=== PATIENT | female | born 1940 | race Caucasian/White ===

== ENCOUNTER 2023-09-19 23:50 | Inpatient (IN) | payer OTHER, SELFPAY ==
[2023-09-19 21:10] VITALS: BP 152/69
[2023-09-19 21:20] VITALS: BP 152/69
--- NOTE | 2023-09-19 21:22 | ED.GENMED ---
History of Present Illness
General
Chief Complaint: Breathing Problem
Source: patient
Exam Limitations: none
Time Seen by Provider: 09/19/23 21:17
Nursing documentation reviewed up to this point in time: agreed with
History of Present Illness
History of Present Illness:
Patient is a 83-year-old female with past medical history of CVA heart failure with preserved EF insulin pen diabetes type 2 CAD, with LAD stents x 3 September/2009 and angioplasty of mid LAD stent in 05/04/2010 brought by EMS from [facility].
Nurse tells me patient was originally sent for possible UTI however patient is very tachypneic and I was called to the room upon patient's arrival. Patient does complain of shortness of breath. She is tachypneic labored breathing use of accessory
muscles. She when asked tells me this is been for the past couple days
Past History
Past History
ED Past Medical History: Arrthythmia (atrial fibrillation), CAD, CHF, CVA (2015 left MCA), GERD, HTN, Hypercholesterolemia, NIDDM, Hypothyroidism, Psychiatric (major depression), Other (Peripheral vascular disease, carotid stenosis, osteoarthritis,
degenerative disc disease, renal failure, MRSA, vertigo) and Other (Chronic low back pain, obesity, osteoporosis, presumed Parkinson's disease)
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
Social History
Tobacco: Non-smoker
Alcohol: None
Drug: None
Personal: Single
Living: long-term (in [place] since August 2018.)
Employment: Retired
Family History
Family History: Other (Reviewed and Noncontributory)
Review of Systems
Review of Systems
Allergies reviewed?: Yes
All Other Systems: ROS reviewed and negative except as documented in HPI and ROS
Constitutional: Reports no symptoms; Denies fever, fatigue or chills
Respiratory: Reports trouble breathing
Cardiac: Reports no symptoms; Denies chest pain or palpitations
ABD/GI: Reports no symptoms
: Reports no symptoms
Skin: Reports no symptoms
Neurological: Reports no symptoms
Psychiatric: Reports no symptoms
Phy Exam
General Physical Exam
General Presentation: no apparent distress
General age: appears stated age
General Skin: warm and dry
General Habitus: normal
General Mental: alert
General Hydration: appears well hydrated
Cardiovascular Exam
Cardiovascular Exam: regular rate/rhythm, no murmur and normal peripheral pulses
Pulmonary Exam
Pulmonary Exam: other (Increased respiratory rate decreased breath sounds throughout)
Neurological Exam
Neurological Exam: alert and oriented x3
Musculoskeletal Exam
Musculoskeletal Exam: full ROM
Skin Exam
Skin Exam: normal color and warm/dry
Psychiatric Exam
Psychiatric Exam: normal mood/affect
Scores
Heart Failure Risk
Heart Failure Risk Score: Not Applicable
Course
Orders/Labs/Results
Orders:
Orders
09/19/23 21:17
ECG [Electrocardiogram (*1)] Urgent
Reason for Study: Shortness of Breath
EKG- Treatment ONCE
09/19/23 21:22
Albuterol Sulfate [Ventolin Nebules] 7.5 mg INH R NOW STA
Portable Chest Xray [CR Chest Portable - 1 View] Urgent
Comment:
Reason For Exam: sob
Reason Study Needs to be Portable: Unable to Transport
09/19/23 21:23
IV Insert/Care/Rem.- Treatment PRN
09/19/23 21:24
Cardiac Monitoring- Treatment ONCE
09/19/23 21:42
Complete Blood Count/With Diff Urgent
Comprehensive Metabolic Panel Urgent
NT-proBNP Urgent
Troponin I Urgent
09/19/23 21:45
Furosemide [Lasix] 40 mg IV NOW STA
09/19/23 22:01
Bipap [RESP] Urgent
Patient to use own unit?: No
Inspiratory Pressure (cm H2O): 12
Expiratory Pressure (cm H2O): 5
Abnormal Lab Results
09/19/23
21:42
WBC 12.2 H 10^3/uL
(4.8-10.8)
RBC 2.96 L 10^6/uL
(4.20-5.40)
Hgb 9.9 L g/dL
(12.0-16.0)
Hct 28.3 L %
(37.0-47.0)
MCH 33.4 H pg
(27.0-31.0)
Abs Immat Gran (auto) 0.1 H 10^3/uL
(0-0.05)
Absolute Neuts (auto) 8.6 H 10^3/uL
(1.4-6.5)
Absolute Monos (auto) 0.8 H 10^3/uL
(0.1-0.6)
Lymphocytes % 19.3 L %
(20.5-51.1)
Chloride 108 H mmol/L
(98-107)
BUN 46 H mg/dl
(7-17)
Creatinine 2.6 H mg/dL
(0.6-1.0)
Glucose 166 H mg/dl
(70-99)
Troponin I 0.216 H* ng/ml
Total Protein 5.9 L g/dl
(6.3-8.2)
Albumin 2.5 L g/dl
(3.5-5.0)
09/19/23 21:42
09/19/23 21:42
Vital Signs
Initial and Last Documented VS:
Initial Vital Signs
BP
152/69
09/19/23 21:10
Last Documented Vital Signs
Temp Pulse Resp BP Pulse Ox
98.2 F 87 24 152/70 99
09/19/23 21:20 09/19/23 22:04 09/19/23 21:30 09/19/23 22:04 09/19/23 21:31
Cell Repairer consulted with Physician
Cell Repairer consulted with physician?: Yes
Name of Physician Consulted: Sagar
MDM/Problems Addressed
Differential Diagnosis Includes:
Not limited to respiratory distress congestive heart failure unstable angina
MDM/Problems Addressed:
As documented patient has a history of CHF CAD with stents CVA on Plavix Lasix presents to the ER for shortness of breath from [facility]. Patient presents short of breath tachypneic here in the ER. Patient has obvious conversational
dyspnea however reports she has been short breath off over the past several days. Stat portable chest x-ray shows bilateral pleural effusions new from January 2023.
Patient does have history of CHF.d/c wit ED attending. IV lasix given. pt was initially given a neb on arrival without relief.
Pt placed on BIPAP and doing better. No chest pain however trop elevated at 0.216. BNP elevated at 25,000 patient has elevated renal function of 46 and 2.6 has chronic kidney disease stage IV) In addition to lasix nitro past ordered
Chronic conditions affecting care:
CHF CAD with stents Parkinson's chronic kidney stage IV
*EKG
Interpreted by ED Provider?: Yes
Heart Rate: 79
Rate: normal
Rhythm: sinus
Ischemia: no ischemia
*Critical Care Note
Total Time (30-74mins, 75-104mins- exclusive of procedures): Not Applicable
ED Attending Note
-
Portions of this chart may have been created with voice recognition software.� Occasional wrong word or��sound alike� substitutions may have occurred due to the inherent limitations of voice recognition software.
Discharge Plan
Departure
Prescriptions:
No Action
ipratropium-albuterol 3 ML solution for nebulization
3 ml inhalation R Q6HPRN PRN (Reason: cough,congestion)
polyethylene glycol 3350 17 GRAMS powder in packet
17 grams PO MOWEFR@09
oxybutynin chloride 10 MG tablet extended release 24hr
10 mg PO HS
aspirin 81 MG tablet,delayed release (DR/EC)
81 mg PO DAILY
magnesium hydroxide 30 ML suspension
30 ml PO [id number] PRN (Reason: if no bm x9 shifts)
bisacodyl [OneLAX Bisacodyl] 10 MG suppository
10 mg HI DAILYPRN PRN (Reason: if no bm aftr mom)
pantoprazole 40 MG tablet,delayed release (DR/EC)
40 mg PO DAILY
Enema 135 ML enema
118 ml HI DAILYPRN PRN (Reason: if no bm aftr dulcolax)
cholecalciferol (vitamin D3) 1,000 UNITS tablet
1,000 units PO DAILY
insulin glargine [Basaglar KwikPen U-100 Insulin] 100 UNIT/ML insulin pen
28 unit SQ DAILY
insulin glargine [Basaglar KwikPen U-100 Insulin] 100 UNIT/ML insulin pen
25 unit SQ HS
ammonium lactate 1 APPLIC lotion
1 applic TP [id number] PRN (Reason: dry skin on legs)
metoprolol succinate 25 MG tablet extended release 24 hr
25 mg PO DAILY
insulin aspart U-100 [Novolog FlexPen U-100 Insulin] 300 UNITS/3 ML insulin pen
12 units SC MEALS
Patient Comments:
plus sliding [id number], 201-250=4u, 251-300=6u, 301-350=8u, 351-400=10u
duloxetine 30 MG capsule,delayed release(DR/EC)
30 mg PO HS
melatonin 5 MG tablet
5 mg PO HS
albuterol sulfate 1 PUFF HFA aerosol inhaler
1 puff inhalation R Q6HPRN PRN (Reason: sob)
hydralazine 25 MG tablet
25 mg PO Q8 0RF
meclizine 25 MG tablet
25 mg PO Q8HPRN PRN (Reason: vertigo) 0RF
furosemide 20 MG tablet
20 mg PO DAILY 0RF
clopidogrel [Plavix] 75 mg Tablet
75 mg PO DAILY
famotidine [Pepcid] 20 mg Tablet
20 mg PO DAILY
benzonatate 100 mg Capsule
100 mg PO Q8HPRN PRN (Reason: COUGH)
hydrocortisone [Preparation H Hydrocortisone] 1 % Cream
1 applic TOPICAL Q6HPRN PRN (Reason: HEMORRHIODS)
carbidopa-levodopa 10-100 mg Tablet
1 tab PO BID@17,21
carbidopa-levodopa 10-100 mg Tablet
2 tab PO DAILY@0900
Refresh Digital 0.5-1-0.5 % Drops
1 drp BOTH EYES QID
atorvastatin 40 MG tablet
40 mg PO HS
acetaminophen 325 mg Tablet
650 mg PO Q6HPRN PRN (Reason: mild pain, T>100)
magnesium hydroxide [Milk of Magnesia] 400 mg/5 mL Suspension
30 ml PO DAILYPRN PRN (Reason: no BM x3 days)
losartan 100 mg Tablet
100 mg PO DAILY
Referrals:
Shay Sorensen MD [Family Provider] -
Interventions
Interventions:
*Risk Screen - Suicide Last Done: 09/19/23 21:20
*General Assessment Last Done: 09/19/23 21:31
*Neglect/Abuse Screening Last Done: 09/19/23 21:31
ED- Fall Risk Assessment Last Done: 09/19/23 21:31
*ED COVID-19 Vaccine History Last Done: 09/19/23 21:31
ED- Cardiac Assessment Last Done: 09/19/23 21:31
ED- Pulmonary Assessment Last Done: 09/19/23 21:31
Discharge Date and Time
Print Language: CAPE VERDEAN
[2023-09-19 21:27] VITALS: BMI 32.3
[2023-09-19] MEDS: VENTOLIN NEBULES 7.5 MG INH (21:27)
[2023-09-19 21:49] LABS: % Basophils 0.8 % (0-2); % Eosinophils 2.3 % (0-6); % Immature Granulocytes 0.5 % (0-0.5); % Lymphocytes 19.3 % (20.5-51.1); % Monocytes 6.6 % (1.7-9.3); % Neutrophils 70.5 % (42.2-75.2); Absolute Basophils 0.1 10^3/uL (0-0.2); Absolute Eosinophils 0.3 10^3/uL (0-0.7); Absolute Immature Granulocytes 0.1 10^3/uL (0-0.05); Absolute Lymphocytes 2.3 10^3/uL (1.2-3.4); Absolute Monocytes 0.8 10^3/uL (0.1-0.6); Absolute Neutrophils 8.6 10^3/uL (1.4-6.5); Hematocrit 28.3 % (37.0-47.0); Hemoglobin 9.9 g/dL (12.0-16.0); Mean Corpuscular Hgb 33.4 pg (27.0-31.0); Mean Corpuscular Volume 95.6 fL (81.0-99.0); Mean Platelet Volume 9.8 fL (7.4-10.4); Nucleated Red Blood Cells % 0 %; Platelet Count 308 10^3/uL (130-400); Red Blood Cell Count 2.96 10^6/uL (4.20-5.40); Red Cell Dist. Width 13.5 % (11.5-14.5); White Blood Cell Count 12.2 10^3/uL (4.8-10.8)
[2023-09-19 22:00] VITALS: BP 152/70
[2023-09-19 22:02] LABS: ALT (SGPT) < 10 U/L (0-35); AST (SGOT) 23 U/L (14-36); Albumin 2.5 g/dl (3.5-5.0); Alkaline Phosphatase 113 U/L (38-126); Blood Urea Nitrogen 46 mg/dl (7-17); Calcium 8.9 mg/dl (8.4-10.2); Carbon Dioxide 23 mmol/L (22-30); Chloride 108 mmol/L (98-107); Estimated Creatinine Clearance 17 ml/min; Glucose 166 mg/dl (70-99); Potassium 4.1 mmol/L (3.5-5.1); Sodium 139 mmol/L (135-145); Total Bilirubin 0.6 mg/dl (0.2-1.3); Total Protein 5.9 g/dl (6.3-8.2); eGFR 17.65
[2023-09-19] MEDS: LASIX 40 MG IV (22:04)
[2023-09-19 22:20] VITALS: PULSE 2
[2023-09-19 22:20] LABS: NT-proBNP 25400 pg/ml; Troponin I 0.216 ng/ml
[2023-09-19 22:48] VITALS: BP 152/59
[2023-09-19] MEDS: NITRO-BID 1 INCH TOPICAL (22:48)
[2023-09-19 23:00] VITALS: BP 139/75
--- NOTE | 2023-09-19 23:55 | HPS.HSE ---
Family Physician
-
Family Physician: Shay Sorensen
Chief Complaint
-
SOB
History of Present Illness
Patient is an 83y F with PMH significant for ASCVD, CHF and R hemiparesis s/p prior CVA who presents to ED complaining of SOB. History obtained from patient and family at the bedside. Daughter saw patient on Tuesday and she appeared well at that
time. Earlier today son visited and thought she appeared ill / SOB. This afternoon patient was noted to have increased dyspnea / respiratory distress and was sent to the ED from [place] for further evaluation.
Patient was in significant distress on arrival with SpO2 = 87% on supplemental oxygen. She was started on BiPAP here in the ED and states that she feels marginally better since that time.
Patient notes that she developed gradually worsening SOB over this past weekend - though much worse today.
No significant chest pain, cough, fevers / chills, etc.
Patient recently completed a 5 day course of Augmentin for UTI and states that she gets frequent UTIs with dysuria, frequency, etc. No other recent med changes, etc.
She is non-ambulatory at baseline with R hemiparesis due to prior CVA.
Medical History
Past Medical History
Past Medical History: Reports Other
Additional Past Medical History:
ASCVD (CAD, CVA, Carotid Stenosis, PAD)
Right Hemiparesis s/p CVA
Chronic HFpEF
Hypertension
DM-II
CKD IV
Parkinson's Disease
GERD / Bolanos's Esophagus
Anxiety / Depression
Past Surgical History: Reports Other
Additional Past Surgical History:
PTCA with Multiple Stents
Balloon angioplasty to LAD
Carotid stent
Appendectomy
Hysterectomy
Ovarian cyst
Tonsillectomy
Cataract surgery
ORIF R ankle
Social History
Tobacco: Non-smoker
Alcohol: None
Drug: None
Living: Correction
Family History
Family History: Not pertinent
Allergies / Home Medications
Allergies reflects when Allergies were last updated in [facility].
Home Medications with original date entered in [facility]
Allergy/Medication List:
Allergies
Allergy/AdvReac Type Severity Reaction Status Date / Time
amlodipine Allergy Unknown Verified 09/19/23 21:26
cefuroxime sodium Allergy upset Verified 09/19/23 21:26
[From Zinacef] stomach
enalapril Allergy cough Verified 09/19/23 21:26
erythromycin base Allergy low blood Verified 09/19/23 21:26
pressure,
flushing
Iodinated Contrast Media Allergy IV DYE Verified 09/19/23 21:26
[Iodinated Contrast Media -
Oral and]
levofloxacin [From Levaquin] Allergy upset Verified 09/19/23 21:26
stomach
metformin Allergy Unknown Verified 09/19/23 21:26
prednisone Allergy Hives Verified 09/19/23 21:26
shellfish derived Allergy LOBSTER-HIV Verified 09/19/23 21:26
ES
Sulfa (Sulfonamide Allergy Unknown Verified 09/19/23 21:26
Antibiotics)
Home Medications
aspirin 81 mg tablet,delayed release 81 mg PO DAILY Blood clot prevention/tx 02/26/19
bisacodyl 10 mg rectal suppository (OneLAX Bisacodyl) 10 mg [place] DAILYPRN PRN if no bm aftr mom 02/26/19
cholecalciferol (vitamin D3) 25 mcg (1,000 unit) tablet 1,000 units PO DAILY Supplement 02/26/19
insulin glargine 100 unit/mL (3 mL) subcutaneous pen (Basaglar KwikPen U-100 Insulin) 25 unit SQ HS Diabetes 02/26/19
insulin glargine 100 unit/mL (3 mL) subcutaneous pen (Basaglar KwikPen U-100 Insulin) 28 unit SQ DAILY Diabetes 02/26/19
ipratropium 0.5 mg-albuterol 3 mg (2.5 mg base)/3 mL nebulization soln 3 ml inhalation R Q6HPRN PRN cough,congestion 02/26/19
oxybutynin chloride 10 mg tablet,extended release 24 hr 10 mg PO HS Urinary issue 02/26/19
pantoprazole 40 mg tablet,delayed release 40 mg PO DAILY Gastrointestinal issue 02/26/19
polyethylene glycol 3350 17 gram oral powder packet 17 grams PO MOWEFR@ Constipation 02/26/19
albuterol sulfate 90 mcg/actuation aerosol inhaler 1 puff inhalation R Q6HPRN PRN sob 09/21/21
ammonium lactate 12 % lotion 1 applic TP [id number] PRN dry skin on legs 09/21/21
duloxetine 30 mg capsule,delayed release 30 mg PO HS Mental Health/Anxiety 09/21/21
insulin aspart U-100 100 unit/mL (3 mL) subcutaneous pen (Novolog FlexPen U-100 Insulin aspart) 12 units SC MEALS Diabetes 09/21/21
melatonin 5 mg tablet 5 mg PO HS Sleep 09/21/21
metoprolol succinate 25 mg tablet,extended release 24 hr 25 mg PO DAILY Heart disease/condition 09/21/21
hydralazine 25 mg tablet 25 mg PO Q8 09/25/21
meclizine 25 mg tablet 25 mg PO Q8HPRN PRN vertigo 09/25/21
acetaminophen 325 mg tablet 650 mg PO Q6HPRN PRN mild pain, T>100 01/18/23
atorvastatin 40 mg tablet 40 mg PO HS High Cholesterol 01/18/23
benzonatate 100 mg capsule 100 mg PO Q8HPRN PRN COUGH 01/18/23
carbidopa 10 mg-levodopa 100 mg tablet 1 tab PO BID@0900,1700 Neurological Condition 01/18/23
carbidopa 10 mg-levodopa 100 mg tablet 2 tab PO HS Neurological Condition 01/18/23
oupxtyrbrliummwhffrilt-qeucqrfb-dojrxrmv 80 0.5 %-1 %-0.5 % eye drops (Refresh Digital) 1 drp BOTH EYES QID Eye Condition 01/18/23
clopidogrel 75 mg tablet (Plavix) 75 mg PO DAILY Blood Clot Prevention/Tx 01/18/23
hydrocortisone 1 % topical cream (Preparation H Hydrocortisone) 1 applic topical Q6HPRN PRN HEMORRHIODS 01/18/23
losartan 100 mg tablet 100 mg PO DAILY Blood Pressure 01/18/23
magnesium hydroxide 400 mg/5 mL oral suspension (Milk of Magnesia) 30 ml PO DAILYPRN PRN no BM x3 days 01/18/23
amlodipine 2.5 mg tablet 2.5 mg PO DAILY 09/19/23
amoxicillin 500 mg-potassium clavulanate 125 mg tablet (Augmentin) 1 tab PO Q12H 09/19/23
docusate sodium 100 mg capsule 100 mg PO HS 09/19/23
furosemide 20 mg tablet 40 mg PO DAILY 09/19/23
Review of Systems
-
History Source: Patient
A 12 point ROS was completed and negative except as noted: Yes
Constitutional: Reports Fatigue; Denies Fever or Chills
EENT: Denies Sore Throat
Respiratory: Reports Trouble Breathing; Denies Cough or Hemoptysis
Cardiac: Denies Chest Pain, Diaphoresis, Palpitations or Syncope
Abdomen/GI: Denies Abdominal Pain, Nausea, Vomiting or Diarrhea
: Reports Dysuria, Frequency and Incontinence; Denies Flank Pain
Musculoskeletal: Reports Edema
Neurological: Reports Weakness and Numbness; Denies Dizzy or Headache
Psych: Reports Anxiety; Denies Depression
Physical Exam
Vital Signs
Vital Signs
Temp Pulse Resp BP Pulse Ox
98.2 F 82 18 139/75 99
09/19/23 21:20 09/19/23 23:00 09/19/23 23:00 09/19/23 23:00 09/19/23 23:00
Physical Exam
General: Other (Ill-appearing 83y F in moderate respiratory distress despite BiPAP.)
HEENT: Other (BiPAP in place. Pos HJR.)
Respiratory: Other (Bibasilar rales, diminished breath sounds at bases with dullness to percussion about 1/3 up.)
Cardiac: S1/S2 and Irregular Rhythm; No Murmur
GI: Soft, Non Tender, Non Distended and Normal Bowel Sounds
Musculoskeletal: No Clubbing, No Cyanosis and Other (2+ pitting edema in dependent distribution (R hand / buttocks / etc).)
Neuro: AO x 3 and Other (R hemiparesis / bilateral LE weakness - chronic and unchanged from baseline. No new focal deficits.)
Laboratory Results
-
09/19/23 21:42
09/19/23 21:42
Laboratory Results
Total Bilirubin 0.6 mg/dl (0.2-1.3) 09/19/23 21:42
AST 23 U/L (14-36) 09/19/23 21:42
ALT < 10 U/L (0-35) 09/19/23 21:42
Alkaline Phosphatase 113 U/L (38-126) 09/19/23 21:42
Troponin I 0.216 ng/ml H* 09/19/23 21:42
Impression/Plan
-
A/P: Patient is an 83y F with PMH significant for ASCVD, CHF, HTN and DM-II who presents to ED complaining of SOB.
Acute on Chronic HFpEF
Acute Hypoxemic Respiratory Failure secondary to the above
Bilateral Pleural Effusions secondary to the above
- Admit to ICU for further evaluation and treatment.
- Patient continues to appear to be uncomfortable - despite improvement in oxygenation on BiPAP.
- Adjust PAP settings as able for comfort / adequate oxygenation.
- Additional dose of Lasix now - will require higher dosing given renal impairment.
- IV Lasix BID and follow I/Os, daily weights, etc.
- Update Echo (last in 01/2023 with LVEF = 57%).
- BNP today is markedly elevated compared to prior values.
- Cardiology evaluation for additional recommendations.
- Care Navigator evaluation.
- Follow for clinical improvement.
- Consider IR / thoracentesis in the AM if dyspnea persists despite diuresis.
ASCVD
Abnormal Troponin
- Initial troponin is 0.216 - significantly higher than prior values.
- Etiology of this increase is unclear at present, i.e. ischemic v non-ischemic.
- No current chest pain, but significant dyspnea / active CHF.
- EKG with bifascicular block, PACs and PVCs but no evident acute ischemia.
- Known history of multiple prior coronary stents / CAD.
- Will begin IV heparin for now and follow serial troponin to peak.
- Continue DAPT, beta-augusto, statin, etc.
- Cardiology evaluation as noted above.
Benign Hypertension
- BP not markedly elevated on initial presentation.
- Will hold many BP meds for now and monitor for changes with attempts at diuresis.
- Resume meds as needed for adequate BP control
JONATAN on CKD IV
- SCr - 2.6 compared to prior baseline around 1.6 (though that does not seem c/w diagnosis of CKD IV).
- Follow for changes with diuresis.
DM-II
- Stable. Continue basal : bolus insulin regimen.
- Follow glucose and cover with SSI as needed.
- Update A1C.
Right Hemiparesis as Late Effect of CVA
- Non-ambulatory at baseline.
- RUE significant edema noted today - suspect this is due to CHF / patient positioning, but will check US to rue out DVT.
- Can be done in the AM as already on therapeutic heparin gtt.
- PT / OT evals once clinically improved.
Parkinson's
- Stable. Continue current dosing of Sinemet without interruption / changes.
Anemia of Chronic Disease
- Stable. Hgb is at / near known baseline.
- Follow for changes with diuresis.
OAB / Frequent UTIs
- Observe off of any abx therapy for now.
- Completed recent course of Augmentin on 09/14.
DVT Prophylaxis: On IV Heparin
Code Status: DNR
[2023-09-20] VITALS (29 sets, daily range): BP systolic 66–169; BP diastolic 41–80; PULSE 2–77; BMI 32.3; BMI 31.7
[2023-09-20] MEDS: LASIX 40 MG IV ×2 (00:22→17:39)
[2023-09-20] MEDS: HEPARIN 4000 UNITS IV (00:30)
[2023-09-20 00:47] LABS: APTT 31.5 Sec (23.4-35.0)
[2023-09-20] MEDS: HEPARIN 25000 UNITS/250 ML IV (01:05)
[2023-09-20 01:30] LABS: Hematocrit 25.5 % (37.0-47.0); Hemoglobin 8.9 g/dL (12.0-16.0); Mean Corp Hgb Conc. 34.9 g/dL (33.0-37.0); Mean Corpuscular Volume 94.4 fL (81.0-99.0); Mean Platelet Volume 9.8 fL (7.4-10.4); Platelet Count 278 10^3/uL (130-400); Red Cell Dist. Width 13.5 % (11.5-14.5); White Blood Cell Count 13.1 10^3/uL (4.8-10.8)
--- NOTE | 2023-09-20 02:00 | PTCARENOTE ---
rec`d pt from ED at 0200. AAOx3, pt on BIPAP. SR on monitor. hr in 70s. +edema +2, bilateral lower +3 edema. crackles noted. purwick in place. lower leg bilateral pink open skin., blister like. left AC 20 running with heparin gtt. call raya in reach
[2023-09-20 02:12] LABS: Troponin I 0.204 ng/ml
[2023-09-20 02:42] LABS: LDH 213 U/L (120-246); Total Protein 5.9 g/dl (6.3-8.2)
[2023-09-20] MEDS: BENADRYL 12.5 MG IV (04:41)
[2023-09-20 04:45] LABS: TSH Reflex To Free T4 3.83 uIU/ml (0.47-4.68)
[2023-09-20] MEDS: CYMBALTA DELAYED RELEASE 30 MG PO ×2 (05:13→21:15)
[2023-09-20] MEDS: SINEMET 10-100 1 TABLET PO ×2 (05:22→17:39)
[2023-09-20] MEDS: SINEMET 10-100 PO (05:24)
[2023-09-20 06:23] LABS: Blood Urea Nitrogen 39 mg/dl (7-17); Calcium 7.3 mg/dl (8.4-10.2); Carbon Dioxide 18 mmol/L (22-30); Chloride 118 mmol/L (98-107); Estimated Creatinine Clearance 19 ml/min; Glucose 81 mg/dl (70-99); Magnesium 1.6 mg/dl (1.6-2.3); Potassium 3.4 mmol/L (3.5-5.1); Sodium 142 mmol/L (135-145); eGFR 20.45
--- NOTE | 2023-09-20 08:00 | PTCARENOTE ---
Received pt @ change of shift. Assessment as charted- see flow sheet. SpO2 97% on BiPAP 12/5, 3L. Auscultated diminished breath sounds throughout and crackles @ b/l base L>R. #22 L hand PIV w heparin gtt infusing, titrated per orders- see flow
sheet. Pt. instructed on how to report care concerns and call raya placed w in reach. Hourly round maintained.
[2023-09-20 08:07] LABS: APTT 83.2 Sec (23.4-35.0)
[2023-09-20 08:21] LABS: Troponin I 0.255 ng/ml
--- NOTE | 2023-09-20 08:50 | W.PN.HOSP.TC ---
Today's Communication/Plan
-
diuresis
replace K and Mag
Heparin
ECHO
Thoracentesis
Await Procal and speech eval
Assessment / Plan
Assessment / Plan
83 y/o female with shortness of breath
SOB
On BIPAP
CVS: S1-S2 normal
Chest: decreased at bases
Abdomen: Soft, NT / Bowel sounds present
Extremities: No edema
# Acute on chronic heart failure [place] [address]
Acute hypoxic respiratory failure secondary to above
Bilateral pleural effusions
On BiPAP continue Lasix IV
Check echo
Cardiology evaluation
Thoracentesis by [facility]
# Coronary artery disease with H/O coronary stents
Elevated troponin
EKG bifascicular block PACs and PVCs
IV heparin for now and follow serial troponin to peak.
Continue DAPT, beta-augusto, statin
# Leukocytosis-repeat urinalysis
Check procalcitonin
Unclear whether this is CHF or pneumonia given elevated white count
Speech evaluation to rule out aspiration pneumonia Parkinson disease
# Hypokalemia- Replace
# Hypertension-on metoprolol 25 mg, losartan 100 mg daily, Amlodipine 2.5 mg as outpatient along with hydralazine 20 mg every 8 hours
continue beta-blockers alone now
# Hyperlipidemia-statin
# Acute kidney injury on CKD stage IV
Baseline creatinine 1.6 ,hold losartan
# Diabetes
Patient was on Lantus insulin 28 units in the morning and 20 units at night along with NovoLog 12 before meals as outpatient
Patient got Lantus insulin 25 units at nighttime. Continue sliding scale coverage as she is n.p.o.
# History of CVA with right hemiparesis
Nonambulatory at baseline
# Frequent UTIs recently completed a course of Augmentin on 09/15/2023
# Parkinson disease-continue Sinemet
# Anemia of chronic disease
# Chronic vertigo on meclizine as needed,
# Depression-on duloxetine
# GERD-PPI
# DVT prophylaxis-IV heparin
# DNR
Discussed with son at bedside
Discussed with pulmonary critical care
time spent over 55 min
Anticipated Discharge: > 48 hours
Subjective/Interval History
-
Date of Service: September 20, 2023
Objective Data
-
Labs:
Laboratory Results
09/19/23 09/20/23 09/20/23
21:42 00:28 01:25
WBC 12.2 H 13.1 H
Hgb 9.9 L 8.9 L
Hct 28.3 L 25.5 L
Plt Count 308 278
PT
INR
APTT 31.5
Sodium 139
Potassium 4.1
Chloride 108 H
Carbon Dioxide 23
BUN 46 H
Creatinine 2.6 H
Glucose 166 H
Calcium 8.9
Total Bilirubin 0.6
AST 23
ALT < 10
Alkaline Phosphatase 113
09/20/23 09/20/23
05:07 07:40
WBC
Hgb
Hct
Plt Count
PT 15.0 H
INR 1.20
APTT 83.2 H
Sodium 142
Potassium 3.4 L
Chloride 118 H
Carbon Dioxide 18 L
BUN 39 H
Creatinine 2.3 H
Glucose 81
Calcium 7.3 L D
Total Bilirubin
AST
ALT
Alkaline Phosphatase
Vital Signs:
Vital Signs
Temp Pulse Resp BP Pulse Ox
98.2 F 86 19 151/63 93
09/19/23 21:20 09/20/23 05:45 09/20/23 05:45 09/20/23 04:00 09/20/23 05:45
I&O
09/19/23 09/20/23 09/21/23
06:59 06:59 06:59
Intake Total 40 / 40
Output Total 200 / 200
Balance -160 / -160
[2023-09-20] MEDS: NOVOLOG FLEXPEN-MODERATE RESISTANCE SC ×3 (08:55→17:07)
[2023-09-20] MEDS: ASPIR LOW (ENTERIC COATED) 81 MG PO (08:57)
[2023-09-20] MEDS: LASIX 60 MG PO (08:57)
[2023-09-20] MEDS: PLAVIX 75 MG PO (08:57)
[2023-09-20] MEDS: COZAAR 50 MG PO (08:58)
[2023-09-20] MEDS: TOPROL XL 25 MG PO (08:58)
--- NOTE | 2023-09-20 10:25 | CARDSERVLU ---
Echocardiogram with Lumason completed after protocol screening completed. Allergies verified.
Patent IV site: __L AC___
IV site flushed with 0.9% NaCl pre and post administration.
Diluted bolus method utilized to enhance visualization of ventricular heller.
Total volume given: _2.5___ mL
Patient tolerated all procedures well without complications.
--- NOTE | 2023-09-20 10:29 | CON.INTV ---
Documented by User: Joellen Anguiano MD, Resident 09/20/23 11:09
Consultation
Consultation Request
Date/Time Consultation Requested: 09/20/2023 00:18
Date/Time Consultation Performed: 09/20/2023 08:00
Medical History
-
Chief Complaint: Shortness of breath
History of Present Illness:
Patient is a 89-year-old female with past medical history significant for ASCVD, CHF with preserved ejection fraction, right hemiparesis status post prior CVA 2021 who presented to ED from the group home complaining of shortness of breath at
rest and exertion, and respiratory distress. Presentation to the ED patient was afebrile, normotensive and in significant distress with SpO2 87% on supplemental oxygen. She was started on BiPAP in the ED with improvement in oxygenation.
Evaluation with chest x-ray in ED showed moderate pleural effusion. Troponin elevated at 0.216 which EKG negative for acute ischemia. We are asked to follow from a critical care standpoint in the setting of hypoxemic respiratory failure.
Past Medical History
Past Medical History: Other (CAD, CVA, carotid stenosis, PAD, right hemiparesis status post CVA, chronic HFpEF, hypertension, DM 2, CKD stage IV, Parkinson's disease, GERD, Bolanos's esophagus, anxiety, depression)
Past Surgical History: Other (PTCA with multiple stents, balloon angioplasty to LAD, carotid stent, appendectomy, hysterectomy, ovarian cyst, tonsillectomy, cataract surgery,)
Social History
Tobacco: Non-smoker
Alcohol: None
Drug: None
Personal: Single
Living: Retirement
Employment: Retired
Family History
Family History: Reviewed & Not Pertinent
Allergies / Home Medications
Allergies
Allergy/AdvReac Type Severity Reaction Status Date / Time
amlodipine Allergy Unknown Verified 09/19/23 21:26
cefuroxime sodium Allergy upset Verified 09/19/23 21:26
[From Zinacef] stomach
enalapril Allergy cough Verified 09/19/23 21:26
erythromycin base Allergy low blood Verified 09/19/23 21:26
pressure,
flushing
Iodinated Contrast Media Allergy IV DYE Verified 09/19/23 21:26
[Iodinated Contrast Media -
Oral and]
levofloxacin [From Levaquin] Allergy upset Verified 09/19/23 21:26
stomach
metformin Allergy Unknown Verified 09/19/23 21:26
prednisone Allergy Hives Verified 09/19/23 21:26
shellfish derived Allergy LOBSTER-HIV Verified 09/19/23 21:26
ES
Sulfa (Sulfonamide Allergy Unknown Verified 09/19/23 21:26
Antibiotics)
Home Medications
�Medication �Instructions �Recorded �Confirmed �Last Taken �Type
aspirin 81 mg tablet,delayed 81 mg PO DAILY Blood clot 02/26/19 09/19/23 04/19/19 09:00 History
release prevention/tx
bisacodyl 10 mg rectal suppository 10 mg CA DAILYPRN PRN if no bm 02/26/19 09/19/23 Unknown History
(OneLAX Bisacodyl) aftr mom
cholecalciferol (vitamin D3) 25 1,000 units PO DAILY Supplement 02/26/19 09/19/23 04/18/19 09:00 History
mcg (1,000 unit) tablet
insulin glargine 100 unit/mL (3 25 unit SQ HS Diabetes 02/26/19 09/19/23 04/19/19 06:00 History
mL) subcutaneous pen (Basaglar
KwikPen U-100 Insulin)
insulin glargine 100 unit/mL (3 28 unit SQ DAILY Diabetes 02/26/19 09/19/23 04/18/19 21:00 History
mL) subcutaneous pen (Basaglar
KwikPen U-100 Insulin)
ipratropium 0.5 mg-albuterol 3 mg 3 ml inhalation R Q6HPRN PRN 02/26/19 09/19/23 02/26/19 09:22 History
(2.5 mg base)/3 mL nebulization cough,congestion
soln
oxybutynin chloride 10 mg 10 mg PO HS Urinary issue 02/26/19 09/19/23 04/18/19 17:00 History
tablet,extended release 24 hr
pantoprazole 40 mg tablet,delayed 40 mg PO DAILY Gastrointestinal 02/26/19 09/19/23 04/19/19 06:00 History
release issue
polyethylene glycol 3350 17 gram 17 grams PO MOWEFR@09 Constipation 02/26/19 09/19/23 04/18/19 09:00 History
oral powder packet
albuterol sulfate 90 mcg/actuation 1 puff inhalation R Q6HPRN PRN sob 09/21/21 09/19/23 Unknown History
aerosol inhaler
ammonium lactate 12 % lotion 1 applic TP [id number] PRN dry skin 09/21/21 09/19/23 Unknown History
on legs
duloxetine 30 mg capsule,delayed 30 mg PO HS Mental Health/Anxiety 09/21/21 09/19/23 Unknown History
release
insulin aspart U-100 100 unit/mL 12 units SC MEALS Diabetes 09/21/21 09/19/23 Unknown History
(3 mL) subcutaneous pen (Novolog
FlexPen U-100 Insulin aspart)
melatonin 5 mg tablet 5 mg PO HS Sleep 09/21/21 09/19/23 Unknown History
metoprolol succinate 25 mg 25 mg PO DAILY Heart 09/21/21 09/19/23 Unknown History
tablet,extended release 24 hr disease/condition
hydralazine 25 mg tablet 25 mg PO Q8 09/25/21 09/19/23 Unknown Rx
meclizine 25 mg tablet 25 mg PO Q8HPRN PRN vertigo 09/25/21 09/19/23 Unknown Rx
acetaminophen 325 mg tablet 650 mg PO Q6HPRN PRN mild pain, 01/18/23 09/19/23 Unknown History
T>100
atorvastatin 40 mg tablet 40 mg PO HS High Cholesterol 01/18/23 09/19/23 Unknown History
benzonatate 100 mg capsule 100 mg PO Q8HPRN PRN COUGH 01/18/23 09/19/23 Unknown History
carbidopa 10 mg-levodopa 100 mg 1 tab PO BID@0900,1700 01/18/23 09/19/23 Unknown History
tablet Neurological Condition
carbidopa 10 mg-levodopa 100 mg 2 tab PO HS Neurological Condition 01/18/23 09/19/23 Unknown History
tablet
zvjkhverdezybqhgxmzcrq-szbwrlzu-sdfsnqgd 1 drp BOTH EYES QID Eye Condition 01/18/23 09/19/23 Unknown History
80 0.5 %-1 %-0.5 % eye drops
(Refresh Digital)
clopidogrel 75 mg tablet (Plavix) 75 mg PO DAILY Blood Clot 01/18/23 09/19/23 Unknown History
Prevention/Tx
hydrocortisone 1 % topical cream 1 applic topical Q6HPRN PRN 01/18/23 09/19/23 Unknown History
(Preparation H Hydrocortisone) HEMORRHIODS
losartan 100 mg tablet 100 mg PO DAILY Blood Pressure 01/18/23 09/19/23 Unknown History
magnesium hydroxide 400 mg/5 mL 30 ml PO DAILYPRN PRN no BM x3 days 01/18/23 09/19/23 Unknown History
oral suspension (Milk of Magnesia)
amlodipine 2.5 mg tablet 2.5 mg PO DAILY Blood Pressure 09/19/23 09/19/23 Unknown History
amoxicillin 500 mg-potassium 1 tab PO Q12H Infection 09/19/23 09/19/23 Unknown History
clavulanate 125 mg tablet
(Augmentin)
docusate sodium 100 mg capsule 100 mg PO HS Constipation 09/19/23 09/19/23 Unknown History
furosemide 20 mg tablet 40 mg PO DAILY Fluid 09/19/23 09/19/23 Unknown History
Retention/Swelling
Review of Systems
-
All other systems: Negative unless noted (Except as documented)
Vitals / Labs / Diagnostic Testing
Vital Signs
Temp Pulse Resp BP Pulse Ox
97.6 F 85 19 169/76 93
09/20/23 08:00 09/20/23 08:58 09/20/23 05:45 09/20/23 08:58 09/20/23 05:45
Lab Data
09/20/23 01:25
09/20/23 05:07
Laboratory Results
09/20/23 09/20/23
00:28 07:40
PT 15.0 H
INR 1.20
APTT 31.5 83.2 H
Diagnostic Testing:
Physical Exam
-
HEENT: Other (Normocephalic, BiPAP in place)
Cardiovascular: S1/S2 and Irregular Rhythm
Respiratory: Other (Bibasilar rales, diminished breath sounds at bases, no wheezes, no rhonchi)
GI: Soft, Non Distended, Non Tender and Normal Bowel Sounds
Neurology: Awake, Alert and Oriented
Skin: Warm
General: Other (Patient is in moderate respiratory distress despite BiPAP)
Assessment
-
83-year-old female with PMH significant for ASCVD, CHF, hypertension, DM 2, HFpEF complaining of shortness of breath and respiratory distress
Assessment
Acute hypoxemic respiratory failure secondary to acute on chronic HFpEF
Bilateral pleural effusions on X-ray
Abnormal troponin
JONATAN on CKD stage IV
Anemia of chronic disease
Hypokalemia
Hypomagnesemia
Conditions present prior to admission
CAD
Right hemiparesis status post prior CVA
Carotid stenosis
PAD
Benign hypertension
Diabetes mellitus 2
Parkinson's disease
Anxiety
Depression
Plan
Patient initiated on BiPAP in the ED with improvement in oxygenation
Continue BiPAP qhs 10p-6a, and PRN during the day
BNP markedly elevated at 25,400
Last echo 01/2023 with LVEF 57%
IV Lasix initiated
Follow I/O's, daily weights
Cardiology on board
Troponin elevated at 0.255 with no episode of current chest pain
Repeat troponin
Initial EKG with no evidence of acute ischemia, repeat EKG
IR/thoracocentesis with fluid analysis
Creatinine 2.5 compared to baseline of 1.6
Monitor BMP, creatinine
Replete Mg, monitor K+ repeat both labs at noon
Hold losartan until creatinine improves
Resume amlodipine for blood pressure control
Patient with prior CVA on dual antiplatelet therapy, continue meds
Continue statin
DVT ppx IV heparin
GI ppx pantoprazole p.o.
DNR

Documented by User: Tip Zepeda MD 09/20/23 11:53
Consultation
Consultation Request
Reason for Consultation: critical care
Medical History
-
History of Present Illness:
History obtained from son at bedside, some history from patient and reviewed ER records, hospital records. Patient is a 83-year-old female with past medical history significant for ASCVD, CHF with preserved ejection fraction, right hemiparesis
status post prior CVA 2021 who presented to ED from the group home complaining of shortness of breath at rest and exertion, and respiratory distress. Presentation to the ED patient was afebrile, normotensive and in significant distress with
SpO2 87% on supplemental oxygen. She was started on BiPAP in the ED with improvement in oxygenation. Evaluation with chest x-ray in ED showed moderate pleural effusion. Troponin elevated at 0.216 which EKG negative for acute ischemia. We are
asked to follow from a critical care standpoint in the setting of hypoxemic respiratory failure.
Review of Systems
-
History Source: Family
Physical Exam
-
General: Other (mild distress with movement likely comfort related)
Assessment
-
83-year-old female with PMH significant for ASCVD, CHF, hypertension, DM 2, HFpEF complaining of shortness of breath and respiratory distress
Assessment
Acute hypoxemic respiratory failure secondary to acute on chronic HFpEF
Bilateral pleural effusions on X-ray
Abnormal troponin
JONTAAN on CKD stage IV
Anemia of chronic disease
Hypokalemia
Hypomagnesemia
Conditions present prior to admission
CAD
Right hemiparesis status post prior CVA
Carotid stenosis
PAD
Benign hypertension
Diabetes mellitus 2
Parkinson's disease
Anxiety
Depression
DNR
Plan
Patient initiated on BiPAP in the ED with improvement in oxygenation
Continue BiPAP qhs 10p-6a, and PRN during the day
BNP markedly elevated at 25,400
Last echo 01/2023 with LVEF 57%
IV Lasix initiated
Follow I/O's, daily weights
Cardiology on board
Troponin elevated at 0.255 with no episode of current chest pain
pt on ASA
Repeat troponin
Initial EKG with no evidence of acute ischemia, repeat EKG
Prolonged QT noted. Will follow. Repeat EKG in a.m.
Chest x-ray with bilateral pleural effusions, left greater than right. Likely secondary to heart failure
Given respiratory distress, requirement for BiPAP, will consider both diagnostic and therapeutic left thoracentesis
No indication for antibiotics at this time. Will follow clinically
IR/thoracocentesis with fluid analysis, and cultures. Reviewed with interventional radiology low suspicion for infection
Other etiologies to consider with acute hypoxia include thromboembolic disease. This is less likely with an abnormal chest x-ray
Creatinine 2.5 compared to baseline of 1.6
Creatinine decreased to 2.3 despite negative fluid status. This potentially argues for heart failure
Monitor BMP, creatinine
Replete Mg, monitor K+ repeat both labs at noon
Hold losartan until creatinine improves
Resume amlodipine for blood pressure control
allergy noted, unknown. Reviewed with pharmacy. Will clarify
Reason for acute on chronic renal insufficiency likely related to poor forward flow in the setting of heart failure. However will check renal ultrasound to rule out obstructive uropathy
No other nephrotoxic agents noted preadmission
Patient with prior CVA on dual antiplatelet therapy, continue meds
Baseline neurological exam noted, right-sided weakness
Continue statin
DVT ppx IV heparin
GI ppx pantoprazole p.o.
DNR
Reviewed the above with critical care nursing, respiratory care, pharmacy, case management
TCCT 35 min

Above reviewed. Patient seen and examined independently by myself. History obtained from the son at the bedside and some history from the patient.
Patient presents from group home with progressive shortness of breath and hypoxia. Chest x-ray suggested bilateral pleural effusions, blood work suggestive of heart failure. There is no evidence of hemodynamic compromise. Patient started on
BiPAP, admitted to ICU for further management
Social history, family history, medications, allergies, review of systems as above
Of note son states patient is on oxygen therapy intermittently. She also was on CPAP therapy in the past before being at the group home for years ago, stopped for unclear reasons
Physical exam remarkable for decreased breath sounds bilaterally and mild use of accessory muscles.
Data significant for elevated proBNP, mildly elevated troponin, abnormal EKG with prolonged QT, renal insufficiency, chest x-ray with bilateral effusions.
A/P
Moving forward, we will continue to treat for presumptive heart failure. Cardiology has been consulted. Patient remains on heparin therapy for coronary syndrome. Trend troponins
May require echocardiogram
Continue with IV heparin therapy, also on aspirin Plavix
Daily EKG to follow QT interval
Other etiologies to consider include aspiration pneumonia, thromboembolic disease. Low suspicion for either of these at this time but we will follow clinically
Patient is high risk for thromboembolic disease as a complication therefore will empirically place on hold pharmacological and mechanical DVT prophylaxis
Follow electrolytes, repeat potassium at 2 PM, replete magnesium
Will check renal ultrasound to rule out obstructive uropathy
Reviewed with critical care nursing, respiratory care, pharmacy, case management
Will follow-up
TCCT 35 min
--- NOTE | 2023-09-20 10:32 | CM ---
CM folioing re: discharge planning.
Discussed in rounds, reviewed pt's chart, met with pt. Pt's son Dave at bedside.
Pt is an 82 year old female, admitted with primary dx of Acute on Chronic HFpEF. Acute Hypoxemic Respiratory Failure
Pt is a custodial care resident at [facility], requires 2 people to assist, bed bound. CM spoke to [facility] liaison and she confirmed that pt is on Medicaid bed hold and pt will be accepted back when medically stable.
D/C plan: return back to [facility] for a middle or intermediate school principal care.
CM will follow with discharge plan updates as hospitalization progresses
--- NOTE | 2023-09-20 10:56 | CON.CAR ---
Addendum entered and electronically signed by Jaxon Vaughan MD 09/20/23 14:31:
I saw and examined the patient.
The DIESEL ENGINE PIPE FITTER or PA's note was reviewed and I agree with the note.
Comment: General: Well developed, well nourished in NAD.
Neck: Supple, no JVD, HJR, carotids +2 B/L, no bruits bilaterally.
Heart: Non displaced PMI, RRR, no murmurs, No S3, S4, no rubs.
Lungs: Scattered rhonchi
Extremities: No clubbing, cyanosis or edema bilaterally.
Neuro: Grossly nonfocal, awake, alert and oriented x3.
Erin has a history of bilateral strokes on Plavix, left carotid artery stent, CAD with PCI, chronic diastolic CHF, COPD, diabetes, sleep apnea. She is wheelchair-bound and a resident which per half-way. She presented with concerns of UTI
but was noted to be short of breath. She has not short breath recently. Her son claims a resident had and she was upset. She is admitted now with CHF. She originally is on BiPAP which has been weaned down.
Will continue treatment IV Lasix. Will check echocardiogram. Troponin is elevated and may rule in for an SC. Treat conservatively given comorbid illnesses. Might need thoracentesis. Discussed with son at bedside.
Original Note:
Consultation
Consultation Request
Date/Time Consultation Performed: 09/20/23
Requesting Provider: Dr. Benson
Performing Provider: Diya Shah PA-C for Dr. Vaughan
Reason for Consultation: CHF
Medical History
-
Chief Complaint: SOB
History of Present Illness:
Patient is an 83-year-old female resident of [facility] with past medical history of bilateral strokes on Plavix, transition to Brilinta, then back to Plavix again, history of left carotid artery stent, CAD with LAD PCI and angioplasty, chronic
HFpEF, COPD, diabetes, PJ and who is wheelchair-bound. She presented to [facility] due to concerns for UTI however was then noted to be tachypneic. Reported worsening shortness of breath over the weekend, which more acutely worsened
yesterday. On arrival to the ER was noted to be hypoxic and required BiPAP. She has now been transitioned to supplemental oxygen. proBNP was the highest it has ever been at 24,000. CXR with mod B/L pleural effusions. Cardiology consulted for
evaluation. She is unsure what dose of lasix she was receiving at half-way.
PMH:
Chronic HFpEF
CKD
Chronic bifascicular block
History of B/L CVAs on DAPT, most recent 11/2022 at [facility], transitioned back from brilinta to plavix
Residual R hemiparesis
HTN and labile HTN
History of left CVA from symptomatic left carotid stenosis in 05/2014
s/p Left internal carotid PTCA and stenting 08/27/2014
history of linq without ANY noted afib
CAD
s/p overlapping 3 mm, 3.25 mm and 2.25 mm Cypher ZIA to LAD (3) 09/2009
s/p angioplasty alone of mid LAD stents 04/23/10
COPD
DM 2
Dyslipidemia
Obesity
Parkinson's disease
PJ
Nephrotic range proteinuria
History of UTIs
Wheelchair bound
Past Medical History
Past Medical History: Other (in HPI)
Social History
Tobacco: Non-Smoker
Alcohol: None
Living: [facility]
Employment: Retired
Allergies / Home Medications
Allergy/AdvReac Type Severity Reaction Status Date / Time
amlodipine Allergy Unknown Verified 09/19/23 21:26
cefuroxime sodium Allergy upset Verified 09/19/23 21:26
[From Zinacef] stomach
enalapril Allergy cough Verified 09/19/23 21:26
erythromycin base Allergy low blood Verified 09/19/23 21:26
pressure,
flushing
Iodinated Contrast Media Allergy IV DYE Verified 09/19/23 21:26
[Iodinated Contrast Media -
Oral and]
levofloxacin [From Levaquin] Allergy upset Verified 09/19/23 21:26
stomach
metformin Allergy Unknown Verified 09/19/23 21:26
prednisone Allergy Hives Verified 09/19/23 21:26
shellfish derived Allergy LOBSTER-HIV Verified 09/19/23 21:26
ES
Sulfa (Sulfonamide Allergy Unknown Verified 09/19/23 21:26
Antibiotics)
�Medication �Instructions �Recorded �Confirmed �Type
aspirin 81 mg tablet,delayed 81 mg PO DAILY Blood clot 02/26/19 09/19/23 History
release prevention/tx
bisacodyl 10 mg rectal suppository 10 mg MO DAILYPRN PRN if no bm 02/26/19 09/19/23 History
(OneLAX Bisacodyl) aftr mom
cholecalciferol (vitamin D3) 25 1,000 units PO DAILY Supplement 02/26/19 09/19/23 History
mcg (1,000 unit) tablet
insulin glargine 100 unit/mL (3 25 unit SQ HS Diabetes 02/26/19 09/19/23 History
mL) subcutaneous pen (Basaglar
KwikPen U-100 Insulin)
insulin glargine 100 unit/mL (3 28 unit SQ DAILY Diabetes 02/26/19 09/19/23 History
mL) subcutaneous pen (Basaglar
KwikPen U-100 Insulin)
ipratropium 0.5 mg-albuterol 3 mg 3 ml inhalation R Q6HPRN PRN 02/26/19 09/19/23 History
(2.5 mg base)/3 mL nebulization cough,congestion
soln
oxybutynin chloride 10 mg 10 mg PO HS Urinary issue 02/26/19 09/19/23 History
tablet,extended release 24 hr
pantoprazole 40 mg tablet,delayed 40 mg PO DAILY Gastrointestinal 02/26/19 09/19/23 History
release issue
polyethylene glycol 3350 17 gram 17 grams PO MOWEFR@ Constipation 02/26/19 09/19/23 History
oral powder packet
albuterol sulfate 90 mcg/actuation 1 puff inhalation R Q6HPRN PRN sob 09/21/21 09/19/23 History
aerosol inhaler
ammonium lactate 12 % lotion 1 applic TP [id number] PRN dry skin 09/21/21 09/19/23 History
on legs
duloxetine 30 mg capsule,delayed 30 mg PO HS Mental Health/Anxiety 09/21/21 09/19/23 History
release
insulin aspart U-100 100 unit/mL 12 units SC MEALS Diabetes 09/21/21 09/19/23 History
(3 mL) subcutaneous pen (Novolog
FlexPen U-100 Insulin aspart)
melatonin 5 mg tablet 5 mg PO HS Sleep 09/21/21 09/19/23 History
metoprolol succinate 25 mg 25 mg PO DAILY Heart 09/21/21 09/19/23 History
tablet,extended release 24 hr disease/condition
hydralazine 25 mg tablet 25 mg PO Q8 09/25/21 09/19/23 Rx
meclizine 25 mg tablet 25 mg PO Q8HPRN PRN vertigo 09/25/21 09/19/23 Rx
acetaminophen 325 mg tablet 650 mg PO Q6HPRN PRN mild pain, 01/18/23 09/19/23 History
T>100
atorvastatin 40 mg tablet 40 mg PO HS High Cholesterol 01/18/23 09/19/23 History
benzonatate 100 mg capsule 100 mg PO Q8HPRN PRN COUGH 01/18/23 09/19/23 History
carbidopa 10 mg-levodopa 100 mg 1 tab PO BID@0900,1700 01/18/23 09/19/23 History
tablet Neurological Condition
carbidopa 10 mg-levodopa 100 mg 2 tab PO HS Neurological Condition 01/18/23 09/19/23 History
tablet
xbzfravzxjeneaptcjbclo-mzrurnmr-zoehhjgi 1 drp BOTH EYES QID Eye Condition 01/18/23 09/19/23 History
80 0.5 %-1 %-0.5 % eye drops
(Refresh Digital)
clopidogrel 75 mg tablet (Plavix) 75 mg PO DAILY Blood Clot 01/18/23 09/19/23 History
Prevention/Tx
hydrocortisone 1 % topical cream 1 applic topical Q6HPRN PRN 01/18/23 09/19/23 History
(Preparation H Hydrocortisone) HEMORRHIODS
losartan 100 mg tablet 100 mg PO DAILY Blood Pressure 01/18/23 09/19/23 History
magnesium hydroxide 400 mg/5 mL 30 ml PO DAILYPRN PRN no BM x3 days 01/18/23 09/19/23 History
oral suspension (Milk of Magnesia)
amlodipine 2.5 mg tablet 2.5 mg PO DAILY Blood Pressure 09/19/23 09/19/23 History
amoxicillin 500 mg-potassium 1 tab PO Q12H Infection 09/19/23 09/19/23 History
clavulanate 125 mg tablet
(Augmentin)
docusate sodium 100 mg capsule 100 mg PO HS Constipation 09/19/23 09/19/23 History
furosemide 20 mg tablet 40 mg PO DAILY Fluid 09/19/23 09/19/23 History
Retention/Swelling
Review of Systems
-
History Source: Patient
Physical Exam
Vital Signs
Temp Pulse Resp BP Pulse Ox
97.6 F 85 19 169/76 93
09/20/23 08:00 09/20/23 08:58 09/20/23 05:45 09/20/23 08:58 09/20/23 05:45
Lab Results
09/20/23 01:25
09/20/23 05:07
Troponin I 0.255 ng/ml H* 09/20/23 07:40
Yze-E-Lossfmwiwai Pept 92962 pg/ml 09/19/23 21:42
Physical Exam
General: No Apparent Distress and Other (on supp O2)
HEENT: Normocephalic, Anicteric and Moist Mucous Membranes
Respiratory: Non Labored Respirations and Other (decreased BS B/L bases)
Cardiac: S1/S2 and Regular Rhythm
GI: Soft, Non Tender, Non Distended and Normal Bowel Sounds
Musculoskeletal: No Clubbing, No Cyanosis and Edema (1+ of B/L LE)
Skin: Warm and Dry
Neuro: Awake, Alert and Oriented (to self, place. )
Impression / Plan
-
Primary Cotton Tier: Dr. Lee
Assessment:
Acute hypoxemic respiratory failure, initially requiring bipap
Acute on chronic HFpEF
B/L pleural effusions
Elevated troponin, suspected nonischemic myocardial injury
JONATAN on CKD
Chronic bifascicular block
History of B/L CVAs on DAPT, most recent 11/2022 at [facility], transitioned back from brilinta to plavix
Residual R hemiparesis
HTN and labile HTN
History of left CVA from symptomatic left carotid stenosis in 05/2014
s/p Left internal carotid PTCA and stenting 08/27/2014
history of linq without ANY noted afib
CAD
s/p overlapping 3 mm, 3.25 mm and 2.25 mm Cypher ZIA to LAD (3) 09/2009
s/p angioplasty alone of mid LAD stents 04/23/10
COPD
DM 2
Dyslipidemia
Obesity
Parkinson's disease
PJ
Nephrotic range proteinuria
History of UTIs
Wheelchair bound
Chronic anemia
Hypokalemia
Leukocytosis
DNR CODE STATUS
ECHO 01/18/23: EF 57%, apex hypokinetic, mild MR, no significant change compared to prior
Plan:
-Patient presented with concerns from [place] for possible UTI however then noted to be in respiratory distress and required bipap. now on supp O2
-proBNP 24333 and CXR with evidence of CHF with B/L mod pleural effusions
-continue IV lasix diuresis, placed on 40mg IV BID. Cr improving from admission, 2.3 on 09/19 (baseline ~1.6)
-Replete K/mag
-consider for thoracentesis
-awaiting echo results from 09/20/23. last from 01/2023 with results as above
-on asa, plavix for history of CVAs, PCI, and carotid stent. also currently on IV heparin
-trend trops to peak, relatively flat in 0.2 range
-EKG SR with PACs/PVCs, bifascicular block
-not ideal candidate for cath with CKD. would attempt to manage medically if possible
-continue toprol, norvasc, statin
-not candidate for SGLT2 inhibitor due to frequent UTIs
Data Reviewed
-
EKG: Tracing Personally Visualized and interpreted
Radiology: Report Reviewed by me
Medical Tests (Nuc Med, Echo etc): Report Reviewed by me
Labs: Labs Reviewed by me
Old Records: Reviewed
--- NOTE | 2023-09-20 12:00 | PTCARENOTE ---
Pt. transitioned from BiPAP to 3LNC by RT, SpO2 95%. Tolerating transition to NC. No s/s of resp distress.
--- NOTE | 2023-09-20 12:11 | PTOTSP ---
ST Dysphagia Evaluation
Moderate oral dysphagia. Known esophageal impairments; GERD dx and so's esophagus
Pt received asleep awoke to verbal stim. Slow to arouse but able to maintain alertness during eval. HOB raised uprigh for PO trials of puree and thin liquids. Demo adequate oral access/containment, prolonged bolus manipulation and oral hold prior to
swallow trigger for both solids/liquids. Swallow appears prompt once triggered. No change in vocal quality. No overt s/sx of aspiration observed
Recommend
1. Puree / Thin liquids - baseline diet @ SNF
2. Aspiration and EVA/reflux precautions with feeding assist as needed
3. Small bites, small/single sips and slow rate
3. Crush meds into apple sauce
4. AQUATICS COORDINATOR follow up 1-2x
[2023-09-20] MEDS: MAGNESIUM SULFATE 100 IV (12:28)
[2023-09-20] MEDS: KCL 160 MEQ IV (12:28)
[2023-09-20] MEDS: NORVASC 2.5 MG PO (12:55)
[2023-09-20] MEDS: PROTONIX 40 MG PO (12:55)
[2023-09-20] MEDS: MAGNESIUM OXIDE 500 MG PO (12:55)
[2023-09-20] MEDS: REFRESH EYE DROPS (PF) 1 DROPS BOTH EYES ×3 (12:56→21:17)
[2023-09-20 12:58] LABS: Procalcitonin 0.08 ng/ml (0.0-0.25)
[2023-09-20 13:01] LABS: Glucose - Point of Care 54 mg/dl (70-99)
[2023-09-20] MEDS: DEXTROSE 50% SYRINGE 12.5 GRAMS IV (13:09)
[2023-09-20 13:16] LABS: Glucose - Point of Care 62 mg/dl (70-99)
[2023-09-20 13:34] LABS: Glucose - Point of Care 145 mg/dl (70-99)
--- NOTE | 2023-09-20 14:00 | PTCARENOTE ---
Pt.'s blood sugar 54 @ 1250. Admin 4 oz juice. 15 min s/p juice, blood sugar 62. Admin D50% syringe-see MAR. Blood sugar 15 min s/p D50% 145. Drowsy, but otherwise asymptomatic. Blood sugar checks maintained q2h x2.
[2023-09-20 15:14] LABS: Body Fluid Mononuclear 90.6 %; Body Fluid Polymorphonuclear 9.4 %; Body Fluid WBC 645 /CUMM
[2023-09-20 15:17] LABS: Body Fluid Second Tech CF
[2023-09-20 15:31] LABS: Body Fluid LDH < 90 U/L; Body Fluid Protein < 2.0 g/dl
[2023-09-20 16:04] LABS: Troponin I 0.216 ng/ml
[2023-09-20 17:16] LABS: Glucose - Point of Care 88 mg/dl (70-99)
[2023-09-20 17:48] LABS: APTT 47.8 Sec (23.4-35.0)
--- NOTE | 2023-09-20 18:26 | PTCARENOTE ---
Heparin gtt 1H prior to IR @ 1230. Pt. transported via bed w this RN and transport personnel to IR @ 1330. Transported back to unit with this RN and IR RN via bed s/p L thora @ approx 1545. L back band aid c/d/i. VSS s/p procedure. Heparin gtt
back on to previous rate per Dr. Zepeda- see flow sheet. PTT drawn and sent to lab s/p 1H heparin infusion restarted and gtt titrated per protocol. Pt.'s and daughter updated on plan of care. Pt. assisted x 1 OOB to chair, stand/pivot, for
dinner. Tolerating chair and meal. Remains OOB to chair, daughter remains @ bedside w call raya in reach.
--- NOTE | 2023-09-20 20:00 | PTCARENOTE ---
Received patient AAOx3, following commands, denying pain. Right sided weakness. Normal sinus, 60s. BP stable, 140s-150s/60s-70s. Weak pedal pulses bilaterally, palpable radial pulses bilaterally. +2 edema on RUE, +1 edema on bilateral lower
extremities. On 3 liters nasal cannula, saturating 95%. Lung sounds diminished throughout. Abdomen soft, round, obese, nontender. Positive bowel sounds. No BM yet this shift. Purewick in place collecting yellow urine. Skin on lower extremities red
and scaly/flaky. Left hand #22 WNL, heparin gtt infusing. Left forearm #22 patent, WNL. Call raya within reach. Mouth care done and repositioned.
[2023-09-20] MEDS: DITROPAN 5 MG PO (21:01)
[2023-09-20] MEDS: SINEMET 10-100 2 TABLET PO (21:14)
[2023-09-20] MEDS: LIPITOR 40 MG PO (21:16)
[2023-09-20] MEDS: MELATONIN 5 MG PO (21:16)
[2023-09-20] MEDS: COLACE 100 MG PO (21:16)
[2023-09-20] MEDS: LANTUS 0.25 UNITS SC (21:17)
[2023-09-20 21:18] LABS: Glucose - Point of Care 172 mg/dl (70-99)
[2023-09-21] VITALS (16 sets, daily range): BP systolic 104–147; BP diastolic 51–93; PULSE 45–67; O2SAT 97; BMI 31.1
[2023-09-21 00:54] LABS: Glucose - Point of Care 143 mg/dl (70-99)
[2023-09-21 01:20] LABS: APTT 172.1 Sec (23.4-35.0)
--- NOTE | 2023-09-21 01:25 | PTCARENOTE ---
Patient assessment unchanged from previous. On bipap, 04/19, 3 liters. PTT sent, holding heparin for one hour per order. Call raya within reach.
[2023-09-21] MEDS: BENADRYL 12.5 MG IV (02:37)
[2023-09-21 03:09] LABS: Hemoglobin 8.9 g/dL (12.0-16.0); Mean Corpuscular Hgb 33.2 pg (27.0-31.0); Mean Corpuscular Volume 100.7 fL (81.0-99.0); Mean Platelet Volume 9.9 fL (7.4-10.4); Platelet Count 265 10^3/uL (130-400); Red Blood Cell Count 2.68 10^6/uL (4.20-5.40); Red Cell Dist. Width 13.7 % (11.5-14.5); White Blood Cell Count 12.9 10^3/uL (4.8-10.8)
[2023-09-21 03:32] LABS: Blood Urea Nitrogen 46 mg/dl (7-17); Calcium 8.6 mg/dl (8.4-10.2); Carbon Dioxide 27 mmol/L (22-30); Chloride 109 mmol/L (98-107); Estimated Creatinine Clearance 16 ml/min; Glucose 112 mg/dl (70-99); Sodium 140 mmol/L (135-145); eGFR 16.87
[2023-09-21] MEDS: HEPARIN 25000 UNITS/250 ML IV (03:54)
--- NOTE | 2023-09-21 03:59 | PTCARENOTE ---
Addendum entered by Alana Nguyen RN 09/21/23 04:00:
Heparin restarted and decreased by 200 units as per order, next PTT 0830.
Original Note:
Patient complaining of itching around bipap mask, benadryl given, did not help. RT took off bipap. CHG bath done, sheets changed, purewick changed. Labs sent. Call raya within reach, patient able to make needs known.
--- NOTE | 2023-09-21 07:55 | PTCARENOTE ---
Received pt sleeping in bed, awoke easily, AOx3, slightly forgetful, unsure of day of the week. Pleasant and cooperative, c/o itching on face and groin, no rash noted on face, under ab fold skin w Aashish CARRERA ordered at this time. VSS. 3L NC w/
diminished LS. Full assessment as documented.
[2023-09-21] MEDS: NOVOLOG FLEXPEN-MODERATE RESISTANCE SC ×2 (08:02→12:29)
[2023-09-21] MEDS: REFRESH EYE DROPS (PF) 1 DROPS BOTH EYES ×3 (08:04→21:53)
[2023-09-21] MEDS: MAGNESIUM OXIDE 500 MG PO (08:04)
[2023-09-21] MEDS: PLAVIX 75 MG PO (08:04)
[2023-09-21] MEDS: PROTONIX 40 MG PO (08:04)
[2023-09-21] MEDS: VITAMIN D3 (cholecalciferol) 25 MCG PO (08:05)
[2023-09-21] MEDS: NORVASC 2.5 MG PO (08:05)
[2023-09-21] MEDS: DITROPAN 5 MG PO ×2 (08:05→21:51)
[2023-09-21] MEDS: TOPROL XL 25 MG PO (08:06)
[2023-09-21] MEDS: ASPIR LOW (ENTERIC COATED) 81 MG PO (08:06)
[2023-09-21 08:12] LABS: Glucose - Point of Care 80 mg/dl (70-99)
[2023-09-21] MEDS: SINEMET 10-100 1 TABLET PO (08:18)
[2023-09-21] MEDS: MIRALAX 17 GRAMS PO (08:18)
[2023-09-21] MEDS: LASIX IV (10:13)
--- NOTE | 2023-09-21 10:13 | W.CON.NEPH ---
Consultation
-
Date/Time Consultation Requested: 09/21/23 0930
Date/Time Consultation Performed: 09/21/23 1030
Requesting Provider: Pablo Mandujano
Performing Provider: Brionna Del Valle
Reason for Consultation: JONATAN with CKD
Medical History
-
Chief Complaint: SOB
History of Present Illness:
Patient is an 83y F with PMH significant for ASCVD, CHFpEF on lasix, CKD, HTN on multiple meds Amlodipine, hydralazine, BB, IDDM, Parkinson on sinemet and R hemiparesis s/p prior CVA who lives at [facility] presents to ED on 09/18 complaining of SOB.
Reportedly on the day of admit pt was found sob by son and she progressively worsened with resp distress and was sent to the ED from [facility] for further evaluation. She was started on BiPAP here in the ED, she found to have CHF flare and started with IV
diuresis with improvement of wt and off BiPAP. Her baseline cr was 1.6-2 with CKD 4 from diabetic nephropathy was followed by Dr Sepulveda at [facility], overdue appointment. On Admit was 2.6 better 2.3 yesterday but up again at 2.7 on IV lasix hence
nephrology consulted. Renal US showed no hydro. 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 No significant chest pain, fevers / chills, has dry cough. SOB improved since admit but not baseline.No n/v. improving dysuria.
She is non-ambulatory at baseline with R hemiparesis due to prior CVA.
Past Medical History
ASCVD (CAD, CVA, Carotid Stenosis, PAD)
Chronic HFpEF
Hypertension-labile
DM-II
CKD IV
Parkinson's Disease
GERD / Bolanos's Esophagus
Anxiety / Depression
Chronic bifascicular block
History of B/L CVAs on DAPT-Residual R hemiparesis
s/p Left internal carotid PTCA and stenting 08/27/2014
CAD LAD stent
Dyslipidemia
Obesity
PJ
Nephrotic range proteinuria
History of UTIs
Wheelchair bound
Past Surgical History: Other (PTCA with Multiple Stents Balloon angioplasty to LAD Carotid stent Appendectomy Hysterectomy Ovarian cyst Tonsillectomy Cataract surgery ORIF R ankle)
Social History
worked in [email or web address]
Tobacco: Non-Smoker
Alcohol: None
Drug: None
Living: Long Term
Family History
no CKD
Family History: Not Pertinent
Allergies / Home Medications
Allergy/AdvReac Type Severity Reaction Status Date / Time
cefuroxime sodium Allergy upset Verified 09/19/23 21:26
[From Zinacef] stomach
enalapril Allergy cough Verified 09/19/23 21:26
erythromycin base Allergy low blood Verified 09/19/23 21:26
pressure,
flushing
Iodinated Contrast Media Allergy IV DYE Verified 09/19/23 21:26
[Iodinated Contrast Media -
Oral and]
levofloxacin [From Levaquin] Allergy upset Verified 09/19/23 21:26
stomach
metformin Allergy Unknown Verified 09/19/23 21:26
prednisone Allergy Hives Verified 09/19/23 21:26
shellfish derived Allergy LOBSTER-HIV Verified 09/19/23 21:26
ES
Sulfa (Sulfonamide Allergy Unknown Verified 09/19/23 21:26
Antibiotics)
�Medication �Instructions �Recorded �Confirmed �Type
aspirin 81 mg tablet,delayed 81 mg PO DAILY Blood clot 02/26/19 09/19/23 History
release prevention/tx
bisacodyl 10 mg rectal suppository 10 mg MI DAILYPRN PRN if no bm 02/26/19 09/19/23 History
(OneLAX Bisacodyl) aftr mom
cholecalciferol (vitamin D3) 25 1,000 units PO DAILY Supplement 02/26/19 09/19/23 History
mcg (1,000 unit) tablet
insulin glargine 100 unit/mL (3 25 unit SQ HS Diabetes 02/26/19 09/19/23 History
mL) subcutaneous pen (Basaglar
KwikPen U-100 Insulin)
insulin glargine 100 unit/mL (3 28 unit SQ DAILY Diabetes 02/26/19 09/19/23 History
mL) subcutaneous pen (Basaglar
KwikPen U-100 Insulin)
ipratropium 0.5 mg-albuterol 3 mg 3 ml inhalation R Q6HPRN PRN 02/26/19 09/19/23 History
(2.5 mg base)/3 mL nebulization cough,congestion
soln
oxybutynin chloride 10 mg 10 mg PO HS Urinary issue 02/26/19 09/19/23 History
tablet,extended release 24 hr
pantoprazole 40 mg tablet,delayed 40 mg PO DAILY Gastrointestinal 02/26/19 09/19/23 History
release issue
polyethylene glycol 3350 17 gram 17 grams PO MOWEFR@09 Constipation 02/26/19 09/19/23 History
oral powder packet
albuterol sulfate 90 mcg/actuation 1 puff inhalation R Q6HPRN PRN sob 09/21/21 09/19/23 History
aerosol inhaler
ammonium lactate 12 % lotion 1 applic TP [id number] PRN dry skin 09/21/21 09/19/23 History
on legs
duloxetine 30 mg capsule,delayed 30 mg PO HS Mental Health/Anxiety 09/21/21 09/19/23 History
release
insulin aspart U-100 100 unit/mL 12 units SC MEALS Diabetes 09/21/21 09/19/23 History
(3 mL) subcutaneous pen (Novolog
FlexPen U-100 Insulin aspart)
melatonin 5 mg tablet 5 mg PO HS Sleep 09/21/21 09/19/23 History
metoprolol succinate 25 mg 25 mg PO DAILY Heart 09/21/21 09/19/23 History
tablet,extended release 24 hr disease/condition
hydralazine 25 mg tablet 25 mg PO Q8 09/25/21 09/19/23 Rx
meclizine 25 mg tablet 25 mg PO Q8HPRN PRN vertigo 09/25/21 09/19/23 Rx
acetaminophen 325 mg tablet 650 mg PO Q6HPRN PRN mild pain, 01/18/23 09/19/23 History
T>100
atorvastatin 40 mg tablet 40 mg PO HS High Cholesterol 01/18/23 09/19/23 History
benzonatate 100 mg capsule 100 mg PO Q8HPRN PRN COUGH 01/18/23 09/19/23 History
carbidopa 10 mg-levodopa 100 mg 1 tab PO BID@0900,1700 01/18/23 09/19/23 History
tablet Neurological Condition
carbidopa 10 mg-levodopa 100 mg 2 tab PO HS Neurological Condition 01/18/23 09/19/23 History
tablet
uclkmnappahnjdwddyzrbw-vrwibmfc-uwmcdmot 1 drp BOTH EYES QID Eye Condition 01/18/23 09/19/23 History
80 0.5 %-1 %-0.5 % eye drops
(Refresh Digital)
clopidogrel 75 mg tablet (Plavix) 75 mg PO DAILY Blood Clot 01/18/23 09/19/23 History
Prevention/Tx
hydrocortisone 1 % topical cream 1 applic topical Q6HPRN PRN 01/18/23 09/19/23 History
(Preparation H Hydrocortisone) HEMORRHIODS
losartan 100 mg tablet 100 mg PO DAILY Blood Pressure 01/18/23 09/19/23 History
magnesium hydroxide 400 mg/5 mL 30 ml PO DAILYPRN PRN no BM x3 days 01/18/23 09/19/23 History
oral suspension (Milk of Magnesia)
amlodipine 2.5 mg tablet 2.5 mg PO DAILY Blood Pressure 09/19/23 09/19/23 History
amoxicillin 500 mg-potassium 1 tab PO Q12H Infection 09/19/23 09/19/23 History
clavulanate 125 mg tablet
(Augmentin)
docusate sodium 100 mg capsule 100 mg PO HS Constipation 09/19/23 09/19/23 History
furosemide 20 mg tablet 40 mg PO DAILY Fluid 09/19/23 09/19/23 History
Retention/Swelling
Review of Systems
-
all complete 12 point ROS have been inquired and found negative other than stated in HPI
Physical Exam
Vital Signs
Vital Signs
Temp Pulse Resp BP Pulse Ox
97.5 F 62 21 111/93 3
09/21/23 07:23 09/21/23 08:06 09/21/23 06:00 09/21/23 08:06 09/21/23 09:25
Lab Results
WBC 12.9 10^3/uL (4.8-10.8) H 09/21/23 03:02
RBC 2.68 10^6/uL (4.20-5.40) L 09/21/23 03:02
Hgb 8.9 g/dL (12.0-16.0) L 09/21/23 03:02
Hct 27.0 % (37.0-47.0) L 09/21/23 03:02
Plt Count 265 10^3/uL (130-400) 09/21/23 03:02
Sodium 140 mmol/L (135-145) 09/21/23 03:02
Potassium 4.0 mmol/L (3.5-5.1) 09/21/23 03:02
Chloride 109 mmol/L (98-107) H 09/21/23 03:02
Carbon Dioxide 27 mmol/L (22-30) 09/21/23 03:02
BUN 46 mg/dl (7-17) H 09/21/23 03:02
Creatinine 2.7 mg/dL (0.6-1.0) H 09/21/23 03:02
eGFR 16.87 09/21/23 03:02
Glucose 112 mg/dl (70-99) H 09/21/23 03:02
Calcium 8.6 mg/dl (8.4-10.2) 09/21/23 03:02
Gzz-N-Yfyriotkemz Pept 59224 pg/ml 09/19/23 21:42
Albumin 2.5 g/dl (3.5-5.0) L 09/19/23 21:42
echo:
CONCLUSIONS
Left ventricle is mildly dilated.
Mild concentric left ventricular hypertrophy.
Mildly reduced left ventricular systolic function.
Left ventricular ejection fraction is 48% by Dela Cruz's method of discs.
Global hypokinesis.
Moderately dilated left atrium.
Moderate mitral regurgitation.
Mild tricuspid regurgitation.
Trivial pericardial effusion.
Left pleural effusion present.
The IVC is of normal size and demonstrates normal respiratory variation.
Compared to prior study from 2022 EF% is now diminished and mitral
regurgitation is now moderate
CXR: 09/18
IMPRESSION:
Moderate bilateral pleural effusions, which appear new from examination of January 17, 2023.
09/19:
IMPRESSION:
Status post left thoracentesis. No evidence for pneumothorax.
renal US:
IMPRESSION: There is probably a small amount of mobile debris within the bladder lumen. No evidence for bladder mass. Post void bladder residual could not be assessed, as patient is unable to spontaneously void.
No focal abnormality of either kidney, with moderately limited visualization of the left kidney.
Physical Exam
General: Awake, Alert, Oriented, AOx3, No Distress and Nontoxic
HEENT: EOMI and Anicteric
Respiratory: Crackels (bilat )
Cardiac: S1/S2 and Regular Rate/Rhythm
Abdomen: Soft, Nontender and Nondistended
Musculoskeletal: No Cyanosis and No Edema (trace)
Skin: No Rash and Other (chr venous stasis changes in LEs)
Neuro: Other (non ambulatory, able to move all extremities supine, speech clear)
Psych: Mood/afflect pleasant, Insight/judgement good and Appropriate
Data Reviewed
-
Radiology: Image Personally Visualized and interpreted and Report Reviewed by me
Labs: Labs Reviewed by me, Discussed with Nurse and Discussed with Patient
Assessment/Plan
-
IMP:
JONATAN with CKD 4-cr 1.6-2 Dr Sepulveda at [facility]
Acute on chronic heart failure with preserved ejection fraction
Acute hypoxic respiratory failure secondary to above
Bilateral pleural effusions s/p left thoracentesis of 1lit on 09/19
Coronary artery disease with H/O coronary stents
Elevated troponin
Leukocytosis
Hypokalemia
Hypertension
Hyperlipidemia
Diabetes
History of CVA with right hemiparesis
Nonambulatory at baseline
Frequent UTIs recently completed a course of Augmentin on 09/15/2023
Parkinson disease
Anemia of chronic disease
Chronic vertigo
Depression
GERD
Hypoalbuminemia
Plan:
A/w SOB found CHF flare on BIPAP
JONATAN-suspect cardiorenal, no hydro on renal US
cr no sig change since admit, cr on 09/19 seem not accurate
follow bladder scan, check UA and U lytes, U PCR with h/o proteinuria from DM
wt is improving with diuresis and on NC now-baseline
s/p thoracentesis of 1lit on left side on 09/19
would cont lasix still, crackles on exam
BP labile, back on home meds, holding ARB
echo noted mildly reduced EF 48%
anemia-check fe panel
avoid nephrotoxins
FR 48 ounces/day
we reviewed briefly about dialysis risk, she will think about it-would not refuse HD if needed
d/w nursing
--- NOTE | 2023-09-21 10:34 | W.PN.HOSP.TC ---
Today's Communication/Plan
-
Diuresis
Rpt CXR in am
Hold Norvasc, hydralazine and losartan
Nephrology evaluation
Transfer to tele
Assessment / Plan
Assessment / Plan
83 y/o female with shortness of breath
SOB
On BIPAP
CVS: S1-S2 normal
Chest: Decreased at bases
Abdomen: Soft, NT / Bowel sounds present
Extremities: No edema
# Acute on chronic heart failure [place] [address]
Acute hypoxic respiratory failure secondary to above
Bilateral pleural effusions
On BiPAP continue Lasix IV
Check echo
Cardiology evaluation
Thoracentesis by [facility]
# Coronary artery disease with H/O coronary stents
Elevated troponin nonischemic myocardial injury
EKG bifascicular block PACs and PVCs
Continue DAPT, beta-augusto, statin
Echo 09/20/2023-LV dilated. Mild concentric LVH. Mildly reduced LV systolic function. Ejection fraction 48%. Global hypokinesis moderately dilated LA. Moderate MR. Mild TR. Compared to 2022 EF decreased
# Leukocytosis-repeat urinalysis
Procalcitonin 0.08
Speech eval no aspiration
Fluid transudate.
# Left thoracentesis with 1050 ml straw-colored pleural fluid. Transudate
# Hypokalemia- Replaced
# Hypertension-on metoprolol 25 mg, losartan 100 mg daily, Amlodipine 2.5 mg as outpatient along with hydralazine 20 mg every 8 hours
continue metoprolol XL 25 mg daily. Hold Norvasc 2.5 mg daily. Hold losartan and hydralazine
# Acute kidney injury on CKD stage IV
Baseline creatinine 1.6 ,hold losartan
Renal evaluation
Avoid Hypotension.
# Diabetes-hemoglobin A1c 6.0
Patient was on Lantus insulin 28 units in the morning and 20 units at night along with NovoLog 12 before meals as outpatient
Patient got Lantus insulin 20 units at nighttime. Continue sliding scale coverage .

# Hyperlipidemia-statin
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
# Frequent UTIs recently completed a course of Augmentin on 09/15/2023
# Parkinson disease-continue Sinemet
# Anemia of chronic disease
# Chronic vertigo on meclizine as needed
# Depression-on duloxetine
# GERD-PPI
# History of sleep apnea used to use BiPAP in the past but not anymore.
# DVT prophylaxis-SC heparin
# DNR
Discussed with nursing
Transfer out of ICU
timr 53 min
Anticipated Discharge: 24 - 48 hours
Subjective/Interval History
-
Date of Service: September 21, 2023
Objective Data
-
Labs:
Laboratory Results
09/21/23 09/21/23 09/21/23
00:40 03:02 08:28
WBC 12.9 H
Hgb 8.9 L
Hct 27.0 L
Plt Count 265
APTT 172.1 H* 99.0 H
Sodium 140
Potassium 4.0
Chloride 109 H
Carbon Dioxide 27
BUN 46 H
Creatinine 2.7 H
Glucose 112 H
Calcium 8.6
Vital Signs:
Vital Signs
Temp Pulse Resp BP Pulse Ox
97.5 F 62 21 111/93 3
09/21/23 07:23 09/21/23 08:06 09/21/23 06:00 09/21/23 08:06 09/21/23 09:25
I&O
09/20/23 09/21/23 09/22/23
06:59 06:59 06:59
Intake Total 40 / 50 474 / 484 510 / 510
Output Total 200 / 200 850 / 850
Balance -160 / -150 -376 / -366 510 / 510
--- NOTE | 2023-09-21 11:15 | W.PN.INTV ---
Documented by User: Joellen Anguiano MD, Resident 09/21/23 11:42
Today's Communication / Plan
Recommendations
Continue IV Lasix.
Repeat chest x-ray
Heparin subQ for DVT prophylaxis
Assessment
-
83-year-old female with PMH significant for ASCVD, CHF, hypertension, DM 2, HFpEF complaining of shortness of breath and respiratory distress
Assessment
Acute hypoxemic respiratory failure secondary to acute on chronic HFpEF
Bilateral pleural effusions on X-ray
Abnormal troponin
JONATAN on CKD stage IV
Anemia of chronic disease
Hypokalemia
Hypomagnesemia
Conditions present prior to admission
CAD
Right hemiparesis status post prior CVA
Carotid stenosis
PAD
Benign hypertension
Diabetes mellitus 2
Parkinson's disease
Anxiety
Depression
DNR
Plan
Status post thoracocentesis of 1 L of pleural fluid on left side 09/19 with analysis of pleural fluid transudative
Repeat chest x-ray post left thoracocentesis with no evidence for pneumothorax and a small right sided pleural effusion
BNP markedly elevated at 25,400 on admission, IV Lasix initiated on admission
With crackles on exam and creatinine of 2.7 today, after discussion with nephrology, plan is to continue IV Lasix
New echo 09/20/2023 with reduced LVEF 40%, and a new moderate mitral regurgitation
Weight improving with diuresis, fluid restrict 48 ounces per day
Repeat troponin 0.216, With no episode of current chest pain suggestive of nonischemic myocardial injury
Repeat EKG, normal sinus rhythm with QTc 510, with no evidence of acute ischemia
Patient on aspirin and Plavix for history of CVA
Creatinine 2.7 today compared to baseline of 1.6.
Discussed with nephrology, cr 2.3 of yesterday may not be accurate
Reason for acute on chronic renal insufficiency likely related to poor forward flow in the setting of heart failure.
Renal ultrasound with no evidence of bladder mass and no focal abnormalities of either kidney
Plan is to continue IV Lasix
Monitor BMP, creatinine
Avoid nephrotoxins
Hold losartan until creatinine improves
Patient with prior CVA on dual antiplatelet therapy, continue meds
Baseline neurological exam noted, right-sided weakness
Continue statin
DVT ppx subQ heparin
GI ppx pantoprazole p.o.
DNR
Subjective Dataa
Subjective Data
Date of Service:
Overnight events patient complaining of itching around BiPAP mask nurse reports Benadryl did not help. Respiratory therapist took off BiPAP
Chief Complaint: [employer] Follow Up
Objective Data
Data Reviewed
Vital Signs / I&O / Oxygen:
Vital Signs
Temp Pulse Resp BP Pulse Ox
97.4 F 62 21 111/93 3
09/21/23 11:09 09/21/23 08:06 09/21/23 06:00 09/21/23 08:06 09/21/23 09:25
Intake and Output
09/20/23 09/21/23 09/22/23
06:59 06:59 06:59
Intake Total 40 / 50 474 / 484 510 / 510
Output Total 200 / 200 850 / 850
Balance -160 / -150 -376 / -366 510 / 510
SaO2 3
Nasal Cannula flow liters per 94
minute
Physical Exam
General: Other (Patient awake, in no apparent distress)
HEENT: Normocephalic and Anicteric
Cardiovascular: S1-S2 and Regular Rhythm
Respiratory: Crackles (Decreased breath sound bilaterally, mild crackles present,)
GI: Soft, Non Distended and Non Tender
Neurology: Awake, Alert and Oriented (Oriented to time, place and person)
Labs/Micro/Reports
Lab Data
09/21/23 03:02
09/21/23 03:02
Laboratory Results
09/20/23 09/21/23 09/21/23
17:27 00:40 08:28
APTT 47.8 H 172.1 H* 99.0 H
Microbiology
09/20/23 14:52 Pleural Fluid Body Fluid Culture - Preliminary
No Growth After 18-24 Hours
09/20/23 14:52 Pleural Fluid Gram Stain - Preliminary
09/20/23 04:25 Nose MRSA Screen - Final
No Methicillin Resistant Staphylococcus aureus isolated.

Documented by User: Tip Zepeda MD 09/21/23 12:40
Assessment
-
83-year-old female with PMH significant for ASCVD, CHF, hypertension, DM 2, HFpEF complaining of shortness of breath and respiratory distress
Assessment
Acute hypoxemic respiratory failure secondary to acute on chronic HFpEF
Bilateral pleural effusions on X-ray
s/p left thora 09/19, transudate
Abnormal troponin
JONATAN on CKD stage IV
Anemia of chronic disease
Hypokalemia
Hypomagnesemia
Conditions present prior to admission
CAD
Right hemiparesis status post prior CVA
Carotid stenosis
PAD
Benign hypertension
Diabetes mellitus 2
Parkinson's disease
Anxiety
Depression
DNR
Plan
Status post thoracocentesis of 1 L of pleural fluid on left side 09/19 with analysis of pleural fluid transudative
Repeat chest x-ray post left thoracocentesis with no evidence for pneumothorax and a small right sided pleural effusion
BNP markedly elevated at 25,400 on admission, IV Lasix initiated on admission
With crackles on exam and creatinine of 2.7 today, after discussion with nephrology, plan is to continue IV Lasix
New echo 09/20/2023 with reduced LVEF 40%, and a new moderate mitral regurgitation
Weight improving with diuresis, fluid restrict 48 ounces per day
Repeat troponin 0.216, With no episode of current chest pain suggestive of nonischemic myocardial injury
Repeat EKG, normal sinus rhythm with QTc 510, with no evidence of acute ischemia
Patient on aspirin and Plavix for history of CVA
Creatinine 2.7 today compared to baseline of 1.6.
Discussed with nephrology, cr 2.3 of yesterday may not be accurate
Reason for acute on chronic renal insufficiency likely related to poor forward flow in the setting of heart failure.
Renal ultrasound with no evidence of bladder mass and no focal abnormalities of either kidney
Plan is to continue IV Lasix
Monitor BMP, creatinine
Avoid nephrotoxins
Hold losartan until creatinine improves
Patient with prior CVA on dual antiplatelet therapy, continue meds
Baseline neurological exam noted, right-sided weakness
Continue statin
DVT ppx subQ heparin
GI ppx pantoprazole p.o.
DNR

Above was reviewed patient examined independently by myself. Agree with above plan,
Patient appears to be comfortable from respiratory standpoint, down to 3 L which is her baseline at home
She is status post left thoracentesis, consistent with transudate
Rising creatinine noted
Renal ultrasound negative for obstructive uropathy
Physical exam consistent with decreased breath sounds at base, mild crackles at base. There is no rash
Data reviewed.
Pleural fluid consistent with transudate. Echocardiogram with EF 40%, moderate MR which is new
A/P
Moving forward, we will continue with plan as above
Reviewed with nephrology. Lasix will continue, will follow creatinine
With regards to left pleural effusion, likely secondary to heart failure.
For now can continue to follow conservatively with an intermittent chest x-ray or as clinically indicated
Per discussion with son, patient was on BiPAP in the past, but has not been on NIV
Since being in [facility], she has not been using her CPAP/BiPAP.
May be worth revisiting this given her heart failure issues.
For now we will continue her BiPAP during her hospital stay
Consider case management continuing BiPAP at the [facility] if able
Case management was consulted in this regard
Continue DVT prophylaxis, GI prophylaxis
Patient is DNR
Patient transferred out of ICU. We will sign off. Please call with questions
Objective Data
Physical Exam
Skin: Rash (n)
[2023-09-21] MEDS: DESENEX/MITRAZOL/ZEASORB 1 APPLIC TOPICAL ×2 (11:28→21:51)
[2023-09-21] MEDS: LASIX 40 MG IV ×2 (11:28→17:26)
[2023-09-21 11:35] LABS: Iron 59 ug/dl (37-170)
--- NOTE | 2023-09-21 11:36 | W.PN.CARDCBS ---
Today's Communication / Plan
-
Oxygenation much improved
Has improved on BiPAP to 3 L
Lasix held due to creatinine of 2.7
Heparin has been discontinued
Conservative treatment for elevated troponin
Okay to go to telemetry
Impression / Plan
-
Primary [employer] Consultant: Dr. Lee
Assessment:
Acute hypoxemic respiratory failure, initially requiring bipap
Acute on chronic HFpEF
B/L pleural effusions, status post left thoracentesis with 1050 mL removed on 09/20/2023
Elevated troponin, suspected nonischemic myocardial injury, peak troponin 0.26
JONATAN on CKD
Chronic bifascicular block
History of B/L CVAs on DAPT, most recent 11/2022 at [facility], transitioned back from brilinta to plavix
Residual R hemiparesis
HTN and labile HTN
History of left CVA from symptomatic left carotid stenosis in 05/2014
s/p Left internal carotid PTCA and stenting 08/27/2014
history of linq without ANY noted afib
CAD
s/p overlapping 3 mm, 3.25 mm and 2.25 mm Cypher ZIA to LAD (3) 09/2009
s/p angioplasty alone of mid LAD stents 04/23/10
COPD
DM 2
Dyslipidemia
Obesity
Parkinson's disease
PJ
Nephrotic range proteinuria
History of UTIs
Wheelchair bound
Chronic anemia
Hypokalemia
Leukocytosis
DNR CODE STATUS
ECHO 01/18/23: EF 57%, apex hypokinetic, mild MR, no significant change compared to prior
Echocardiogram 09/20/2023: Ejection fraction 48%, mildly dilated left ventricle, moderate MR, mild TR, left pleural effusion seen
Plan:
She has had significant improvement
Was initially on BiPAP and currently is on 3 L
Lasix held because of creatinine of 2.7
on asa, plavix for history of CVAs, PCI, and carotid stent.
Heparin has been discontinued
continue toprol, norvasc, statin
not candidate for SGLT2 inhibitor due to frequent UTIs
Okay to telemetry
Discussed with nursing
Progress Note - [employer] Consultant
Subjective
Date of Service: September 21, 2023
No complaints.
Objective
Labs:
09/21/23 03:02
09/21/23 03:02
Labs
Hgb 8.9 g/dL (12.0-16.0) L 09/21/23 03:02
Hct 27.0 % (37.0-47.0) L 09/21/23 03:02
Plt Count 265 10^3/uL (130-400) 09/21/23 03:02
PT 15.0 Sec (11.4-14.6) H 09/20/23 07:40
INR 1.20 09/20/23 07:40
APTT 99.0 Sec (23.4-35.0) H 09/21/23 08:28
Sodium 140 mmol/L (135-145) 09/21/23 03:02
Potassium 4.0 mmol/L (3.5-5.1) 09/21/23 03:02
BUN 46 mg/dl (7-17) H 09/21/23 03:02
Creatinine 2.7 mg/dL (0.6-1.0) H 09/21/23 03:02
Glucose 112 mg/dl (70-99) H 09/21/23 03:02
Troponins
09/19/23 09/20/23 09/20/23
21:42 01:25 07:40
Troponin I 0.216 H* 0.204 H* 0.255 H*
09/20/23
15:31
Troponin I 0.216 H*
Vital Signs and I&O:
Vital Signs
Temp Pulse Resp BP Pulse Ox
97.4 F 60 24 104/65 97
09/21/23 11:09 09/21/23 11:28 09/21/23 11:10 09/21/23 11:28 09/21/23 11:24
Vital Signs
Temp Pulse Resp BP Pulse Ox
97.4 F 60 24 104/65 97
09/21/23 11:09 09/21/23 11:28 09/21/23 11:10 09/21/23 11:28 09/21/23 11:24
Intake & Output
09/19/23 09/20/23 09/21/23 09/22/23
06:59 06:59 06:59 06:59
Intake Total 40 / 50 474 / 484 510 / 510
Output Total 200 / 200 850 / 850 400 / 400
Balance -160 / -150 -376 / -366 110 / 110
Physical Exam
Physical Exam
General: Well developed, well nourished in NAD.
Neck: Supple, no JVD, HJR, carotids +2 B/L, no bruits bilaterally.
Heart: Non displaced PMI, RRR, no murmurs, No S3, S4, no rubs.
Lungs: scattered rhonchi
Extremities: No clubbing, cyanosis or edema bilaterally.
Neuro: Grossly nonfocal, awake, alert and oriented x3.
--- NOTE | 2023-09-21 11:43 | PTCARENOTE ---
Dr Anna in to assess pt. Labs reviewed. Ok to give 40mg IV Lasix. Given at this time. Bladder scanned for 428ml, attempted to void, unsuccessful, straight cathed for 400ml now, samples sent as ordered.
[2023-09-21 11:44] LABS: Percent Saturation 31 % (20-50); Total Iron Binding Capacity 190 ug/dl (265-497)
[2023-09-21 12:07] LABS: Urine Sodium 97 mmol/L (30-90)
[2023-09-21 12:32] LABS: Glucose - Point of Care 125 mg/dl (70-99)
--- NOTE | 2023-09-21 12:37 | CM ---
CM folioing re: discharge planning.
Discussed in rounds, reviewed pt's chart, met with pt. Pt's son Dave at bedside. per Rounds meeting, pt is on 3L NC of O2that is at baseline, continue supportive care.
Pt is a residential care resident at [facility], requires 2 people to assist, bed bound. CM spoke to [facility] liaison and she confirmed that pt is on Medicaid bed hold and pt will be accepted back when medically stable.
[facility] nursing report: [phone]
Discharge instructions fax: [phone]
D/C plan: return back to [facility] for a residential care.
CM will follow with discharge plan updates as hospitalization progresses
[2023-09-21 12:58] LABS: Protein/creatinine Ratio 23.7; Urine Protein 1037 mg/dl
--- NOTE | 2023-09-21 17:00 | PTCARENOTE ---
Patient noted drowsy and having trouble staying awake. vs stable. no s/s of distress noted. Denies pain.Md made aware. ABG ordered.
[2023-09-21 17:02] LABS: Glucose - Point of Care 165 mg/dl (70-99)
[2023-09-21 17:53] LABS: B.E. 1.1 mmol/L; HCO3 27.1 mmol/L (21-28); O2 Saturation % 99.7 % (94-98); PCO2 49 mmHg (32-35); PO2 107 mmHg (83-108); pH 7.35 (7.35-7.45)
[2023-09-21] MEDS: NOVOLOG FLEXPEN-MODERATE RESISTANCE 1 UNITS SC (17:56)
[2023-09-21] MEDS: SINEMET 10-100 PO (17:57)
[2023-09-21] MEDS: REFRESH EYE DROPS (PF) BOTH EYES (18:30)
[2023-09-21 21:06] LABS: Glucose - Point of Care 218 mg/dl (70-99)
[2023-09-21 21:36] LABS: Urine Albumin 3+ (Neg - Trace); Urine Bilirubin Negative (Negative); Urine Character Very Cloudy (Clear); Urine Color Yellow; Urine Glucose Negative (Negative); Urine Ketone Negative (Negative); Urine Leukocyte Negative (Negative); Urine Nitrite Positive (Negative); Urine Occult Blood Negative (Negative); Urine Specific Gravity 1.015 (<1.030); Urine Urobilinogen Negative (Neg - 1+)
[2023-09-21 21:46] LABS: Urine Squamous Cell 0-2 /LPF (Few); Urine Triple Phosphate Crystal Present
[2023-09-21 21:47] LABS: Urine Bacteria Many (Negative); Urine Red Blood Cell None Seen /HPF (0-2)
[2023-09-21] MEDS: CYMBALTA DELAYED RELEASE 30 MG PO (21:51)
[2023-09-21] MEDS: MELATONIN 5 MG PO (21:51)
[2023-09-21] MEDS: LANTUS 0.200000000000000011 UNITS SC (21:52)
[2023-09-21] MEDS: HEPARIN 5000 UNITS SC (21:52)
[2023-09-21] MEDS: COLACE 100 MG PO (21:52)
[2023-09-21] MEDS: SINEMET 10-100 2 TABLET PO (21:53)
[2023-09-21] MEDS: LIPITOR 40 MG PO (21:53)
[2023-09-22] VITALS (9 sets, daily range): BP systolic 132–171; BP diastolic 52–60; PULSE 2–76; BMI 31.0
[2023-09-22 07:15] LABS: Blood Urea Nitrogen 50 mg/dl (7-17); Calcium 8.8 mg/dl (8.4-10.2); Carbon Dioxide 28 mmol/L (22-30); Chloride 110 mmol/L (98-107); Estimated Creatinine Clearance 15 ml/min; Glucose 126 mg/dl (70-99); Potassium 4.4 mmol/L (3.5-5.1); Sodium 142 mmol/L (135-145); eGFR 15.48
[2023-09-22 08:04] LABS: Glucose - Point of Care 105 mg/dl (70-99)
[2023-09-22] MEDS: NOVOLOG FLEXPEN-MODERATE RESISTANCE SC ×2 (08:10→12:46)
[2023-09-22] MEDS: VITAMIN D3 (cholecalciferol) 25 MCG PO (09:36)
[2023-09-22] MEDS: PLAVIX 75 MG PO (09:36)
[2023-09-22] MEDS: REFRESH EYE DROPS (PF) 1 DROPS BOTH EYES ×3 (09:36→21:39)
[2023-09-22] MEDS: TOPROL XL 25 MG PO (09:36)
[2023-09-22] MEDS: ASPIR LOW (ENTERIC COATED) 81 MG PO (09:37)
[2023-09-22] MEDS: LASIX 40 MG IV (09:37)
[2023-09-22] MEDS: PROTONIX 40 MG PO (09:37)
[2023-09-22] MEDS: DESENEX/MITRAZOL/ZEASORB 1 APPLIC TOPICAL ×2 (09:37→20:49)
[2023-09-22] MEDS: DITROPAN 5 MG PO ×2 (09:37→20:38)
[2023-09-22] MEDS: MAGNESIUM OXIDE 500 MG PO (09:37)
[2023-09-22] MEDS: HEPARIN 5000 UNITS SC ×2 (09:37→20:38)
[2023-09-22] MEDS: SINEMET 10-100 1 TABLET PO ×2 (09:38→16:30)
--- NOTE | 2023-09-22 10:06 | W.PN.HOSP.TC ---
Today's Communication/Plan
-
diuresis
CXR in am
IS
Encourage OOB
If develops productive sputum may need AB
Hold off now
Assessment / Plan
Assessment / Plan
83 y/o female with shortness of breath
USS kidney-There is probably a small amount of mobile debris within the bladder lumen. No evidence for bladder mass. Post void bladder residual could not be assessed, as patient is unable to spontaneously void.No focal abnormality of either kidney,
with moderately limited visualization of the left kidney.
CVS: S1-S2 normal
Chest: Decreased at bases
Abdomen: Soft, NT / Bowel sounds present
Extremities: No edema
# Acute on chronic heart failure [place] [id number]
Acute hypoxic respiratory failure secondary to above
Bilateral pleural effusions left more than right
On BiPAP continue Lasix IV
Left thoracentesis by IRAD
# Patient was slightly drowsy yesterday by the time I saw her around 6:30 PM after the ABG she was awake and started eating dinner. Looks awake and alert this morning
# Coronary artery disease with H/O coronary stents
Elevated troponin nonischemic myocardial injury
EKG bifascicular block PACs and PVCs
Continue DAPT, beta-augusto, statin
Echo 09/20/2023-LV dilated. Mild concentric LVH. Mildly reduced LV systolic function. Ejection fraction 48%. Global hypokinesis moderately dilated LA. Moderate MR. Mild TR. Compared to 2022 EF decreased
# Leukocytosis
repeat urinalysis neg
Procalcitonin 0.08
Speech eval no aspiration
Fluid transudate.
# Left thoracentesis with 1050 ml straw-colored pleural fluid. Transudate
# Hypokalemia- Replaced
# Hypertension-on metoprolol 25 mg, losartan 100 mg daily, Amlodipine 2.5 mg as outpatient along with hydralazine 20 mg every 8 hours as OP
continue metoprolol XL 25 mg daily. Restart Norvasc 2.5 mg daily and hydralazine. Hold losartan
# Acute kidney injury on CKD stage IV
Ultrasound without any obstruction
Albuminuria noted
Baseline creatinine 1.6 ,hold losartan
Patient was on amoxicillin prior to admission will also check urine eosinophils
Renal evaluation appreciated
Avoid Hypotension.
# Diabetes-hemoglobin A1c 6.0
Patient was on Lantus insulin 28 units in the morning and 20 units at night along with NovoLog 12 before meals as outpatient prior to admission
Patient got Lantus insulin 20 units at nighttime. Continue that for now . continue sliding scale coverage .

# Hyperlipidemia-statin
# History of CVA with right hemiparesis-left carotid artery stent-Nonambulatory at [id number]
# Frequent UTIs recently completed a course of Augmentin on 09/15/2023
# Parkinson disease-continue Sinemet
# Anemia of chronic disease
# Chronic vertigo on meclizine as needed
# Depression-on duloxetine
# GERD-PPI
# History of sleep apnea used to use BiPAP in the past but not anymore. Continue that
# DVT prophylaxis-SC heparin
# DNR
Discussed with nursing
Spoke to son and updated the plan of care
Time 51 minutes
Anticipated Discharge: > 48 hours
Subjective/Interval History
-
Date of Service: September 22, 2023
Objective Data
-
Labs:
Laboratory Results
09/22/23
06:00
Sodium 142
Potassium 4.4
Chloride 110 H
Carbon Dioxide 28
BUN 50 H
Creatinine 2.9 H
Glucose 126 H
Calcium 8.8
Vital Signs:
Vital Signs
Temp Pulse Resp BP Pulse Ox
98.7 F 64 20 171/60 98
09/22/23 03:29 09/22/23 07:40 09/22/23 07:40 09/22/23 09:37 09/22/23 07:40
I&O
09/21/23 09/22/23 09/23/23
06:59 06:59 06:59
Intake Total 474 / 484 870 / 870
Output Total 850 / 850 750 / 750
Balance -376 / -366 120 / 120
--- NOTE | 2023-09-22 10:17 | W.PN.CARDCBS ---
Addendum entered and electronically signed by Julian Lee MD 09/22/23 15:11:
Attending addendum: I re-reviewed echocardiogram BOTH with Drs. Duenas and Phong who are in agreement that EF is low normal 45-50% maybe 45% is best estimate.
Addendum entered and electronically signed by Julian Lee MD 09/22/23 13:23:
Attending addendum: Patient seen and examined. PA note reviewed and findings independently confirmed by me. I have known Ms. Ambrocio for many years. She remains dyspneic to conversation today. Creatinine remains quite elevated. I looked back to
old records and her Cr. increased to 3/1 mg/dl in the past with probable nephrotic range proteinuria.
GEN: AAO x 3. Dyspneic with conversation
HEENT: NC/AT, sclera are anicteric
NECK: JVP difficult to assess
LUNGS: No wheezing but also not moving much air. No crackles noted anteriorly. I did not sit forward to listen posteriorly
CV: Regular rate and rhythm. Normal S1/S2. No S3, No S4. Murmur: None
ABD : Soft, NT, ND, No HSM. Bowel sounds are present.
EXT: No CCE
NEURO: Right hemiparesis with expressive aphasia
-09/20/2023: Echo: LV: Mildly dilated with mildly reduced systolic function and estimated ejection fraction of 48%. Stage II diastolic dysfunction. RV: Normal, LA: Moderately dilated, RA: Normal, MV: Moderate MR, AV: Sclerotic. No AI. TV: Mild
TR with estimated PAP 37 mmHg (visually worse)
RECOMMENDATIONS:
-Difficult situation. I reviewed echo and LVEF is down compared to prior results. Visually I'd estimate EF 30-35%. Troponin elevated. Given multiple comorbid conditions, conservative therapy is likely most appropriate. Coronary angiography in
this situation would almost certainly result in worsened renal function
-In the past she has had near nephrotic range proteinuria likely on the basis of long-standing poorly controlled DM.
-Continue aspirin and clopidogrel
-NO IVY/ARB given renal insufficiency. May consider pushing hydralazine to 50mg qid / isosorbide dinitrate 20-30mg tid. Will add nitrate
-Will follow
Original Note:
Today's Communication / Plan
-
continue IV diuresis per nephro
follow Cr, uptrending
wean supp O2 as able
BP control - hydralazine added back 09/21
med mgmt of nonischemic myocardial injury
Impression / Plan
-
Primary Escrow Assistant: Dr. Lee
Assessment:
Acute hypoxemic respiratory failure, initially requiring bipap
Acute on chronic HFpEF
B/L pleural effusions, status post left thoracentesis with 1050 mL removed on 09/20/2023
Elevated troponin, suspected nonischemic myocardial injury, peak troponin 0.26
JONATAN on CKD
Chronic bifascicular block
History of B/L CVAs on DAPT, most recent 11/2022 at [facility], transitioned back from brilinta to plavix
Residual R hemiparesis
HTN and labile HTN
History of left CVA from symptomatic left carotid stenosis in 05/2014
s/p Left internal carotid PTCA and stenting 08/27/2014
history of linq without ANY noted afib
CAD
s/p overlapping 3 mm, 3.25 mm and 2.25 mm Cypher ZIA to LAD (3) 09/2009
s/p angioplasty alone of mid LAD stents 04/23/10
COPD
DM 2
Dyslipidemia
Obesity
Parkinson's disease
PJ
Nephrotic range proteinuria
History of UTIs
Wheelchair bound
Chronic anemia
Hypokalemia
Leukocytosis
DNR CODE STATUS
ECHO 01/18/23: EF 57%, apex hypokinetic, mild MR, no significant change compared to prior
Echocardiogram 09/20/2023: Ejection fraction 48% by Hwang's, mildly dilated left ventricle, moderate MR, mild TR, left pleural effusion seen
Plan:
-Patient presented with concerns from [place] for possible UTI however then noted to be in respiratory distress and required bipap.
-used BIPAP overnight however on 3L NC. continue to wean as able
-continue IV diuresis per nephrology. weight trending down if accurate. Cr up slightly to 2.9 on 09/21 (baseline previously felt to be 1.6)
-s/p L thora for 1050 cc 09/19
-echo with EF 48% by hwang's. will review with MD today
-trops flat in 0.2 range. not ideal candidate for cath with CKD. would attempt to manage medically if possible
-EKG SR with PACs/PVCs, bifascicular block
-on asa, plavix for history of CVAs, PCI, and carotid stent.
-continue toprol, norvasc, statin. OP losartan on hold given JONATAN.
-BP trends appear labile. OP hydralazine to resume today
-not candidate for SGLT2 inhibitor due to frequent UTIs
-CHF education
Progress Note - Escrow Assistant
Subjective
Date of Service: September 22, 2023
reports improvement in breathing and LE edema from admission
Objective
Labs:
09/21/23 03:02
09/22/23 06:00
Labs
Hgb 8.9 g/dL (12.0-16.0) L 09/21/23 03:02
Hct 27.0 % (37.0-47.0) L 09/21/23 03:02
Plt Count 265 10^3/uL (130-400) 09/21/23 03:02
PT 15.0 Sec (11.4-14.6) H 09/20/23 07:40
INR 1.20 09/20/23 07:40
APTT 99.0 Sec (23.4-35.0) H 09/21/23 08:28
Sodium 142 mmol/L (135-145) 09/22/23 06:00
Potassium 4.4 mmol/L (3.5-5.1) 09/22/23 06:00
BUN 50 mg/dl (7-17) H 09/22/23 06:00
Creatinine 2.9 mg/dL (0.6-1.0) H 09/22/23 06:00
Glucose 126 mg/dl (70-99) H 09/22/23 06:00
Troponins
09/19/23 09/20/23 09/20/23
21:42 01:25 07:40
Troponin I 0.216 H* 0.204 H* 0.255 H*
09/20/23
15:31
Troponin I 0.216 H*
Vital Signs and I&O:
Vital Signs
Temp Pulse Resp BP Pulse Ox
98.7 F 64 20 171/60 98
09/22/23 03:29 09/22/23 07:40 09/22/23 07:40 09/22/23 09:37 09/22/23 07:40
Vital Signs
Temp Pulse Resp BP Pulse Ox
98.7 F 64 20 171/60 98
09/22/23 03:29 09/22/23 07:40 09/22/23 07:40 09/22/23 09:37 09/22/23 07:40
Intake & Output
09/20/23 09/21/23 09/22/23 09/23/23
07:59 07:59 07:59 07:59
Intake Total 50 / 60 474 / 484 860 / 860
Output Total 200 / 200 850 / 850 750 / 750
Balance -150 / -140 -376 / -366 110 / 110
Physical Exam
Physical Exam
GEN: No distress, awake, alert, oriented x3. on BIPAP
HEENT: supple, anicteric, mmm, eomi
LUNGS: Few crackles B/L bases, no wheezes
CV: Reg, S1/S2, 1/6 murmur
ABD: soft, BS+
EXT: No cyanosis, clubbing. 1+edema of B/L LE
NEURO: Gross non-focal
SKIN: Warm, pink, dry. No rash
[2023-09-22 12:04] LABS: Body Fluid for Eosinophils No Eosinophils seen
[2023-09-22] MEDS: REFRESH EYE DROPS (PF) BOTH EYES (12:46)
[2023-09-22] MEDS: NORVASC 2.5 MG PO (12:48)
--- NOTE | 2023-09-22 14:10 | CM ---
Patient seen at bedside. Patient LTC at [facility], per physician patient not anticipated to return to SNF prior to weekend. CM will continue to follow for discharge planning needs.
Plan; return to SNF; [facility]
--- NOTE | 2023-09-22 15:32 | W.PN.NEPH.PH ---
Today's Communication / Plan
-
serologies, paraprotein w/u
hold lasix
Assessment/Plan
-
IMP:
JONATAN with CKD 4-cr 1.6-2 Dr Sepulveda at [facility]
Acute on chronic heart failure with preserved ejection fraction
Acute hypoxic respiratory failure secondary to above
Bilateral pleural effusions s/p left thoracentesis of 1lit on 09/19
Coronary artery disease with H/O coronary stents
Elevated troponin
Leukocytosis
Hypokalemia
Hypertension
Hyperlipidemia
Diabetes
History of CVA with right hemiparesis
Nonambulatory at baseline
Frequent UTIs recently completed a course of Augmentin on 09/15/2023
Parkinson disease
Anemia of chronic disease
Chronic vertigo
Depression
GERD
Hypoalbuminemia
Plan:
A/w SOB found CHF flare on BIPAP
JONATAN-suspect cardiorenal, no hydro on renal US
cr slightly up today hold lasix , UOP not measured
UA bland but UPCR of 23gm/gm of cr, check serologies and paraprotein w/u
suspect underlying advanced diabetic nephropathy
follow bladder scan
wt is improving with diuresis and on NC now-baseline
nephrotic range proteinuria likely contributing to some of vol overload as well, alb 2.5
s/p thoracentesis of 1lit on left side on 09/19, repeat CXR In am
BP labile, back on home meds, holding ARB
echo noted mildly reduced EF 45%
anemia-stable hb, adequate fe stores
avoid nephrotoxins
FR 48 ounces/day
on 09/20 we reviewed briefly about dialysis risk, she will think about it-would not refuse HD if needed , no need currently
d/w primary
-
-
Date of Service: September 22, 2023
CC / HPI / ROS
-
Chief Complaint:
JONATAN with CKD
History of Present Illness:
cr up at 2.9, wt is decreasing
k normal. BP labile
UOP not recorded
Review of Systems:
no cp or sob at rest
no fever or cough
feels tired
sitting in chair during visit
Labs
-
Labs:
WBC 12.9 10^3/uL (4.8-10.8) H 09/21/23 03:02
RBC 2.68 10^6/uL (4.20-5.40) L 09/21/23 03:02
Hgb 8.9 g/dL (12.0-16.0) L 09/21/23 03:02
Hct 27.0 % (37.0-47.0) L 09/21/23 03:02
Plt Count 265 10^3/uL (130-400) 09/21/23 03:02
Sodium 142 mmol/L (135-145) 09/22/23 06:00
Potassium 4.4 mmol/L (3.5-5.1) 09/22/23 06:00
Chloride 110 mmol/L (98-107) H 09/22/23 06:00
Carbon Dioxide 28 mmol/L (22-30) 09/22/23 06:00
BUN 50 mg/dl (7-17) H 09/22/23 06:00
Creatinine 2.9 mg/dL (0.6-1.0) H 09/22/23 06:00
eGFR 15.48 09/22/23 06:00
Glucose 126 mg/dl (70-99) H 09/22/23 06:00
Calcium 8.8 mg/dl (8.4-10.2) 09/22/23 06:00
Yoi-P-Hulupklkupd Pept 55865 pg/ml 09/19/23 21:42
Albumin 2.5 g/dl (3.5-5.0) L 09/19/23 21:42
Physical Exam
-
Vital Signs:
Vital Signs
Temp Pulse Resp BP Pulse Ox
97.5 F 62 16 142/56 96
09/22/23 11:07 09/22/23 11:07 09/22/23 11:07 09/22/23 12:48 09/22/23 12:06
Cardiovascular:: Regular rate and rhythm
Respiratory:: Bilateral: CTA
Lung Excursion:: Normal
Abdomen:: Nontender and Soft
Extremity Edema:: None: Bilateral: (trace)
Rutledge Catheter: No
[2023-09-22 16:29] LABS: Glucose - Point of Care 232 mg/dl (70-99)
[2023-09-22] MEDS: ISORDIL 20 MG PO ×2 (16:30→21:40)
[2023-09-22] MEDS: APRESOLINE 25 MG PO (16:30)
[2023-09-22] MEDS: NOVOLOG FLEXPEN-MODERATE RESISTANCE 3 UNITS SC (16:31)
[2023-09-22] MEDS: ROCEPHIN 1000 MG IV (18:19)
[2023-09-22] MEDS: STERILE WATER FOR INJECTION 10 ML IV (18:19)
[2023-09-22] MEDS: ARISTOCORT/TRIAMCINOLONE 0.1% CREAM 1 APPLIC TOPICAL (20:51)
[2023-09-22 21:30] LABS: Glucose - Point of Care 169 mg/dl (70-99)
[2023-09-22] MEDS: SINEMET 10-100 2 TABLET PO (21:40)
[2023-09-22] MEDS: CYMBALTA DELAYED RELEASE 30 MG PO (21:40)
[2023-09-22] MEDS: LANTUS 0.200000000000000011 UNITS SC (21:40)
[2023-09-22] MEDS: LIPITOR 40 MG PO (21:40)
[2023-09-22] MEDS: MELATONIN 5 MG PO (21:40)
[2023-09-22] MEDS: COLACE 100 MG PO (21:40)
[2023-09-23] VITALS (7 sets, daily range): BP systolic 116–142; BP diastolic 46–92; PULSE 2–86; BMI 31.0
[2023-09-23] MEDS: APRESOLINE 25 MG PO ×4 (00:02→23:01)
[2023-09-23 05:37] LABS: Hematocrit 23.4 % (37.0-47.0); Hemoglobin 7.7 g/dL (12.0-16.0); Mean Corp Hgb Conc. 32.9 g/dL (33.0-37.0); Mean Corpuscular Volume 100.4 fL (81.0-99.0); Mean Platelet Volume 10.3 fL (7.4-10.4); Platelet Count 260 10^3/uL (130-400); Red Blood Cell Count 2.33 10^6/uL (4.20-5.40); Red Cell Dist. Width 13.4 % (11.5-14.5); White Blood Cell Count 8.7 10^3/uL (4.8-10.8)
[2023-09-23 05:54] LABS: Blood Urea Nitrogen 53 mg/dl (7-17); Calcium 8.7 mg/dl (8.4-10.2); Carbon Dioxide 27 mmol/L (22-30); Chloride 109 mmol/L (98-107); Estimated Creatinine Clearance 16 ml/min; Glucose 112 mg/dl (70-99); Potassium 4.5 mmol/L (3.5-5.1); Sodium 137 mmol/L (135-145); eGFR 16.87
[2023-09-23 07:46] LABS: Glucose - Point of Care 86 mg/dl (70-99)
[2023-09-23] MEDS: NOVOLOG FLEXPEN-MODERATE RESISTANCE SC ×3 (09:02→17:33)
[2023-09-23] MEDS: ASPIR LOW (ENTERIC COATED) 81 MG PO (09:04)
[2023-09-23] MEDS: REFRESH EYE DROPS (PF) 1 DROPS BOTH EYES ×4 (09:04→21:55)
[2023-09-23] MEDS: MAGNESIUM OXIDE 500 MG PO (09:04)
[2023-09-23] MEDS: TOPROL XL 25 MG PO (09:05)
[2023-09-23] MEDS: VITAMIN D3 (cholecalciferol) 25 MCG PO (09:06)
[2023-09-23] MEDS: DITROPAN 5 MG PO ×2 (09:06→19:42)
[2023-09-23] MEDS: ISORDIL 20 MG PO ×3 (09:06→21:20)
[2023-09-23] MEDS: NORVASC 2.5 MG PO (09:06)
[2023-09-23] MEDS: HEPARIN 5000 UNITS SC ×2 (09:07→19:43)
[2023-09-23] MEDS: PLAVIX 75 MG PO (09:07)
[2023-09-23] MEDS: ARISTOCORT/TRIAMCINOLONE 0.1% CREAM 1 APPLIC TOPICAL ×2 (09:08→19:42)
[2023-09-23] MEDS: DESENEX/MITRAZOL/ZEASORB 1 APPLIC TOPICAL ×2 (09:08→19:42)
[2023-09-23] MEDS: PROTONIX 40 MG PO (09:09)
[2023-09-23 10:33] LABS: Hematocrit 24.6 % (37.0-47.0); Hemoglobin 8.1 g/dL (12.0-16.0)
--- NOTE | 2023-09-23 10:36 | W.PN.CARDCBS ---
Addendum entered and electronically signed by Diya Shah PA-C 09/23/23 11:33:
correction to below: lasix has been placed on hold by nephrology. will follow. if remains with dyspnea, would consider alternative etiologies
Addendum entered and electronically signed by Julian Lee MD 09/23/23 11:30:
Attending addendum: slow improvement clinically although remains dyspneic to conversation.
RECOMMENDATIONS:
-Weights are slowly improving
-Cr. remains elevated but stable over the past few days
-H/H fell this am. Repeated
-Check stools for blood
-Continue PPI
-Echo reviewed with Drs. Duenas and Phong : Both agree EF is 45-50%. Both of these assessments go more with Hwang's assessment
-Conservative management of CADz is likely most appropriate given renal insufficiency
-Patient did have near nephrotic range proteinuria several years ago.
Original Note:
Today's Communication / Plan
-
repeat H&H. heme test. remains on DAPT
continue IV diuresis. follow Cr
continue med mgmt of elevated troponin/CHF/CM EF 45-50%. no CP
Impression / Plan
-
Primary Cabin Equipment Supervisor: Dr. Lee
Assessment:
Acute hypoxemic respiratory failure, initially requiring bipap
Acute on chronic HFpEF
B/L pleural effusions, status post left thoracentesis with 1050 mL removed on 09/20/2023
Elevated troponin, suspected nonischemic myocardial injury, peak troponin 0.26
JONATAN on CKD
Chronic bifascicular block
History of B/L CVAs on DAPT, most recent 11/2022 at [facility], transitioned back from brilinta to plavix
Residual R hemiparesis
HTN and labile HTN
History of left CVA from symptomatic left carotid stenosis in 05/2014
s/p Left internal carotid PTCA and stenting 08/27/2014
history of linq without ANY noted afib
CAD
s/p overlapping 3 mm, 3.25 mm and 2.25 mm Cypher ZIA to LAD (3) 09/2009
s/p angioplasty alone of mid LAD stents 04/23/10
COPD
DM 2
Dyslipidemia
Obesity
Parkinson's disease
PJ
Nephrotic range proteinuria
History of UTIs
Wheelchair bound
Chronic anemia
Hypokalemia
Leukocytosis
DNR CODE STATUS
ECHO 01/18/23: EF 57%, apex hypokinetic, mild MR, no significant change compared to prior
Echocardiogram 09/20/2023: Ejection fraction 48% by Hwang's, mildly dilated left ventricle, moderate MR, mild TR, left pleural effusion seen
Plan:
-Patient presented with concerns from [place] for possible UTI however then noted to be in respiratory distress and required bipap.
-weaning down supp O2 as able, now on 2L NC. states she was not on supp O2 at [place] although does use CPAP at night
-continue IV diuresis per nephrology. weight trending down if accurate. Cr 2.7 on 09/22 (relatively stable this admission, baseline previously felt to be 1.6)
-s/p L thora for 1050 cc 09/19
-echo with EF 48% by hwang's, felt to be visually in 45-50% range
-trops flat in 0.2 range. not ideal candidate for cath with CKD. would attempt to manage medically. no CP
-remains in SR/SB with PACs/PVCs upon review of tele
-on asa, plavix for history of CVAs, PCI, and carotid stent. hgb down to 7.7 today. will repeat H&H. heme test stools.
-continue toprol, norvasc, hydralazine, statin. low dose isordil added this admit. OP losartan stopped, not current herrera/arb/arni/aldactone candidate given JONATAN on CKD. BP trends appear improved overnight
-not candidate for SGLT2 inhibitor due to frequent UTIs and current renal insufficiency
-CHF education
Progress Note - Cabin Equipment Supervisor
Subjective
Date of Service: September 23, 2023
Reports improvement in lower extremity edema and breathing from admission. No chest pain.
Objective
Labs:
09/23/23 04:40
Labs
Hgb 7.7 g/dL (12.0-16.0) L 09/23/23 04:40
Hct 23.4 % (37.0-47.0) L 09/23/23 04:40
Plt Count 260 10^3/uL (130-400) 09/23/23 04:40
PT 15.0 Sec (11.4-14.6) H 09/20/23 07:40
INR 1.20 09/20/23 07:40
APTT 99.0 Sec (23.4-35.0) H 09/21/23 08:28
Sodium 137 mmol/L (135-145) 09/23/23 04:40
Potassium 4.5 mmol/L (3.5-5.1) 09/23/23 04:40
BUN 53 mg/dl (7-17) H 09/23/23 04:40
Creatinine 2.7 mg/dL (0.6-1.0) H 09/23/23 04:40
Glucose 112 mg/dl (70-99) H 09/23/23 04:40
Troponins
09/20/23
15:31
Troponin I 0.216 H*
Vital Signs and I&O:
Vital Signs
Temp Pulse Resp BP Pulse Ox
97.4 F 58 18 135/92 98
09/23/23 03:28 09/23/23 09:06 09/23/23 07:30 09/23/23 09:06 09/23/23 07:30
Vital Signs
Temp Pulse Resp BP Pulse Ox
97.4 F 58 18 135/92 98
09/23/23 03:28 09/23/23 09:06 09/23/23 07:30 09/23/23 09:06 09/23/23 07:30
Intake & Output
09/21/23 09/22/23 09/23/23 09/24/23
07:59 07:59 07:59 07:59
Intake Total 474 / 484 860 / 860 660 / 660
Output Total 850 / 850 750 / 750
Balance -376 / -366 110 / 110 660 / 660
Physical Exam
Physical Exam
GEN: No distress, awake, alert, oriented x3. on supp O2. obese
HEENT: supple, anicteric, mmm, eomi
LUNGS: few crackles at bases, no wheezes
CV: Reg, S1/S2, 1/6 murmur
ABD: soft, BS+, NT/ND
EXT: No cyanosis, clubbing. 1+ edema of B/L LE
NEURO: Gross non-focal
SKIN: Warm, pink, dry. No rash
--- NOTE | 2023-09-23 11:05 | W.PN.NEPH.PH ---
Today's Communication / Plan
-
Holding Lasix
Follow BMP
Assessment/Plan
-
IMP:
JONATAN with CKD 4-cr 1.6-2 Dr Sepulveda at [facility]
Acute on chronic heart failure with preserved ejection fraction
Acute hypoxic respiratory failure secondary to above
Bilateral pleural effusions s/p left thoracentesis of 1lit on 09/19
Coronary artery disease with H/O coronary stents
Elevated troponin
Leukocytosis
Hypokalemia
Hypertension
Hyperlipidemia
Diabetes
History of CVA with right hemiparesis
Nonambulatory at baseline
Frequent UTIs recently completed a course of Augmentin on 09/15/2023
Parkinson disease
Anemia of chronic disease
Chronic vertigo
Depression
GERD
Hypoalbuminemia
Plan:
A/w SOB found CHF flare on BIPAP
Creatinine down to 2.7, weights unchanged
Urine output not recorded
JONATAN-suspect cardiorenal, no hydro on renal US
UA bland but UPCR of 23gm/gm of cr, check serologies and paraprotein w/u
suspect underlying advanced diabetic nephropathy
follow bladder scan protocol
nephrotic range proteinuria likely contributing to some of vol overload as well, alb 2.5
s/p thoracentesis of 1lit on left side on 09/19, repeat CXR In am
BP labile, back on home meds, holding ARB
echo noted mildly reduced EF 45%
anemia-stable hb, adequate fe stores
avoid nephrotoxins
FR 48 ounces/day
on 09/20 we reviewed briefly about dialysis risk, she will think about it-would not refuse HD if needed , no need currently
d/w primary
-
-
Date of Service: September 23, 2023
CC / HPI / ROS
-
Chief Complaint:
JONATAN with CKD
History of Present Illness:
cr up at 2.7 wt is decreasing
k normal. BP labile
UOP not recorded
Review of Systems:
no cp or sob at rest
no fever or cough
feels tired
sitting in chair during visit
Labs
-
Labs:
WBC 8.7 10^3/uL (4.8-10.8) 09/23/23 04:40
RBC 2.33 10^6/uL (4.20-5.40) L 09/23/23 04:40
Hgb 8.1 g/dL (12.0-16.0) L 09/23/23 10:22
Hct 24.6 % (37.0-47.0) L 09/23/23 10:22
Plt Count 260 10^3/uL (130-400) 09/23/23 04:40
Sodium 137 mmol/L (135-145) 09/23/23 04:40
Potassium 4.5 mmol/L (3.5-5.1) 09/23/23 04:40
Chloride 109 mmol/L (98-107) H 09/23/23 04:40
Carbon Dioxide 27 mmol/L (22-30) 09/23/23 04:40
BUN 53 mg/dl (7-17) H 09/23/23 04:40
Creatinine 2.7 mg/dL (0.6-1.0) H 09/23/23 04:40
eGFR 16.87 09/23/23 04:40
Glucose 112 mg/dl (70-99) H 09/23/23 04:40
Calcium 8.7 mg/dl (8.4-10.2) 09/23/23 04:40
Gua-V-Xorttwtiwde Pept 00819 pg/ml 09/19/23 21:42
Albumin 2.5 g/dl (3.5-5.0) L 09/19/23 21:42
Physical Exam
-
Vital Signs:
Vital Signs
Temp Pulse Resp BP Pulse Ox
97.4 F 58 18 135/92 98
09/23/23 03:28 09/23/23 09:06 09/23/23 07:30 09/23/23 09:06 09/23/23 07:30
Cardiovascular:: Regular rate and rhythm
Respiratory:: Bilateral: Coarse
Lung Excursion:: Normal
Abdomen:: Nontender and Soft
Bowel Sounds:: Normal
Extremity Edema:: +1: Bilateral:
Rutledge Catheter: No
--- NOTE | 2023-09-23 11:25 | W.PN.HOSP.TC ---
Today's Communication/Plan
-
Encourage IS
bear hugger
OOB
Aspiration precautions
Rocephin
Defer Lasix to renal
CXR in am
Assessment / Plan
Assessment / Plan
83 y/o female with shortness of breath
USS kidney-There is probably a small amount of mobile debris within the bladder lumen. No evidence for bladder mass. Post void bladder residual could not be assessed, as patient is unable to spontaneously void.No focal abnormality of either kidney,
with moderately limited visualization of the left kidney.
CVS: S1-S2 normal
Chest: Decreased at bases
Abdomen: Soft, NT / Bowel sounds present
Extremities: No edema
# Acute on chronic heart failure with [place] [id number]
Acute hypoxic respiratory failure secondary to above
Bilateral pleural effusions left more than right
On BiPAP at night continue Lasix per Nephrology
S/P Left thoracentesis by IRAD
# Hypothermia-Penny hugger. TSH normal.
# Suspect aspiration pneumonitis with elevated white count placed the patient on ceftriaxone. White count has normalized.
Speech evaluation ordered. Patient refused to get video swallow test or get on thickened liquids.
# Coronary artery disease with H/O coronary stents
Elevated troponin nonischemic myocardial injury
EKG bifascicular block PACs and PVCs
Continue DAPT, beta-augusto, statin
Echo 09/20/2023-LV dilated. Mild concentric LVH. Mildly reduced LV systolic function. Ejection fraction 48%. Global hypokinesis moderately dilated LA. Moderate MR. Mild TR. Compared to 2022 EF decreased
# Left thoracentesis with 1050 ml straw-colored pleural fluid. Transudate
# Hypokalemia- Replaced
# Hypertension-on metoprolol 25 mg, losartan 100 mg daily, Amlodipine 2.5 mg as outpatient along with hydralazine 20 mg every 8 hours as OP
continue metoprolol XL 25 mg daily. Restarted Norvasc 2.5 mg daily and hydralazine. Hold losartan
# Acute kidney injury on CKD stage IV
Ultrasound without any obstruction
Albuminuria noted
Baseline creatinine 1.6 ,hold losartan
Renal evaluation appreciated
Renal serologies ordered-pending
# Diabetes-hemoglobin A1c 6.0
Patient was on Lantus insulin 28 units in the morning and 20 units at night along with NovoLog 12 before meals as outpatient prior to admission
Lantus insulin 18 units at nighttime. Continue that for now . continue sliding scale coverage .

# Hyperlipidemia-statin
# History of CVA with right hemiparesis-left carotid artery stent-Nonambulatory at [id number]
# Frequent UTIs recently completed a course of Augmentin on 09/15/2023
# Parkinson disease-continue Sinemet
# Anemia of chronic disease
# Chronic vertigo on meclizine as needed
# Depression-on duloxetine
# GERD-PPI
# History of sleep apnea used to use BiPAP in the past but not anymore. Continue that at night here.
# DVT prophylaxis-SC heparin
# DNR
Discussed with nursing
D/W Renal
Spoke to son and updated the plan of care
Anticipated Discharge: 24 - 48 hours
Subjective/Interval History
-
Date of Service: September 23, 2023
Objective Data
-
Labs:
Laboratory Results
09/23/23 09/23/23
04:40 10:22
WBC 8.7
Hgb 7.7 L 8.1 L
Hct 23.4 L 24.6 L
Plt Count 260
Sodium 137
Potassium 4.5
Chloride 109 H
Carbon Dioxide 27
BUN 53 H
Creatinine 2.7 H
Glucose 112 H
Calcium 8.7
Vital Signs:
Vital Signs
Temp Pulse Resp BP Pulse Ox
97.4 F 58 18 135/92 98
09/23/23 03:28 09/23/23 09:06 09/23/23 07:30 09/23/23 09:06 09/23/23 07:30
I&O
09/22/23 09/23/23 09/24/23
06:59 06:59 06:59
Intake Total 870 / 870 660 / 660
Output Total 750 / 750
Balance 120 / 120 660 / 660
[2023-09-23] MEDS: SINEMET 10-100 1 TABLET PO ×2 (11:40→16:57)
[2023-09-23] MEDS: MIRALAX 17 GRAMS PO (11:40)
[2023-09-23 12:52] LABS: Glucose - Point of Care 102 mg/dl (70-99)
--- NOTE | 2023-09-23 13:47 | CM ---
Reviewed the chart notes. Patient is a alf resident of [facility]. CM continues to be available to patient/family and is monitoring medical plan for needs at discharge.
Plan: Discharge back to [facility] when medically stable.
Call report to: [phone]
Fax report to: [phone]
--- NOTE | 2023-09-23 16:36 | PTCARENOTE ---
Md made aware this AM that patient rectal temp was 94.6 F. patient placed on bear hugger with goal temp of 98.6 pt reached goal temp this afternoon and bear hugger was turned off by this nurse. pt is a diabetic and has not needed any insulin with
meals per parameter this afternoon.
[2023-09-23] MEDS: STERILE WATER FOR INJECTION 10 ML IV (17:00)
[2023-09-23] MEDS: ROCEPHIN 1000 MG IV (17:00)
[2023-09-23 17:33] LABS: Glucose - Point of Care 142 mg/dl (70-99)
[2023-09-23] MEDS: SINEMET 10-100 2 TABLET PO (21:20)
[2023-09-23] MEDS: CYMBALTA DELAYED RELEASE 30 MG PO (21:20)
[2023-09-23] MEDS: MELATONIN 5 MG PO (21:20)
[2023-09-23] MEDS: COLACE 100 MG PO (21:20)
[2023-09-23] MEDS: LIPITOR 40 MG PO (21:21)
[2023-09-23 21:48] LABS: Glucose - Point of Care 202 mg/dl (70-99)
[2023-09-23] MEDS: LANTUS 0.179999999999999993 UNITS SC (21:55)
[2023-09-24 03:49] VITALS: PULSE 2
[2023-09-24 05:14] VITALS: BMI 30.9
[2023-09-24 07:25] VITALS: BP 130/66
[2023-09-24 08:06] LABS: Glucose - Point of Care 123 mg/dl (70-99)
[2023-09-24] MEDS: NOVOLOG FLEXPEN-MODERATE RESISTANCE SC (08:07)
[2023-09-24 08:56] LABS: Blood Urea Nitrogen 55 mg/dl (7-17); Calcium 8.7 mg/dl (8.4-10.2); Carbon Dioxide 27 mmol/L (22-30); Chloride 109 mmol/L (98-107); Estimated Creatinine Clearance 15 ml/min; Glucose 126 mg/dl (70-99); Potassium 4.9 mmol/L (3.5-5.1); Sodium 139 mmol/L (135-145); eGFR 16.15
[2023-09-24] MEDS: NORVASC 2.5 MG PO (09:18)
[2023-09-24] MEDS: VITAMIN D3 (cholecalciferol) 25 MCG PO (09:18)
[2023-09-24] MEDS: MAGNESIUM OXIDE 500 MG PO (09:18)
[2023-09-24] MEDS: ISORDIL 20 MG PO ×3 (09:18→21:00)
[2023-09-24] MEDS: PLAVIX 75 MG PO (09:18)
[2023-09-24] MEDS: DITROPAN 5 MG PO ×2 (09:18→20:52)
[2023-09-24] MEDS: ASPIR LOW (ENTERIC COATED) 81 MG PO (09:18)
[2023-09-24] MEDS: PROTONIX 40 MG PO (09:18)
[2023-09-24] MEDS: SINEMET 10-100 1 TABLET PO ×2 (09:18→17:09)
[2023-09-24] MEDS: TOPROL XL 25 MG PO (09:19)
[2023-09-24] MEDS: APRESOLINE 25 MG PO ×3 (09:19→23:08)
[2023-09-24] MEDS: NOVOLOG FLEXPEN 3 UNITS SC ×3 (09:20→17:09)
[2023-09-24] MEDS: REFRESH EYE DROPS (PF) 1 DROPS BOTH EYES ×4 (09:21→21:01)
[2023-09-24] MEDS: ARISTOCORT/TRIAMCINOLONE 0.1% CREAM 1 APPLIC TOPICAL ×2 (09:21→20:52)
[2023-09-24] MEDS: DESENEX/MITRAZOL/ZEASORB 1 APPLIC TOPICAL ×2 (09:27→20:52)
[2023-09-24] MEDS: HEPARIN 5000 UNITS SC ×2 (09:28→20:52)
--- NOTE | 2023-09-24 10:11 | W.PN.NEPH.PH ---
Today's Communication / Plan
-
Observe off Lasix
Assessment/Plan
-
IMP:
JONATAN with CKD 4-cr 1.6-2 Dr Sepulveda at [facility]
Acute on chronic heart failure with preserved ejection fraction
Acute hypoxic respiratory failure secondary to above
Bilateral pleural effusions s/p left thoracentesis of 1lit on 09/19
Coronary artery disease with H/O coronary stents
Elevated troponin
Leukocytosis
Hypokalemia
Hypertension
Hyperlipidemia
Diabetes
History of CVA with right hemiparesis
Nonambulatory at baseline
Frequent UTIs recently completed a course of Augmentin on 09/15/2023
Parkinson disease
Anemia of chronic disease
Chronic vertigo
Depression
GERD
Hypoalbuminemia
Plan:
A/w SOB found CHF flare on BIPAP
Creatinine up to 2.8, weights unchanged
Urine output not recorded
JONATAN-suspect cardiorenal, no hydro on renal US
UA bland but UPCR of 23gm/gm of cr, check serologies and paraprotein w/u
suspect underlying advanced diabetic nephropathy
follow bladder scan protocol
nephrotic range proteinuria likely contributing to some of vol overload as well, alb 2.5
s/p thoracentesis of 1lit on left side on 09/19, repeat CXR In am
BP labile, back on home meds, holding ARB
echo noted mildly reduced EF 45%
anemia-stable hb, adequate fe stores
avoid nephrotoxins
FR 48 ounces/day
on 09/20 we reviewed briefly about dialysis risk, she will think about it-would not refuse HD if needed , no need currently
Will likely be adding back Lasix within next 24 to 48 hours
She will likely be discharged soon with close follow-up with her patching machine operator at [facility]
-
-
Date of Service: September 24, 2023
CC / HPI / ROS
-
Chief Complaint:
JONATAN with CKD
History of Present Illness:
cr up at 2.8
k normal
Hemodynamically stable
UOP not recorded
Review of Systems:
no cp or sob at rest remains on oxygen
no fever or cough
feels tired
Weight is unchanged
sitting in chair during visit
Labs
-
Labs:
WBC 8.7 10^3/uL (4.8-10.8) 09/23/23 04:40
RBC 2.33 10^6/uL (4.20-5.40) L 09/23/23 04:40
Hgb 8.1 g/dL (12.0-16.0) L 09/23/23 10:22
Hct 24.6 % (37.0-47.0) L 09/23/23 10:22
Plt Count 260 10^3/uL (130-400) 09/23/23 04:40
Sodium 139 mmol/L (135-145) 09/24/23 05:38
Potassium 4.9 mmol/L (3.5-5.1) 09/24/23 05:38
Chloride 109 mmol/L (98-107) H 09/24/23 05:38
Carbon Dioxide 27 mmol/L (22-30) 09/24/23 05:38
BUN 55 mg/dl (7-17) H 09/24/23 05:38
Creatinine 2.8 mg/dL (0.6-1.0) H 09/24/23 05:38
eGFR 16.15 09/24/23 05:38
Glucose 126 mg/dl (70-99) H 09/24/23 05:38
Calcium 8.7 mg/dl (8.4-10.2) 09/24/23 05:38
Tdn-J-Yeonutrqyqt Pept 10450 pg/ml 09/19/23 21:42
Albumin 2.5 g/dl (3.5-5.0) L 09/19/23 21:42
Physical Exam
-
Vital Signs:
Vital Signs
Temp Pulse Resp BP Pulse Ox
97.4 F 82 18 130/66 98
09/24/23 07:25 09/24/23 07:25 09/24/23 07:25 09/24/23 09:19 09/24/23 07:25
Cardiovascular:: Regular rate and rhythm
Respiratory:: Bilateral: Coarse
Lung Excursion:: Normal
Abdomen:: Nontender and Soft
Bowel Sounds:: Normal
Extremity Edema:: None: Bilateral:
Rutledge Catheter: No
[2023-09-24 12:19] LABS: Glucose - Point of Care 171 mg/dl (70-99)
[2023-09-24] MEDS: NOVOLOG FLEXPEN-MODERATE RESISTANCE 1 UNITS SC ×2 (12:32→17:10)
--- NOTE | 2023-09-24 13:06 | W.PN.CARDCBS ---
Today's Communication / Plan
-
Monitoring off diuretics per nephrology
Please place patient on telemetry
Strict intake/output, daily weights
Need to consider alternative etiologies for shortness of breath and dyspnea
Impression / Plan
-
Primary Office Professional: Dr. Lee
Assessment:
Acute hypoxemic respiratory failure, initially requiring bipap
Acute on chronic HFpEF
B/L pleural effusions, status post left thoracentesis with 1050 mL removed on 09/20/2023
Elevated troponin, suspected nonischemic myocardial injury, peak troponin 0.26
JONATAN on CKD
Chronic bifascicular block
History of B/L CVAs on DAPT, most recent 11/2022 at [facility], transitioned back from brilinta to plavix
Residual R hemiparesis
HTN and labile HTN
History of left CVA from symptomatic left carotid stenosis in 05/2014
s/p Left internal carotid PTCA and stenting 08/27/2014
history of linq without ANY noted afib
CAD
s/p overlapping 3 mm, 3.25 mm and 2.25 mm Cypher ZIA to LAD (3) 09/2009
s/p angioplasty alone of mid LAD stents 04/23/10
COPD
DM 2
Dyslipidemia
Obesity
Parkinson's disease
PJ
Nephrotic range proteinuria
History of UTIs
Wheelchair bound
Chronic anemia
Hypokalemia
Leukocytosis
DNR CODE STATUS
ECHO 01/18/23: EF 57%, apex hypokinetic, mild MR, no significant change compared to prior
Echocardiogram 09/20/2023: Ejection fraction 48% by Hwang's, mildly dilated left ventricle, moderate MR, mild TR, left pleural effusion seen
Plan:
-Patient presented with concerns from [place] for possible UTI however then noted to be in respiratory distress and required bipap.
-weaning down supp O2 as able, now on 2L NC. states she was not on supp O2 at [facility] although does use CPAP at night
-continue IV diuresis per nephrology. weight trending down if accurate. Cr 2.7 on 09/22, 2.8 on 09/23 (relatively stable this admission, baseline previously felt to be 1.6)
- Fluid positive by I/Os over last 72h
-s/p L thora for 1050 cc 09/19
-echo with EF 48% by hwang's, felt to be visually in 45-50% range
-trops flat in 0.2 range. not ideal candidate for cath with CKD. would attempt to manage medically. no CP
-remains in SR/SB with PACs/PVCs upon review of tele
-on asa, plavix for history of CVAs, PCI, and carotid stent. hgb down to 7.7 today, repeat 8.1, stable
-continue toprol, norvasc, hydralazine, statin. low dose isordil added this admit. OP losartan stopped, not current herrera/arb/arni/aldactone candidate given JONATAN on CKD. BP trends appear improved overnight
-not candidate for SGLT2 inhibitor due to frequent UTIs and current renal insufficiency
-CHF education
Progress Note - Office Professional
Subjective
Date of Service: September 24, 2023
Patient seen and examined. No acute events overnight. Patient resting complaint care. Notes mild dyspnea on NC. Patient denies chest pain, lightheadedness, dizziness, or weakness.
Objective
Labs:
09/23/23 10:22
09/24/23 05:38
Labs
Hgb 8.1 g/dL (12.0-16.0) L 09/23/23 10:22
Hct 24.6 % (37.0-47.0) L 09/23/23 10:22
Plt Count 260 10^3/uL (130-400) 09/23/23 04:40
PT 15.0 Sec (11.4-14.6) H 09/20/23 07:40
INR 1.20 09/20/23 07:40
APTT 99.0 Sec (23.4-35.0) H 09/21/23 08:28
Sodium 139 mmol/L (135-145) 09/24/23 05:38
Potassium 4.9 mmol/L (3.5-5.1) 09/24/23 05:38
BUN 55 mg/dl (7-17) H 09/24/23 05:38
Creatinine 2.8 mg/dL (0.6-1.0) H 09/24/23 05:38
Glucose 126 mg/dl (70-99) H 09/24/23 05:38
Vital Signs and I&O:
Vital Signs
Temp Pulse Resp BP Pulse Ox
97.4 F 82 18 130/66 94
09/24/23 07:25 09/24/23 07:25 09/24/23 07:25 09/24/23 09:19 09/24/23 11:03
Vital Signs
Temp Pulse Resp BP Pulse Ox
97.4 F 82 18 130/66 94
09/24/23 07:25 09/24/23 07:25 09/24/23 07:25 09/24/23 09:19 09/24/23 11:03
Intake & Output
09/22/23 09/23/23 09/24/23 09/25/23
06:59 06:59 06:59 06:59
Intake Total 870 / 870 660 / 660 960 / 960
Output Total 750 / 750
Balance 120 / 120 660 / 660 960 / 960
Physical Exam
Physical Exam
GEN: No distress, awake, alert, oriented x3. on supp O2. obese
HEENT: supple, anicteric, mmm, eomi
LUNGS: few crackles at bases, no wheezes
CV: Reg, S1/S2, 1/6 murmur
ABD: soft, BS+, NT/ND
EXT: No cyanosis, clubbing. 1+ edema of B/L LE
NEURO: Gross non-focal
SKIN: Warm, pink, dry. No rash
--- NOTE | 2023-09-24 13:53 | W.PN.HOSP.TC ---
Today's Communication/Plan
-
Watch creat
Serologies pending
Ceftriaxone,.
Assessment / Plan
Assessment / Plan
83 y/o female with shortness of breath
USS kidney-There is probably a small amount of mobile debris within the bladder lumen. No evidence for bladder mass. Post void bladder residual could not be assessed, as patient is unable to spontaneously void.No focal abnormality of either kidney,
with moderately limited visualization of the left kidney.
CVS: S1-S2 normal
Chest: Decreased at bases
Abdomen: Soft, NT / Bowel sounds present
Extremities: No edema
Ears- No redness, cerumen
# Acute on chronic heart failure [place] [id number]
Acute hypoxic respiratory failure secondary to above
Bilateral pleural effusions left more than right
On BiPAP at night continue Lasix per Nephrology
S/P Left thoracentesis by IRAD
Also getting serologies
Possible aspiration pneumonitis- On AB
#'Clogged Ears'-No acute changes on exam
Debrox drops
# Hypothermia-Penny hugger. TSH normal.
# Suspect aspiration pneumonitis with elevated white count placed the patient on ceftriaxone. White count has normalized.
Speech evaluation ordered. Patient refused to get video swallow test or get on thickened liquids.
# Coronary artery disease with H/O coronary stents
Elevated troponin nonischemic myocardial injury
EKG bifascicular block PACs and PVCs
Continue DAPT, beta-augusto, statin
Echo 09/20/2023-LV dilated. Mild concentric LVH. Mildly reduced LV systolic function. Ejection fraction 48%. Global hypokinesis moderately dilated LA. Moderate MR. Mild TR. Compared to 2022 EF decreased
# Left thoracentesis with 1050 ml straw-colored pleural fluid. Transudate
# Hypokalemia- Replaced
# Hypertension-on metoprolol 25 mg, losartan 100 mg daily, Amlodipine 2.5 mg as outpatient along with hydralazine 20 mg every 8 hours as OP
continue metoprolol XL 25 mg daily. Restarted Norvasc 2.5 mg daily and hydralazine. Hold losartan
# Acute kidney injury on CKD stage IV
Ultrasound without any obstruction
Albuminuria noted
Baseline creatinine 1.6 ,hold losartan
Renal evaluation appreciated
Renal serologies ordered-pending
# Diabetes-hemoglobin A1c 6.0
Patient was on Lantus insulin 28 units in the morning and 20 units at night along with NovoLog 12 before meals as outpatient prior to admission
Lantus insulin 18 units at nighttime. Continue that for now . continue sliding scale coverage .

# Hyperlipidemia-statin
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
# Frequent UTIs recently completed a course of Augmentin on 09/15/2023
# Parkinson disease-continue Sinemet
# Anemia of chronic disease
# Chronic vertigo on meclizine as needed
# Depression-on duloxetine
# GERD-PPI
# History of sleep apnea used to use BiPAP in the past but not anymore. Continue that at night here.
# DVT prophylaxis-SC heparin
# DNR
Discussed with nursing
D/W Renal
09/23/23-Spoke to son and updated the plan of care
Anticipated Discharge: > 48 hours
Subjective/Interval History
-
Date of Service: September 24, 2023
Objective Data
-
Labs:
Laboratory Results
09/24/23
05:38
Sodium 139
Potassium 4.9
Chloride 109 H
Carbon Dioxide 27
BUN 55 H
Creatinine 2.8 H
Glucose 126 H
Calcium 8.7
Vital Signs:
Vital Signs
Temp Pulse Resp BP Pulse Ox
97.4 F 82 18 130/66 94
09/24/23 07:25 09/24/23 07:25 09/24/23 07:25 09/24/23 09:19 09/24/23 11:03
I&O
09/23/23 09/24/23 09/25/23
06:59 06:59 06:59
Intake Total 660 / 660 960 / 960
Balance 660 / 660 960 / 960
[2023-09-24 15:35] VITALS: BP 141/75
[2023-09-24 16:53] LABS: Glucose - Point of Care 161 mg/dl (70-99)
[2023-09-24] MEDS: ROCEPHIN 1000 MG IV (17:10)
[2023-09-24] MEDS: STERILE WATER FOR INJECTION 10 ML IV (17:10)
--- NOTE | 2023-09-24 17:29 | PTCARENOTE ---
made aware this AM of patients ear clogging. drops ordered to start in AM. pt has not had a BM during this admission. stool softeners given at HS and miralax scheduled. Verbal order for dulcolax suppository this evening. pt inc of urine at times
but has been using the commode for this nurse
[2023-09-24] MEDS: DULCOLAX 10 MG RECTAL (18:12)
[2023-09-24 19:26] VITALS: BP 136/64
[2023-09-24] MEDS: SINEMET 10-100 2 TABLET PO (20:59)
[2023-09-24] MEDS: CYMBALTA DELAYED RELEASE 30 MG PO (21:00)
[2023-09-24] MEDS: COLACE 100 MG PO (21:01)
[2023-09-24] MEDS: LIPITOR 40 MG PO (21:01)
[2023-09-24] MEDS: MELATONIN 5 MG PO (21:01)
[2023-09-24 21:08] LABS: ANA, IgG Reflex to HEp-2 None Detected (None Detected)
[2023-09-24 22:11] LABS: Glucose - Point of Care 134 mg/dl (70-99)
[2023-09-24] MEDS: LANTUS 0.179999999999999993 UNITS SC (22:18)
[2023-09-24 22:20] VITALS: PULSE 2; PULSE 82
[2023-09-24 23:17] VITALS: BP 139/87
[2023-09-25] VITALS (7 sets, daily range): BP systolic 132–156; BP diastolic 53–67; PULSE 2–84; BMI 30.8
[2023-09-25 03:33] LABS: Glucose - Point of Care 80 mg/dl (70-99)
[2023-09-25 07:45] LABS: Glucose - Point of Care 59 mg/dl (70-99)
[2023-09-25] MEDS: NOVOLOG FLEXPEN SC ×2 (08:58→12:07)
[2023-09-25] MEDS: NOVOLOG FLEXPEN-MODERATE RESISTANCE SC ×2 (08:58→11:34)
[2023-09-25] MEDS: VITAMIN D3 (cholecalciferol) 25 MCG PO (08:59)
[2023-09-25] MEDS: TOPROL XL 25 MG PO (08:59)
[2023-09-25] MEDS: MAGNESIUM OXIDE 500 MG PO (08:59)
[2023-09-25] MEDS: ASPIR LOW (ENTERIC COATED) 81 MG PO (08:59)
[2023-09-25] MEDS: PROTONIX 40 MG PO (08:59)
[2023-09-25] MEDS: REFRESH EYE DROPS (PF) 1 DROPS BOTH EYES ×3 (09:00→21:13)
[2023-09-25] MEDS: NORVASC 2.5 MG PO (09:00)
[2023-09-25] MEDS: ISORDIL 20 MG PO ×3 (09:00→21:13)
[2023-09-25] MEDS: PLAVIX 75 MG PO (09:00)
[2023-09-25] MEDS: DITROPAN 5 MG PO ×2 (09:00→20:10)
[2023-09-25] MEDS: HEPARIN 5000 UNITS SC ×2 (09:01→20:11)
[2023-09-25] MEDS: APRESOLINE 25 MG PO ×3 (09:01→23:09)
[2023-09-25] MEDS: DESENEX/MITRAZOL/ZEASORB 1 APPLIC TOPICAL ×2 (09:02→20:10)
[2023-09-25] MEDS: DEBROX EAR DROPS 1 DROP OTIC (09:02)
[2023-09-25] MEDS: ARISTOCORT/TRIAMCINOLONE 0.1% CREAM 1 APPLIC TOPICAL ×2 (09:03→20:10)
[2023-09-25] MEDS: SINEMET 10-100 1 TABLET PO ×2 (09:04→17:09)
[2023-09-25 09:17] LABS: Hemoglobin 8.7 g/dL (12.0-16.0); Mean Corp Hgb Conc. 32.2 g/dL (33.0-37.0); Mean Corpuscular Hgb 32.8 pg (27.0-31.0); Mean Corpuscular Volume 101.9 fL (81.0-99.0); Mean Platelet Volume 10.4 fL (7.4-10.4); Platelet Count 277 10^3/uL (130-400); Red Blood Cell Count 2.65 10^6/uL (4.20-5.40); Red Cell Dist. Width 13.7 % (11.5-14.5); White Blood Cell Count 8.5 10^3/uL (4.8-10.8)
[2023-09-25 10:02] LABS: Blood Urea Nitrogen 54 mg/dl (7-17); Carbon Dioxide 29 mmol/L (22-30); Chloride 109 mmol/L (98-107); Estimated Creatinine Clearance 16 ml/min; Glucose 43 mg/dl (70-99); Potassium 4.7 mmol/L (3.5-5.1); Sodium 144 mmol/L (135-145); eGFR 16.87
--- NOTE | 2023-09-25 10:06 | PTCARENOTE ---
critical lab glucose [address] Mike notified [phone]. Placed in chart.
[2023-09-25 10:14] LABS: Glucose - Point of Care 131 mg/dl (70-99)
--- NOTE | 2023-09-25 10:57 | W.PN.HOSP.TC ---
Today's Communication/Plan
-
stop BIPAP HS as she refuses
Follow renal function
Decrease Lantus
Continue AB for 7 days
CXR in am
Assessment / Plan
Assessment / Plan
83 y/o female with shortness of breath
USS kidney-There is probably a small amount of mobile debris within the bladder lumen. No evidence for bladder mass. Post void bladder residual could not be assessed, as patient is unable to spontaneously void.No focal abnormality of either kidney,
with moderately limited visualization of the left kidney.
CVS: S1-S2 normal
Chest: Decreased at bases
Abdomen: Soft, NT / Bowel sounds present
Extremities: No edema
# Acute on chronic heart failure [place] [address]
Acute hypoxic respiratory failure secondary to above
Bilateral pleural effusions left more than right
She refuses BIPAP HS- So Discontinue
S/P Left thoracentesis by IRAD
Also getting serologies
Possible aspiration pneumonitis- On AB
#'Clogged Ears'-No acute changes on exam
Debrox drops
# Hypothermia-Penny hugger. TSH normal.
# Suspect aspiration pneumonitis with elevated white count placed the patient on ceftriaxone. White count has normalized.
Speech evaluation ordered. Patient refused to get video swallow test or get on thickened liquids.
AB 3/7 days today
# Coronary artery disease with H/O coronary stents
Elevated troponin nonischemic myocardial injury
EKG bifascicular block PACs and PVCs
Continue DAPT, beta-augusto, statin
Echo 09/20/2023-LV dilated. Mild concentric LVH. Mildly reduced LV systolic function. Ejection fraction 48%. Global hypokinesis moderately dilated LA. Moderate MR. Mild TR. Compared to 2022 EF decreased
# Left thoracentesis with 1050 ml straw-colored pleural fluid. Transudate
# Hypokalemia- Replaced
# Hypertension-on metoprolol 25 mg, losartan 100 mg daily, Amlodipine 2.5 mg as outpatient along with hydralazine 20 mg every 8 hours as OP
continue metoprolol XL 25 mg daily, Norvasc 2.5 mg daily and hydralazine. Hold losartan
# Acute kidney injury on CKD stage IV
Ultrasound without any obstruction
Albuminuria noted
Baseline creatinine 1.6 ,hold losartan
Renal evaluation appreciated
Renal serologies ordered-pending
# Diabetes-hemoglobin A1c 6.0
Patient was on Lantus insulin 28 units in the morning and 20 units at night along with NovoLog 12 before meals as outpatient prior to admission
Lantus insulin 15 units at nighttime. continue sliding scale coverage .

# Hyperlipidemia-statin
# History of CVA with right hemiparesis-left carotid artery stent-[facility]ambulatory [id number]
# Frequent UTIs recently completed a course of Augmentin on 09/15/2023
# Parkinson disease-continue Sinemet
# Anemia of chronic disease
# Chronic vertigo on meclizine as needed
# Depression-on duloxetine
# GERD-PPI
# History of sleep apnea used to use BiPAP in the past but not anymore. Continue that at night here.
# DVT prophylaxis-SC heparin
# DNR
Discussed with nursing
D/W Renal
Anticipated Discharge: > 48 hours
Subjective/Interval History
-
Date of Service: September 25, 2023
Objective Data
-
Labs:
Laboratory Results
09/25/23
07:58
WBC 8.5
Hgb 8.7 L
Hct 27.0 L
Plt Count 277
Sodium 144
Potassium 4.7
Chloride 109 H
Carbon Dioxide 29
BUN 54 H
Creatinine 2.7 H
Glucose 43 L*
Calcium 9.0
Vital Signs:
Vital Signs
Temp Pulse Resp BP Pulse Ox
97.8 F 69 18 132/52 96
09/25/23 08:00 09/25/23 09:01 09/25/23 08:00 09/25/23 09:01 09/25/23 08:00
I&O
09/24/23 09/25/23 09/26/23
06:59 06:59 06:59
Intake Total 960 / 960 1320 / 1320
Balance 960 / 960 1320 / 1320
[2023-09-25 11:32] LABS: Glucose - Point of Care 130 mg/dl (70-99)
[2023-09-25] MEDS: REFRESH EYE DROPS (PF) BOTH EYES (12:11)
--- NOTE | 2023-09-25 12:14 | W.PN.NEPH.PH ---
Today's Communication / Plan
-
Decrease fluid restrict
Add back Lasix 40 mg
Follow-up BMP
Suggest right heart cath to help ascertain volume status
Assessment/Plan
-
IMP:
JONATAN with CKD 4-cr 1.6-2 Dr eSpulveda at [facility]
Acute on chronic heart failure with preserved ejection fraction
Acute hypoxic respiratory failure secondary to above
Bilateral pleural effusions s/p left thoracentesis of 1lit on 09/19
Coronary artery disease with H/O coronary stents
Elevated troponin
Leukocytosis
Hypokalemia
Hypertension
Hyperlipidemia
Diabetes
History of CVA with right hemiparesis
Nonambulatory at baseline
Frequent UTIs recently completed a course of Augmentin on 09/15/2023
Parkinson disease
Anemia of chronic disease
Chronic vertigo
Depression
GERD
Hypoalbuminemia
Plan:
A/w SOB found CHF flare on BIPAP
Creatinine up to 2.7, weights unchanged
Will restart 40 mg p.o. Lasix
Need bedside weights
I believe right heart catheterization could be very helpful in guiding diuresis as patient's body habitus makes volume status difficult to ascertain
JONATAN-suspect cardiorenal, no hydro on renal US
UPCR of 23gm/gm of cr, check serologies and paraprotein w/u
suspect underlying advanced diabetic nephropathy
follow bladder scan protocol
nephrotic range proteinuria likely contributing to some of vol overload as well, alb 2.5
s/p thoracentesis of 1lit on left side on 09/19, repeat CXR In am
Hemodynamically stable but holding ARB
echo noted mildly reduced EF 45%
anemia-stable hgb, adequate fe stores hemoglobin at 8 point
avoid nephrotoxins
Will decrease fluid restriction giving rising hypernatremia
on 09/20 we reviewed briefly about dialysis risk, she will think about it-would not refuse HD if needed , no need currently
She will likely be discharged soon with close follow-up with her fiberglass roller at [facility]
-
-
Date of Service: September 25, 2023
CC / HPI / ROS
-
Chief Complaint:
JONATAN with CKD
History of Present Illness:
cr up at 2.7
k normal
Hemodynamically stable
UOP not recorded
Review of Systems:
no cp or sob at rest remains on oxygen
no fever or cough
feels tired
Weight is unchanged on bed scale
sitting in chair during visit
Labs
-
Labs:
WBC 8.5 10^3/uL (4.8-10.8) 09/25/23 07:58
RBC 2.65 10^6/uL (4.20-5.40) L 09/25/23 07:58
Hgb 8.7 g/dL (12.0-16.0) L 09/25/23 07:58
Hct 27.0 % (37.0-47.0) L 09/25/23 07:58
Plt Count 277 10^3/uL (130-400) 09/25/23 07:58
Sodium 144 mmol/L (135-145) 09/25/23 07:58
Potassium 4.7 mmol/L (3.5-5.1) 09/25/23 07:58
Chloride 109 mmol/L (98-107) H 09/25/23 07:58
Carbon Dioxide 29 mmol/L (22-30) 09/25/23 07:58
BUN 54 mg/dl (7-17) H 09/25/23 07:58
Creatinine 2.7 mg/dL (0.6-1.0) H 09/25/23 07:58
eGFR 16.87 09/25/23 07:58
Glucose 43 mg/dl (70-99) L* 09/25/23 07:58
Calcium 9.0 mg/dl (8.4-10.2) 09/25/23 07:58
Igw-T-Ajyyctsnnsv Pept 96980 pg/ml 09/19/23 21:42
Albumin 2.5 g/dl (3.5-5.0) L 09/19/23 21:42
Physical Exam
-
Vital Signs:
Vital Signs
Temp Pulse Resp BP Pulse Ox
97.8 F 69 18 132/52 96
09/25/23 08:00 09/25/23 09:01 09/25/23 08:00 09/25/23 09:01 09/25/23 08:00
Cardiovascular:: Regular rate and rhythm
Respiratory:: Bilateral: Coarse
Lung Excursion:: Normal
Abdomen:: Nontender and Soft
Bowel Sounds:: Normal
Extremity Edema:: +1: Bilateral:
Rutledge Catheter: No
[2023-09-25] MEDS: LASIX 40 MG PO (12:38)
[2023-09-25 16:24] LABS: Glucose - Point of Care 174 mg/dl (70-99)
[2023-09-25] MEDS: ROCEPHIN 1000 MG IV (17:08)
[2023-09-25] MEDS: STERILE WATER FOR INJECTION 10 ML IV (17:09)
[2023-09-25] MEDS: NOVOLOG FLEXPEN 3 UNITS SC (17:12)
[2023-09-25] MEDS: NOVOLOG FLEXPEN-MODERATE RESISTANCE 1 UNITS SC (17:12)
[2023-09-25] MEDS: LIPITOR 40 MG PO (21:12)
[2023-09-25] MEDS: SINEMET 10-100 2 TABLET PO (21:12)
[2023-09-25] MEDS: COLACE 100 MG PO (21:12)
[2023-09-25] MEDS: CYMBALTA DELAYED RELEASE 30 MG PO (21:13)
[2023-09-25] MEDS: MELATONIN 5 MG PO (21:14)
[2023-09-25 21:23] LABS: Glucose - Point of Care 160 mg/dl (70-99)
[2023-09-25] MEDS: LANTUS 0.149999999999999994 UNITS SC (21:23)
[2023-09-25 23:28] LABS: Complement C3 122 mg/dl (88-165)
[2023-09-26] VITALS (7 sets, daily range): BP systolic 125–169; BP diastolic 48–72; PULSE 76; O2SAT 94; BMI 30.9
[2023-09-26 05:01] LABS: Glucose - Point of Care 121 mg/dl (70-99)
--- NOTE | 2023-09-26 05:06 | PTCARENOTE ---
Patient refused to stand up for daily weight at this time.
[2023-09-26 07:31] LABS: Glucose - Point of Care 129 mg/dl (70-99)
[2023-09-26] MEDS: NOVOLOG FLEXPEN-MODERATE RESISTANCE SC ×2 (07:47→17:13)
[2023-09-26 08:15] LABS: NT-proBNP 16700 pg/ml
[2023-09-26 08:42] LABS: Blood Urea Nitrogen 56 mg/dl (7-17); Calcium 9.3 mg/dl (8.4-10.2); Carbon Dioxide 30 mmol/L (22-30); Chloride 109 mmol/L (98-107); Estimated Creatinine Clearance 17 ml/min; Glucose 109 mg/dl (70-99); Potassium 5.3 mmol/L (3.5-5.1); Sodium 144 mmol/L (135-145); eGFR 17.65
[2023-09-26] MEDS: NOVOLOG FLEXPEN 3 UNITS SC (08:58)
[2023-09-26] MEDS: ASPIR LOW (ENTERIC COATED) 81 MG PO (08:59)
[2023-09-26] MEDS: NORVASC 2.5 MG PO (09:00)
[2023-09-26] MEDS: VITAMIN D3 (cholecalciferol) 25 MCG PO (09:00)
[2023-09-26] MEDS: PROTONIX 40 MG PO (09:00)
--- NOTE | 2023-09-26 09:00 | W.PN.CARDCBS ---
Today's Communication / Plan
-
-Will consider right heat catheterization. Suspect she will still be volume overloaded.
Impression / Plan
-
Primary Tail End Rider: Dr. Lee
Assessment:
Acute hypoxemic respiratory failure, initially requiring bipap
Acute on chronic HFpEF
B/L pleural effusions, status post left thoracentesis with 1050 mL removed on 09/20/2023
Elevated troponin, suspected nonischemic myocardial injury, peak troponin 0.26
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
Chronic bifascicular block
History of B/L CVAs on DAPT, most recent 11/2022 at [facility], transitioned back from brilinta to plavix
Residual R hemiparesis
HTN and labile HTN
History of left CVA from symptomatic left carotid stenosis in 05/2014
s/p Left internal carotid PTCA and stenting 08/27/2014
history of linq without ANY noted afib
CAD
s/p overlapping 3 mm, 3.25 mm and 2.25 mm Cypher ZIA to LAD (3) 09/2009
s/p angioplasty alone of mid LAD stents 04/23/10
COPD
DM 2
Dyslipidemia
Obesity
Parkinson's disease
PJ
Nephrotic range proteinuria
History of UTIs
Wheelchair bound
Chronic anemia
Hypokalemia
Leukocytosis
DNR CODE STATUS
ECHO 01/18/23: EF 57%, apex hypokinetic, mild MR, no significant change compared to prior
Echocardiogram 09/20/2023: Ejection fraction 48% by Hwang's, mildly dilated left ventricle, moderate MR, mild TR, left pleural effusion seen
-09/26/2023: Chest x-ray: Limited study with increased interstitial opacities. Small to moderate bilateral effusions left greater than right suggestive of possible pulmonary edema
Plan:
-Patient presented with concerns from OR for possible UTI however then noted to be in respiratory distress and required bipap.
-weaning down supp O2 as able, now on 2L NC. states she was not on supp O2 at [facility] although does use CPAP at night
-continue IV diuresis per nephrology. weight trending down if accurate. Cr 2.7 on 09/22, 2.8 on 09/23 (relatively stable this admission, baseline previously felt to be 1.6)
- Fluid positive by I/Os over last 72h
-s/p L thora for 1050 cc 09/19
-echo with EF 48% by hwang's, felt to be visually in 45-50% range
-trops flat in 0.2 range: Not candidate for cath with CKD. would attempt to manage medically. no CP
-Remains short of breath with minimal activity.
-Nephrology asking us to consider right heart catheterization. Will plan on later today to tomorrow. I suspect still volume overloaded
-on asa, plavix for history of CVAs, PCI, and carotid stent. hgb down to 7.7 today, repeat 8.1, stable
-continue Toprol, Norvasc, hydralazine, statin. low dose isordil added this admit. OP losartan stopped, not current herrera/arb/arni/aldactone candidate given JONATAN on CKD. BP trends appear improved overnight
-not candidate for SGLT2 inhibitor due to frequent UTIs and current renal insufficiency
-CHF education
Progress Note - Tail End Rider
Subjective
Date of Service: September 26, 2023
Objective
Labs:
09/25/23 07:58
09/26/23 07:59
Labs
Hgb 8.7 g/dL (12.0-16.0) L 09/25/23 07:58
Hct 27.0 % (37.0-47.0) L 09/25/23 07:58
Plt Count 277 10^3/uL (130-400) 09/25/23 07:58
PT 15.0 Sec (11.4-14.6) H 09/20/23 07:40
INR 1.20 09/20/23 07:40
APTT 99.0 Sec (23.4-35.0) H 09/21/23 08:28
Sodium 144 mmol/L (135-145) 09/26/23 07:59
Potassium 5.3 mmol/L (3.5-5.1) H 09/26/23 07:59
BUN 56 mg/dl (7-17) H 09/26/23 07:59
Creatinine 2.6 mg/dL (0.6-1.0) H 09/26/23 07:59
Glucose 109 mg/dl (70-99) H 09/26/23 07:59
Vital Signs and I&O:
Vital Signs
Temp Pulse Resp BP Pulse Ox
98.3 F 76 16 169/68 96
09/26/23 08:00 09/26/23 08:00 09/26/23 08:00 09/26/23 08:00 09/26/23 08:00
Vital Signs
Temp Pulse Resp BP Pulse Ox
98.3 F 76 16 169/68 96
09/26/23 08:00 09/26/23 08:00 09/26/23 08:00 09/26/23 08:00 09/26/23 08:00
Intake & Output
09/23/23 09/24/23 09/25/23 09/26/23
23:59 23:59 23:59 23:59
Intake Total 840 / 840 1080 / 1080 480 / 480 460 / 460
Balance 840 / 840 1080 / 1080 480 / 480 460 / 460
Physical Exam
Physical Exam
Gen: Dyspnea with minimal exertion
Lungs: Decreased breath sounds from base to lower 2/3 of lung field on the left and base to mid lung field on the right
CV: RRR
Ext: No edema
[2023-09-26] MEDS: SINEMET 10-100 1 TABLET PO (09:01)
[2023-09-26] MEDS: LASIX 40 MG PO (09:01)
[2023-09-26] MEDS: MAGNESIUM OXIDE 500 MG PO (09:01)
[2023-09-26] MEDS: HEPARIN 5000 UNITS SC ×2 (09:02→21:06)
[2023-09-26] MEDS: ISORDIL 20 MG PO (09:02)
[2023-09-26] MEDS: APRESOLINE 25 MG PO (09:02)
[2023-09-26] MEDS: PLAVIX 75 MG PO (09:02)
[2023-09-26] MEDS: REFRESH EYE DROPS (PF) 1 DROPS BOTH EYES (09:02)
[2023-09-26] MEDS: DITROPAN 5 MG PO (09:02)
[2023-09-26] MEDS: ARISTOCORT/TRIAMCINOLONE 0.1% CREAM 1 APPLIC TOPICAL ×2 (09:03→21:06)
[2023-09-26] MEDS: DEBROX EAR DROPS 1 DROP OTIC (09:04)
[2023-09-26] MEDS: DESENEX/MITRAZOL/ZEASORB 1 APPLIC TOPICAL ×2 (09:06→21:06)
[2023-09-26] MEDS: MIRALAX PO (09:06)
[2023-09-26] MEDS: TOPROL XL 25 MG PO (09:14)
[2023-09-26 11:37] LABS: Glucose - Point of Care 185 mg/dl (70-99)
[2023-09-26] MEDS: NOVOLOG FLEXPEN SC ×2 (12:57→17:12)
[2023-09-26] MEDS: NOVOLOG FLEXPEN-MODERATE RESISTANCE 1 UNITS SC (12:58)
[2023-09-26] MEDS: REFRESH EYE DROPS (PF) BOTH EYES ×3 (13:12→20:29)
--- NOTE | 2023-09-26 13:13 | PTCARENOTE ---
Speech recommending NPO. Spoke with Dr. Rowe and he is in agreement for now. Patient's standing 3 units of insulin not given. Sliding scale 1 unit given per Doctor Jae. Patient expresses being very upset about NPO. Is still refusing swallowing
test.
--- NOTE | 2023-09-26 14:39 | CM ---
Reviewed the chart notes. CM continues to be available to patient/family and is monitoring medical plan for needs at discharge.
Plan: Discharge back to [facility] when medically stable.
Call report to: [phone]
Fax report to: [phone]
--- NOTE | 2023-09-26 14:56 | W.PN.NEPH.PH ---
Today's Communication / Plan
-
- continue home lasix
- consider RHC
Assessment/Plan
-
IMP:
JONATAN with CKD 4-cr 1.6-2 Dr Sepulveda at [facility]
Acute on chronic heart failure with preserved ejection fraction
Acute hypoxic respiratory failure secondary to above
Bilateral pleural effusions s/p left thoracentesis of 1lit on 09/19
Coronary artery disease with H/O coronary stents
Elevated troponin
Leukocytosis
Hypokalemia
Hypertension
Hyperlipidemia
Diabetes
History of CVA with right hemiparesis
Nonambulatory at baseline
Frequent UTIs recently completed a course of Augmentin on 09/15/2023
Parkinson disease
Anemia of chronic disease
Chronic vertigo
Depression
GERD
Hypoalbuminemia
Plan:
A/w SOB found CHF flare on BIPAP
Creatinine up to 2.6, weights unchanged
Will restart 40 mg p.o. Lasix
Need bedside weights
I believe right heart catheterization could be very helpful in guiding diuresis as patient's body habitus makes volume status difficult to ascertain
JONATAN-suspect cardiorenal, no hydro on renal US
UPCR of 23gm/gm of cr, check serologies and paraprotein w/u
suspect underlying advanced diabetic nephropathy
follow bladder scan protocol
nephrotic range proteinuria likely contributing to some of vol overload as well, alb 2.5
s/p thoracentesis of 1lit on left side on 09/19, repeat CXR In am
Hemodynamically stable but holding ARB
echo noted mildly reduced EF 45%
anemia-stable hgb, adequate fe stores hemoglobin at 8 point
avoid nephrotoxins
Will decrease fluid restriction giving rising hypernatremia
on 09/20 we reviewed briefly about dialysis risk, she will think about it-would not refuse HD if needed , no need currently
She will likely be discharged soon with close follow-up with her brim plater at [facility]
-
-
Date of Service: September 26, 2023
CC / HPI / ROS
-
Chief Complaint:
JONATAN with CKD
History of Present Illness:
cr up at 2.6
k normal
Hemodynamically stable
UOP not recorded
Review of Systems:
no cp or sob at rest remains on oxygen
no fever or cough
feels tired
Weight is unchanged on bed scale
sitting in chair during visit
Labs
-
Labs:
WBC 8.5 10^3/uL (4.8-10.8) 09/25/23 07:58
RBC 2.65 10^6/uL (4.20-5.40) L 09/25/23 07:58
Hgb 8.7 g/dL (12.0-16.0) L 09/25/23 07:58
Hct 27.0 % (37.0-47.0) L 09/25/23 07:58
Plt Count 277 10^3/uL (130-400) 09/25/23 07:58
Sodium 144 mmol/L (135-145) 09/26/23 07:59
Potassium 5.3 mmol/L (3.5-5.1) H 09/26/23 07:59
Chloride 109 mmol/L (98-107) H 09/26/23 07:59
Carbon Dioxide 30 mmol/L (22-30) 09/26/23 07:59
BUN 56 mg/dl (7-17) H 09/26/23 07:59
Creatinine 2.6 mg/dL (0.6-1.0) H 09/26/23 07:59
eGFR 17.65 09/26/23 07:59
Glucose 109 mg/dl (70-99) H 09/26/23 07:59
Calcium 9.3 mg/dl (8.4-10.2) 09/26/23 07:59
Xzs-H-Jhwhoipnumy Pept 28701 pg/ml 09/26/23 06:03
Albumin 2.5 g/dl (3.5-5.0) L 09/19/23 21:42
Physical Exam
-
Vital Signs:
Vital Signs
Temp Pulse Resp BP Pulse Ox
97.4 F 63 18 138/61 97
09/26/23 12:50 09/26/23 12:50 09/26/23 12:50 09/26/23 12:50 09/26/23 12:50
Cardiovascular:: Regular rate and rhythm
Respiratory:: Bilateral: Coarse
Lung Excursion:: Normal
Abdomen:: Nontender and Soft
Bowel Sounds:: Normal
Extremity Edema:: None: Bilateral:
Rutledge Catheter: No
--- NOTE | 2023-09-26 15:56 | W.PN.HOSP.TC ---
Today's Communication/Plan
-
NPO except meds
VSE
CW Diuresis
Assessment / Plan
Assessment / Plan
83 y/o female with shortness of breath
USS kidney-There is probably a small amount of mobile debris within the bladder lumen. No evidence for bladder mass. Post void bladder residual could not be assessed, as patient is unable to spontaneously void.No focal abnormality of either kidney,
with moderately limited visualization of the left kidney.
# Acute on chronic heart failure [place] [address]
Acute hypoxic respiratory failure secondary to above
Bilateral pleural effusions left more than right
She refuses BIPAP HS- So Discontinued
S/P Left thoracentesis by IRAD
Also getting serologies
Possible aspiration pneumonitis- On AB
Weight remains high despite diuretics. Repeat chest x-ray shows pulmonary edema. Cardiology contemplating on RHC
# Suspect aspiration pneumonitis with elevated white count placed the patient on ceftriaxone. White count has normalized.
Speech evaluation noted. Patient refused to get video swallow test or get on thickened liquids -now agreeable.
AB 4/ days
# Coronary artery disease with H/O coronary stents
Elevated troponin nonischemic myocardial injury
EKG bifascicular block PACs and PVCs
Continue DAPT, beta-augusto, statin
Echo 09/20/2023-LV dilated. Mild concentric LVH. Mildly reduced LV systolic function. Ejection fraction 48%. Global hypokinesis moderately dilated LA. Moderate MR. Mild TR. Compared to 2022 EF decreased
# Left thoracentesis with 1050 ml straw-colored pleural fluid. Transudate
# Hypokalemia- Replaced
# Hypertension-on metoprolol 25 mg, losartan 100 mg daily, Amlodipine 2.5 mg as outpatient along with hydralazine 20 mg every 8 hours as OP
continue metoprolol XL 25 mg daily, Norvasc 2.5 mg daily and hydralazine. Hold losartan
# Acute kidney injury on CKD stage IV
Ultrasound without any obstruction
Albuminuria noted
Baseline creatinine 1.6 ,hold losartan
Renal evaluation appreciated
Renal serologies ordered-pending
# Diabetes-hemoglobin A1c 6.0
Patient was on Lantus insulin 28 units in the morning and 20 units at night along with NovoLog 12 before meals as outpatient prior to admission
Lantus insulin 15 units at nighttime. continue sliding scale coverage .

# Hyperlipidemia-statin
# History of CVA with right hemiparesis-left carotid artery stent-Nonambulatory at [id number]
# Frequent UTIs recently completed a course of Augmentin on 09/15/2023
# Parkinson disease-continue Sinemet
# Anemia of chronic disease
# Chronic vertigo on meclizine as needed
# Depression-on duloxetine
# GERD-PPI
# History of sleep apnea used to use BiPAP in the past but not anymore. Continue that at night here.
# DVT prophylaxis-SC heparin
# DNR
Anticipated Discharge: > 48 hours
Subjective/Interval History
-
Date of Service: September 26, 2023
She feels short of breath this morning. She feels okay now. No chest pain or palpitation.
She was having trouble with swallowing as noted by RN and had a speech eval who are recommending VSE.
She states after the stroke 2 years ago she had trouble with swallowing and needed 2 VSE in the past.
Objective Data
-
Labs:
Laboratory Results
09/26/23 09/26/23
06:03 07:59
Sodium Cancelled 144
Potassium Cancelled 5.3 H
Chloride Cancelled 109 H
Carbon Dioxide Cancelled 30
BUN Cancelled 56 H
Creatinine Cancelled 2.6 H
Glucose Cancelled 109 H
Calcium Cancelled 9.3
Vital Signs:
Vital Signs
Temp Pulse Resp BP Pulse Ox
97.4 F 63 18 138/61 97
09/26/23 12:50 09/26/23 12:50 09/26/23 12:50 09/26/23 12:50 09/26/23 12:50
I&O
09/25/23 09/26/23 09/27/23
06:59 06:59 06:59
Intake Total 1320 / 1320 460 / 460
Balance 1320 / 1320 460 / 460
Review of Systems
-
Constitutional: Denies Fever
EENT: Denies Sore Throat
Respiratory: Reports Cough and Trouble Breathing
Cardiac: Denies Chest Pain
Abdomen/GI: Denies Abdominal Pain, Nausea or Vomiting
Neuro: Denies Dizzy
Physical Exam
-
General: No Apparent Distress
HEENT: Moist Mucous Membranes
Respiratory: Crackles (few bibasal) and Non Labored Respirations; Negative Wheezes or Accessory Resp Muscle Use
Cardiac: Regular Rhythm and S1/S2
GI: Soft
Neuro: AO x 3
Data Reviewed
-
Labs: Labs Reviewed by me
[2023-09-26 16:39] LABS: Glucose - Point of Care 127 mg/dl (70-99)
[2023-09-26] MEDS: NSS 1000 IV (17:06)
[2023-09-26] MEDS: APRESOLINE PO (17:06)
[2023-09-26] MEDS: ISORDIL PO ×2 (17:06→20:28)
[2023-09-26] MEDS: ROCEPHIN 1000 MG IV (17:13)
[2023-09-26] MEDS: SINEMET 10-100 PO ×2 (17:13→20:28)
[2023-09-26] MEDS: STERILE WATER FOR INJECTION 10 ML IV (17:13)
--- NOTE | 2023-09-26 20:25 | PTCARENOTE ---
Pt received in bed,appearing SOB and using accessory muscles for breathing. O2 @ 3L- Pox 94-96%. Pt NPO r/t aspiration risk, video swallow in AM. IVF's infusing at 40cc/hr.
[2023-09-26] MEDS: DITROPAN PO (20:27)
[2023-09-26] MEDS: MELATONIN PO (20:28)
[2023-09-26] MEDS: CYMBALTA DELAYED RELEASE PO (20:28)
[2023-09-26] MEDS: COLACE PO (20:28)
[2023-09-26] MEDS: LIPITOR PO (20:28)
[2023-09-26 20:52] LABS: Albumin 1.87 g/dL (3.75-5.01); Alpha 2 Globulin 0.76 g/dL (0.48-1.05); SPEP IFE Reflex Not Done; Total Protein-Electrophoresis 4.9 g/dL (6.3-8.2)
[2023-09-26 21:57] LABS: Glucose - Point of Care 121 mg/dl (70-99)
[2023-09-27] MEDS: LANTUS 0.0700000000000000067 UNITS SC (00:06)
[2023-09-27] MEDS: APRESOLINE PO ×2 (00:07→09:04)
[2023-09-27 03:56] VITALS: BP 139/61
[2023-09-27] MEDS: MORPHINE SULFATE 1 MG IV (04:33)
[2023-09-27] MEDS: DUONEB 3 ML INH (04:34)
[2023-09-27 04:41] LABS: Glucose - Point of Care 131 mg/dl (70-99)
--- NOTE | 2023-09-27 05:05 | PTCARENOTE ---
Addendum entered by Mercedes Reyes RN 09/27/23 05:47:
IVF's on hold. IV lasix was ordered, however per PROJECT ASSOCIATE will wait until morning lab results are back before administering dose.
Original Note:
Pt very restless, SOB more than her 'baseline' and unable to form full sentences, increase use of accessory muscles. Noted with decrease urine output, bladder scan for 355. BP 139/61, 89, RR 40, T-98.1, pox 92% @ 3L. SALES PROMOTION COORDINATOR made aware, TT respiratory
for PRN duoneb tx. New order for x1 1mg dose of morphine given with some relief. 14 Fr Rutledge inserted and tolerated well, 400 cc instant cloudy urine output.
--- NOTE | 2023-09-27 05:47 | W.PN.UPDATE ---
Update Note
Progress Note Update
RN notified WAREHOUSE MANAGER, Patient noted to have increase work for breathing using accessory muscles. Patient seen and evaluated, Patient is restless and refusing everything, BS 350 with no urge to void, 139/61, 9, 92% 3L, Patient was refusing treatment at
first. Address the importance of treatment at present to help breath better. Patient agreed, did order IV morphine 1mg IV, Neb treatment, Rutledge catheter in place as patient refusing straight cath. Patient states she is feeling much better at
present, near baseline. will hold off on to the Lasix till AM labs results comes in.
[2023-09-27 06:00] VITALS: BMI 30.2
[2023-09-27 06:36] LABS: Hematocrit 31.1 % (37.0-47.0); Hemoglobin 10.1 g/dL (12.0-16.0); Mean Corp Hgb Conc. 32.5 g/dL (33.0-37.0); Mean Corpuscular Hgb 32.8 pg (27.0-31.0); Mean Platelet Volume 10.3 fL (7.4-10.4); Platelet Count 309 10^3/uL (130-400); Red Blood Cell Count 3.08 10^6/uL (4.20-5.40); Red Cell Dist. Width 14.2 % (11.5-14.5); White Blood Cell Count 10.1 10^3/uL (4.8-10.8)
[2023-09-27 07:01] LABS: Blood Urea Nitrogen 56 mg/dl (7-17); Glucose 133 mg/dl (70-99)
[2023-09-27 07:02] LABS: Calcium 9.4 mg/dl (8.4-10.2); Carbon Dioxide 27 mmol/L (22-30); Chloride 110 mmol/L (98-107); Estimated Creatinine Clearance 16 ml/min; Potassium 5.4 mmol/L (3.5-5.1); Sodium 144 mmol/L (135-145); eGFR 17.65
[2023-09-27 07:18] LABS: Myeloperoxidase Antibody 0 AU/mL (0-19); Serine Protease-3, IgG 0 AU/mL (0-19)
[2023-09-27 07:40] VITALS: BP 105/66
[2023-09-27] MEDS: NOVOLOG FLEXPEN SC (09:03)
[2023-09-27] MEDS: NOVOLOG FLEXPEN-MODERATE RESISTANCE SC (09:04)
[2023-09-27] MEDS: MAGNESIUM OXIDE PO (09:05)
[2023-09-27] MEDS: NORVASC PO (09:05)
[2023-09-27] MEDS: DITROPAN PO (09:05)
[2023-09-27] MEDS: ASPIR LOW (ENTERIC COATED) PO (09:05)
[2023-09-27] MEDS: LASIX PO (09:05)
[2023-09-27] MEDS: ISORDIL PO (09:05)
[2023-09-27] MEDS: PLAVIX PO (09:06)
[2023-09-27] MEDS: VITAMIN D3 (cholecalciferol) PO (09:06)
[2023-09-27] MEDS: TOPROL XL PO (09:06)
[2023-09-27] MEDS: PROTONIX PO (09:06)
[2023-09-27] MEDS: SINEMET 10-100 PO (09:06)
--- NOTE | 2023-09-27 09:30 | PTCARENOTE ---
Patient seen by nephro dr. Thibodeaux at bedside. Md made aware of am labs. Verbal order for Lasix 20mg IV once. Order in place.plan of care ongoing.
[2023-09-27] MEDS: ARISTOCORT/TRIAMCINOLONE 0.1% CREAM 1 APPLIC TOPICAL ×2 (09:45→20:00)
[2023-09-27] MEDS: DEBROX EAR DROPS 1 DROP OTIC (09:46)
[2023-09-27] MEDS: HEPARIN 5000 UNITS SC ×2 (09:49→19:58)
[2023-09-27] MEDS: REFRESH EYE DROPS (PF) 1 DROPS BOTH EYES ×4 (09:49→21:28)
[2023-09-27] MEDS: DESENEX/MITRAZOL/ZEASORB 1 APPLIC TOPICAL ×2 (09:50→20:00)
[2023-09-27] MEDS: LASIX 20 MG IV (10:02)
--- NOTE | 2023-09-27 10:47 | W.PN.HOSP.TC ---
Today's Communication/Plan
-
CW IV lasix
Follow VSE
Assessment / Plan
Assessment / Plan
83 y/o female with shortness of breath
USS kidney-There is probably a small amount of mobile debris within the bladder lumen. No evidence for bladder mass. Post void bladder residual could not be assessed, as patient is unable to spontaneously void.No focal abnormality of either kidney,
with moderately limited visualization of the left kidney.
# Acute on chronic heart failure with [place] [address]
Acute hypoxic respiratory failure secondary to above
Bilateral pleural effusions left more than right
She refuses BIPAP HS- So Discontinued
S/P Left thoracentesis by IRAD
Also getting serologies
Possible aspiration pneumonitis- On AB
Repeat chest x-ray shows pulmonary edema. Cardiology contemplating on RHC
Improved weight now compared to yesterday. Continue with IV Lasix twice daily.
# Suspect aspiration pneumonitis with elevated white count placed the patient on ceftriaxone. White count has normalized.
Speech evaluation noted. Patient refused to get video swallow test or get on thickened liquids -now agreeable.
AB 5 days
# Coronary artery disease with H/O coronary stents
Elevated troponin nonischemic myocardial injury
EKG bifascicular block PACs and PVCs
Continue DAPT, beta-augusto, statin
Echo 09/20/2023-LV dilated. Mild concentric LVH. Mildly reduced LV systolic function. Ejection fraction 48%. Global hypokinesis moderately dilated LA. Moderate MR. Mild TR. Compared to 2022 EF decreased
# Left thoracentesis with 1050 ml straw-colored pleural fluid. Transudate
# Hypertension-on metoprolol 25 mg, losartan 100 mg daily, Amlodipine 2.5 mg as outpatient along with hydralazine 20 mg every 8 hours as OP
continue metoprolol XL 25 mg daily, Norvasc 2.5 mg daily and hydralazine. Hold losartan
BP under goal
# Acute kidney injury on CKD stage IV
Ultrasound without any obstruction
Albuminuria noted
Baseline creatinine 1.6 ,hold losartan
Renal evaluation appreciated
Renal serologies ordered-pending
# Diabetes-hemoglobin A1c 6.0
Patient was on Lantus insulin 28 units in the morning and 20 units at night along with NovoLog 12 before meals as outpatient prior to admission
Lantus insulin 15 units at nighttime. continue sliding scale coverage .
Dysphagia - VSE pending

# Hyperlipidemia-statin
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
# Frequent UTIs recently completed a course of Augmentin on 09/15/2023
# Parkinson disease-continue Sinemet
# Anemia of chronic disease
# Chronic vertigo on meclizine as needed
# Depression-on duloxetine
# GERD-PPI
# History of sleep apnea used to use BiPAP in the past but not anymore. Continue that at night here.
# DVT prophylaxis-SC heparin
# DNR
Anticipated Discharge: > 48 hours
Subjective/Interval History
-
Date of Service: September 27, 2023
She is breathing is settled down now compared to early hours of morning.
No chest pain.
No nausea vomiting.
Objective Data
-
Labs:
Laboratory Results
09/27/23
05:52
WBC 10.1
Hgb 10.1 L
Hct 31.1 L
Plt Count 309
Sodium 144
Potassium 5.4 H
Chloride 110 H
Carbon Dioxide 27
BUN 56 H
Creatinine 2.6 H
Glucose 133 H
Calcium 9.4
Vital Signs:
Vital Signs
Temp Pulse Resp BP Pulse Ox
97.6 F 91 24 105/66 94
09/27/23 07:40 09/27/23 07:40 09/27/23 07:40 09/27/23 07:40 09/27/23 07:40
I&O
09/26/23 09/27/23 09/28/23
06:59 06:59 06:59
Intake Total 460 / 460 440 / 440
Output Total 400 / 400
Balance 460 / 460 40 / 40
Review of Systems
-
Constitutional: Denies Fever
EENT: Denies Sore Throat
Respiratory: Reports Trouble Breathing (improved)
Abdomen/GI: Denies Abdominal Pain, Nausea or Vomiting
Neuro: Denies Dizzy
Physical Exam
-
General: No Apparent Distress
HEENT: Moist Mucous Membranes
Respiratory: Crackles (BL basilar area) and Non Labored Respirations; Negative Wheezes or Accessory Resp Muscle Use
Cardiac: Regular Rhythm and S1/S2
GI: Soft
Neuro: AO x 3
Data Reviewed
-
Labs: Labs Reviewed by me
[2023-09-27 11:51] VITALS: BP 147/65
--- NOTE | 2023-09-27 12:03 | W.PN.CARDCBS ---
Addendum entered and electronically signed by Julian Lee MD 09/27/23 15:23:
Attending addendum: Patient was seen and examined. PA note reviewed and findings confirmed by me. I met with Mrs. Ambrocio on several occasions today to discuss proceeding with right heart catheterization... She refuses. Video swallowing suggest
aspiration but will need to review speech therapy recommendations. Continue with diuresis. We would be happy to proceed with right heart catheterization at any time.
Original Note:
Today's Communication / Plan
-
remains dyspneic. for RHC if patient agreeable
Impression / Plan
-
Primary Reading Specialist: Dr. Lee
Assessment:
Acute hypoxemic respiratory failure, initially requiring bipap
Acute on chronic HFpEF
B/L pleural effusions, status post left thoracentesis with 1050 mL removed on 09/20/2023
Elevated troponin, suspected nonischemic myocardial injury, peak troponin 0.26
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
Chronic bifascicular block
History of B/L CVAs on DAPT, most recent 11/2022 at [facility], transitioned back from brilinta to plavix
Residual R hemiparesis
HTN and labile HTN
History of left CVA from symptomatic left carotid stenosis in 05/2014
s/p Left internal carotid PTCA and stenting 08/27/2014
history of linq without ANY noted afibCAD
s/p overlapping 3 mm, 3.25 mm and 2.25 mm Cypher ZIA to LAD (3) 09/2009
s/p angioplasty alone of mid LAD stents 04/23/10COPD
DM 2
Dyslipidemia
Obesity
Parkinson's disease
PJ
Nephrotic range proteinuria
History of UTIs
Wheelchair bound
Chronic anemia
Hypokalemia
Leukocytosis
DNR CODE STATUS
ECHO 01/18/23: EF 57%, apex hypokinetic, mild MR, no significant change compared to prior
Echocardiogram 09/20/2023: Ejection fraction 48% by [facility], mildly dilated left ventricle, moderate MR, mild TR, left pleural effusion seen
-09/26/2023: Chest x-ray: Limited study with increased interstitial opacities. Small to moderate bilateral effusions left greater than right suggestive of possible pulmonary edema
Plan:
-Patient presented with concerns from [place] for possible UTI however then noted to be in respiratory distress and required bipap.
-s/p L thora for 1050 cc 09/19
-remains on supp O2 and appears dyspneic
-she went for VSE today, awaiting results. remains NPO
-with SOB upon return from radiology. ordered IV lasix x1 today per nephrology. Cr 2.6 (baseline previously felt to be 1.6, relatively stable since admit)
-discussed RHC with patient to help determine volume status. she would like to speak with primary bridge crew member about it first
-trops flat in 0.2 range: Not candidate for cath with CKD. would attempt to manage medically. no CP. echo with EF 48% by hwang's, felt to be visually in 45-50% range
-on asa, plavix for history of CVAs, PCI, and carotid stent. hgb up to 10.1 on 09/26
-continue Toprol, Norvasc, hydralazine, statin. low dose isordil added this admit. OP losartan stopped, not current herrera/arb/arni/aldactone candidate given JONATAN on CKD.
-not candidate for SGLT2 inhibitor due to frequent UTIs and current renal insufficiency
-CHF education
-d/w nursing
Progress Note - Reading Specialist
Subjective
Date of Service: September 27, 2023
remains with SOB
Objective
Labs:
09/27/23 05:52
09/27/23 05:52
Labs
Hgb 10.1 g/dL (12.0-16.0) L 09/27/23 05:52
Hct 31.1 % (37.0-47.0) L 09/27/23 05:52
Plt Count 309 10^3/uL (130-400) 09/27/23 05:52
PT 15.0 Sec (11.4-14.6) H 09/20/23 07:40
INR 1.20 09/20/23 07:40
APTT 99.0 Sec (23.4-35.0) H 09/21/23 08:28
Sodium 144 mmol/L (135-145) 09/27/23 05:52
Potassium 5.4 mmol/L (3.5-5.1) H 09/27/23 05:52
BUN 56 mg/dl (7-17) H 09/27/23 05:52
Creatinine 2.6 mg/dL (0.6-1.0) H 09/27/23 05:52
Glucose 133 mg/dl (70-99) H 09/27/23 05:52
Vital Signs and I&O:
Vital Signs
Temp Pulse Resp BP Pulse Ox
97.3 F 91 28 147/65 97
09/27/23 11:51 09/27/23 11:51 09/27/23 11:51 09/27/23 11:51 09/27/23 11:51
Vital Signs
Temp Pulse Resp BP Pulse Ox
97.3 F 91 28 147/65 97
09/27/23 11:51 09/27/23 11:51 09/27/23 11:51 09/27/23 11:51 09/27/23 11:51
Intake & Output
09/25/23 09/26/23 09/27/23 09/28/23
07:59 07:59 07:59 07:59
Intake Total 1320 / 1320 460 / 460 440 / 440
Output Total 400 / 400
Balance 1320 / 1320 460 / 460 40 / 40
Physical Exam
Physical Exam
GEN: Appears dyspneic, awake, alert, oriented x3. on supp O2. obese
HEENT: supple, anicteric, mmm, eomi
LUNGS: few crackles at bases, no wheezes
CV: Reg, S1/S2, 1/6 murmur
ABD: soft, BS+, NT/ND
EXT: No cyanosis, clubbing. 1+ edema of B/L LE
SKIN: Warm, pink, dry. No rash
: barone
[2023-09-27 12:09] LABS: Glucose - Point of Care 167 mg/dl (70-99)
[2023-09-27] MEDS: NOVOLOG FLEXPEN 3 UNITS SC ×2 (12:47→16:51)
[2023-09-27] MEDS: NOVOLOG FLEXPEN-MODERATE RESISTANCE 1 UNITS SC ×2 (12:48→16:52)
--- NOTE | 2023-09-27 13:45 | W.PN.NEPH.PH ---
Today's Communication / Plan
-
- IV lasix
- Rutledge in
Assessment/Plan
-
IMP:
JONATAN with CKD 4-cr 1.6-2 Dr Sepulveda at [facility]
Acute on chronic heart failure with preserved ejection fraction
Acute hypoxic respiratory failure secondary to above
Bilateral pleural effusions s/p left thoracentesis of 1lit on 09/19
Coronary artery disease with H/O coronary stents
Elevated troponin
Leukocytosis
Hypokalemia
Hypertension
Hyperlipidemia
Diabetes
History of CVA with right hemiparesis
Nonambulatory at baseline
Frequent UTIs recently completed a course of Augmentin on 09/15/2023
Parkinson disease
Anemia of chronic disease
Chronic vertigo
Depression
GERD
Hypoalbuminemia
Plan:
A/w SOB found CHF flare on BIPAP
Creatinine up to 2.6, weights unchanged
Recieved 20IV lasix
Rutledge placed on 09/26
Need bedside weights
I believe right heart catheterization could be very helpful in guiding diuresis as patient's body habitus makes volume status difficult to ascertain
JONATAN-suspect cardiorenal, no hydro on renal US
UPCR of 23gm/gm of cr, check serologies and paraprotein w/u
suspect underlying advanced diabetic nephropathy
nephrotic range proteinuria likely contributing to some of vol overload as well, alb 2.5
s/p thoracentesis of 1lit on left side on 09/19
Hemodynamically stable but holding ARB
echo noted mildly reduced EF 45%
anemia-stable hgb, adequate fe stores hemoglobin at 8 point
avoid nephrotoxins
Will decrease fluid restriction giving rising hypernatremia
on 09/20 we reviewed briefly about dialysis risk, she will think about it-would not refuse HD if needed , no need currently
She will likely be discharged soon with close follow-up with her dealer accounts investigator at [facility]
-
-
Date of Service: September 27, 2023
CC / HPI / ROS
-
Chief Complaint:
JONATAN with CKD
History of Present Illness:
cr up at 2.6
k normal
Hemodynamically stable
UOP not recorded
Review of Systems:
no cp or sob at rest remains on oxygen
no fever or cough
feels tired
Weight is unchanged on bed scale
sitting in chair during visit
Labs
-
Labs:
WBC 10.1 10^3/uL (4.8-10.8) 09/27/23 05:52
RBC 3.08 10^6/uL (4.20-5.40) L 09/27/23 05:52
Hgb 10.1 g/dL (12.0-16.0) L 09/27/23 05:52
Hct 31.1 % (37.0-47.0) L 09/27/23 05:52
Plt Count 309 10^3/uL (130-400) 09/27/23 05:52
Sodium 144 mmol/L (135-145) 09/27/23 05:52
Potassium 5.4 mmol/L (3.5-5.1) H 09/27/23 05:52
Chloride 110 mmol/L (98-107) H 09/27/23 05:52
Carbon Dioxide 27 mmol/L (22-30) 09/27/23 05:52
BUN 56 mg/dl (7-17) H 09/27/23 05:52
Creatinine 2.6 mg/dL (0.6-1.0) H 09/27/23 05:52
eGFR 17.65 09/27/23 05:52
Glucose 133 mg/dl (70-99) H 09/27/23 05:52
Calcium 9.4 mg/dl (8.4-10.2) 09/27/23 05:52
Riz-U-Jdlyercbfub Pept 80807 pg/ml 09/26/23 06:03
Albumin 2.5 g/dl (3.5-5.0) L 09/19/23 21:42
Physical Exam
-
Vital Signs:
Vital Signs
Temp Pulse Resp BP Pulse Ox
97.3 F 91 28 147/65 97
09/27/23 11:51 09/27/23 11:51 09/27/23 11:51 09/27/23 11:51 09/27/23 11:51
Cardiovascular:: Regular rate and rhythm
Respiratory:: Bilateral: Coarse
Lung Excursion:: Normal
Abdomen:: Nontender and Soft
Bowel Sounds:: Normal
Extremity Edema:: +1: Bilateral:
Rutledge Catheter: Yes
--- NOTE | 2023-09-27 13:49 | PTOTSP ---
Addendum entered and electronically signed by Sayra Blankenship MS, ST, CCC, COVER STRIPPER 09/27/23 14:15:
7. Meds crushed in applesauce.
Original Note:
Video Swallow Examination
Perseverative and disorganized oral processing, reduced laryngeal vestibular closure, reduced tongue base retraction and a diminished pharyngeal stripping wave. Collectively this resulted in inconsistent trace but at times deep laryngeal penetration
with thin liquids with one instance of aspiration (with and without chin tuck). Also noted to have trace buildup of contrast within laryngeal vestibule that likely arose from pharyngeal stasis that occurred with all consistencies. Observed
aspiration to just beneath vocal cords during swallow with 1/2 trials of pudding and with solid. Inefficient chewing. Overall, the patient is at risk for chronic trace aspiration despite any diet modifications but more so with thin liquids. Lateral
sweep of esophagus revealed retained contrast.
Recommend
1. IDDSI Level 4/Mildly Thick Liquids
2. Dry swallows
3. Intermittent throat clear/dry swallow
4. Intersperse sip of liquid in between every 2-3 bites of solid to assist with esophageal clearance.
5. Aspiration and Reflux precautions.
6. Supervision to assist with use of strategies.
--- NOTE | 2023-09-27 13:50 | W.PN.NEPH.PH ---
Today's Communication / Plan
-
- restart lasix if RHC is not done. if RHC is done, will titrate treatment based on that
Assessment/Plan
-
IMP:
JONATAN with CKD 4-cr 1.6-2 Dr Sepulveda at [facility]
Acute on chronic heart failure with preserved ejection fraction
Acute hypoxic respiratory failure secondary to above
Bilateral pleural effusions s/p left thoracentesis of 1lit on 09/19
Coronary artery disease with H/O coronary stents
Elevated troponin
Leukocytosis
Hypokalemia
Hypertension
Hyperlipidemia
Diabetes
History of CVA with right hemiparesis
Nonambulatory at baseline
Frequent UTIs recently completed a course of Augmentin on 09/15/2023
Parkinson disease
Anemia of chronic disease
Chronic vertigo
Depression
GERD
Hypoalbuminemia
Plan:
A/w SOB found CHF flare on BIPAP
Creatinine up to 2.9, weights unchanged
hoping for RHC today. I think she likely needs to have lasix restarted but will await further studies and input from cardiology
Rutledge placed on 09/26
Need bedside weights
JONATAN-suspect cardiorenal, no hydro on renal US
UPCR of 23gm/gm of cr, check serologies and paraprotein w/u
suspect underlying advanced diabetic nephropathy
nephrotic range proteinuria likely contributing to some of vol overload as well, alb 2.5
s/p thoracentesis of 1lit on left side on 09/19
Hemodynamically stable but holding ARB
echo noted mildly reduced EF 45%
anemia-stable hgb, adequate fe stores hemoglobin at 8 point
avoid nephrotoxins
Will decrease fluid restriction giving rising hypernatremia on 09/27
on 09/20 we reviewed briefly about dialysis risk, she will think about it-would not refuse HD if needed, no need currently
-
-
Date of Service: September 27, 2023
CC / HPI / ROS
-
Chief Complaint:
JONATAN with CKD
History of Present Illness:
cr up at 2.9
k normal
Hemodynamically stable
UOP not recorded
Review of Systems:
no cp or sob at rest remains on oxygen
no fever or cough
feels tired
Weight is unchanged on bed scale
laying in bed and sleeping
Labs
-
Labs:
WBC 10.1 10^3/uL (4.8-10.8) 09/27/23 05:52
RBC 3.08 10^6/uL (4.20-5.40) L 09/27/23 05:52
Hgb 10.1 g/dL (12.0-16.0) L 09/27/23 05:52
Hct 31.1 % (37.0-47.0) L 09/27/23 05:52
Plt Count 309 10^3/uL (130-400) 09/27/23 05:52
Sodium 144 mmol/L (135-145) 09/27/23 05:52
Potassium 5.4 mmol/L (3.5-5.1) H 09/27/23 05:52
Chloride 110 mmol/L (98-107) H 09/27/23 05:52
Carbon Dioxide 27 mmol/L (22-30) 09/27/23 05:52
BUN 56 mg/dl (7-17) H 09/27/23 05:52
Creatinine 2.6 mg/dL (0.6-1.0) H 09/27/23 05:52
eGFR 17.65 09/27/23 05:52
Glucose 133 mg/dl (70-99) H 09/27/23 05:52
Calcium 9.4 mg/dl (8.4-10.2) 09/27/23 05:52
Puf-T-Owbusixxfve Pept 65033 pg/ml 09/26/23 06:03
Albumin 2.5 g/dl (3.5-5.0) L 09/19/23 21:42
Physical Exam
-
Vital Signs:
Vital Signs
Temp Pulse Resp BP Pulse Ox
97.3 F 91 28 147/65 97
09/27/23 11:51 09/27/23 11:51 09/27/23 11:51 09/27/23 11:51 09/27/23 11:51
Cardiovascular:: Regular rate and rhythm
Respiratory:: Bilateral: Coarse
Lung Excursion:: Normal
Abdomen:: Nontender and Soft
Bowel Sounds:: Normal
Extremity Edema:: +2: Bilateral:
Rutledge Catheter: No
[2023-09-27 15:02] VITALS: BP 121/68
[2023-09-27 16:44] LABS: Glucose - Point of Care 170 mg/dl (70-99)
[2023-09-27] MEDS: SINEMET 10-100 1 TABLET PO (16:50)
[2023-09-27] MEDS: APRESOLINE 25 MG PO ×2 (16:51→23:12)
[2023-09-27] MEDS: ISORDIL 20 MG PO ×2 (16:51→21:27)
[2023-09-27] MEDS: STERILE WATER FOR INJECTION 10 ML IV (17:16)
[2023-09-27] MEDS: ROCEPHIN 1000 MG IV (17:16)
[2023-09-27] MEDS: NSS IV (18:09)
[2023-09-27 19:36] VITALS: BP 151/68
[2023-09-27] MEDS: DITROPAN 5 MG PO (19:59)
[2023-09-27] MEDS: SINEMET 10-100 2 TABLET PO (21:27)
[2023-09-27] MEDS: CYMBALTA DELAYED RELEASE 30 MG PO (21:27)
[2023-09-27] MEDS: MELATONIN 5 MG PO (21:27)
[2023-09-27] MEDS: LIPITOR 40 MG PO (21:27)
[2023-09-27] MEDS: COLACE PO (21:27)
[2023-09-27 21:28] LABS: Glucose - Point of Care 149 mg/dl (70-99)
[2023-09-27] MEDS: LANTUS 0.149999999999999994 UNITS SC (22:04)
[2023-09-27 23:11] VITALS: BP 146/69
[2023-09-28] VITALS (7 sets, daily range): BP systolic 113–150; BP diastolic 47–70; PULSE 72; O2SAT 95; BMI 29.9
--- NOTE | 2023-09-28 05:08 | PTCARENOTE ---
Patient monitor and storage bin tender dc'd 09/22; This RN reviewed pt's reports and on 09/23, Medical Records Auditor reported 'Please place patient on telemetry.' Telemetry order was not reentered but patient has been on monitor. This RN will report to oncoming shift.
[2023-09-28 06:47] LABS: Blood Urea Nitrogen 64 mg/dl (7-17); Calcium 9.2 mg/dl (8.4-10.2); Carbon Dioxide 31 mmol/L (22-30); Chloride 111 mmol/L (98-107); Estimated Creatinine Clearance 15 ml/min; Glucose 133 mg/dl (70-99); Potassium 6.3 mmol/L (3.5-5.1); Sodium 146 mmol/L (135-145); eGFR 15.48
[2023-09-28 07:52] LABS: Glucose - Point of Care 127 mg/dl (70-99)
[2023-09-28] MEDS: NOVOLOG FLEXPEN-MODERATE RESISTANCE SC (07:56)
[2023-09-28] MEDS: PLAVIX 75 MG PO (08:59)
[2023-09-28] MEDS: LOKELMA 10 GRAM PO ×3 (08:59→17:24)
[2023-09-28] MEDS: DITROPAN 5 MG PO ×2 (09:00→20:17)
[2023-09-28] MEDS: MAGNESIUM OXIDE 500 MG PO (09:00)
[2023-09-28] MEDS: TOPROL XL 25 MG PO (09:00)
[2023-09-28] MEDS: NORVASC 2.5 MG PO (09:00)
[2023-09-28] MEDS: PROTONIX 40 MG PO (09:00)
[2023-09-28] MEDS: SINEMET 10-100 1 TABLET PO ×2 (09:00→17:20)
[2023-09-28] MEDS: VITAMIN D3 (cholecalciferol) 25 MCG PO (09:00)
[2023-09-28] MEDS: ASPIR LOW (ENTERIC COATED) 81 MG PO (09:00)
[2023-09-28] MEDS: ISORDIL 20 MG PO ×3 (09:00→21:57)
[2023-09-28] MEDS: REFRESH EYE DROPS (PF) 1 DROPS BOTH EYES ×4 (09:01→21:58)
[2023-09-28] MEDS: MIRALAX 17 GRAMS PO (09:01)
[2023-09-28] MEDS: HEPARIN 5000 UNITS SC ×2 (09:01→20:18)
[2023-09-28] MEDS: APRESOLINE 25 MG PO ×3 (09:01→23:57)
[2023-09-28] MEDS: LASIX 40 MG PO (09:01)
[2023-09-28] MEDS: HYDROCORTISONE 1% CREAM 1 APPLIC TOPICAL (09:02)
[2023-09-28] MEDS: DEBROX EAR DROPS 5 DROP OTIC (09:02)
[2023-09-28] MEDS: NOVOLOG FLEXPEN 3 UNITS SC ×3 (09:03→17:24)
[2023-09-28] MEDS: ARISTOCORT/TRIAMCINOLONE 0.1% CREAM 1 APPLIC TOPICAL ×2 (09:03→20:16)
[2023-09-28] MEDS: DESENEX/MITRAZOL/ZEASORB 1 APPLIC TOPICAL ×2 (09:08→20:17)
--- NOTE | 2023-09-28 09:50 | W.PN.NEPH.PH ---
Today's Communication / Plan
-
Hold further Lasix
Follow BMP
Maintain Rutledge catheter
1/4NS times one liter
Assessment/Plan
-
IMP:
JONATAN with CKD 4-cr 1.6-2 Dr Sepulveda at [facility]
Acute on chronic heart failure with preserved ejection fraction
Acute hypoxic respiratory failure secondary to above
Bilateral pleural effusions s/p left thoracentesis of 1lit on 09/19
Coronary artery disease with H/O coronary stents
Elevated troponin
Leukocytosis
Hypokalemia
Hypertension
Hyperlipidemia
Diabetes
History of CVA with right hemiparesis
Nonambulatory at baseline
Frequent UTIs recently completed a course of Augmentin on 09/15/2023
Parkinson disease
Anemia of chronic disease
Chronic vertigo
Depression
GERD
Hypoalbuminemia
Plan:
A/w SOB found CHF flare on BIPAP
Creatinine up to 2.9, weights unchanged
Received 20mgIV lasix yesterday but now more hypernatremic and acute kidney injury worsening
1 L of nohemi normal to be provided in setting of worsening
Rutledge placed on 09/26
Need bedside weights
I believe right heart catheterization could be very helpful in guiding diuresis as patient's body habitus makes volume status difficult to ascertain
Unfortunately the patient continues to refuse right heart cath. I am not sure how to proceed forth without this information
JONATAN-suspect cardiorenal, no hydro on renal US
UPCR of 23gm/gm of cr, check serologies and paraprotein w/u
suspect underlying advanced diabetic nephropathy
nephrotic range proteinuria likely contributing to some of vol overload as well, alb 2.5
s/p thoracentesis of 1lit on left side on 09/19
Hemodynamically stable but holding ARB
echo noted mildly reduced EF 45%
anemia-stable hgb, adequate fe stores hemoglobin at 8 point
avoid nephrotoxins
on 09/20 we reviewed briefly about dialysis risk, she will think about it-would not refuse HD if needed , no need currently
she will need close follow-up with her maintenance craftsman at [facility]
Patient acute kidney injury and hyponatremia worsening, will withhold further diuretics and provide hypotonic IV fluid qualifies as clinically high risk
Discussion with cardiology in regards to need for right heart cath which patient continues to refuse
-
-
Date of Service: September 28, 2023
CC / HPI / ROS
-
Chief Complaint:
JONATAN with CKD
History of Present Illness:
cr up at 2.6
k normal
Hemodynamically stable
UOP not recorded
Review of Systems:
no cp or sob at rest remains on oxygen
no fever or cough
feels tired
Weight is unchanged on bed scale
sitting in chair during visit
Labs
-
Labs:
WBC 10.1 10^3/uL (4.8-10.8) 09/27/23 05:52
RBC 3.08 10^6/uL (4.20-5.40) L 09/27/23 05:52
Hgb 10.1 g/dL (12.0-16.0) L 09/27/23 05:52
Hct 31.1 % (37.0-47.0) L 09/27/23 05:52
Plt Count 309 10^3/uL (130-400) 09/27/23 05:52
Sodium 146 mmol/L (135-145) H 09/28/23 04:52
Potassium 6.3 mmol/L (3.5-5.1) H* 09/28/23 04:52
Chloride 111 mmol/L (98-107) H 09/28/23 04:52
Carbon Dioxide 31 mmol/L (22-30) H 09/28/23 04:52
BUN 64 mg/dl (7-17) H 09/28/23 04:52
Creatinine 2.9 mg/dL (0.6-1.0) H 09/28/23 04:52
eGFR 15.48 09/28/23 04:52
Glucose 133 mg/dl (70-99) H 09/28/23 04:52
Calcium 9.2 mg/dl (8.4-10.2) 09/28/23 04:52
Mjn-O-Ipdjfldwrin Pept 15256 pg/ml 09/26/23 06:03
Albumin 2.5 g/dl (3.5-5.0) L 09/19/23 21:42
Physical Exam
-
Vital Signs:
Vital Signs
Temp Pulse Resp BP Pulse Ox
97.7 F 94 20 148/70 95
09/28/23 07:35 09/28/23 09:01 09/28/23 07:35 09/28/23 09:01 09/28/23 07:35
--- NOTE | 2023-09-28 09:58 | W.PN.CARDCBS ---
Today's Communication / Plan
-
Continue current cardiac meds
Appreciate nephrology input regarding diuresis
Patient not agreeable to right heart catheterization, we are happy to facilitate if she changes her mind
Impression / Plan
-
Primary Telehealth Director: Dr. Lee
Assessment:
Acute hypoxemic respiratory failure, initially requiring bipap
Acute on chronic HFpEF
B/L pleural effusions, status post left thoracentesis with 1050 mL removed on 09/20/2023
Elevated troponin, suspected nonischemic myocardial injury, peak troponin 0.26
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
Chronic bifascicular block
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
Residual R hemiparesis
HTN and labile HTN
History of left CVA from symptomatic left carotid stenosis in 05/2014
s/p Left internal carotid PTCA and stenting 08/27/2014
history of linq without ANY noted afibCAD
s/p overlapping 3 mm, 3.25 mm and 2.25 mm Cypher ZIA to LAD (3) 09/2009
s/p angioplasty alone of mid LAD stents 04/23/10COPD
DM 2
Dyslipidemia
Obesity
Parkinson's disease
PJ
Nephrotic range proteinuria
History of UTIs
Wheelchair bound
Chronic anemia
Hypokalemia
Leukocytosis
DNR CODE STATUS
ECHO 01/18/23: EF 57%, apex hypokinetic, mild MR, no significant change compared to prior
Echocardiogram 09/20/2023: Ejection fraction 48% by Dela Cruz's, mildly dilated left ventricle, moderate MR, mild TR, left pleural effusion seen
-09/26/2023: Chest x-ray: Limited study with increased interstitial opacities. Small to moderate bilateral effusions left greater than right suggestive of possible pulmonary edema
Plan:
-Patient presented with concerns from OR for possible UTI however then noted to be in respiratory distress and required bipap.
-s/p L thora for 1050 cc 09/19
-weight is trending down, but remains on supp O2, would try to wean as able
-appreciate nephrology input regarding diuretics, Cr 2.9 (baseline previously felt to be 1.6)
-discussed RHC, but she would only like her primary block sawyer to perform this
-echo with mildly reduced LVEF of 48%
-Cont Toprol XL
-OP losartan stopped, not current herrera/arb/arni/aldactone candidate given JONATAN on CKD. Cont hydralazine. Low dose isordil added this admit.
-not candidate for SGLT2 inhibitor due to frequent UTIs and current renal insufficiency
-trops flat in 0.2 range, suspect non-NM troponin, cont medical management would attempt to manage medically. no CP.
-on asa, plavix for history of CVAs, PCI, and carotid stent. hgb up to 10.1 on 09/26
-continue Toprol, Norvasc, statin
-d/w nephrology
Progress Note - Telehealth Director
Subjective
Date of Service: September 28, 2023
No acute overnight events. Patient remains on supplemental oxygen on telemetry floor. Due to some expressive aphasia is somewhat difficult to obtain history from her. Discussed potential right heart cath however she is only interested in speaking
with her primary block sawyer regarding this.
Objective
Labs:
09/27/23 05:52
09/28/23 04:52
Labs
Hgb 10.1 g/dL (12.0-16.0) L 09/27/23 05:52
Hct 31.1 % (37.0-47.0) L 09/27/23 05:52
Plt Count 309 10^3/uL (130-400) 09/27/23 05:52
PT 15.0 Sec (11.4-14.6) H 09/20/23 07:40
INR 1.20 09/20/23 07:40
APTT 99.0 Sec (23.4-35.0) H 09/21/23 08:28
Sodium 146 mmol/L (135-145) H 09/28/23 04:52
Potassium 6.3 mmol/L (3.5-5.1) H* 09/28/23 04:52
BUN 64 mg/dl (7-17) H 09/28/23 04:52
Creatinine 2.9 mg/dL (0.6-1.0) H 09/28/23 04:52
Glucose 133 mg/dl (70-99) H 09/28/23 04:52
Vital Signs and I&O:
Vital Signs
Temp Pulse Resp BP Pulse Ox
97.7 F 94 20 148/70 95
09/28/23 07:35 09/28/23 09:01 09/28/23 07:35 09/28/23 09:01 09/28/23 07:35
Vital Signs
Temp Pulse Resp BP Pulse Ox
97.7 F 94 20 148/70 95
09/28/23 07:35 09/28/23 09:01 09/28/23 07:35 09/28/23 09:01 09/28/23 07:35
Intake & Output
09/26/23 09/27/23 09/28/23 09/29/23
06:59 06:59 06:59 06:59
Intake Total 460 / 460 440 / 440
Output Total 400 / 400 525 / 525
Balance 460 / 460 40 / 40 -525 / -525
Physical Exam
Physical Exam
Gen: NAD, AA
HEENT: NC/AT, sclera anicteric
Neck: No significant JVD
CV: RRR, NL s1/s2
Lungs: No increased WOB on 3L NC
Abd: S/ND
Ext: No LE edema
Skin: Warm, dry
Neuro: Non-focal
[2023-09-28] MEDS: SODIUM CHLORIDE 1009.625 MEQ IV (10:07)
[2023-09-28 12:16] LABS: Glucose - Point of Care 170 mg/dl (70-99)
[2023-09-28] MEDS: NOVOLOG FLEXPEN-MODERATE RESISTANCE 1 UNITS SC ×2 (13:00→17:24)
--- NOTE | 2023-09-28 13:38 | W.PN.HOSP.TC ---
Today's Communication/Plan
-
Holding Lasix. IV fluids today per renal
Follow Cr and K
Pt agreeable for RHC
Assessment / Plan
Assessment / Plan
83 y/o female with shortness of breath
USS kidney-There is probably a small amount of mobile debris within the bladder lumen. No evidence for bladder mass. Post void bladder residual could not be assessed, as patient is unable to spontaneously void.No focal abnormality of either kidney,
with moderately limited visualization of the left kidney.
#Acute on chronic heart failure [place] [address]
Acute hypoxic respiratory failure secondary to above
Bilateral pleural effusions left more than right
She refuses BIPAP HS- So Discontinued
S/P Left thoracentesis by IRAD
Also getting serologies
Possible aspiration pneumonitis- On AB
Repeat chest x-ray shows pulmonary edema. Cardiology contemplating on RHC - she was declining it prior but today agreeable.
Improved weight now . Continue with IV Lasix per renal - on hold today due to raising Cr.
# Hyperkalemia - lokelma and follow
# Suspect aspiration pneumonitis with elevated white count placed the patient on ceftriaxone. White count has normalized.
Speech evaluation noted. Patient refused to get video swallow test or get on thickened liquids -now agreeable.
AB 6/7 days
# Coronary artery disease with H/O coronary stents
Elevated troponin nonischemic myocardial injury
EKG bifascicular block PACs and PVCs
Continue DAPT, beta-augusto, statin
Echo 09/20/2023-LV dilated. Mild concentric LVH. Mildly reduced LV systolic function. Ejection fraction 48%. Global hypokinesis moderately dilated LA. Moderate MR. Mild TR. Compared to 2022 EF decreased
# Left thoracentesis with 1050 ml straw-colored pleural fluid. Transudate
# Hypertension-on metoprolol 25 mg, losartan 100 mg daily, Amlodipine 2.5 mg as outpatient along with hydralazine 20 mg every 8 hours as OP
continue metoprolol XL 25 mg daily, Norvasc 2.5 mg daily and hydralazine. Hold losartan
BP under goal
# Acute kidney injury on CKD stage IV
Ultrasound without any obstruction
Albuminuria noted
Baseline creatinine 1.6 ,hold losartan
Renal evaluation appreciated
Renal serologies ordered-pending
Hold Lasix today
# Diabetes-hemoglobin A1c 6.0
Patient was on Lantus insulin 28 units in the morning and 20 units at night along with NovoLog 12 before meals as outpatient prior to admission
Lantus insulin 15 units at nighttime. continue sliding scale coverage .
Dysphagia - VSE noted - started on modified diet

# Hyperlipidemia-statin
# History of CVA with right hemiparesis-left carotid artery stent-Nonambulatory at [id number]
# Frequent UTIs recently completed a course of Augmentin on 09/15/2023
# Parkinson disease-continue Sinemet
# Anemia of chronic disease
# Chronic vertigo on meclizine as needed
# Depression-on duloxetine
# GERD-PPI
# History of sleep apnea used to use BiPAP in the past but not anymore. Continue that at night here.
# DVT prophylaxis-SC heparin
# DNR
Anticipated Discharge: > 48 hours
Subjective/Interval History
-
Date of Service: September 28, 2023
Denies shortness of breath today. No chest pain.
No nausea vomiting. Tolerating oral diet.
Objective Data
-
Labs:
Laboratory Results
09/28/23
04:52
Sodium 146 H
Potassium 6.3 H*
Chloride 111 H
Carbon Dioxide 31 H
BUN 64 H
Creatinine 2.9 H
Glucose 133 H
Calcium 9.2
Vital Signs:
Vital Signs
Temp Pulse Resp BP Pulse Ox
97.7 F 94 20 148/70 95
09/28/23 07:35 09/28/23 09:01 09/28/23 07:35 09/28/23 09:01 09/28/23 08:00
I&O
09/27/23 09/28/23 09/29/23
06:59 06:59 06:59
Intake Total 440 / 440
Output Total 400 / 400 525 / 525
Balance 40 / 40 -525 / -525
Review of Systems
-
EENT: Denies Sore Throat
Respiratory: Denies Cough
Cardiac: Denies Chest Pain
Abdomen/GI: Denies Abdominal Pain
Neuro: Denies Dizzy
Physical Exam
-
General: No Apparent Distress
HEENT: Moist Mucous Membranes
Respiratory: Crackles (few bibasal) and Non Labored Respirations; Negative Wheezes or Accessory Resp Muscle Use
Cardiac: Regular Rhythm and S1/S2
GI: Soft
Neuro: AO x 3
Psych: Calm
Data Reviewed
-
Labs: Labs Reviewed by me
--- NOTE | 2023-09-28 15:53 | CM ---
Reviewed the chart notes and spoke with the patient's son at the bedside. Patient is still consider heart cath during this stay. CM continues to be available to patient/family and is monitoring medical plan for needs at discharge.
Plan: Discharge back to [facility] when medically stable.
Call report to: [phone]
Fax report to: [phone]
[2023-09-28 17:11] LABS: Glucose - Point of Care 192 mg/dl (70-99)
[2023-09-28] MEDS: STERILE WATER FOR INJECTION 10 ML IV (17:21)
[2023-09-28] MEDS: ROCEPHIN 1000 MG IV (17:21)
[2023-09-28 21:35] LABS: Glucose - Point of Care 280 mg/dl (70-99)
[2023-09-28] MEDS: COLACE PO (21:53)
[2023-09-28] MEDS: CYMBALTA DELAYED RELEASE 30 MG PO (21:53)
[2023-09-28] MEDS: LANTUS 0.149999999999999994 UNITS SC (21:57)
[2023-09-28] MEDS: SINEMET 10-100 2 TABLET PO (21:58)
[2023-09-28] MEDS: MELATONIN 5 MG PO (21:58)
[2023-09-28] MEDS: LIPITOR 40 MG PO (21:58)
[2023-09-28] MEDS: DUONEB 3 ML INH (23:14)
[2023-09-29 03:00] VITALS: BP 111/50
[2023-09-29] MEDS: LOKELMA 10 GRAM PO ×3 (05:21→18:03)
[2023-09-29 05:40] LABS: Hematocrit 27.7 % (37.0-47.0); Hemoglobin 8.9 g/dL (12.0-16.0); Mean Corp Hgb Conc. 32.1 g/dL (33.0-37.0); Mean Corpuscular Hgb 33.2 pg (27.0-31.0); Mean Corpuscular Volume 103.4 fL (81.0-99.0); Mean Platelet Volume 10.2 fL (7.4-10.4); Platelet Count 252 10^3/uL (130-400); Red Blood Cell Count 2.68 10^6/uL (4.20-5.40); Red Cell Dist. Width 14.4 % (11.5-14.5); White Blood Cell Count 13.1 10^3/uL (4.8-10.8)
[2023-09-29 05:53] VITALS: BMI 30.1
[2023-09-29 06:17] LABS: Blood Urea Nitrogen 68 mg/dl (7-17); Carbon Dioxide 28 mmol/L (22-30); Chloride 108 mmol/L (98-107); Estimated Creatinine Clearance 14 ml/min; Glucose 127 mg/dl (70-99); Potassium 4.3 mmol/L (3.5-5.1); Sodium 143 mmol/L (135-145); eGFR 14.86
[2023-09-29 07:40] VITALS: BP 112/63
[2023-09-29 07:44] LABS: Glucose - Point of Care 136 mg/dl (70-99)
[2023-09-29] MEDS: NOVOLOG FLEXPEN-MODERATE RESISTANCE SC (09:06)
[2023-09-29] MEDS: VITAMIN D3 (cholecalciferol) 25 MCG PO (09:18)
[2023-09-29] MEDS: ISORDIL 20 MG PO ×3 (09:18→21:01)
[2023-09-29] MEDS: SINEMET 10-100 1 TABLET PO ×2 (09:18→15:40)
[2023-09-29] MEDS: NORVASC 2.5 MG PO (09:18)
[2023-09-29] MEDS: MAGNESIUM OXIDE 500 MG PO (09:18)
[2023-09-29] MEDS: ASPIR LOW (ENTERIC COATED) 81 MG PO (09:18)
[2023-09-29] MEDS: PROTONIX 40 MG PO (09:18)
[2023-09-29] MEDS: REFRESH EYE DROPS (PF) 1 DROPS BOTH EYES ×4 (09:19→21:00)
[2023-09-29] MEDS: DITROPAN 5 MG PO ×2 (09:19→20:56)
[2023-09-29] MEDS: TOPROL XL 25 MG PO (09:19)
[2023-09-29] MEDS: PLAVIX 75 MG PO (09:19)
[2023-09-29] MEDS: APRESOLINE 25 MG PO ×2 (09:19→15:37)
[2023-09-29] MEDS: HEPARIN 5000 UNITS SC ×2 (09:20→20:57)
[2023-09-29] MEDS: LASIX 40 MG PO (09:20)
[2023-09-29] MEDS: DEBROX EAR DROPS 1 DROP OTIC (09:21)
[2023-09-29] MEDS: NOVOLOG FLEXPEN 3 UNITS SC ×3 (09:24→18:02)
[2023-09-29] MEDS: ARISTOCORT/TRIAMCINOLONE 0.1% CREAM 1 APPLIC TOPICAL ×2 (09:24→20:55)
[2023-09-29] MEDS: DESENEX/MITRAZOL/ZEASORB 1 APPLIC TOPICAL ×2 (09:25→20:55)
--- NOTE | 2023-09-29 10:36 | W.PN.NEPH.PH ---
Today's Communication / Plan
-
Awaiting right heart cath decision
Continue to hold diuretics
Assessment/Plan
-
IMP:
JONATAN with CKD 4-cr 1.6-2 Dr Sepulveda at [facility]
Acute on chronic heart failure with preserved ejection fraction
Acute hypoxic respiratory failure secondary to above
Bilateral pleural effusions s/p left thoracentesis of 1lit on 09/19
Coronary artery disease with H/O coronary stents
Elevated troponin
Leukocytosis
Hypokalemia
Hypertension
Hyperlipidemia
Diabetes
History of CVA with right hemiparesis
Nonambulatory at baseline
Frequent UTIs recently completed a course of Augmentin on 09/15/2023
Parkinson disease
Anemia of chronic disease
Chronic vertigo
Depression
GERD
Hypoalbuminemia
Plan:
A/w SOB found CHF flare on BIPAP
Creatinine up to 3, weights unchanged
Urine output 425 via Rutledge, weight stable
Rutledge placed on 09/26
Need bedside weights
I believe right heart catheterization could be very helpful in guiding diuresis as patient's body habitus makes volume status difficult to ascertain
Unfortunately the patient continues to refuse right heart cath. I am not sure how to proceed forth without this information
JONATAN-suspect cardiorenal, no hydro on renal US
UPCR of 23gm/gm of cr, check serologies and paraprotein w/u
suspect underlying advanced diabetic nephropathy
nephrotic range proteinuria likely contributing to some of vol overload as well, alb 2.5
s/p thoracentesis of 1lit on left side on 09/19
Hemodynamically stable but holding ARB
echo noted mildly reduced EF 45%
anemia-stable hgb, adequate fe stores hemoglobin at 8.9
avoid nephrotoxins
on 09/20 we reviewed briefly about dialysis risk, she will think about it-would not refuse HD if needed , no need currently
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
Patient acute kidney injury and hypernatremia , will withhold further diuretics
Discussion with cardiology in regards to need for right heart cath
I have nothing to offer until right heart cath is finally agreed upon
-
-
Date of Service: September 29, 2023
CC / HPI / ROS
-
Chief Complaint:
JONATAN with CKD
History of Present Illness:
cr up at 3
k normal
Hemodynamically stable
Review of Systems:
no cp or sob at rest remains on oxygen
Rutledge catheter with oliguric output
Weight stableWeight is unchanged on bed scale
Labs
-
Labs:
WBC 13.1 10^3/uL (4.8-10.8) H 09/29/23 05:33
RBC 2.68 10^6/uL (4.20-5.40) L 09/29/23 05:33
Hgb 8.9 g/dL (12.0-16.0) L 09/29/23 05:33
Hct 27.7 % (37.0-47.0) L 09/29/23 05:33
Plt Count 252 10^3/uL (130-400) 09/29/23 05:33
Sodium 143 mmol/L (135-145) 09/29/23 05:33
Potassium 4.3 mmol/L (3.5-5.1) D 09/29/23 05:33
Chloride 108 mmol/L (98-107) H 09/29/23 05:33
Carbon Dioxide 28 mmol/L (22-30) 09/29/23 05:33
BUN 68 mg/dl (7-17) H 09/29/23 05:33
Creatinine 3.0 mg/dL (0.6-1.0) H 09/29/23 05:33
eGFR 14.86 09/29/23 05:33
Glucose 127 mg/dl (70-99) H 09/29/23 05:33
Calcium 9.0 mg/dl (8.4-10.2) 09/29/23 05:33
Epj-I-Sndylygjtqd Pept 07654 pg/ml 09/26/23 06:03
Albumin 2.5 g/dl (3.5-5.0) L 09/19/23 21:42
Physical Exam
-
Vital Signs:
Vital Signs
Temp Pulse Resp BP Pulse Ox
97.7 F 85 18 112/63 97
09/29/23 07:40 09/29/23 09:20 09/29/23 07:40 09/29/23 09:20 09/29/23 07:40
Cardiovascular:: Regular rate and rhythm
Respiratory:: Bilateral: Coarse
Lung Excursion:: Normal
Abdomen:: Nontender and Soft
Bowel Sounds:: Normal
Extremity Edema:: +1: Bilateral: (Trace)
Rutledge Catheter: Yes
[2023-09-29 11:20] VITALS: BP 96/55
[2023-09-29 12:16] LABS: Glucose - Point of Care 217 mg/dl (70-99)
--- NOTE | 2023-09-29 12:39 | W.PN.UPDATE ---
Update Note
Progress Note Update
spoke with patient's daughter Camilla via telephone for 5:20. discussed purpose of RHC and benefit of completing. she tells me her mother is agreeable to proceed with procedure. 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
[2023-09-29] MEDS: NSS 1000 IV (13:15)
[2023-09-29] MEDS: NOVOLOG FLEXPEN-MODERATE RESISTANCE 3 UNITS SC ×2 (13:15→18:02)
--- NOTE | 2023-09-29 13:46 | W.PN.HOSP.TC ---
Today's Communication/Plan
-
RHC
Hold lasix
Follow Wt
Assessment / Plan
Assessment / Plan
83 y/o female with shortness of breath
USS kidney-There is probably a small amount of mobile debris within the bladder lumen. No evidence for bladder mass. Post void bladder residual could not be assessed, as patient is unable to spontaneously void.No focal abnormality of either kidney,
with moderately limited visualization of the left kidney.
#Acute on chronic heart failure with [place] [address]
Acute hypoxic respiratory failure secondary to above
Bilateral pleural effusions left more than right
She refuses BIPAP HS- So Discontinued
S/P Left thoracentesis by IRAD
Possible aspiration pneumonitis- On AB
Repeat chest x-ray shows pulmonary edema. Cardiology contemplating on RHC - she now agreeable for RHC.
Lasix on hold today due to raising Cr.
# Hyperkalemia - resolved
# Suspect aspiration pneumonitis with elevated white count placed the patient on ceftriaxone. White count has normalized.
Speech evaluation noted. cw modified diet.
AB 7 days
# Coronary artery disease with H/O coronary stents
Elevated troponin nonischemic myocardial injury
EKG bifascicular block PACs and PVCs
Continue DAPT, beta-augusto, statin
Echo 09/20/2023-LV dilated. Mild concentric LVH. Mildly reduced LV systolic function. Ejection fraction 48%. Global hypokinesis moderately dilated LA. Moderate MR. Mild TR. Compared to 2022 EF decreased
# Left thoracentesis with 1050 ml straw-colored pleural fluid. Transudate
# Hypertension-on metoprolol 25 mg, losartan 100 mg daily, Amlodipine 2.5 mg as outpatient along with hydralazine 20 mg every 8 hours as OP
continue metoprolol XL 25 mg daily, Norvasc 2.5 mg daily and hydralazine. Hold losartan
BP under goal
# Acute kidney injury on CKD stage IV
Ultrasound without any obstruction
Albuminuria noted
Baseline creatinine 1.6 ,hold losartan
Renal evaluation appreciated
Renal serologies ordered-pending
Hold Lasix today
# Diabetes-hemoglobin A1c 6.0
Patient was on Lantus insulin 28 units in the morning and 20 units at night along with NovoLog 12 before meals as outpatient prior to admission
Lantus insulin 15 units at nighttime. continue sliding scale coverage .
Dysphagia - VSE noted - started on modified diet

# Hyperlipidemia-statin
# History of CVA with right hemiparesis-left carotid artery stent-Nonambulatory at [id number]
# Frequent UTIs recently completed a course of Augmentin on 09/15/2023
# Parkinson disease-continue Sinemet
# Anemia of chronic disease
# Chronic vertigo on meclizine as needed
# Depression-on duloxetine
# GERD-PPI
# History of sleep apnea used to use BiPAP in the past but not anymore. Continue that at night here.
# DVT prophylaxis-SC heparin
# DNR
Anticipated Discharge: > 48 hours
Subjective/Interval History
-
Date of Service: September 29, 2023
Denies SOB at rest and CP.
Anxious about RHC but ok to go ahead with it.
No N/V
No fever or chills
Objective Data
-
Labs:
Laboratory Results
09/29/23
05:33
WBC 13.1 H
Hgb 8.9 L
Hct 27.7 L
Plt Count 252
Sodium 143
Potassium 4.3 D
Chloride 108 H
Carbon Dioxide 28
BUN 68 H
Creatinine 3.0 H
Glucose 127 H
Calcium 9.0
Vital Signs:
Vital Signs
Temp Pulse Resp BP Pulse Ox
97.7 F 76 18 96/55 97
09/29/23 11:20 09/29/23 11:20 09/29/23 11:20 09/29/23 11:20 09/29/23 11:20
I&O
09/28/23 09/29/23 09/30/23
06:59 06:59 06:59
Intake Total 1380 / 1380
Output Total 525 / 525 425 / 425
Balance -525 / -525 955 / 955
Review of Systems
-
EENT: Denies Sore Throat
Respiratory: Denies Cough
Abdomen/GI: Denies Abdominal Pain or Diarrhea
Neuro: Denies Dizzy
Physical Exam
-
General: No Apparent Distress
HEENT: Moist Mucous Membranes
Respiratory: Crackles (few bibasal), Non Labored Respirations and Decreased Breath Sounds (rt base); Negative Wheezes or Accessory Resp Muscle Use
GI: Soft
Neuro: AO x 3
Psych: Calm
Data Reviewed
-
Labs: Labs Reviewed by me
--- NOTE | 2023-09-29 14:28 | CM ---
Reviewed the chart notes and spoke with the patient at the bedside. The patient anticipates having a RHC tomorrow. CM continues to be available to patient/family and is monitoring medical plan for needs at discharge.
Plan: Discharge back to [facility] when medically stable.
Call report to: [phone]
Fax report to: [phone]
[2023-09-29 15:30] VITALS: BP 122/53
--- NOTE | 2023-09-29 16:46 | W.PN.CARDCBS ---
Addendum entered and electronically signed by Gerhard Marin DO 09/29/23 16:58:
I saw and examined the patient.
The Radiologist Physician's note was reviewed and I agree with the note.
Comment:
Plan:
Discussed with nephrology who agrees that at this point continuation of care necessitates right heart cath to better assess her true volume status which is difficult.
Long discussion with pt regarding need for RHC to determine her volume status in setting of worsening renal function.
She is now agreeable. Her daughter also agrees.
RHC likely next 24 hrs
Original Note:
Today's Communication / Plan
-
for RHC, likely in AM
follow Cr
Impression / Plan
-
Primary Inverted Block Operator: Dr. Lee
Assessment:
Acute hypoxemic respiratory failure, initially requiring bipap
Acute on chronic HFpEF
B/L pleural effusions, status post left thoracentesis with 1050 mL removed on 09/20/2023
Elevated troponin, suspected nonischemic myocardial injury, peak troponin 0.26
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
Chronic bifascicular block
History of B/L CVAs on DAPT, most recent 11/2022 at [facility], transitioned back from brilinta to plavix
Residual R hemiparesis
HTN and labile HTN
History of left CVA from symptomatic left carotid stenosis in 05/2014
s/p Left internal carotid PTCA and stenting 08/27/2014
history of linq without ANY noted afibCAD
s/p overlapping 3 mm, 3.25 mm and 2.25 mm Cypher ZIA to LAD (3) 09/2009
s/p angioplasty alone of mid LAD stents 04/23/10COPD
DM 2
Dyslipidemia
Obesity
Parkinson's disease
PJ
Nephrotic range proteinuria
History of UTIs
Wheelchair bound
Chronic anemia
Hypokalemia
Leukocytosis
DNR CODE STATUS
ECHO 01/18/23: EF 57%, apex hypokinetic, mild MR, no significant change compared to prior
Echocardiogram 09/20/2023: Ejection fraction 48% by Dela Cruz's, mildly dilated left ventricle, moderate MR, mild TR, left pleural effusion seen
-09/26/2023: Chest x-ray: Limited study with increased interstitial opacities. Small to moderate bilateral effusions left greater than right suggestive of possible pulmonary edema
Plan:
-Patient presented with concerns from [place] for possible UTI however then noted to be in respiratory distress and required bipap.
-s/p L thora for 1050 cc 09/19
-weight is trending down, but remains on supp O2, continue to wean as able
-volume status difficult to determine and Cr rising with diuresis attempts. appreciate nephrology input regarding diuretics, currently on hold with Cr 3.0 (baseline previously felt to be 1.6). discussed RHC with daughter today and patient agreeable
to proceed, likely in AM based on laborer construction or leak gang availability
-echo with mildly reduced LVEF of 48%
-Cont Toprol XL. OP losartan stopped, not current herrera/arb/arni/aldactone candidate given JONATAN on CKD. Cont hydralazine, norvasc. Low dose isordil added this admit.
-not candidate for SGLT2 inhibitor due to frequent UTIs and current renal insufficiency
-trops flat in 0.2 range, suspect non-[place] troponin, cont medical management would attempt to manage medically. no CP.
-on asa, plavix for history of CVAs, PCI, and carotid stent. hgb up to 10.1 on 09/26
-of note, WBC uptrending, follow. remains afebrile
Progress Note - Inverted Block Operator
Subjective
Date of Service: September 29, 2023
remains with SOB. now agreeable to RHC
Objective
Labs:
09/29/23 05:33
09/29/23 05:33
Labs
Hgb 8.9 g/dL (12.0-16.0) L 09/29/23 05:33
Hct 27.7 % (37.0-47.0) L 09/29/23 05:33
Plt Count 252 10^3/uL (130-400) 09/29/23 05:33
PT 15.0 Sec (11.4-14.6) H 09/20/23 07:40
INR 1.20 09/20/23 07:40
APTT 99.0 Sec (23.4-35.0) H 09/21/23 08:28
Sodium 143 mmol/L (135-145) 09/29/23 05:33
Potassium 4.3 mmol/L (3.5-5.1) D 09/29/23 05:33
BUN 68 mg/dl (7-17) H 09/29/23 05:33
Creatinine 3.0 mg/dL (0.6-1.0) H 09/29/23 05:33
Glucose 127 mg/dl (70-99) H 09/29/23 05:33
Vital Signs and I&O:
Vital Signs
Temp Pulse Resp BP Pulse Ox
97.6 F 78 14 122/53 97
09/29/23 15:30 09/29/23 15:37 09/29/23 15:30 09/29/23 15:37 09/29/23 15:30
Vital Signs
Temp Pulse Resp BP Pulse Ox
97.6 F 78 14 122/53 97
09/29/23 15:30 09/29/23 15:37 09/29/23 15:30 09/29/23 15:37 09/29/23 15:30
Intake & Output
09/27/23 09/28/23 09/29/23 09/30/23
07:59 07:59 07:59 07:59
Intake Total 440 / 440 1380 / 1380
Output Total 400 / 400 525 / 525 425 / 425
Balance 40 / 40 -525 / -525 955 / 955
[2023-09-29 17:34] LABS: Glucose - Point of Care 247 mg/dl (70-99)
[2023-09-29] MEDS: ROCEPHIN 1000 MG IV (18:04)
[2023-09-29] MEDS: STERILE WATER FOR INJECTION 10 ML IV (18:04)
[2023-09-29 20:15] VITALS: BP 135/59
[2023-09-29] MEDS: COLACE PO (20:57)
[2023-09-29] MEDS: MELATONIN 5 MG PO (21:00)
[2023-09-29] MEDS: LIPITOR 40 MG PO (21:00)
[2023-09-29] MEDS: CYMBALTA DELAYED RELEASE 30 MG PO (21:01)
[2023-09-29] MEDS: SINEMET 10-100 2 TABLET PO (21:01)
[2023-09-29 22:01] LABS: Glucose - Point of Care 204 mg/dl (70-99)
[2023-09-29] MEDS: LANTUS 0.149999999999999994 UNITS SC (22:06)
[2023-09-29 23:47] VITALS: BP 134/73
[2023-09-30] VITALS (12 sets, daily range): BP systolic 86–149; BP diastolic 51–69; BMI 30.9
[2023-09-30] MEDS: APRESOLINE 25 MG PO ×4 (01:00→23:39)
[2023-09-30] MEDS: LOKELMA 10 GRAM PO (06:24)
[2023-09-30 06:25] LABS: Glucose - Point of Care 196 mg/dl (70-99)
--- NOTE | 2023-09-30 06:30 | PTCARENOTE ---
Pt scheduled for right heart cath this morning, barone will be removed after returning and clarifying order with nephrology.
[2023-09-30 06:31] LABS: Hemoglobin 8.5 g/dL (12.0-16.0); Mean Corp Hgb Conc. 32.7 g/dL (33.0-37.0); Mean Corpuscular Hgb 33.1 pg (27.0-31.0); Mean Corpuscular Volume 101.2 fL (81.0-99.0); Mean Platelet Volume 10.3 fL (7.4-10.4); Platelet Count 240 10^3/uL (130-400); Red Blood Cell Count 2.57 10^6/uL (4.20-5.40); Red Cell Dist. Width 14.2 % (11.5-14.5); White Blood Cell Count 10.2 10^3/uL (4.8-10.8)
[2023-09-30 07:10] LABS: Blood Urea Nitrogen 68 mg/dl (7-17); Calcium 8.8 mg/dl (8.4-10.2); Carbon Dioxide 27 mmol/L (22-30); Chloride 110 mmol/L (98-107); Estimated Creatinine Clearance 15 ml/min; Glucose 129 mg/dl (70-99); Sodium 142 mmol/L (135-145); eGFR 15.48
[2023-09-30 08:10] LABS: Glucose - Point of Care 132 mg/dl (70-99)
[2023-09-30] MEDS: HEPARIN 5000 UNITS SC ×2 (08:40→20:51)
[2023-09-30] MEDS: DESENEX/MITRAZOL/ZEASORB 1 APPLIC TOPICAL ×2 (08:43→20:47)
[2023-09-30] MEDS: NOVOLOG FLEXPEN-MODERATE RESISTANCE SC ×3 (08:43→17:12)
[2023-09-30] MEDS: REFRESH EYE DROPS (PF) 1 DROPS BOTH EYES ×3 (08:44→20:55)
[2023-09-30] MEDS: DEBROX EAR DROPS 1 DROP OTIC (08:44)
[2023-09-30] MEDS: VITAMIN D3 (cholecalciferol) 25 MCG PO (08:46)
[2023-09-30] MEDS: ASPIR LOW (ENTERIC COATED) 81 MG PO (08:46)
[2023-09-30] MEDS: ISORDIL 20 MG PO ×3 (08:46→21:00)
[2023-09-30] MEDS: DITROPAN 5 MG PO ×2 (08:46→20:48)
[2023-09-30] MEDS: PLAVIX 75 MG PO (08:46)
[2023-09-30] MEDS: MAGNESIUM OXIDE 500 MG PO (08:46)
[2023-09-30] MEDS: NORVASC 2.5 MG PO (08:47)
[2023-09-30] MEDS: PROTONIX 40 MG PO (08:47)
[2023-09-30] MEDS: TOPROL XL 25 MG PO (08:47)
[2023-09-30] MEDS: ARISTOCORT/TRIAMCINOLONE 0.1% CREAM 1 APPLIC TOPICAL ×2 (08:48→20:47)
[2023-09-30] MEDS: NOVOLOG FLEXPEN SC ×2 (09:33→12:46)
[2023-09-30] MEDS: MIRALAX PO (10:28)
[2023-09-30] MEDS: SINEMET 10-100 PO (11:58)
[2023-09-30 12:18] LABS: Glucose - Point of Care 121 mg/dl (70-99)
[2023-09-30] MEDS: REFRESH EYE DROPS (PF) BOTH EYES (12:47)
--- NOTE | 2023-09-30 13:10 | CM ---
Reviewed the chart notes and spoke with the patient at the bedside. Patient scheduled for hearth cath today. CM continues to be available to patient/family and is monitoring medical plan for needs at discharge.
Plan: Discharge back to [facility] when medically stable.
--- NOTE | 2023-09-30 13:37 | W.PN.HOSP.TC ---
Today's Communication/Plan
-
RHC.
Lasix on hold. Follow Wt and oxygenation status closely.
DC further abx.
Assessment / Plan
Assessment / Plan
83 y/o female with shortness of breath
USS kidney-There is probably a small amount of mobile debris within the bladder lumen. No evidence for bladder mass. Post void bladder residual could not be assessed, as patient is unable to spontaneously void.No focal abnormality of either kidney,
with moderately limited visualization of the left kidney.
#Acute on chronic heart failure [place] [id number]
Acute hypoxic respiratory failure secondary to above
Bilateral pleural effusions left more than right
She refuses BIPAP HS- So Discontinued
S/P Left thoracentesis by IRAD
Possible aspiration pneumonitis- On AB
Repeat chest x-ray shows pulmonary edema. Cardiology contemplating on RHC - she now agreeable for RHC.
Lasix on hold today due to raising Cr.
# Suspect aspiration pneumonitis with elevated white count placed the patient on ceftriaxone. White count has normalized.
Speech evaluation noted. cw modified diet.
Hold further abx
# Coronary artery disease with H/O coronary stents
Elevated troponin nonischemic myocardial injury
EKG bifascicular block PACs and PVCs
Continue DAPT, beta-augusto, statin
Echo 09/20/2023-LV dilated. Mild concentric LVH. Mildly reduced LV systolic function. Ejection fraction 48%. Global hypokinesis moderately dilated LA. Moderate MR. Mild TR. Compared to 2022 EF decreased
# Left thoracentesis with 1050 ml straw-colored pleural fluid. Transudate
# Hypertension-on metoprolol 25 mg, losartan 100 mg daily, Amlodipine 2.5 mg as outpatient along with hydralazine 20 mg every 8 hours as OP
continue metoprolol XL 25 mg daily, Norvasc 2.5 mg daily and hydralazine. Hold losartan
BP under goal
# Acute kidney injury on CKD stage IV
Ultrasound without any obstruction
Albuminuria noted
Baseline creatinine 1.6 ,hold losartan
Renal evaluation appreciated
Renal serologies ordered-pending
Hold Lasix today
# Diabetes-hemoglobin A1c 6.0
Patient was on Lantus insulin 28 units in the morning and 20 units at night along with NovoLog 12 before meals as outpatient prior to admission
Lantus insulin 15 units at nighttime. continue sliding scale coverage .
Dysphagia - VSE noted - started on modified diet

# Hyperlipidemia-statin
# History of CVA with right hemiparesis-left carotid artery stent-[facility]ambulatory at [id number]
# Frequent UTIs recently completed a course of Augmentin on 09/15/2023
# Parkinson disease-continue Sinemet
# Anemia of chronic disease
# Chronic vertigo on meclizine as needed
# Depression-on duloxetine
# GERD-PPI
# History of sleep apnea used to use BiPAP in the past but not anymore. Continue that at night here.
# DVT prophylaxis-SC heparin
# DNR
Anticipated Discharge: > 48 hours
Subjective/Interval History
-
Date of Service: September 30, 2023
Feels ok
Denies SOB at rest
No cough
No N/V
Objective Data
-
Labs:
Laboratory Results
05/17/24
06:10
WBC 10.2
Hgb 8.5 L
Hct 26.0 L
Plt Count 240
Sodium 142
Potassium 4.0
Chloride 110 H
Carbon Dioxide 27
BUN 68 H
Creatinine 2.9 H
Glucose 129 H
Calcium 8.8
Vital Signs:
Vital Signs
Temp Pulse Resp BP Pulse Ox
97.6 F 72 16 116/52 94
09/30/23 11:25 09/30/23 11:25 09/30/23 11:25 09/30/23 11:25 09/30/23 11:56
I&O
09/29/23 09/30/23 10/01/23
06:59 06:59 06:59
Intake Total 1380 / 1380 1560 / 1560
Output Total 425 / 425 500 / 500
Balance 955 / 955 1060 / 1060
Review of Systems
-
Respiratory: Denies Cough or Trouble Breathing (At rest)
Cardiac: Denies Chest Pain
Abdomen/GI: Denies Abdominal Pain, Nausea or Vomiting
Neuro: Denies Dizzy
Physical Exam
-
General: No Apparent Distress
HEENT: Moist Mucous Membranes
Respiratory: Other (bronchial breathing in right base today ); Negative Wheezes
Cardiac: Regular Rhythm and S1/S2
GI: Soft, Nontender, Nondistended and Normal Bowel Sounds
Neuro: AO x 3
Psych: Calm
Data Reviewed
-
Labs: Labs Reviewed by me
--- NOTE | 2023-09-30 15:59 | ITS.CL.CATH ---
Asphalt Heater Operator - Catheterization
Cardiac Catheterization
Procedure Report:
RIGHT HEART CATHETERIZATION
Date of Procedure: September 30, 2023
Referring: Gerhard Addytierney
INDICATION: Assess invasive hemodynamics with worsening renal dysfunction
Hemodynamics (mmHg):
RA (m) : 18
RV (s/d,m) : 60/13, 17
PA (s/d, m) : 65/31, 47
PCWP (m) : 35
PA saturation: 64.1% on 6 L of oxygen via nasal cannula
AO saturation: 96.0 percent on 6 L of oxygen via nasal cannula (obtain noninvasively using pulse ox)
Heart rate: 70 bpm
Cardiac Output : 4.62 L/min
Cardiac Index : 2.5 L/min/m-2
Pulmonary vascular resistance: 2.6 galaviz unit
RADIATION SUMMARY: Fluoro Time (min): 2.4, Dose (mGy): 52.82, DAP (Gy.cm2) : 8.8
CONCLUSION:
1. Significantly elevated right left-sided filling pressures in the setting of normal cardiac output. Recommend aggressive IV diuresis
Copy to: Julian Lee
Heather Zuniga MD, FACC, [facility]
[2023-09-30 16:31] LABS: Glucose - Point of Care 123 mg/dl (70-99)
[2023-09-30] MEDS: SINEMET 10-100 1 TABLET PO (17:04)
[2023-09-30] MEDS: LASIX 40 MG IV (17:05)
[2023-09-30] MEDS: NOVOLOG FLEXPEN 3 UNITS SC (17:14)
[2023-09-30] MEDS: DUONEB 3 ML INH (19:57)
[2023-09-30] MEDS: COLACE PO (20:51)
[2023-09-30] MEDS: LIPITOR 40 MG PO (21:00)
[2023-09-30] MEDS: MELATONIN 5 MG PO (21:00)
[2023-09-30] MEDS: CYMBALTA DELAYED RELEASE 30 MG PO (21:00)
[2023-09-30] MEDS: SINEMET 10-100 2 TABLET PO (21:00)
[2023-09-30] MEDS: XANAX 0.25 MG PO (21:57)
[2023-09-30] MEDS: LANTUS 0.149999999999999994 UNITS SC (22:03)
[2023-09-30 22:05] LABS: Glucose - Point of Care 196 mg/dl (70-99)
[2023-10-01 03:48] VITALS: BP 139/63
[2023-10-01 06:00] VITALS: BMI 30.4
[2023-10-01 06:09] LABS: Hematocrit 26.1 % (37.0-47.0); Hemoglobin 8.3 g/dL (12.0-16.0); Mean Corp Hgb Conc. 31.8 g/dL (33.0-37.0); Mean Corpuscular Hgb 33.1 pg (27.0-31.0); Mean Platelet Volume 10.5 fL (7.4-10.4); Platelet Count 224 10^3/uL (130-400); Red Blood Cell Count 2.51 10^6/uL (4.20-5.40); Red Cell Dist. Width 14.4 % (11.5-14.5); White Blood Cell Count 8.4 10^3/uL (4.8-10.8)
[2023-10-01 06:30] LABS: Blood Urea Nitrogen 66 mg/dl (7-17); Calcium 8.7 mg/dl (8.4-10.2); Carbon Dioxide 32 mmol/L (22-30); Chloride 108 mmol/L (98-107); Estimated Creatinine Clearance 14 ml/min; Glucose 136 mg/dl (70-99); Potassium 4.2 mmol/L (3.5-5.1); Sodium 144 mmol/L (135-145); eGFR 14.86
[2023-10-01 07:35] VITALS: BP 106/62
[2023-10-01 08:07] LABS: Glucose - Point of Care 142 mg/dl (70-99)
[2023-10-01] MEDS: NOVOLOG FLEXPEN 3 UNITS SC ×3 (08:49→16:57)
[2023-10-01] MEDS: NOVOLOG FLEXPEN-MODERATE RESISTANCE SC (08:49)
[2023-10-01] MEDS: LASIX 40 MG IV ×2 (08:50→16:48)
[2023-10-01] MEDS: PLAVIX 75 MG PO (08:55)
[2023-10-01] MEDS: MAGNESIUM OXIDE 500 MG PO (08:55)
[2023-10-01] MEDS: SINEMET 10-100 1 TABLET PO ×2 (08:55→16:50)
[2023-10-01] MEDS: HEPARIN 5000 UNITS SC ×2 (08:56→20:20)
[2023-10-01] MEDS: ASPIR LOW (ENTERIC COATED) 81 MG PO (08:56)
[2023-10-01] MEDS: PROTONIX 40 MG PO (08:56)
[2023-10-01] MEDS: TOPROL XL 25 MG PO (08:56)
[2023-10-01] MEDS: VITAMIN D3 (cholecalciferol) 25 MCG PO (08:56)
[2023-10-01] MEDS: REFRESH EYE DROPS (PF) 1 DROPS BOTH EYES ×3 (08:56→21:27)
[2023-10-01] MEDS: DITROPAN 5 MG PO ×2 (08:57→20:19)
[2023-10-01] MEDS: DEBROX EAR DROPS 1 DROP OTIC (08:58)
[2023-10-01] MEDS: ARISTOCORT/TRIAMCINOLONE 0.1% CREAM 1 APPLIC TOPICAL ×2 (08:58→20:23)
[2023-10-01] MEDS: DESENEX/MITRAZOL/ZEASORB 1 APPLIC TOPICAL ×2 (08:59→20:23)
[2023-10-01] MEDS: NORVASC PO (09:30)
[2023-10-01] MEDS: ISORDIL 20 MG PO ×3 (09:31→21:27)
[2023-10-01] MEDS: APRESOLINE 25 MG PO ×2 (09:31→16:49)
--- NOTE | 2023-10-01 09:46 | W.PN.CARDCBS ---
Today's Communication / Plan
-
Filling pressures remain elevated by right heart catheterization.
Continue Lasix 40 g IV twice daily. Continue Toprol, Isordil, and hydralazine.
If creatinine worsens would add milrinone 0.3 mcg/kg/min.
Impression / Plan
-
Primary Cell Liner: Dr. Lee
Assessment:
Acute hypoxemic respiratory failure, initially requiring bipap
Acute on chronic HFpEF
B/L pleural effusions, status post left thoracentesis with 1050 mL removed on 09/20/2023
Elevated troponin, suspected nonischemic myocardial injury, peak troponin 0.26
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
Chronic bifascicular block
History of B/L CVAs on DAPT, most recent 11/2022 at [facility], transitioned back from brilinta to plavix
Residual R hemiparesis
HTN and labile HTN
History of left CVA from symptomatic left carotid stenosis in 05/2014
s/p Left internal carotid PTCA and stenting 08/27/2014
history of linq without ANY noted afibCAD
s/p overlapping 3 mm, 3.25 mm and 2.25 mm Cypher ZIA to LAD (3) 09/2009
s/p angioplasty alone of mid LAD stents 04/23/10COPD
DM 2
Dyslipidemia
Obesity
Parkinson's disease
PJ
Nephrotic range proteinuria
History of UTIs
Wheelchair bound
Chronic anemia
Hypokalemia
Leukocytosis
DNR CODE STATUS
ECHO 01/18/23: EF 57%, apex hypokinetic, mild MR, no significant change compared to prior
Echocardiogram 09/20/2023: Ejection fraction 48% by Dela Cruz's, mildly dilated left ventricle, moderate MR, mild TR, left pleural effusion seen
-09/26/2023: Chest x-ray: Limited study with increased interstitial opacities. Small to moderate bilateral effusions left greater than right suggestive of possible pulmonary edema
RHC 09/29
RA (m) : 18
RV (s/d,m) : 60/13, 17
PA (s/d, m) : 65/31, 47
PCWP (m) : 35
PA saturation: 64.1% on 6 L of oxygen via nasal cannula
AO saturation: 96.0 percent on 6 L of oxygen via nasal cannula (obtain noninvasively using pulse ox)
Heart rate: 70 bpm
Cardiac Output : 4.62 L/min
Cardiac Index : 2.5 L/min/m-2
Plan:
-Right heart cath results noted above. Patient remains volume overloaded. Will continue Lasix 40 mg IV twice daily. Weight is down some. Creatinine overall remained stable at 3.0. If diuresis does not improve or creatinine increases would start
milrinone 0.3 mcg/kg/min.
-echo with mildly reduced LVEF of 48%
-Cont Toprol XL. OP losartan stopped, not current herrera/arb/arni/aldactone candidate given JONATAN on CKD. Cont hydralazine, norvasc. Low dose isordil added this admit.
-not candidate for SGLT2 inhibitor due to frequent UTIs and current renal insufficiency
-trops flat in 0.2 range, suspect non-[place] troponin, cont medical management would attempt to manage medically. no CP.
-on asa, plavix for history of CVAs, PCI, and carotid stent. hgb up to 10.1 on 09/26
-of note, WBC uptrending, follow. remains afebrile
Progress Note - Cell Liner
Subjective
Date of Service: October 01, 2023
Feels maybe slightly better. Breathing slightly improved.
Objective
Labs:
10/01/23 05:38
10/01/23 05:38
Labs
Hgb 8.3 g/dL (12.0-16.0) L 10/01/23 05:38
Hct 26.1 % (37.0-47.0) L 10/01/23 05:38
Plt Count 224 10^3/uL (130-400) 10/01/23 05:38
PT 15.0 Sec (11.4-14.6) H 09/20/23 07:40
INR 1.20 09/20/23 07:40
APTT 99.0 Sec (23.4-35.0) H 09/21/23 08:28
Sodium 144 mmol/L (135-145) 10/01/23 05:38
Potassium 4.2 mmol/L (3.5-5.1) 10/01/23 05:38
BUN 66 mg/dl (7-17) H 10/01/23 05:38
Creatinine 3.0 mg/dL (0.6-1.0) H 10/01/23 05:38
Glucose 136 mg/dl (70-99) H 10/01/23 05:38
Vital Signs and I&O:
Vital Signs
Temp Pulse Resp BP Pulse Ox
97.4 F 73 22 106/62 98
10/01/23 07:35 10/01/23 09:30 10/01/23 07:35 10/01/23 09:30 10/01/23 07:35
Vital Signs
Temp Pulse Resp BP Pulse Ox
97.4 F 73 22 106/62 98
10/01/23 07:35 10/01/23 09:30 10/01/23 07:35 10/01/23 09:30 10/01/23 07:35
Intake & Output
09/29/23 09/30/23 10/01/23 10/02/23
06:59 06:59 06:59 06:59
Intake Total 1380 / 1380 1560 / 1560 420 / 420
Output Total 425 / 425 500 / 500 800 / 800
Balance 955 / 955 1060 / 1060 -380 / -380
Physical Exam
Physical Exam
GEN: No distress, awake, alert
HEENT: supple, anicteric, mmm
LUNGS: Decreased breath sounds at bases
CV: Reg, S1/S2, 1/6 syst LSB, no gallop
ABD: soft, BS+, NT/ND
EXT: No edema
NEURO: Gross non-focal
SKIN: No rash
--- NOTE | 2023-10-01 10:13 | W.PN.NEPH.PH ---
Today's Communication / Plan
-
- lasix 40mg IV BID
Assessment/Plan
-
IMP:
JONATAN with CKD 4-cr 1.6-2 Dr Sepulveda at [facility]
Acute on chronic heart failure with preserved ejection fraction
Acute hypoxic respiratory failure secondary to above
Bilateral pleural effusions s/p left thoracentesis of 1lit on 09/19
Coronary artery disease with H/O coronary stents
Elevated troponin
Leukocytosis
Hypokalemia
Hypertension
Hyperlipidemia
Diabetes
History of CVA with right hemiparesis
Nonambulatory at baseline
Frequent UTIs recently completed a course of Augmentin on 09/15/2023
Parkinson disease
Anemia of chronic disease
Chronic vertigo
Depression
GERD
Hypoalbuminemia
Plan:
A/w SOB found CHF flare on BIPAP
Creatinine up to 3, weights slightly down (stable)
RHC with elevated left and right sided pressures. needs aggressive diuresis
currently on lasix 40mg IV BID, might increase to 80IV BID if no improvement by tomorrow
Rutledge placed on 09/26
Need bedside weights
JONATAN-suspect cardiorenal, no hydro on renal US
UPCR of 23gm/gm of cr, serologies and paraprotein miller benign
suspect underlying advanced diabetic nephropathy
nephrotic range proteinuria likely contributing to some of vol overload as well, alb 2.5
s/p thoracentesis of 1lit on left side on 09/19
Hemodynamically stable but holding ARB
echo noted mildly reduced EF 45%
anemia-stable hgb, adequate fe stores hemoglobin at 8 point
avoid nephrotoxins
Will decrease fluid restriction giving rising hypernatremia on 09/27
on 09/20 we reviewed briefly about dialysis risk, she will think about it-would not refuse HD if needed, no need currently
-
-
Date of Service: October 01, 2023
CC / HPI / ROS
-
Chief Complaint:
JONATAN with CKD
History of Present Illness:
cr up at 3
k normal
Hemodynamically stable
UOP at 800cc
Review of Systems:
no cp or sob at rest remains on oxygen
no fever or cough
feels tired
Weight is stable
laying in bed and sleeping
Labs
-
Labs:
WBC 8.4 10^3/uL (4.8-10.8) 10/01/23 05:38
RBC 2.51 10^6/uL (4.20-5.40) L 10/01/23 05:38
Hgb 8.3 g/dL (12.0-16.0) L 10/01/23 05:38
Hct 26.1 % (37.0-47.0) L 10/01/23 05:38
Plt Count 224 10^3/uL (130-400) 10/01/23 05:38
Sodium 144 mmol/L (135-145) 10/01/23 05:38
Potassium 4.2 mmol/L (3.5-5.1) 10/01/23 05:38
Chloride 108 mmol/L (98-107) H 10/01/23 05:38
Carbon Dioxide 32 mmol/L (22-30) H 10/01/23 05:38
BUN 66 mg/dl (7-17) H 10/01/23 05:38
Creatinine 3.0 mg/dL (0.6-1.0) H 10/01/23 05:38
eGFR 14.86 10/01/23 05:38
Glucose 136 mg/dl (70-99) H 10/01/23 05:38
Calcium 8.7 mg/dl (8.4-10.2) 10/01/23 05:38
Ssh-T-Bgsmclhegge Pept 11877 pg/ml 09/26/23 06:03
Albumin 2.5 g/dl (3.5-5.0) L 09/19/23 21:42
Physical Exam
-
Vital Signs:
Vital Signs
Temp Pulse Resp BP Pulse Ox
97.4 F 73 22 106/62 98
10/01/23 07:35 10/01/23 09:30 10/01/23 07:35 10/01/23 09:30 10/01/23 07:35
Cardiovascular:: Regular rate and rhythm
Respiratory:: Bilateral: Coarse
Lung Excursion:: Normal
Abdomen:: Soft
Bowel Sounds:: Normal
Extremity Edema:: +2: Bilateral:
Rutledge Catheter: Yes
[2023-10-01 11:25] VITALS: BP 125/66
[2023-10-01 12:32] LABS: Glucose - Point of Care 211 mg/dl (70-99)
[2023-10-01] MEDS: NOVOLOG FLEXPEN-MODERATE RESISTANCE 3 UNITS SC (12:39)
--- NOTE | 2023-10-01 13:36 | W.PN.HOSP.TC ---
Today's Communication/Plan
-
CW IV diuresis
Assessment / Plan
Assessment / Plan
83 y/o female with shortness of breath
USS kidney-There is probably a small amount of mobile debris within the bladder lumen. No evidence for bladder mass. Post void bladder residual could not be assessed, as patient is unable to spontaneously void.No focal abnormality of either kidney,
with moderately limited visualization of the left kidney.
#Acute on chronic heart failure with preserved ejection fraction
Acute hypoxic respiratory failure secondary to above
Bilateral pleural effusions left more than right
She refuses BIPAP HS- So Discontinued
S/P Left thoracentesis by IRAD
Possible aspiration pneumonitis- On AB
Repeat chest x-ray shows pulmonary edema.
Right heart cath shows increased filling pressures with a pulmonary catheter wedge pressure of 35.
Lasix restarted at 40 mg IV twice a day. If no improvement in weight consider inotropes.
# Suspect aspiration pneumonitis with elevated white count placed the patient on ceftriaxone. White count has normalized.
Speech evaluation noted. cw modified diet.
Off of abx
# Coronary artery disease with H/O coronary stents
Elevated troponin nonischemic myocardial injury
EKG bifascicular block PACs and PVCs
Continue DAPT, beta-augusto, statin
Echo 09/20/2023-LV dilated. Mild concentric LVH. Mildly reduced LV systolic function. Ejection fraction 48%. Global hypokinesis moderately dilated LA. Moderate MR. Mild TR. Compared to 2022 EF decreased
# Left thoracentesis with 1050 ml straw-colored pleural fluid. Transudate
# Hypertension-on metoprolol 25 mg, losartan 100 mg daily, Amlodipine 2.5 mg as outpatient along with hydralazine 20 mg every 8 hours as OP
continue metoprolol XL 25 mg daily, Norvasc 2.5 mg daily and hydralazine. Hold losartan
BP under goal
# Acute kidney injury on CKD stage IV
Ultrasound without any obstruction
Albuminuria noted
Baseline creatinine 1.6 ,hold losartan
Renal evaluation appreciated
Follow closely on iv diuresis
# Diabetes-hemoglobin A1c 6.0
Patient was on Lantus insulin 28 units in the morning and 20 units at night along with NovoLog 12 before meals as outpatient prior to admission
Lantus insulin 15 units at nighttime. continue sliding scale coverage .
Dysphagia - VSE noted - started on modified diet

# Hyperlipidemia-statin
# History of CVA with right hemiparesis-left carotid artery stent-[facility]ambulatory at [id number]
# Frequent UTIs recently completed a course of Augmentin on 09/15/2023
# Parkinson disease-continue Sinemet
# Anemia of chronic disease
# Chronic vertigo on meclizine as needed
# Depression-on duloxetine
# GERD-PPI
# History of sleep apnea used to use BiPAP in the past but not anymore. Continue that at night here.
# DVT prophylaxis-SC heparin
# DNR
Anticipated Discharge: > 48 hours
Subjective/Interval History
-
Date of Service: October 01, 2023
feels okay. Not short breath at rest. Still requiring 4 L of oxygen. No chest pain.
Objective Data
-
Labs:
Laboratory Results
10/01/23
05:38
WBC 8.4
Hgb 8.3 L
Hct 26.1 L
Plt Count 224
Sodium 144
Potassium 4.2
Chloride 108 H
Carbon Dioxide 32 H
BUN 66 H
Creatinine 3.0 H
Glucose 136 H
Calcium 8.7
Vital Signs:
Vital Signs
Temp Pulse Resp BP Pulse Ox
97.4 F 77 20 125/66 97
10/01/23 11:25 10/01/23 11:25 10/01/23 11:25 10/01/23 11:25 10/01/23 11:25
I&O
09/30/23 10/01/23 10/02/23
06:59 06:59 06:59
Intake Total 1560 / 1560 420 / 420
Output Total 500 / 500 800 / 800
Balance 1060 / 1060 -380 / -380
Review of Systems
-
Constitutional: Denies Fever
Respiratory: Denies Cough
Abdomen/GI: Denies Nausea or Vomiting
Genitourinary: Denies Dysuria
Neuro: Denies Dizzy
Physical Exam
-
General: No Apparent Distress
HEENT: Moist Mucous Membranes
Respiratory: Crackles (bibasilar, right bronchial breathing at base)
Cardiac: Regular Rhythm and S1/S2
GI: Soft
Neuro: AO x 3
Data Reviewed
-
Labs: Labs Reviewed by me
[2023-10-01 15:15] VITALS: BP 107/67
[2023-10-01] MEDS: NOVOLOG FLEXPEN-MODERATE RESISTANCE 1 UNITS SC (16:57)
[2023-10-01 17:02] LABS: Glucose - Point of Care 196 mg/dl (70-99)
[2023-10-01] MEDS: REFRESH EYE DROPS (PF) BOTH EYES (18:00)
[2023-10-01 19:24] VITALS: BP 151/69
[2023-10-01] MEDS: DUONEB 3 ML INH (20:39)
[2023-10-01] MEDS: CYMBALTA DELAYED RELEASE 30 MG PO (21:27)
[2023-10-01] MEDS: SINEMET 10-100 2 TABLET PO (21:27)
[2023-10-01] MEDS: LIPITOR 40 MG PO (21:27)
[2023-10-01] MEDS: COLACE PO ×2 (21:27→21:33)
[2023-10-01] MEDS: MELATONIN 5 MG PO (21:27)
[2023-10-01 21:53] LABS: Glucose - Point of Care 228 mg/dl (70-99)
[2023-10-01] MEDS: XANAX 0.25 MG PO (22:13)
[2023-10-01] MEDS: LANTUS 0.149999999999999994 UNITS SC (22:13)
[2023-10-01 23:08] VITALS: BP 108/64
[2023-10-02] MEDS: APRESOLINE 25 MG PO ×3 (00:16→16:10)
[2023-10-02 03:29] VITALS: BP 125/56
[2023-10-02 06:00] VITALS: BMI 30.3
[2023-10-02 06:42] LABS: Blood Urea Nitrogen 67 mg/dl (7-17); Calcium 8.8 mg/dl (8.4-10.2); Carbon Dioxide 34 mmol/L (22-30); Chloride 106 mmol/L (98-107); Estimated Creatinine Clearance 15 ml/min; Glucose 157 mg/dl (70-99); Potassium 4.3 mmol/L (3.5-5.1); Sodium 144 mmol/L (135-145); eGFR 16.15
[2023-10-02 07:35] VITALS: BP 160/76
[2023-10-02 07:52] LABS: Glucose - Point of Care 180 mg/dl (70-99)
[2023-10-02] MEDS: REFRESH EYE DROPS (PF) 1 DROPS BOTH EYES ×4 (08:48→22:34)
[2023-10-02] MEDS: SINEMET 10-100 1 TABLET PO ×2 (08:50→16:19)
[2023-10-02] MEDS: DITROPAN 5 MG PO ×2 (08:50→21:17)
[2023-10-02] MEDS: ISORDIL 20 MG PO ×3 (08:50→22:34)
[2023-10-02] MEDS: NORVASC 2.5 MG PO (08:51)
[2023-10-02] MEDS: ASPIR LOW (ENTERIC COATED) 81 MG PO (08:52)
[2023-10-02] MEDS: PROTONIX 40 MG PO (08:52)
[2023-10-02] MEDS: HEPARIN 5000 UNITS SC ×2 (08:52→21:17)
[2023-10-02] MEDS: MAGNESIUM OXIDE 500 MG PO (08:53)
[2023-10-02] MEDS: PLAVIX 75 MG PO (08:53)
[2023-10-02] MEDS: VITAMIN D3 (cholecalciferol) 25 MCG PO (08:53)
[2023-10-02] MEDS: TOPROL XL 25 MG PO (08:53)
[2023-10-02] MEDS: LASIX 40 MG IV (08:55)
[2023-10-02] MEDS: DESENEX/MITRAZOL/ZEASORB 1 APPLIC TOPICAL ×2 (08:56→21:17)
[2023-10-02] MEDS: DEBROX EAR DROPS 1 DROP OTIC (08:56)
[2023-10-02] MEDS: NOVOLOG FLEXPEN-MODERATE RESISTANCE 1 UNITS SC (09:02)
[2023-10-02] MEDS: NOVOLOG FLEXPEN 3 UNITS SC ×3 (09:02→17:18)
[2023-10-02] MEDS: ARISTOCORT/TRIAMCINOLONE 0.1% CREAM 1 APPLIC TOPICAL ×2 (09:02→21:18)
[2023-10-02] MEDS: DUONEB 3 ML INH (09:28)
--- NOTE | 2023-10-02 10:50 | CM ---
CM reviewed chart. Plan for return to [facility] where pt is on a medicaid bed hold, when medically stable. Currently on IV lasix.
CM to follow and assist.
Discharge dispo is return to [facility] when stable.
--- NOTE | 2023-10-02 11:27 | W.PN.NEPH.PH ---
Today's Communication / Plan
-
- increase lasix to 80IV BID
Assessment/Plan
-
IMP:
JONATAN with CKD 4-cr 1.6-2 Dr Sepulveda at [facility]
Acute on chronic heart failure with preserved ejection fraction
Acute hypoxic respiratory failure secondary to above
Bilateral pleural effusions s/p left thoracentesis of 1lit on 09/19
Coronary artery disease with H/O coronary stents
Elevated troponin
Leukocytosis
Hypokalemia
Hypertension
Hyperlipidemia
Diabetes
History of CVA with right hemiparesis
Nonambulatory at baseline
Frequent UTIs recently completed a course of Augmentin on 09/15/2023
Parkinson disease
Anemia of chronic disease
Chronic vertigo
Depression
GERD
Hypoalbuminemia
Plan:
A/w SOB found CHF flare on BIPAP
Creatinine slightly down to 2.8, weights stable
RHC on 09/29 with elevated left and right sided pressures. needs aggressive diuresis
increased lasix to 80IV BID
Rutledge placed on 09/26
Need bedside weights
JONATAN- cardiorenal, no hydro on renal US
UPCR of 23gm/gm of cr, serologies and paraprotein w/u benign
suspect underlying advanced diabetic nephropathy
nephrotic range proteinuria likely contributing to some of vol overload as well, alb 2.5
s/p thoracentesis of 1lit on left side on 09/19
Hemodynamically stable but holding ARB
echo noted mildly reduced EF 45%
avoid nephrotoxins
Will decrease fluid restriction giving rising hypernatremia on 09/27
on 09/20 we reviewed briefly about dialysis risk, she will think about it-would not refuse HD if needed, no need currently
-
-
Date of Service: October 02, 2023
CC / HPI / ROS
-
Chief Complaint:
JONATAN with CKD
History of Present Illness:
cr up at 2.8
k normal
Hemodynamically stable
UOP at 950cc
Review of Systems:
no cp or sob at rest remains on oxygen
no fever or cough
feels tired
Weight is stable
awake and alert and eating today
Labs
-
Labs:
WBC 8.4 10^3/uL (4.8-10.8) 10/01/23 05:38
RBC 2.51 10^6/uL (4.20-5.40) L 10/01/23 05:38
Hgb 8.3 g/dL (12.0-16.0) L 10/01/23 05:38
Hct 26.1 % (37.0-47.0) L 10/01/23 05:38
Plt Count 224 10^3/uL (130-400) 10/01/23 05:38
Sodium 144 mmol/L (135-145) 10/02/23 06:05
Potassium 4.3 mmol/L (3.5-5.1) 10/02/23 06:05
Chloride 106 mmol/L (98-107) 10/02/23 06:05
Carbon Dioxide 34 mmol/L (22-30) H 10/02/23 06:05
BUN 67 mg/dl (7-17) H 10/02/23 06:05
Creatinine 2.8 mg/dL (0.6-1.0) H 10/02/23 06:05
eGFR 16.15 10/02/23 06:05
Glucose 157 mg/dl (70-99) H 10/02/23 06:05
Calcium 8.8 mg/dl (8.4-10.2) 10/02/23 06:05
Ucl-K-Jmvpeuecxxr Pept 02147 pg/ml 09/26/23 06:03
Albumin 2.5 g/dl (3.5-5.0) L 09/19/23 21:42
Physical Exam
-
Vital Signs:
Vital Signs
Temp Pulse Resp BP Pulse Ox
97.3 F 82 16 160/76 94
10/02/23 03:29 10/02/23 09:29 10/02/23 09:29 10/02/23 08:51 10/02/23 09:31
Cardiovascular:: Regular rate and rhythm
Respiratory:: Bilateral: Coarse
Lung Excursion:: Normal
Abdomen:: Nontender and Soft
Bowel Sounds:: Normal
Extremity Edema:: +2: Bilateral:
Rutledge Catheter: Yes
[2023-10-02 11:35] VITALS: BP 134/58
[2023-10-02 12:03] LABS: Glucose - Point of Care 230 mg/dl (70-99)
--- NOTE | 2023-10-02 12:14 | VATNOTE ---
Addendum entered by Brii Mercado RN 10/02/23 12:47:
Noted that pt had a RUE peripheral vascular ultrasound on 09/19, which was negative for DVT. PCN notified.
Original Note:
During routine rounds, pt's right arm noted to be visibly swollen. Discussed with PCN, has not had anything running through her IV. IV flushed and was leaking so this RN discontinued it and restarted a new IV. Pt confirms that arm feels swollen.
Discussed with PCN, peripheral vascular ultrasound of RUE recommended, PCN will discuss with MD.
[2023-10-02] MEDS: NOVOLOG FLEXPEN-MODERATE RESISTANCE 3 UNITS SC (13:43)
--- NOTE | 2023-10-02 15:00 | W.PN.CARDCBS ---
Today's Communication / Plan
-
Increase IV diuresis
Impression / Plan
-
.
Primary Heel Cementer: Dr. Lee
Impression:
Acute hypoxemic respiratory failure, initially requiring bipap
Acute on chronic HFpEF
B/L pleural effusions, status post left thoracentesis with 1050 mL removed on 09/20/2023
Elevated troponin, suspected nonischemic myocardial injury, peak troponin 0.26
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
Chronic bifascicular block
History of B/L CVAs on DAPT, most recent 11/2022 at [facility], transitioned back from brilinta to plavix
Residual R hemiparesis
HTN and labile HTN
History of left CVA from symptomatic left carotid stenosis in 05/2014
s/p Left internal carotid PTCA and stenting 08/27/2014
history of linq without ANY noted afibCAD
s/p overlapping 3 mm, 3.25 mm and 2.25 mm Cypher ZIA to LAD (3) 09/2009
s/p angioplasty alone of mid LAD stents 04/23/10COPD
DM 2
Dyslipidemia
Obesity
Parkinson's disease
PJ
Nephrotic range proteinuria
History of UTIs
Wheelchair bound
Chronic anemia
Hypokalemia
Leukocytosis
DNR CODE STATUS
ECHO 01/18/23: EF 57%, apex hypokinetic, mild MR, no significant change compared to prior
Echocardiogram 09/20/2023: Ejection fraction 48% by Dela Cruz's, mildly dilated left ventricle, moderate MR, mild TR, left pleural effusion seen
-09/26/2023: Chest x-ray: Limited study with increased interstitial opacities. Small to moderate bilateral effusions left greater than right suggestive of possible pulmonary edema
RHC 09/29
RA (m) : 18
RV (s/d,m) : 60/13, 17
PA (s/d, m) : 65/31, 47
PCWP (m) : 35
PA saturation: 64.1% on 6 L of oxygen via nasal cannula
AO saturation: 96.0 percent on 6 L of oxygen via nasal cannula (obtain noninvasively using pulse ox)
Heart rate: 70 bpm
Cardiac Output : 4.62 L/min
Cardiac Index : 2.5 L/min/m-2
Plan:
Agree with nephrology to increase IV lasix to 80 mg IV BID
Cr improved to 2.8 with diuresis.
Wt coming down slowly.
If she fails to diuresis more, may need to consider Milrinone at 0.3 mcg/kg/min
Echo with mildly reduced LVEF of 48%
Cont Toprol XL. OP losartan stopped, not current herrera/arb/arni/aldactone candidate given JONATAN on CKD. Cont hydralazine, norvasc. Low dose isordil added this admit.
not candidate for SGLT2 inhibitor due to frequent UTIs and current renal insufficiency
trops flat in 0.2 range, suspect non-FL troponin, cont medical management would attempt to manage medically. no CP.
-
Cont DAPT, asa, plavix for history of CVAs, PCI, and carotid stent.
Progress Note - Heel Cementer
Subjective
Date of Service: October 02, 2023
Pt seen and examined. No complaints. No chest pain or shortness of breath.
Objective
Labs:
10/01/23 05:38
10/02/23 06:05
Labs
Hgb 8.3 g/dL (12.0-16.0) L 10/01/23 05:38
Hct 26.1 % (37.0-47.0) L 10/01/23 05:38
Plt Count 224 10^3/uL (130-400) 10/01/23 05:38
PT 15.0 Sec (11.4-14.6) H 09/20/23 07:40
INR 1.20 09/20/23 07:40
APTT 99.0 Sec (23.4-35.0) H 09/21/23 08:28
Sodium 144 mmol/L (135-145) 10/02/23 06:05
Potassium 4.3 mmol/L (3.5-5.1) 10/02/23 06:05
BUN 67 mg/dl (7-17) H 10/02/23 06:05
Creatinine 2.8 mg/dL (0.6-1.0) H 10/02/23 06:05
Glucose 157 mg/dl (70-99) H 10/02/23 06:05
Vital Signs and I&O:
Vital Signs
Temp Pulse Resp BP Pulse Ox
97.3 F 80 20 134/58 91
10/02/23 11:35 10/02/23 11:35 10/02/23 11:35 10/02/23 11:35 10/02/23 13:01
Vital Signs
Temp Pulse Resp BP Pulse Ox
97.3 F 80 20 134/58 91
10/02/23 11:35 10/02/23 11:35 10/02/23 11:35 10/02/23 11:35 10/02/23 13:01
Intake & Output
09/30/23 10/01/23 10/02/23 10/03/23
06:59 06:59 06:59 06:59
Intake Total 1560 / 1560 420 / 420 1470 / 1470
Output Total 500 / 500 800 / 800 950 / 950
Balance 1060 / 1060 -380 / -380 520 / 520
Physical Exam
Physical Exam
General: No acute distress, AAOX3
Neck: Negative JVD
Heart: Regular, Negative S3 positive S1/S2, Negative S4, No murmur
Lungs: CTA b/l, negative wheezes/rales/rhonchi
Abd: Positive BS, NT/ND, neg rebound/rigidity/guarding
Ext: Negative cyanosis/clubbing/edema
Neuro: nonfocal
--- NOTE | 2023-10-02 15:08 | W.PN.HOSP.TC ---
Today's Communication/Plan
-
CW IV diuresis
Assessment / Plan
Assessment / Plan
83 y/o female with shortness of breath
USS kidney-There is probably a small amount of mobile debris within the bladder lumen. No evidence for bladder mass. Post void bladder residual could not be assessed, as patient is unable to spontaneously void.No focal abnormality of either kidney,
with moderately limited visualization of the left kidney.
#Acute on chronic heart failure with preserved ejection fraction
Acute hypoxic respiratory failure secondary to above
Bilateral pleural effusions left more than right
She refuses BIPAP HS- So Discontinued
S/P Left thoracentesis by IRAD
Possible aspiration pneumonitis- On AB
Repeat chest x-ray shows pulmonary edema.
Right heart cath shows increased filling pressures with a pulmonary catheter wedge pressure of 35.
CW Lasix 40 mg IV twice a day. If no improvement in weight consider inotropes.
# Suspect aspiration pneumonitis with elevated white count placed the patient on ceftriaxone. White count has normalized.
Speech evaluation noted. cw modified diet.
Off of abx
# Coronary artery disease with H/O coronary stents
Elevated troponin nonischemic myocardial injury
EKG bifascicular block PACs and PVCs
Continue DAPT, beta-augusto, statin
Echo 09/20/2023-LV dilated. Mild concentric LVH. Mildly reduced LV systolic function. Ejection fraction 48%. Global hypokinesis moderately dilated LA. Moderate MR. Mild TR. Compared to 2022 EF decreased
# Left thoracentesis with 1050 ml straw-colored pleural fluid. Transudate
# Hypertension-on metoprolol 25 mg, losartan 100 mg daily, Amlodipine 2.5 mg as outpatient along with hydralazine 20 mg every 8 hours as OP
continue metoprolol XL 25 mg daily, Norvasc 2.5 mg daily and hydralazine. Hold losartan
BP under goal
# Acute kidney injury on CKD stage IV
Ultrasound without any obstruction
Albuminuria noted
Baseline creatinine 1.6 ,hold losartan
Renal evaluation appreciated
Follow closely on iv diuresis
# Diabetes-hemoglobin A1c 6.0
Patient was on Lantus insulin 28 units in the morning and 20 units at night along with NovoLog 12 before meals as outpatient prior to admission
Lantus insulin 15 units at nighttime. continue sliding scale coverage .
Dysphagia - VSE noted - started on modified diet

# Hyperlipidemia-statin
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
# Frequent UTIs recently completed a course of Augmentin on 09/15/2023
# Parkinson disease-continue Sinemet
# Anemia of chronic disease
# Chronic vertigo on meclizine as needed
# Depression-on duloxetine
# GERD-PPI
# History of sleep apnea used to use BiPAP in the past but not anymore. Continue that at night here.
# DVT prophylaxis-SC heparin
# DNR
Anticipated Discharge: > 48 hours
Subjective/Interval History
-
Date of Service: October 02, 2023
Breathing okay. No chest pain.
Objective Data
-
Labs:
Laboratory Results
10/02/23
06:05
Sodium 144
Potassium 4.3
Chloride 106
Carbon Dioxide 34 H
BUN 67 H
Creatinine 2.8 H
Glucose 157 H
Calcium 8.8
Vital Signs:
Vital Signs
Temp Pulse Resp BP Pulse Ox
97.3 F 80 20 134/58 91
10/02/23 11:35 10/02/23 11:35 10/02/23 11:35 10/02/23 11:35 10/02/23 13:01
I&O
10/01/23 10/02/23 10/03/23
06:59 06:59 06:59
Intake Total 420 / 420 1470 / 1470
Output Total 800 / 800 950 / 950
Balance -380 / -380 520 / 520
Review of Systems
-
Cardiac: Denies Palpitations
Abdomen/GI: Denies Abdominal Pain, Nausea or Vomiting
Neuro: Denies Dizzy
Physical Exam
-
General: Comfortable
Respiratory: Crackles (BIBASAL) and Non Labored Respirations; Negative Accessory Resp Muscle Use
Cardiac: Regular Rhythm and S1/S2
Neuro: AO x 3
Data Reviewed
-
Labs: Labs Reviewed by me
[2023-10-02 15:40] VITALS: BP 128/60
[2023-10-02] MEDS: LASIX 80 MG IV (16:09)
[2023-10-02 17:18] LABS: Glucose - Point of Care 398 mg/dl (70-99)
[2023-10-02] MEDS: NOVOLOG FLEXPEN-MODERATE RESISTANCE 9 UNITS SC (17:18)
[2023-10-02 19:27] VITALS: BP 138/59
[2023-10-02 21:53] LABS: Glucose - Point of Care 185 mg/dl (70-99)
[2023-10-02] MEDS: CYMBALTA DELAYED RELEASE 30 MG PO (22:34)
[2023-10-02] MEDS: COLACE PO (22:34)
[2023-10-02] MEDS: SINEMET 10-100 2 TABLET PO (22:34)
[2023-10-02] MEDS: LIPITOR 40 MG PO (22:34)
[2023-10-02] MEDS: LANTUS 0.149999999999999994 UNITS SC (22:35)
[2023-10-02] MEDS: MELATONIN 5 MG PO (22:40)
[2023-10-02 23:14] VITALS: BP 157/70
[2023-10-03] VITALS (7 sets, daily range): BP systolic 112–151; BP diastolic 58–70; BMI 30.2
[2023-10-03] MEDS: APRESOLINE 25 MG PO ×4 (00:17→23:18)
[2023-10-03 08:03] LABS: Blood Urea Nitrogen 65 mg/dl (7-17); Calcium 8.6 mg/dl (8.4-10.2); Carbon Dioxide 35 mmol/L (22-30); Chloride 106 mmol/L (98-107); Estimated Creatinine Clearance 16 ml/min; Glucose 88 mg/dl (70-99); Potassium 4.3 mmol/L (3.5-5.1); Sodium 142 mmol/L (135-145); eGFR 16.87
[2023-10-03 08:44] LABS: Glucose - Point of Care 62 mg/dl (70-99)
[2023-10-03] MEDS: NOVOLOG FLEXPEN-MODERATE RESISTANCE SC ×2 (08:51→12:01)
[2023-10-03] MEDS: ASPIR LOW (ENTERIC COATED) 81 MG PO (08:53)
[2023-10-03] MEDS: PLAVIX 75 MG PO (08:53)
[2023-10-03] MEDS: PROTONIX 40 MG PO (08:53)
[2023-10-03] MEDS: MAGNESIUM OXIDE 500 MG PO (08:53)
[2023-10-03] MEDS: DITROPAN 5 MG PO ×2 (08:54→20:50)
[2023-10-03] MEDS: REFRESH EYE DROPS (PF) 1 DROPS BOTH EYES ×3 (08:54→22:05)
[2023-10-03] MEDS: HEPARIN 5000 UNITS SC ×2 (08:55→20:51)
[2023-10-03] MEDS: VITAMIN D3 (cholecalciferol) 25 MCG PO (08:55)
[2023-10-03] MEDS: ISORDIL 20 MG PO ×3 (08:55→22:05)
[2023-10-03] MEDS: TOPROL XL 25 MG PO (08:55)
[2023-10-03] MEDS: NORVASC 2.5 MG PO (08:55)
[2023-10-03] MEDS: LASIX 80 MG IV ×2 (08:56→16:56)
[2023-10-03] MEDS: DEBROX EAR DROPS 1 DROP OTIC (08:57)
[2023-10-03] MEDS: ARISTOCORT/TRIAMCINOLONE 0.1% CREAM 1 APPLIC TOPICAL ×2 (08:57→20:51)
[2023-10-03] MEDS: SINEMET 10-100 1 TABLET PO ×2 (08:58→16:58)
[2023-10-03] MEDS: DESENEX/MITRAZOL/ZEASORB 1 APPLIC TOPICAL ×2 (09:00→20:52)
[2023-10-03] MEDS: MIRALAX 17 GRAMS PO (09:00)
[2023-10-03 09:02] LABS: Glucose - Point of Care 85 mg/dl (70-99)
[2023-10-03] MEDS: NOVOLOG FLEXPEN SC (09:29)
--- NOTE | 2023-10-03 10:16 | W.PN.HOSP.TC ---
Today's Communication/Plan
-
Continue with IV Lasix -dose increased yesterday; follow weights and creatinine.
DC nutritional insulin and continue sliding scale insulin and Lantus at bedtime.
Assessment / Plan
Assessment / Plan
83 y/o female with shortness of breath
USS kidney-There is probably a small amount of mobile debris within the bladder lumen. No evidence for bladder mass. Post void bladder residual could not be assessed, as patient is unable to spontaneously void.No focal abnormality of either kidney,
with moderately limited visualization of the left kidney.
#Acute on chronic heart failure with preserved ejection fraction
Acute hypoxic respiratory failure secondary to above
Bilateral pleural effusions left more than right
S/P Left thoracentesis by IRAD
Possible aspiration pneumonitis- finished AB
Repeat chest x-ray shows pulmonary edema.
Right heart cath shows increased filling pressures with a pulmonary catheter wedge pressure of 35.
CW Lasix 40 mg IV twice a day. If no improvement in weight consider inotropes.
# Suspect aspiration pneumonitis with elevated white count placed the patient on ceftriaxone. White count has normalized.
Speech evaluation noted. cw modified diet.
Off of abx
# Coronary artery disease with H/O coronary stents
Elevated troponin nonischemic myocardial injury
EKG bifascicular block PACs and PVCs
Continue DAPT, beta-augusto, statin
Echo 09/20/2023-LV dilated. Mild concentric LVH. Mildly reduced LV systolic function. Ejection fraction 48%. Global hypokinesis moderately dilated LA. Moderate MR. Mild TR. Compared to 2022 EF decreased
# Left thoracentesis with 1050 ml straw-colored pleural fluid. Transudate
# Hypertension-
Hold losartan ;cw current other medications
BP under goal
# Acute kidney injury on CKD stage IV
Ultrasound without any obstruction
Albuminuria noted
Baseline creatinine 1.6 ,hold losartan
Renal evaluation appreciated
Follow closely on iv diuresis
# Diabetes-hemoglobin A1c 6.0
Patient was on Lantus insulin 28 units in the morning and 20 units at night along with NovoLog 12 before meals as outpatient prior to admission
This am one episode of hypo but not symtpomatic.Hold meal time insulin ,cw SSI.
CW Lantus insulin 15 units at nighttime.
Dysphagia - VSE noted - started on modified diet

# Hyperlipidemia-statin
# History of CVA with right hemiparesis-left carotid artery stent-[facility]ambulatory at [id number]
# Frequent UTIs recently completed a course of Augmentin on 09/15/2023
# Parkinson disease-continue Sinemet
# Anemia of chronic disease
# Chronic vertigo on meclizine as needed
# Depression-on duloxetine
# GERD-PPI
# History of sleep apnea used to use BiPAP in the past but not anymore. Continue that at night here.
# DVT prophylaxis-SC heparin
# DNR
Discussed with daughter at bedside and updated the clinical picture, treatment plan.
Anticipated Discharge: > 48 hours
Subjective/Interval History
-
Date of Service: October 03, 2023
Patient denies shortness of breath at rest. No cough. No chest pain. No palpitations. No dizziness.
Objective Data
-
Labs:
Laboratory Results
10/03/23 10/03/23
05:29 07:20
Sodium Cancelled 142
Potassium Cancelled 4.3
Chloride Cancelled 106
Carbon Dioxide Cancelled 35 H
BUN Cancelled 65 H
Creatinine Cancelled 2.7 H
Glucose Cancelled 88
Calcium Cancelled 8.6
Vital Signs:
Vital Signs
Temp Pulse Resp BP Pulse Ox
97.2 F 73 20 112/70 93
10/03/23 03:23 10/03/23 08:56 10/03/23 07:55 10/03/23 08:56 10/03/23 07:55
I&O
10/02/23 10/03/23 10/04/23
06:59 06:59 06:59
Intake Total 1470 / 1470 880 / 880
Output Total 950 / 950 1550 / 1550
Balance 520 / 520 -670 / -670
Review of Systems
-
Constitutional: Denies Fever
Abdomen/GI: Denies Nausea or Vomiting
Physical Exam
-
General: No Apparent Distress
HEENT: Moist Mucous Membranes
Respiratory: Crackles (Bibasal) and Non Labored Respirations; Negative Wheezes or Accessory Resp Muscle Use
GI: Soft
Neuro: AO x 3
Data Reviewed
-
Labs: Labs Reviewed by me
--- NOTE | 2023-10-03 10:48 | PTCARENOTE ---
Addendum entered by Caro Horton RN 10/03/23 11:52:
Repeat oral temp taken by tech 97.4F.
Original Note:
Unable to obtain oral or axillary temp on patient, rectal temp taken by this RN - 94.9F. Patient cool to touch but states no complaints or concerns at this time. Patient given warm blankets, made aware, stated to continue to monitor at this time
with plan to order barbie hugger for consistent temp below 95 F, no new orders at this time.
[2023-10-03 12:13] LABS: Glucose - Point of Care 135 mg/dl (70-99)
--- NOTE | 2023-10-03 12:24 | W.PN.CARDCBS ---
Today's Communication / Plan
-
Lasix was increased by nephrology to 80 mg IV BID and wt coming down.
Would defer to nephrology about consideration for metolazone. Her dry wt is also unknown.
Cr improved to 2.7 with diuresis.
Wt coming down slowly. Defer consideration for Milrinone for now as she is diuresing.
Impression / Plan
-
.
Primary Admission Nurse: Dr. Lee
Impression:
Acute hypoxemic respiratory failure, initially requiring bipap
Acute on chronic HFpEF
B/L pleural effusions, status post left thoracentesis with 1050 mL removed on 09/20/2023
Elevated troponin, suspected nonischemic myocardial injury, peak troponin 0.26
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
Chronic bifascicular block
History of B/L CVAs on DAPT, most recent 11/2022 at [facility], transitioned back from brilinta to plavix
Residual R hemiparesis
HTN and labile HTN
History of left CVA from symptomatic left carotid stenosis in 05/2014
s/p Left internal carotid PTCA and stenting 08/27/2014
history of linq without ANY noted afibCAD
s/p overlapping 3 mm, 3.25 mm and 2.25 mm Cypher ZIA to LAD (3) 09/2009
s/p angioplasty alone of mid LAD stents 04/23/10COPD
DM 2
Dyslipidemia
Obesity
Parkinson's disease
PJ
Nephrotic range proteinuria
History of UTIs
Wheelchair bound
Chronic anemia
Hypokalemia
Leukocytosis
DNR CODE STATUS
ECHO 01/18/23: EF 57%, apex hypokinetic, mild MR, no significant change compared to prior
Echocardiogram 09/20/2023: Ejection fraction 48% by Dela Cruz's, mildly dilated left ventricle, moderate MR, mild TR, left pleural effusion seen
-09/26/2023: Chest x-ray: Limited study with increased interstitial opacities. Small to moderate bilateral effusions left greater than right suggestive of possible pulmonary edema
RHC 09/29
RA (m) : 18
RV (s/d,m) : 60/13, 17
PA (s/d, m) : 65/31, 47
PCWP (m) : 35
PA saturation: 64.1% on 6 L of oxygen via nasal cannula
AO saturation: 96.0 percent on 6 L of oxygen via nasal cannula (obtain noninvasively using pulse ox)
Heart rate: 70 bpm
Cardiac Output : 4.62 L/min
Cardiac Index : 2.5 L/min/m-2
Plan:
Lasix was increased by nephrology to 80 mg IV BID and wt coming down.
Would defer to nephrology about consideration for metolazone. Her dry wt is also unknown.
Cr improved to 2.7 with diuresis.
Wt coming down slowly. Defer consideration for Milrinone for now as she is diuresing.
Right UE u/s neg for DVT
Echo with mildly reduced LVEF of 48%
Cont Toprol XL. OP losartan stopped, not current herrera/arb/arni/aldactone candidate given JONATAN on CKD. Cont hydralazine, norvasc. Low dose isordil added this admit.
not candidate for SGLT2 inhibitor due to frequent UTIs and current renal insufficiency
Cont medical therapy of nonMI trop, 0.2 range.
Cont DAPT, asa, plavix for history of CVAs, PCI, and carotid stent.
Progress Note - Admission Nurse
Subjective
Date of Service: October 03, 2023
Pt seen and examined. No complaints. No chest pain or shortness of breath.
Objective
Labs:
10/01/23 05:38
10/03/23 07:20
Labs
Hgb 8.3 g/dL (12.0-16.0) L 10/01/23 05:38
Hct 26.1 % (37.0-47.0) L 10/01/23 05:38
Plt Count 224 10^3/uL (130-400) 10/01/23 05:38
PT 15.0 Sec (11.4-14.6) H 09/20/23 07:40
INR 1.20 09/20/23 07:40
APTT 99.0 Sec (23.4-35.0) H 09/21/23 08:28
Sodium 142 mmol/L (135-145) 10/03/23 07:20
Potassium 4.3 mmol/L (3.5-5.1) 10/03/23 07:20
BUN 65 mg/dl (7-17) H 10/03/23 07:20
Creatinine 2.7 mg/dL (0.6-1.0) H 10/03/23 07:20
Glucose 88 mg/dl (70-99) 10/03/23 07:20
Vital Signs and I&O:
Vital Signs
Temp Pulse Resp BP Pulse Ox
94.9 F L 73 20 112/70 93
10/03/23 10:00 10/03/23 08:56 10/03/23 07:55 10/03/23 08:56 10/03/23 10:46
Vital Signs
Temp Pulse Resp BP Pulse Ox
94.9 F L 73 20 112/70 93
10/03/23 10:00 10/03/23 08:56 10/03/23 07:55 10/03/23 08:56 10/03/23 10:46
Intake & Output
10/01/23 10/02/23 10/03/23 10/04/23
06:59 06:59 06:59 06:59
Intake Total 420 / 420 1470 / 1470 880 / 880
Output Total 800 / 800 950 / 950 1550 / 1550
Balance -380 / -380 520 / 520 -670 / -670
Physical Exam
Physical Exam
General: No acute distress, AAOX3
Neck: Negative JVD
Heart: Regular, Negative S3 positive S1/S2, Negative S4, No murmur
Lungs: CTA b/l, negative wheezes/rales/rhonchi
Abd: Positive BS, NT/ND, neg rebound/rigidity/guarding
Ext: Negative cyanosis/clubbing/edema
Neuro: nonfocal
--- NOTE | 2023-10-03 13:14 | W.PN.NEPH.PH ---
Today's Communication / Plan
-
diurese
Assessment/Plan
-
IMP:
JONATAN with CKD 4-cr 1.6-2 Dr Sepulveda at [facility]
Acute on chronic heart failure with preserved ejection fraction
Acute hypoxic respiratory failure secondary to above
Bilateral pleural effusions s/p left thoracentesis of 1lit on 09/19
Coronary artery disease with H/O coronary stents
Elevated troponin
Leukocytosis
Hypokalemia
Hypertension
Hyperlipidemia
Diabetes
History of CVA with right hemiparesis
Nonambulatory at baseline
Frequent UTIs recently completed a course of Augmentin on 09/15/2023
Parkinson disease
Anemia of chronic disease
Chronic vertigo
Depression
GERD
Hypoalbuminemia
Plan:
follow BMP
diurese IV lasix
would aim for another 5-7# before switching to po lasix
-
-
Date of Service: October 03, 2023
CC / HPI / ROS
-
Chief Complaint:
JONATAN with CKD
History of Present Illness:
JONATAN/Cr stable at 2.7
k normal
Hemodynamically stable
diuresing well with IV lasix for decompensated HF
Review of Systems:
no cp or sob at rest
remains on oxygen
no fever or cough
feels tired
weight decreasing
awake and alert and eating today
Labs
-
Labs:
WBC 8.4 10^3/uL (4.8-10.8) 10/01/23 05:38
RBC 2.51 10^6/uL (4.20-5.40) L 10/01/23 05:38
Hgb 8.3 g/dL (12.0-16.0) L 10/01/23 05:38
Hct 26.1 % (37.0-47.0) L 10/01/23 05:38
Plt Count 224 10^3/uL (130-400) 10/01/23 05:38
Sodium 142 mmol/L (135-145) 10/03/23 07:20
Potassium 4.3 mmol/L (3.5-5.1) 10/03/23 07:20
Chloride 106 mmol/L (98-107) 10/03/23 07:20
Carbon Dioxide 35 mmol/L (22-30) H 10/03/23 07:20
BUN 65 mg/dl (7-17) H 10/03/23 07:20
Creatinine 2.7 mg/dL (0.6-1.0) H 10/03/23 07:20
eGFR 16.87 10/03/23 07:20
Glucose 88 mg/dl (70-99) 10/03/23 07:20
Calcium 8.6 mg/dl (8.4-10.2) 10/03/23 07:20
Gpm-B-Lnihcbrkotj Pept 68993 pg/ml 09/26/23 06:03
Albumin 2.5 g/dl (3.5-5.0) L 09/19/23 21:42
Physical Exam
-
Vital Signs:
Vital Signs
Temp Pulse Resp BP Pulse Ox
97.4 F 76 16 151/61 93
10/03/23 11:20 10/03/23 11:20 10/03/23 11:20 10/03/23 11:20 10/03/23 11:20
Cardiovascular:: Regular rate and rhythm
Respiratory:: Bilateral: Coarse and Bilateral: Rales
Lung Excursion:: Normal
Abdomen:: Nontender and Soft
Bowel Sounds:: Normal
Extremity Edema:: +2: Bilateral:
--- NOTE | 2023-10-03 14:13 | CM ---
Reviewed the chart notes. Per notes, continue diuresing with IV lasix. CM continues to be available to patient/family and is monitoring medical plan for needs at discharge.
Plan: Discharge back to [facility] when medically stable.
[2023-10-03 16:58] LABS: Glucose - Point of Care 222 mg/dl (70-99)
[2023-10-03] MEDS: NOVOLOG FLEXPEN-MODERATE RESISTANCE 3 UNITS SC (17:01)
[2023-10-03] MEDS: REFRESH EYE DROPS (PF) BOTH EYES (17:07)
[2023-10-03] MEDS: LIPITOR 40 MG PO (22:05)
[2023-10-03] MEDS: MELATONIN 5 MG PO (22:05)
[2023-10-03] MEDS: SINEMET 10-100 2 TABLET PO (22:05)
[2023-10-03] MEDS: CYMBALTA DELAYED RELEASE 30 MG PO (22:05)
[2023-10-03] MEDS: COLACE PO (22:06)
[2023-10-03] MEDS: LANTUS 0.149999999999999994 UNITS SC (22:22)
[2023-10-03 22:29] LABS: Glucose - Point of Care 233 mg/dl (70-99)
[2023-10-04] VITALS (7 sets, daily range): BP systolic 118–164; BP diastolic 49–66; BMI 30.3
[2023-10-04 03:50] LABS: Glucose - Point of Care 185 mg/dl (70-99)
[2023-10-04 06:28] LABS: Hematocrit 26.5 % (37.0-47.0); Hemoglobin 8.5 g/dL (12.0-16.0); Mean Corp Hgb Conc. 32.1 g/dL (33.0-37.0); Mean Corpuscular Hgb 32.8 pg (27.0-31.0); Mean Corpuscular Volume 102.3 fL (81.0-99.0); Mean Platelet Volume 10.8 fL (7.4-10.4); Platelet Count 191 10^3/uL (130-400); Red Blood Cell Count 2.59 10^6/uL (4.20-5.40); Red Cell Dist. Width 14.4 % (11.5-14.5); White Blood Cell Count 9.8 10^3/uL (4.8-10.8)
[2023-10-04 06:53] LABS: Blood Urea Nitrogen 65 mg/dl (7-17); Calcium 8.8 mg/dl (8.4-10.2); Carbon Dioxide 33 mmol/L (22-30); Chloride 104 mmol/L (98-107); Estimated Creatinine Clearance 16 ml/min; Glucose 125 mg/dl (70-99); Potassium 4.7 mmol/L (3.5-5.1); Sodium 141 mmol/L (135-145); eGFR 17.65
[2023-10-04 08:22] LABS: Glucose - Point of Care 109 mg/dl (70-99)
[2023-10-04] MEDS: NOVOLOG FLEXPEN-MODERATE RESISTANCE SC ×2 (08:31→12:04)
[2023-10-04] MEDS: ASPIR LOW (ENTERIC COATED) 81 MG PO (08:49)
[2023-10-04] MEDS: MAGNESIUM OXIDE 500 MG PO (08:49)
[2023-10-04] MEDS: PROTONIX 40 MG PO (08:49)
[2023-10-04] MEDS: SINEMET 10-100 1 TABLET PO ×2 (08:49→17:44)
[2023-10-04] MEDS: PLAVIX 75 MG PO (08:50)
[2023-10-04] MEDS: DITROPAN 5 MG PO ×2 (08:50→20:46)
[2023-10-04] MEDS: APRESOLINE 25 MG PO ×2 (08:50→15:35)
[2023-10-04] MEDS: VITAMIN D3 (cholecalciferol) 25 MCG PO (08:50)
[2023-10-04] MEDS: ISORDIL 20 MG PO ×3 (08:50→22:07)
[2023-10-04] MEDS: REFRESH EYE DROPS (PF) 1 DROPS BOTH EYES ×4 (08:51→22:06)
[2023-10-04] MEDS: TOPROL XL 25 MG PO (08:51)
[2023-10-04] MEDS: NORVASC 2.5 MG PO (08:51)
[2023-10-04] MEDS: LASIX 80 MG IV ×2 (08:51→15:34)
[2023-10-04] MEDS: HEPARIN 5000 UNITS SC ×2 (08:51→20:50)
[2023-10-04] MEDS: DESENEX/MITRAZOL/ZEASORB 1 APPLIC TOPICAL ×2 (08:51→20:46)
[2023-10-04] MEDS: ARISTOCORT/TRIAMCINOLONE 0.1% CREAM 1 APPLIC TOPICAL ×2 (08:52→20:58)
[2023-10-04 11:51] LABS: Glucose - Point of Care 112 mg/dl (70-99)
--- NOTE | 2023-10-04 12:03 | W.PN.NEPH.PH ---
Today's Communication / Plan
-
metolazone
Assessment/Plan
-
IMP:
JONATAN with CKD 4-cr 1.6-2 Dr Sepulveda at [facility]
Acute on chronic heart failure with preserved ejection fraction
Acute hypoxic respiratory failure secondary to above
Bilateral pleural effusions s/p left thoracentesis of 1lit on 09/19
Coronary artery disease with H/O coronary stents
Elevated troponin
Leukocytosis
Hypokalemia
Hypertension
Hyperlipidemia
Diabetes
History of CVA with right hemiparesis
Nonambulatory at baseline
Frequent UTIs recently completed a course of Augmentin on 09/15/2023
Parkinson disease
Anemia of chronic disease
Chronic vertigo
Depression
GERD
Hypoalbuminemia
Plan:
follow BMP
diurese IV lasix
add metolazone today
would aim for another 5-7# before switching to po lasix
d/w daughter
-
-
Date of Service: October 04, 2023
CC / HPI / ROS
-
Chief Complaint:
JONATAN with CKD
History of Present Illness:
JONATAN/Cr stable at 2.6
k normal
Hemodynamically stable
was diuresing well with IV lasix for decompensated HF
Review of Systems:
no cp or sob at rest
remains on oxygen
no fever or cough
feels tired
weight stable
awake and alert and eating today
Labs
-
Labs:
WBC 9.8 10^3/uL (4.8-10.8) 10/04/23 06:00
RBC 2.59 10^6/uL (4.20-5.40) L 10/04/23 06:00
Hgb 8.5 g/dL (12.0-16.0) L 10/04/23 06:00
Hct 26.5 % (37.0-47.0) L 10/04/23 06:00
Plt Count 191 10^3/uL (130-400) 10/04/23 06:00
Sodium 141 mmol/L (135-145) 10/04/23 06:00
Potassium 4.7 mmol/L (3.5-5.1) 10/04/23 06:00
Chloride 104 mmol/L (98-107) 10/04/23 06:00
Carbon Dioxide 33 mmol/L (22-30) H 10/04/23 06:00
BUN 65 mg/dl (7-17) H 10/04/23 06:00
Creatinine 2.6 mg/dL (0.6-1.0) H 10/04/23 06:00
eGFR 17.65 10/04/23 06:00
Glucose 125 mg/dl (70-99) H 10/04/23 06:00
Calcium 8.8 mg/dl (8.4-10.2) 10/04/23 06:00
Alt-Y-Ckewfinshrn Pept 89592 pg/ml 09/26/23 06:03
Albumin 2.5 g/dl (3.5-5.0) L 09/19/23 21:42
Physical Exam
-
Vital Signs:
Vital Signs
Temp Pulse Resp BP Pulse Ox
97.8 F 72 18 142/75 93
10/04/23 07:45 10/04/23 08:50 10/04/23 07:45 10/04/23 08:50 10/04/23 07:45
Cardiovascular:: Regular rate and rhythm
Respiratory:: Bilateral: Coarse
Lung Excursion:: Normal
Abdomen:: Nontender and Soft
Bowel Sounds:: Normal
Extremity Edema:: +1: Bilateral:
--- NOTE | 2023-10-04 12:16 | W.PN.HOSP.TC ---
Today's Communication/Plan
-
CW IV diuresis
Assessment / Plan
Assessment / Plan
83 y/o female with shortness of breath
#Acute on chronic heart failure with preserved ejection fraction
Acute hypoxic respiratory failure secondary to above
Bilateral pleural effusions left more than right
S/P Left thoracentesis by IRAD
Possible aspiration pneumonitis- finished AB
Right heart cath shows increased filling pressures with a pulmonary catheter wedge pressure of 35.
CW Lasix 80 mg IV twice a day. Still no improvement in weight .
# Suspect aspiration pneumonitis with elevated white count placed the patient on ceftriaxone. White count has normalized.
Speech evaluation noted. cw modified diet.
Off of abx
# Coronary artery disease with H/O coronary stents
Elevated troponin nonischemic myocardial injury
EKG bifascicular block PACs and PVCs
Continue DAPT, beta-augusto, statin
Echo 09/20/2023-LV dilated. Mild concentric LVH. Mildly reduced LV systolic function. Ejection fraction 48%. Global hypokinesis moderately dilated LA. Moderate MR. Mild TR. Compared to 2022 EF decreased
# Left thoracentesis with 1050 ml straw-colored pleural fluid. Transudate
# Hypertension-
Hold losartan ;cw current other medications
BP under goal
# Acute kidney injury on CKD stage IV
Ultrasound without any obstruction
Albuminuria noted
Baseline creatinine 1.6 ,hold losartan
Renal evaluation appreciated
Follow closely on iv diuresis
# Diabetes-hemoglobin A1c 6.0
Patient was on Lantus insulin 28 units in the morning and 20 units at night along with NovoLog 12 before meals as outpatient prior to admission
Had one episode of hypo but not symtpomatic.Keep on Hold her meal time insulin ,cw SSI.
CW Lantus insulin 15 units at nighttime.
Dysphagia - VSE noted - started on modified diet
Anxiety - with fear of ;tearful. Gave reassurance that with continued medical therapy CHF should be optimized. Start on low dose anxiolytics.

# Hyperlipidemia-statin
# History of CVA with right hemiparesis-left carotid artery stent-[id number]
# Frequent UTIs recently completed a course of Augmentin on 09/15/2023
# Parkinson disease-continue Sinemet
# Anemia of chronic disease
# Chronic vertigo on meclizine as needed
# Depression-on duloxetine
# GERD-PPI
# History of sleep apnea used to use BiPAP in the past but not anymore. Continue that at night here.
# DVT prophylaxis-SC heparin
# DNR
Discussed with daughter 10/02 at bedside and updated the clinical picture, treatment plan.
Anticipated Discharge: > 48 hours
Subjective/Interval History
-
Date of Service: October 04, 2023
Breathing okay. Denies any chest pain.
Feeling anxious. She repeatedly asked me whether she is going to . She was bit tearful to her.
Objective Data
-
Labs:
Laboratory Results
10/04/23
06:00
WBC 9.8
Hgb 8.5 L
Hct 26.5 L
Plt Count 191
Sodium 141
Potassium 4.7
Chloride 104
Carbon Dioxide 33 H
BUN 65 H
Creatinine 2.6 H
Glucose 125 H
Calcium 8.8
Vital Signs:
Vital Signs
Temp Pulse Resp BP Pulse Ox
98.4 F 71 18 140/57 98
10/04/23 11:30 10/04/23 11:30 10/04/23 11:30 10/04/23 11:30 10/04/23 11:30
I&O
10/03/23 10/04/23 10/05/23
06:59 06:59 06:59
Intake Total 880 / 880 820 / 820
Output Total 1550 / 1550 300 / 300
Balance -670 / -670 520 / 520
Review of Systems
-
Constitutional: Denies Fever
Abdomen/GI: Denies Abdominal Pain, Nausea or Vomiting
Neuro: Denies Dizzy
Physical Exam
-
General: No Apparent Distress
HEENT: Moist Mucous Membranes
Respiratory: Crackles (bibasal few) and Non Labored Respirations; Negative Wheezes or Accessory Resp Muscle Use
Cardiac: Regular Rhythm and S1/S2
Neuro: AO x 3
Data Reviewed
-
Labs: Labs Reviewed by me
[2023-10-04] MEDS: ZAROXOLYN 2.5 MG PO (12:24)
[2023-10-04] MEDS: XANAX 0.25 MG PO (12:27)
--- NOTE | 2023-10-04 14:31 | W.PN.CARDCBS ---
Addendum entered and electronically signed by Jaxon Vaughan MD 10/04/23 15:17:
I saw and examined the patient.
The COMPOSITION STONE APPLICATOR or PA's note was reviewed and I agree with the note.
Comment: General: Well developed, well nourished in NAD.
Neck: Supple, no JVD, HJR, carotids +2 B/L, no bruits bilaterally.
Heart: Non displaced PMI, RRR, no murmurs, No S3, S4, no rubs.
Lungs: Scattered rhonchi
Extremities: No clubbing, cyanosis or edema bilaterally.
Neuro: Grossly nonfocal, awake, alert and oriented x3.
Remains hypoxic. Feels better. Nephrology managing diuretics and gave Zaroxolyn today. Consider repeat chest x-ray. Renal function continues to improve slightly.
Original Note:
Today's Communication / Plan
-
Zaroxolyn 2.5 mg given today
Monitor and assess response
Continue IV Lasix
Consider repeat checks x-ray given decreased breath sounds at bases and history of left thoracentesis
Impression / Plan
-
.
Primary [employer] Driver: Dr. Lee
Impression:
Presented 09/19/2023 with SOB
Acute hypoxemic respiratory failure, initially requiring bipap
Acute on chronic HFpEF, proBNP 24,000
B/L pleural effusions, status post left thoracentesis with 1050 mL removed on 09/20/2023
Elevated troponin, suspected nonischemic myocardial injury, peak troponin 0.26
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
Chronic bifascicular block
History of B/L CVAs on DAPT, most recent 11/2022 at [facility], transitioned back from brilinta to plavix
Residual R hemiparesis
HTN and labile HTN
History of left CVA from symptomatic left carotid stenosis in 05/2014
s/p Left internal carotid PTCA and stenting 08/27/2014
history of linq without ANY noted afibCAD
s/p overlapping 3 mm, 3.25 mm and 2.25 mm Cypher ZIA to LAD (3) 09/2009
s/p angioplasty alone of mid LAD stents 04/23/10COPD
DM 2
Dyslipidemia
Obesity
Parkinson's disease
PJ
Nephrotic range proteinuria
History of UTIs
Wheelchair bound
Chronic anemia
Hypokalemia
Leukocytosis
DNR CODE STATUS
ECHO 01/18/23: EF 57%, apex hypokinetic, mild MR, no significant change compared to prior
Echocardiogram 09/20/2023: Ejection fraction 48% by Dela Cruz's, mildly dilated left ventricle, moderate MR, mild TR, left pleural effusion seen
-09/26/2023: Chest x-ray: Limited study with increased interstitial opacities. Small to moderate bilateral effusions left greater than right suggestive of possible pulmonary edema
RHC 09/29
RA (m) : 18
RV (s/d,m) : 60/13, 17
PA (s/d, m) : 65/31, 47
PCWP (m) : 35
PA saturation: 64.1% on 6 L of oxygen via nasal cannula
AO saturation: 96.0 percent on 6 L of oxygen via nasal cannula (obtain noninvasively using pulse ox)
Heart rate: 70 bpm
Cardiac Output : 4.62 L/min
Cardiac Index : 2.5 L/min/m-2
Plan:
Lasix was increased by nephrology to 80 mg IV BID 10/02/23 but weight is unchanged within 1 lbs in last 4 days at 175-176 lbs.
Nephrology gave Zaroxolyn 2.5 mg 10/03. Monitor weight and assess response
Her dry wt is also unknown.
Cr improved to 2.6 with diuresis. (high of 3.0)
Consideration for Milrinone if no response to Zaroxolyn.
Still requiring oxygen. 3 L/min. Wean as tolerated
Still with decreased breath sounds at bases left greater than right. Status post Lt thoracentesis 09/20/2023. Consider repeating chest x-ray
Right UE u/s neg for DVT 10/02/23
Echo with mildly reduced LVEF of 48%
Cont Toprol XL. OP losartan stopped, not current herrera/arb/arni/aldactone candidate given JONATAN on CKD.
Cont hydralazine, norvasc. Low dose isordil added this admit.
not candidate for SGLT2 inhibitor due to frequent UTIs and current renal insufficiency
Abnormal troponin, Peaked 2.55. Suspect nonischemic myocardial injury secondary to acute hypoxic respiratory insufficiency, heart failure exacerbation. Cont medical therapy
Cont DAPT, asa, plavix for history of CVAs, PCI, and carotid stent.
History of Present Illness 09/20/23:
Patient is an 83-year-old female resident of [facility] with past medical history of bilateral strokes on Plavix, transition to Brilinta, then back to Plavix again, history of left carotid artery stent, CAD with LAD PCI and angioplasty, chronic
HFpEF, COPD, diabetes, PJ and who is wheelchair-bound. She presented to [facility] due to concerns for UTI however was then noted to be tachypneic. Reported worsening shortness of breath over the weekend, which more acutely worsened
yesterday. On arrival to the ER was noted to be hypoxic and required BiPAP. She has now been transitioned to supplemental oxygen. proBNP was the highest it has ever been at 24,000. CXR with mod B/L pleural effusions. Cardiology consulted for
evaluation. She is unsure what dose of lasix she was receiving at detention.
Progress Note - [employer] Driver
Subjective
Date of Service: October 04, 2023
Patient seen and examined. Patient reports she is feeling fair. Patient sitting on side of bed wearing oxygen. Denies chest pain or shortness of breath at rest.
Objective
Labs:
10/04/23 06:00
10/04/23 06:00
Labs
Hgb 8.5 g/dL (12.0-16.0) L 10/04/23 06:00
Hct 26.5 % (37.0-47.0) L 10/04/23 06:00
Plt Count 191 10^3/uL (130-400) 10/04/23 06:00
PT 15.0 Sec (11.4-14.6) H 09/20/23 07:40
INR 1.20 09/20/23 07:40
APTT 99.0 Sec (23.4-35.0) H 09/21/23 08:28
Sodium 141 mmol/L (135-145) 10/04/23 06:00
Potassium 4.7 mmol/L (3.5-5.1) 10/04/23 06:00
BUN 65 mg/dl (7-17) H 10/04/23 06:00
Creatinine 2.6 mg/dL (0.6-1.0) H 10/04/23 06:00
Glucose 125 mg/dl (70-99) H 10/04/23 06:00
Vital Signs and I&O:
Vital Signs
Temp Pulse Resp BP Pulse Ox
98.4 F 73 18 140/57 98
10/04/23 11:30 10/04/23 12:24 10/04/23 11:30 10/04/23 12:24 10/04/23 11:30
Vital Signs
Temp Pulse Resp BP Pulse Ox
98.4 F 73 18 140/57 98
10/04/23 11:30 10/04/23 12:24 10/04/23 11:30 10/04/23 12:24 10/04/23 11:30
Intake & Output
10/02/23 10/03/23 10/04/23 10/05/23
06:59 06:59 06:59 06:59
Intake Total 1470 / 1470 880 / 880 820 / 820
Output Total 950 / 950 1550 / 1550 300 / 300
Balance 520 / 520 -670 / -670 520 / 520
Physical Exam
Physical Exam
GEN: No distress, awake, Ox3
HEENT: supple, anicteric, mmm
LUNGS: decreased BS at bases Lt>Rt with few scattered crackles, no wheezes/rales
CV: Reg, S1/S2, 1/6 syst murmur
ABD: soft, BS+, NT/ND
EXT: +1 edouard LE edema
NEURO: Gross non-focal
SKIN: No rash, warm, dry
[2023-10-04 17:21] LABS: Glucose - Point of Care 173 mg/dl (70-99)
[2023-10-04] MEDS: NOVOLOG FLEXPEN-MODERATE RESISTANCE 1 UNITS SC (17:43)
[2023-10-04 21:55] LABS: Glucose - Point of Care 278 mg/dl (70-99)
[2023-10-04] MEDS: MELATONIN 5 MG PO (22:06)
[2023-10-04] MEDS: LANTUS 0.149999999999999994 UNITS SC (22:06)
[2023-10-04] MEDS: CYMBALTA DELAYED RELEASE 30 MG PO (22:06)
[2023-10-04] MEDS: COLACE 100 MG PO (22:07)
[2023-10-04] MEDS: LIPITOR 40 MG PO (22:07)
[2023-10-04] MEDS: SINEMET 10-100 2 TABLET PO (22:07)
[2023-10-05] VITALS (7 sets, daily range): BP systolic 106–141; BP diastolic 43–77; PULSE 77; O2SAT 91; BMI 30.2
[2023-10-05] MEDS: APRESOLINE 25 MG PO ×4 (00:04→23:46)
[2023-10-05 06:50] LABS: Blood Urea Nitrogen 64 mg/dl (7-17); Calcium 8.9 mg/dl (8.4-10.2); Carbon Dioxide 39 mmol/L (22-30); Chloride 100 mmol/L (98-107); Estimated Creatinine Clearance 15 ml/min; Glucose 109 mg/dl (70-99); Potassium 4.4 mmol/L (3.5-5.1); Sodium 141 mmol/L (135-145); eGFR 16.15
--- NOTE | 2023-10-05 08:39 | W.PN.CARDCBS ---
Today's Communication / Plan
-
Lasix was increased by nephrology to 80 mg IV BID 10/02/23 but weight remains flat.
Nephrology gave Zaroxolyn 2.5 mg 10/03. Monitor weight and assess response
Her dry wt is also unknown.
Cr improved to 2.6 with diuresis now back at 2.8 on 10/03. (high of 3.0)
Discussed consideration for Milrinone with nephrology.
If pt does not respond to further Zaroxolyn 10/04 then will consider Milrinone 10/05.
Echo with mildly reduced LVEF of 48%
Wean O2 as tolerated.
Status post Lt thoracentesis 09/20/2023. Consider repeating chest x-ray
Impression / Plan
-
.
Primary Bag Machine Tender: Dr. Lee
Impression:
Presented 09/19/2023 with SOB
Acute hypoxemic respiratory failure, initially requiring bipap
Acute on chronic HFpEF, proBNP 24,000
B/L pleural effusions, status post left thoracentesis with 1050 mL removed on 09/20/2023
Elevated troponin, suspected nonischemic myocardial injury, peak troponin 0.26
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
Chronic bifascicular block
History of B/L CVAs on DAPT, most recent 11/2022 at [facility], transitioned back from brilinta to plavix
Residual R hemiparesis
HTN and labile HTN
History of left CVA from symptomatic left carotid stenosis in 05/2014
s/p Left internal carotid PTCA and stenting 08/27/2014
history of linq without ANY noted afibCAD
s/p overlapping 3 mm, 3.25 mm and 2.25 mm Cypher ZIA to LAD (3) 09/2009
s/p angioplasty alone of mid LAD stents 04/23/10COPD
DM 2
Dyslipidemia
Obesity
Parkinson's disease
PJ
Nephrotic range proteinuria
History of UTIs
Wheelchair bound
Chronic anemia
Hypokalemia
Leukocytosis
DNR CODE STATUS
ECHO 01/18/23: EF 57%, apex hypokinetic, mild MR, no significant change compared to prior
Echocardiogram 09/20/2023: Ejection fraction 48% by Dela Cruz's, mildly dilated left ventricle, moderate MR, mild TR, left pleural effusion seen
Chesty xray 09/26/2023: Limited study with increased interstitial opacities. Small to moderate bilateral effusions left greater than right suggestive of possible pulmonary edema
Right UE u/s neg for DVT 10/02/23
RHC 09/29
RA (m) : 18
RV (s/d,m) : 60/13, 17
PA (s/d, m) : 65/31, 47
PCWP (m) : 35
PA saturation: 64.1% on 6 L of oxygen via nasal cannula
AO saturation: 96.0 percent on 6 L of oxygen via nasal cannula (obtain noninvasively using pulse ox)
Heart rate: 70 bpm
Cardiac Output : 4.62 L/min
Cardiac Index : 2.5 L/min/m-2
Plan:
Lasix was increased by nephrology to 80 mg IV BID 10/02/23 but weight remains flat.
Nephrology gave Zaroxolyn 2.5 mg 10/03. Monitor weight and assess response
Her dry wt is also unknown.
Cr improved to 2.6 with diuresis now back at 2.8 on 10/03. (high of 3.0)
Discussed consideration for Milrinone with nephrology.
If pt does not respond to further Zaroxolyn 10/04 then will consider Milrinone 10/05.
Echo with mildly reduced LVEF of 48%
Wean O2 as tolerated.
Status post Lt thoracentesis 09/20/2023. Consider repeating chest x-ray
Cont Toprol XL. OP losartan stopped, not current herrera/arb/arni/aldactone candidate given JONATAN on CKD.
Cont hydralazine, norvasc. Low dose isordil added this admit.
not candidate for SGLT2 inhibitor due to frequent UTIs and current renal insufficiency
Abnormal troponin, Peaked 2.55. Cont medical therpay of nonMI trop.
Cont DAPT, asa, plavix for history of CVAs, PCI, and carotid stent.
History of Present Illness 09/20/23:
Patient is an 83-year-old female resident of [facility] with past medical history of bilateral strokes on Plavix, transition to Brilinta, then back to Plavix again, history of left carotid artery stent, CAD with LAD PCI and angioplasty, chronic
HFpEF, COPD, diabetes, PJ and who is wheelchair-bound. She presented to [facility] due to concerns for UTI however was then noted to be tachypneic. Reported worsening shortness of breath over the weekend, which more acutely worsened
yesterday. On arrival to the ER was noted to be hypoxic and required BiPAP. She has now been transitioned to supplemental oxygen. proBNP was the highest it has ever been at 24,000. CXR with mod B/L pleural effusions. Cardiology consulted for
evaluation. She is unsure what dose of lasix she was receiving at custodial.
Progress Note - Bag Machine Tender
Subjective
Date of Service: October 05, 2023
Pt seen and examined. No complaints. No chest pain or shortness of breath.
Objective
Labs:
10/04/23 06:00
10/05/23 05:41
Labs
Hgb 8.5 g/dL (12.0-16.0) L 10/04/23 06:00
Hct 26.5 % (37.0-47.0) L 10/04/23 06:00
Plt Count 191 10^3/uL (130-400) 10/04/23 06:00
PT 15.0 Sec (11.4-14.6) H 09/20/23 07:40
INR 1.20 09/20/23 07:40
APTT 99.0 Sec (23.4-35.0) H 09/21/23 08:28
Sodium 141 mmol/L (135-145) 10/05/23 05:41
Potassium 4.4 mmol/L (3.5-5.1) 10/05/23 05:41
BUN 64 mg/dl (7-17) H 10/05/23 05:41
Creatinine 2.8 mg/dL (0.6-1.0) H 10/05/23 05:41
Glucose 109 mg/dl (70-99) H 10/05/23 05:41
Vital Signs and I&O:
Vital Signs
Temp Pulse Resp BP Pulse Ox
97.4 F 63 20 106/43 96
10/05/23 03:29 10/05/23 03:29 10/05/23 03:29 10/05/23 03:29 10/05/23 03:29
Vital Signs
Temp Pulse Resp BP Pulse Ox
97.4 F 63 20 106/43 96
10/05/23 03:29 10/05/23 03:29 10/05/23 03:29 10/05/23 03:29 10/05/23 03:29
Intake & Output
10/03/23 10/04/23 10/05/23 10/06/23
06:59 06:59 06:59 06:59
Intake Total 880 / 880 820 / 820 820 / 820
Output Total 1550 / 1550 300 / 300
Balance -670 / -670 520 / 520 820 / 820
Physical Exam
Physical Exam
General: No acute distress, AAOX3
Neck: Negative JVD
Heart: Regular, Negative S3 positive S1/S2, Negative S4, No murmur
Lungs: CTA b/l, negative wheezes/rales/rhonchi
Abd: Positive BS, NT/ND, neg rebound/rigidity/guarding
Ext: Negative cyanosis/clubbing/edema
Neuro: nonfocal
[2023-10-05 08:52] LABS: Glucose - Point of Care 120 mg/dl (70-99)
[2023-10-05] MEDS: VITAMIN D3 (cholecalciferol) 25 MCG PO (09:15)
[2023-10-05] MEDS: NOVOLOG FLEXPEN-MODERATE RESISTANCE SC (09:15)
[2023-10-05] MEDS: PLAVIX 75 MG PO (09:15)
[2023-10-05] MEDS: DITROPAN 5 MG PO ×2 (09:15→21:24)
[2023-10-05] MEDS: PROTONIX 40 MG PO (09:15)
[2023-10-05] MEDS: LASIX 80 MG IV ×2 (09:16→16:50)
[2023-10-05] MEDS: ISORDIL 20 MG PO ×3 (09:16→21:26)
[2023-10-05] MEDS: MAGNESIUM OXIDE 500 MG PO (09:16)
[2023-10-05] MEDS: SINEMET 10-100 1 TABLET PO ×2 (09:16→16:50)
[2023-10-05] MEDS: ASPIR LOW (ENTERIC COATED) 81 MG PO (09:16)
[2023-10-05] MEDS: REFRESH EYE DROPS (PF) 1 DROPS BOTH EYES ×4 (09:16→21:26)
[2023-10-05] MEDS: TOPROL XL 25 MG PO (09:18)
[2023-10-05] MEDS: NORVASC 2.5 MG PO (09:18)
[2023-10-05] MEDS: ARISTOCORT/TRIAMCINOLONE 0.1% CREAM 1 APPLIC TOPICAL ×2 (09:19→22:35)
[2023-10-05] MEDS: HEPARIN 5000 UNITS SC ×2 (09:19→21:23)
[2023-10-05] MEDS: DESENEX/MITRAZOL/ZEASORB 1 APPLIC TOPICAL ×2 (09:19→21:24)
[2023-10-05] MEDS: MIRALAX 17 GRAMS PO (09:26)
--- NOTE | 2023-10-05 11:04 | W.PN.HOSP.TC ---
Today's Communication/Plan
-
CW IV diuresis
Follow Wt and Cr
Assessment / Plan
Assessment / Plan
83 y/o female with shortness of breath
#Acute on chronic heart failure with preserved ejection fraction
Acute hypoxic respiratory failure secondary to above
Bilateral pleural effusions left more than right
S/P Left thoracentesis by IRAD
Possible aspiration pneumonitis- finished AB
Right heart cath shows increased filling pressures with a pulmonary catheter wedge pressure of 35.
CW Lasix 80 mg IV twice a day. Still no improvement in weight . Metolzone added by renal. Still no improvement in wt.
Cards considering Milrinone if no improvement.
# Suspect aspiration pneumonitis with elevated white count placed the patient on ceftriaxone. White count has normalized.
Speech evaluation noted. cw modified diet.
Off of abx
# Coronary artery disease with H/O coronary stents
Elevated troponin nonischemic myocardial injury
EKG bifascicular block PACs and PVCs
Continue DAPT, beta-augusto, statin
Echo 09/20/2023-LV dilated. Mild concentric LVH. Mildly reduced LV systolic function. Ejection fraction 48%. Global hypokinesis moderately dilated LA. Moderate MR. Mild TR. Compared to 2022 EF decreased
# Left thoracentesis with 1050 ml straw-colored pleural fluid. Transudate
# Hypertension-
Hold losartan ;cw current other medications
BP under goal
# Acute kidney injury on CKD stage IV
Ultrasound without any obstruction
Albuminuria noted
Baseline creatinine 1.6 ,hold losartan
Renal following
Follow closely on iv diuresis
# Diabetes-hemoglobin A1c 6.0
Patient was on Lantus insulin 28 units in the morning and 20 units at night along with NovoLog 12 before meals as outpatient prior to admission
Had one episode of hypo but not symtpomatic.Keep on Hold her meal time insulin ,cw SSI.
CW Lantus insulin 15 units at nighttime.
Dysphagia - VSE noted - started on modified diet
Anxiety - mood stable today

# Hyperlipidemia-statin
# History of CVA with right hemiparesis-left carotid artery stent-[facility]amb[facility]
# Frequent UTIs recently completed a course of Augmentin on 09/15/2023
# Parkinson disease-continue Sinemet
# Anemia of chronic disease
# Chronic vertigo on meclizine as needed
# Depression-on duloxetine
# GERD-PPI
# History of sleep apnea used to use BiPAP in the past but not anymore. Continue that at night here.
# DVT prophylaxis-SC heparin
# DNR
Anticipated Discharge: > 48 hours
Subjective/Interval History
-
Date of Service: October 05, 2023
denies any further worsening of shortness of breath. Still requiring 2 L.
No chest pain.
Objective Data
-
Labs:
Laboratory Results
10/05/23
05:41
Sodium 141
Potassium 4.4
Chloride 100
Carbon Dioxide 39 H
BUN 64 H
Creatinine 2.8 H
Glucose 109 H
Calcium 8.9
Vital Signs:
Vital Signs
Temp Pulse Resp BP Pulse Ox
97.0 F 67 16 131/77 97
10/05/23 10:31 10/05/23 09:16 10/05/23 07:45 10/05/23 09:16 10/05/23 07:45
I&O
10/04/23 10/05/23 10/06/23
06:59 06:59 06:59
Intake Total 820 / 820 820 / 820
Output Total 300 / 300
Balance 520 / 520 820 / 820
Review of Systems
-
Constitutional: Denies Fever
Abdomen/GI: Denies Nausea or Vomiting
Neuro: Denies Dizzy
Physical Exam
-
General: No Apparent Distress
HEENT: Moist Mucous Membranes
Respiratory: Crackles (few basal crackles) and Non Labored Respirations; Negative Wheezes or Accessory Resp Muscle Use
Cardiac: Regular Rhythm and S1/S2
Neuro: AO x 3
Data Reviewed
-
Labs: Labs Reviewed by me
--- NOTE | 2023-10-05 11:07 | W.PN.NEPH.PH ---
Today's Communication / Plan
-
- add on metolazone 5mg today
Assessment/Plan
-
IMP:
JONATAN with CKD 4-cr 1.6-2 Dr Sepulveda at [facility]
Acute on chronic heart failure with preserved ejection fraction
Acute hypoxic respiratory failure secondary to above
Bilateral pleural effusions s/p left thoracentesis of 1lit on 09/19
Coronary artery disease with H/O coronary stents
Elevated troponin
Leukocytosis
Hypokalemia
Hypertension
Hyperlipidemia
Diabetes
History of CVA with right hemiparesis
Nonambulatory at baseline
Frequent UTIs recently completed a course of Augmentin on 09/15/2023
Parkinson disease
Anemia of chronic disease
Chronic vertigo
Depression
GERD
Hypoalbuminemia
Plan:
follow BMP
diurese IV lasix
add 5mg metolazone again today
would aim for another 5-7# before switching to po lasix
d/w patient
-
-
Date of Service: October 05, 2023
CC / HPI / ROS
-
Chief Complaint:
JONATAN with CKD
History of Present Illness:
JONATAN/Cr slgihtly up at 2.8
k normal
Hemodynamically stable
was diuresing well with IV lasix for decompensated HF
Review of Systems:
no cp or sob at rest
remains on oxygen
no fever or cough
feels tired
weight stable
awake and alert and eating today
Labs
-
Labs:
WBC 9.8 10^3/uL (4.8-10.8) 10/04/23 06:00
RBC 2.59 10^6/uL (4.20-5.40) L 10/04/23 06:00
Hgb 8.5 g/dL (12.0-16.0) L 10/04/23 06:00
Hct 26.5 % (37.0-47.0) L 10/04/23 06:00
Plt Count 191 10^3/uL (130-400) 10/04/23 06:00
Sodium 141 mmol/L (135-145) 10/05/23 05:41
Potassium 4.4 mmol/L (3.5-5.1) 10/05/23 05:41
Chloride 100 mmol/L (98-107) 10/05/23 05:41
Carbon Dioxide 39 mmol/L (22-30) H 10/05/23 05:41
BUN 64 mg/dl (7-17) H 10/05/23 05:41
Creatinine 2.8 mg/dL (0.6-1.0) H 10/05/23 05:41
eGFR 16.15 10/05/23 05:41
Glucose 109 mg/dl (70-99) H 10/05/23 05:41
Calcium 8.9 mg/dl (8.4-10.2) 10/05/23 05:41
Xhk-J-Lqfugwhhhyk Pept 99435 pg/ml 09/26/23 06:03
Albumin 2.5 g/dl (3.5-5.0) L 09/19/23 21:42
Physical Exam
-
Vital Signs:
Vital Signs
Temp Pulse Resp BP Pulse Ox
97.0 F 67 16 131/77 97
10/05/23 10:31 10/05/23 09:16 10/05/23 07:45 10/05/23 09:16 10/05/23 07:45
Cardiovascular:: Regular rate and rhythm
Respiratory:: Bilateral: Coarse
Lung Excursion:: Normal
Abdomen:: Nontender and Soft
Bowel Sounds:: Normal
Extremity Edema:: +2: Bilateral:
[place] Catheter: No
--- NOTE | 2023-10-05 11:16 | CM ---
Reviewed the chart notes and spoke with the patient at the bedside. Continues on IV Lasix. CM continues to be available to patient/family and is monitoring medical plan for needs at discharge.
Plan: Discharge back to [facility] when medically stable.
Call report to: [phone]
Fax report to: [phone]
[2023-10-05] MEDS: ZAROXOLYN 5 MG PO (12:00)
[2023-10-05] MEDS: NOVOLOG FLEXPEN-MODERATE RESISTANCE 5 UNITS SC ×2 (12:33→16:50)
[2023-10-05 12:37] LABS: Glucose - Point of Care 259 mg/dl (70-99)
[2023-10-05 16:51] LABS: Glucose - Point of Care 272 mg/dl (70-99)
--- NOTE | 2023-10-05 17:10 | PTCARENOTE ---
Pt ordered 80 mg IV lasixs BID. Pt. had one large incontinent saturation. Pt. bladder scanned for 558 mL. Pt assisted to commode to void, however, patient unsuccessful. MD and nephrology made aware. Rutledge placed per order. Pt tolerated well.
[2023-10-05] MEDS: CYMBALTA DELAYED RELEASE 30 MG PO (21:26)
[2023-10-05] MEDS: MELATONIN 5 MG PO (21:26)
[2023-10-05] MEDS: SINEMET 10-100 2 TABLET PO (21:26)
[2023-10-05] MEDS: LIPITOR 40 MG PO (21:26)
[2023-10-05] MEDS: COLACE 100 MG PO (21:26)
[2023-10-05 21:43] LABS: Glucose - Point of Care 187 mg/dl (70-99)
[2023-10-05] MEDS: LANTUS 0.149999999999999994 UNITS SC (21:43)
[2023-10-06] VITALS (19 sets, daily range): BP systolic 117–131; BP diastolic 45–67; PULSE 62–83; BMI 29.7
[2023-10-06 07:00] LABS: Blood Urea Nitrogen 65 mg/dl (7-17); Calcium 8.9 mg/dl (8.4-10.2); Carbon Dioxide 37 mmol/L (22-30); Chloride 96 mmol/L (98-107); Estimated Creatinine Clearance 15 ml/min; Glucose 129 mg/dl (70-99); Potassium 4.1 mmol/L (3.5-5.1); Sodium 139 mmol/L (135-145); eGFR 15.48
[2023-10-06 08:18] LABS: Glucose - Point of Care 149 mg/dl (70-99)
[2023-10-06] MEDS: NOVOLOG FLEXPEN-MODERATE RESISTANCE SC (08:22)
[2023-10-06] MEDS: MAGNESIUM OXIDE 500 MG PO (08:32)
[2023-10-06] MEDS: PLAVIX 75 MG PO (08:33)
[2023-10-06] MEDS: ASPIR LOW (ENTERIC COATED) 81 MG PO (08:33)
[2023-10-06] MEDS: NORVASC 2.5 MG PO (08:33)
[2023-10-06] MEDS: APRESOLINE 25 MG PO ×3 (08:34→23:03)
[2023-10-06] MEDS: LASIX 80 MG IV ×2 (08:34→15:21)
[2023-10-06] MEDS: HEPARIN 5000 UNITS SC ×2 (08:35→21:57)
[2023-10-06] MEDS: PROTONIX 40 MG PO (08:35)
[2023-10-06] MEDS: REFRESH EYE DROPS (PF) 1 DROPS BOTH EYES ×4 (08:35→22:19)
[2023-10-06] MEDS: DITROPAN 5 MG PO ×2 (08:35→23:04)
[2023-10-06] MEDS: SINEMET 10-100 1 TABLET PO ×2 (08:35→16:45)
[2023-10-06] MEDS: ISORDIL 20 MG PO ×3 (08:36→22:17)
[2023-10-06] MEDS: TOPROL XL 25 MG PO (08:36)
[2023-10-06] MEDS: VITAMIN D3 (cholecalciferol) 25 MCG PO (08:36)
[2023-10-06] MEDS: ARISTOCORT/TRIAMCINOLONE 0.1% CREAM 1 APPLIC TOPICAL ×2 (08:36→22:20)
[2023-10-06] MEDS: DESENEX/MITRAZOL/ZEASORB 1 APPLIC TOPICAL ×2 (08:39→22:20)
--- NOTE | 2023-10-06 11:27 | W.PN.CARDCBS ---
Addendum entered and electronically signed by Gerhard Marin DO 10/06/23 13:27:
I saw and examined the patient.
The Health Assistant's note was reviewed and I agree with the note.
Comment:
Plan:
Not significant diuresis despite increased lasix and Metolazone.
Will add Milrinone and assess for response
Echo reviewed with pt
Wean O2 as able
Discussed with nephrology, primary service and nursing
Original Note:
Today's Communication / Plan
-
start milrinone @0.3
continue IV lasix. metolazone again today
IS. wean supp O2
Impression / Plan
-
.
Primary Doctor Of Nurse Anesthesia Practice: Dr. Lee
Impression:
Presented 09/19/2023 with SOB
Acute hypoxemic respiratory failure, initially requiring bipap
Acute on chronic HFpEF, proBNP 24,000
B/L pleural effusions, status post left thoracentesis with 1050 mL removed on 09/20/2023
Elevated troponin, suspected nonischemic myocardial injury, peak troponin 0.26
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
Chronic bifascicular block
History of B/L CVAs on DAPT, most recent 11/2022 at [facility], transitioned back from brilinta to plavix
Residual R hemiparesis
HTN and labile HTN
History of left CVA from symptomatic left carotid stenosis in 05/2014
s/p Left internal carotid PTCA and stenting 08/27/2014
history of linq without ANY noted afibCAD
s/p overlapping 3 mm, 3.25 mm and 2.25 mm Cypher ZIA to LAD (3) 09/2009
s/p angioplasty alone of mid LAD stents 04/23/10COPD
DM 2
Dyslipidemia
Obesity
Parkinson's disease
PJ
Nephrotic range proteinuria
History of UTIs
Wheelchair bound
Chronic anemia
Hypokalemia
Leukocytosis
DNR CODE STATUS
ECHO 01/18/23: EF 57%, apex hypokinetic, mild MR, no significant change compared to prior
Echocardiogram 09/20/2023: Ejection fraction 48% by Dela Cruz's, mildly dilated left ventricle, moderate MR, mild TR, left pleural effusion seen
Chesty xray 09/26/2023: Limited study with increased interstitial opacities. Small to moderate bilateral effusions left greater than right suggestive of possible pulmonary edema
Right UE u/s neg for DVT 10/02/23
RHC 09/29
RA (m) : 18
RV (s/d,m) : 60/13, 17
PA (s/d, m) : 65/31, 47
PCWP (m) : 35
PA saturation: 64.1% on 6 L of oxygen via nasal cannula
AO saturation: 96.0 percent on 6 L of oxygen via nasal cannula (obtain noninvasively using pulse ox)
Heart rate: 70 bpm
Cardiac Output : 4.62 L/min
Cardiac Index : 2.5 L/min/m-2
Plan:
-Patient remains with shortness of breath. Baseline unclear
-She presented with evidence of heart failure, underwent diuresis with worsening renal function. Lasix then held. patient underwent RHC 09/29 with PCWP 35 and CI 2.5. now back on diuretics and receiving metolazone. CXR 10/04 with small to mod B/L
pleural effusions. nephrology also following. Cr 2.9. weight down 4 pounds overnight if accurate. Echo with mildly reduced EF 48%. after physician discussion with nephrology 10/04 and 10/05, plan to trial patient on milrinone in attempt to augment
diuresis. will start at rate of 0.3. dry weight unknown
-wean supp O2 as able
-Status post L thoracentesis 09/20/2023.
-IS ordered
-Cont Toprol XL. OP losartan stopped, not current herrera/arb/arni/aldactone candidate given JONATAN on CKD. Cont hydralazine, norvasc. Low dose isordil added this admit. not candidate for SGLT2 inhibitor due to frequent UTIs and current renal insufficiency
-Abnormal troponin, Peaked 2.55. Cont medical therpay of nonMI trop. no CP
-Cont DAPT, asa, plavix for history of CVAs, PCI, and carotid stent.
-d/w nursing, hospitalist
-called and discussed with patient's daughter Camilla via telephone for 10:07. updated on above
History of Present Illness 09/20/23:
Patient is an 83-year-old female resident of [facility] with past medical history of bilateral strokes on Plavix, transition to Brilinta, then back to Plavix again, history of left carotid artery stent, CAD with LAD PCI and angioplasty, chronic
HFpEF, COPD, diabetes, PJ and who is wheelchair-bound. She presented to [facility] due to concerns for UTI however was then noted to be tachypneic. Reported worsening shortness of breath over the weekend, which more acutely worsened
yesterday. On arrival to the ER was noted to be hypoxic and required BiPAP. She has now been transitioned to supplemental oxygen. proBNP was the highest it has ever been at 24,000. CXR with mod B/L pleural effusions. Cardiology consulted for
evaluation. She is unsure what dose of lasix she was receiving at alf.
Progress Note - Doctor Of Nurse Anesthesia Practice
Subjective
Date of Service: October 06, 2023
continues with SOB
Objective
Labs:
10/04/23 06:00
10/06/23 05:53
Labs
Hgb 8.5 g/dL (12.0-16.0) L 10/04/23 06:00
Hct 26.5 % (37.0-47.0) L 10/04/23 06:00
Plt Count 191 10^3/uL (130-400) 10/04/23 06:00
PT 15.0 Sec (11.4-14.6) H 09/20/23 07:40
INR 1.20 09/20/23 07:40
APTT 99.0 Sec (23.4-35.0) H 09/21/23 08:28
Sodium 139 mmol/L (135-145) 10/06/23 05:53
Potassium 4.1 mmol/L (3.5-5.1) 10/06/23 05:53
BUN 65 mg/dl (7-17) H 10/06/23 05:53
Creatinine 2.9 mg/dL (0.6-1.0) H 10/06/23 05:53
Glucose 129 mg/dl (70-99) H 10/06/23 05:53
Vital Signs and I&O:
Vital Signs
Temp Pulse Resp BP Pulse Ox
97.5 F 61 16 119/67 94
10/06/23 08:40 10/06/23 08:40 10/06/23 08:40 10/06/23 08:40 10/06/23 11:06
Vital Signs
Temp Pulse Resp BP Pulse Ox
97.5 F 61 16 119/67 94
10/06/23 08:40 10/06/23 08:40 10/06/23 08:40 10/06/23 08:40 10/06/23 11:06
Intake & Output
10/04/23 10/05/23 10/06/23 10/07/23
07:59 07:59 07:59 07:59
Intake Total 820 / 820 820 / 820 1140 / 1140
Output Total 300 / 300 550 / 550
Balance 520 / 520 820 / 820 590 / 590
Physical Exam
Physical Exam
GEN: No distress, awake, alert, oriented x3. on supp O2. obese
HEENT: supple, anicteric, mmm, eomi
LUNGS: Decreased BS and few crackles B/L bases, no wheezes
CV: Reg, S1/S2, no murmur
ABD: soft, BS+, NT/ND
EXT: No cyanosis, clubbing. trace edema of B/L LE
NEURO: Gross non-focal
SKIN: Warm, pink, dry. No rash
[2023-10-06 12:15] LABS: Glucose - Point of Care 258 mg/dl (70-99)
[2023-10-06] MEDS: PRIMACOR 20 MG 100 IV (12:22)
--- NOTE | 2023-10-06 12:33 | W.PN.HOSP.TC ---
Today's Communication/Plan
-
Milrinone
Assessment / Plan
Assessment / Plan
83 y/o female with shortness of breath
CVS: S1-S2 normal, sm at apex
Chest: CTA B/L
Abdomen: Soft, NT Bowel sounds present
Extremities: No edema
POWER SAW OPERATOR: Non focal exam
#Acute on chronic heart failure with preserved ejection fraction
Acute hypoxic respiratory failure secondary to above
Bilateral pleural effusions left more than right
S/P Left thoracentesis by IRAD
Possible aspiration pneumonitis- finished AB
Right heart cath shows increased filling pressures with a pulmonary catheter wedge pressure of 35.
CW Lasix 80 mg IV twice a day. Still no improvement in weight . Metolazone added by renal. Still no improvement in wt.
Cards starting Milrinone
Is wedge elevated due to volume or precapillary Pulm HTN?
# Suspect aspiration pneumonitis with elevated white count placed the patient on ceftriaxone. White count has normalized.
Speech evaluation noted. cw modified diet.
Off of abx
# Coronary artery disease with H/O coronary stents
Elevated troponin nonischemic myocardial injury
EKG bifascicular block PACs and PVCs
Continue DAPT, beta-augusto, statin
Echo 09/20/2023-LV dilated. Mild concentric LVH. Mildly reduced LV systolic function. Ejection fraction 48%. Global hypokinesis moderately dilated LA. Moderate MR. Mild TR. Compared to 2022 EF decreased
# Left thoracentesis with 1050 ml straw-colored pleural fluid. Transudate
# Hypertension-
Hold losartan
Continue Metoprolol,Imdur,Hydralazine, Norvasc
BP under goal
# Acute kidney injury on CKD stage IV
Ultrasound without any obstruction
Albuminuria noted
Baseline creatinine 1.6 ,hold losartan
Renal following
Follow closely on iv diuresis
# Diabetes-hemoglobin A1c 6.0
Patient was on Lantus insulin 28 units in the morning and 20 units at night along with NovoLog 12 before meals as outpatient prior to admission
Had one episode of hypo but not symptomatic.Keep on Hold her meal time insulin ,cw SSI.
CW Lantus insulin 15 units at nighttime.
#Dysphagia - VSE noted - started on modified diet
#Anxiety - mood stable today. PRN Xanax

# Hyperlipidemia-statin
# History of CVA with right hemiparesis-left carotid artery stent-[facility]ambulatory at [id number]
# Frequent UTIs recently completed a course of Augmentin on 09/15/2023
# Parkinson disease-continue Sinemet
# Anemia of chronic disease
# Chronic vertigo on meclizine as needed
# Depression-on duloxetine
# GERD-PPI
# History of sleep apnea used to use BiPAP in the past but not anymore. Continue that at night here.
# DVT prophylaxis-SC heparin
# DNR
D/W Cards
Anticipated Discharge: 24 - 48 hours
Subjective/Interval History
-
Date of Service: October 06, 2023
Objective Data
-
Labs:
Laboratory Results
10/06/23
05:53
Sodium 139
Potassium 4.1
Chloride 96 L
Carbon Dioxide 37 H
BUN 65 H
Creatinine 2.9 H
Glucose 129 H
Calcium 8.9
Vital Signs:
Vital Signs
Temp Pulse Resp BP Pulse Ox
97.6 F 71 16 125/58 96
10/06/23 11:52 10/06/23 11:52 10/06/23 11:52 10/06/23 11:52 10/06/23 11:52
I&O
10/05/23 10/06/23 10/07/23
06:59 06:59 06:59
Intake Total 820 / 820 1140 / 1140
Output Total 550 / 550
Balance 820 / 820 590 / 590
--- NOTE | 2023-10-06 12:45 | PTCARENOTE ---
Milrinone gtt initiated per cardiology order, set rate at 0.3 mcg/kg/min, not to be titrated without MD order. Pump verified with second RN and nurse educator, VSS, patient states no concerns at this time.
[2023-10-06] MEDS: NOVOLOG FLEXPEN-MODERATE RESISTANCE 5 UNITS SC (13:34)
--- NOTE | 2023-10-06 14:04 | W.PN.NEPH.PH ---
Today's Communication / Plan
-
- milrinone + IV lasix per cardiology
Assessment/Plan
-
IMP:
JONATAN with CKD 4-cr 1.6-2 Dr Sepulveda at [facility]
Acute on chronic heart failure with preserved ejection fraction
Acute hypoxic respiratory failure secondary to above
Bilateral pleural effusions s/p left thoracentesis of 1lit on 09/19
Coronary artery disease with H/O coronary stents
Elevated troponin
Leukocytosis
Hypokalemia
Hypertension
Hyperlipidemia
Diabetes
History of CVA with right hemiparesis
Nonambulatory at baseline
Frequent UTIs recently completed a course of Augmentin on 09/15/2023
Parkinson disease
Anemia of chronic disease
Chronic vertigo
Depression
GERD
Hypoalbuminemia
Plan:
follow BMP
little improvement with metolazone and IV lasix
will try milrinone today
would aim for another 5-7# before switching to po lasix
d/w patient
-
-
Date of Service: October 06, 2023
CC / HPI / ROS
-
Chief Complaint:
JONATAN with CKD
History of Present Illness:
JONATAN/Cr slgihtly up at 2.9
k normal
Hemodynamically stable
was diuresing well with IV lasix for decompensated HF
Review of Systems:
no cp or sob at rest
remains on oxygen
no fever or cough
feels tired
weight stable
awake and alert and eating today
Labs
-
Labs:
WBC 9.8 10^3/uL (4.8-10.8) 10/04/23 06:00
RBC 2.59 10^6/uL (4.20-5.40) L 10/04/23 06:00
Hgb 8.5 g/dL (12.0-16.0) L 10/04/23 06:00
Hct 26.5 % (37.0-47.0) L 10/04/23 06:00
Plt Count 191 10^3/uL (130-400) 10/04/23 06:00
Sodium 139 mmol/L (135-145) 10/06/23 05:53
Potassium 4.1 mmol/L (3.5-5.1) 10/06/23 05:53
Chloride 96 mmol/L (98-107) L 10/06/23 05:53
Carbon Dioxide 37 mmol/L (22-30) H 10/06/23 05:53
BUN 65 mg/dl (7-17) H 10/06/23 05:53
Creatinine 2.9 mg/dL (0.6-1.0) H 10/06/23 05:53
eGFR 15.48 10/06/23 05:53
Glucose 129 mg/dl (70-99) H 10/06/23 05:53
Calcium 8.9 mg/dl (8.4-10.2) 10/06/23 05:53
Lhq-X-Pkgqhnygtjk Pept 02725 pg/ml 09/26/23 06:03
Albumin 2.5 g/dl (3.5-5.0) L 09/19/23 21:42
Physical Exam
-
Vital Signs:
Vital Signs
Temp Pulse Resp BP Pulse Ox
97.6 F 71 16 125/58 96
10/06/23 11:52 10/06/23 11:52 10/06/23 11:52 10/06/23 11:52 10/06/23 11:52
Cardiovascular:: Regular rate and rhythm
Respiratory:: Bilateral: Coarse
Lung Excursion:: Normal
Abdomen:: Nontender and Soft
Bowel Sounds:: Normal
Extremity Edema:: +1: Bilateral:
Rutledge Catheter: No
--- NOTE | 2023-10-06 14:42 | CM ---
Reviewed the chart notes and spoke with the patient at the bedside. Per notes, starting milrinone and continue IV Lasix. continues to be available to patient/family and is monitoring medical plan for needs at discharge.
Plan: Discharge back to [facility] when medically stable.
Call report to: [phone]
Fax report to: [phone]
[2023-10-06 15:20] LABS: Glucose - Point of Care 233 mg/dl (70-99)
[2023-10-06] MEDS: NOVOLOG FLEXPEN-MODERATE RESISTANCE 3 UNITS SC (16:46)
[2023-10-06 16:48] LABS: Glucose - Point of Care 249 mg/dl (70-99)
[2023-10-06 21:47] LABS: Glucose - Point of Care 301 mg/dl (70-99)
[2023-10-06] MEDS: LANTUS 0.149999999999999994 UNITS SC (21:57)
[2023-10-06] MEDS: CYMBALTA DELAYED RELEASE 30 MG PO (22:17)
[2023-10-06] MEDS: SINEMET 10-100 2 TABLET PO (22:17)
[2023-10-06] MEDS: COLACE 100 MG PO (22:17)
[2023-10-06] MEDS: LIPITOR 40 MG PO (22:17)
[2023-10-06] MEDS: MELATONIN 5 MG PO (23:03)
[2023-10-06 23:14] LABS: Glucose - Point of Care 264 mg/dl (70-99)
[2023-10-07] VITALS (8 sets, daily range): BP systolic 99–124; BP diastolic 45–57; PULSE 66–96; O2SAT 95; BMI 29.1; BMI 29.6
[2023-10-07] MEDS: PRIMACOR 20 MG 100 IV ×2 (00:44→10:41)
[2023-10-07 08:01] LABS: Glucose - Point of Care 148 mg/dl (70-99)
[2023-10-07] MEDS: NOVOLOG FLEXPEN-MODERATE RESISTANCE SC ×2 (08:11→14:02)
[2023-10-07 08:22] LABS: Blood Urea Nitrogen 70 mg/dl (7-17); Carbon Dioxide 38 mmol/L (22-30); Chloride 95 mmol/L (98-107); Estimated Creatinine Clearance 13 ml/min; Glucose 150 mg/dl (70-99); Potassium 3.8 mmol/L (3.5-5.1); Sodium 139 mmol/L (135-145); eGFR 13.76
[2023-10-07] MEDS: LASIX 80 MG IV (09:25)
[2023-10-07] MEDS: MAGNESIUM OXIDE 500 MG PO (09:26)
[2023-10-07] MEDS: SINEMET 10-100 1 TABLET PO ×2 (09:26→18:32)
[2023-10-07] MEDS: TOPROL XL 25 MG PO (09:26)
[2023-10-07] MEDS: ASPIR LOW (ENTERIC COATED) 81 MG PO (09:26)
[2023-10-07] MEDS: APRESOLINE 25 MG PO ×2 (09:27→18:32)
[2023-10-07] MEDS: REFRESH EYE DROPS (PF) 1 DROPS BOTH EYES ×3 (09:27→23:07)
[2023-10-07] MEDS: PLAVIX 75 MG PO (09:27)
[2023-10-07] MEDS: PROTONIX 40 MG PO (09:27)
[2023-10-07] MEDS: NORVASC 2.5 MG PO (09:27)
[2023-10-07] MEDS: HEPARIN 5000 UNITS SC ×2 (09:28→21:08)
[2023-10-07] MEDS: VITAMIN D3 (cholecalciferol) 25 MCG PO (09:28)
[2023-10-07] MEDS: DITROPAN 5 MG PO ×2 (09:28→21:07)
[2023-10-07] MEDS: DESENEX/MITRAZOL/ZEASORB 1 APPLIC TOPICAL ×2 (09:29→21:06)
[2023-10-07] MEDS: ARISTOCORT/TRIAMCINOLONE 0.1% CREAM 1 APPLIC TOPICAL ×2 (09:29→21:06)
[2023-10-07] MEDS: ISORDIL 20 MG PO ×3 (09:29→23:08)
[2023-10-07] MEDS: MIRALAX 17 GRAMS PO (09:37)
--- NOTE | 2023-10-07 10:01 | W.PN.HOSP.TC ---
Today's Communication/Plan
-
CT chest with out contrast
Assessment / Plan
Assessment / Plan
83 y/o female with shortness of breath
CVS: S1-S2 normal, sm at apex
Chest: few rales
Abdomen: Soft, NT Bowel sounds present
Extremities: No edema
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
#Acute on chronic heart failure with preserved ejection fraction
Acute hypoxic respiratory failure secondary to above
Bilateral pleural effusions left more than right on admission
S/P Left thoracentesis by IRAD
Possible aspiration pneumonitis- finished AB
Right heart cath shows increased filling pressures with a pulmonary catheter wedge pressure of 35.
CW Lasix 80 mg IV twice a day. Still no improvement in weight . Metolazone added by renal. Still no improvement in wt.
Cards starting Milrinone
Is wedge elevated due to volume or precapillary Pulm HTN?
Weight is not reliable as this is documented in bed.
I requested nursing to have physical therapy work with the patient and do a standing scale weight.
Ill Get a CT of chest with out contrast
# Suspect aspiration pneumonitis with elevated white count placed the patient on ceftriaxone. White count has normalized.
Speech evaluation noted. cw modified diet.
Off of abx
# Coronary artery disease with H/O coronary stents
Elevated troponin nonischemic myocardial injury
EKG bifascicular block PACs and PVCs
Continue DAPT, beta-augusto, statin
Echo 09/20/2023-LV dilated. Mild concentric LVH. Mildly reduced LV systolic function. Ejection fraction 48%. Global hypokinesis moderately dilated LA. Moderate MR. Mild TR. Compared to 2022 EF decreased
# Left thoracentesis with 1050 ml straw-colored pleural fluid. Transudate
# Hypertension-
Hold losartan
Continue Metoprolol,Imdur,Hydralazine, Norvasc
BP under goal
# Acute kidney injury on CKD stage IV
Ultrasound without any obstruction
Albuminuria noted
Baseline creatinine 1.6 ,hold losartan
Renal following
Creatinine trending up
# Diabetes-hemoglobin A1c 6.0
Patient was on Lantus insulin 28 units in the morning and 20 units at night along with NovoLog 12 before meals as outpatient prior to admission
Had one episode of hypo but not symptomatic.Keep on Hold her meal time insulin ,cw SSI.
CW Lantus insulin 15 units at nighttime.
Add 3 units of NovoLog Premeal
#Dysphagia - VSE noted - started on modified diet Pureed
#Anxiety - mood stable today. PRN Xanax

# Hyperlipidemia-statin
# History of CVA with right hemiparesis-left carotid artery stent-[facility]ambulatory at [id number]
# Frequent UTIs recently completed a course of Augmentin on 09/15/2023
# Parkinson disease-continue Sinemet
# Anemia of chronic disease
# Chronic vertigo on meclizine as needed
# Depression-on duloxetine
# GERD-PPI
# History of sleep apnea used to use BiPAP in the past but not anymore. She refuses , so stopped.
# DVT prophylaxis-SC heparin
# DNR
D/W RN at bed side
Spoke to patient's son and updated regarding renal function, volume status etc.
D/W Cards and renal
Anticipated Discharge: 24 - 48 hours
Subjective/Interval History
-
Date of Service: October 07, 2023
Objective Data
-
Labs:
Laboratory Results
10/07/23
07:30
Sodium 139
Potassium 3.8
Chloride 95 L
Carbon Dioxide 38 H
BUN 70 H
Creatinine 3.2 H
Glucose 150 H
Calcium 9.0
Vital Signs:
Vital Signs
Temp Pulse Resp BP Pulse Ox
97.7 F 98 18 122/50 93
10/07/23 07:45 10/07/23 09:27 10/07/23 07:45 10/07/23 09:27 10/07/23 07:45
I&O
10/06/23 10/07/23 10/08/23
06:59 06:59 06:59
Intake Total 1140 / 1140 647 / 647
Output Total 550 / 550 800 / 800 180 / 180
Balance 590 / 590 -153 / -153 -180 / -180
--- NOTE | 2023-10-07 11:50 | W.PN.NEPH.PH ---
Today's Communication / Plan
-
US chest
Assessment/Plan
-
IMP:
JONATAN with CKD 4-cr 1.6-2 Dr Sepulveda at [facility]
Acute on chronic heart failure with preserved ejection fraction
Acute hypoxic respiratory failure secondary to above
Bilateral pleural effusions s/p left thoracentesis of 1lit on 09/19
Coronary artery disease with H/O coronary stents
Elevated troponin
Leukocytosis
Hypokalemia
Hypertension
Hyperlipidemia
Diabetes
History of CVA with right hemiparesis
Nonambulatory at baseline
Frequent UTIs recently completed a course of Augmentin on 09/15/2023
Parkinson disease
Anemia of chronic disease
Chronic vertigo
Depression
GERD
Hypoalbuminemia
Plan:
follow BMP
reduce lasix, weights down 7kg
milrinone continues today
check US chest for possible thoracentesis
d/w daughter. She understands that HD would not be a good option
-
-
Date of Service: October 07, 2023
CC / HPI / ROS
-
Chief Complaint:
JONATAN with CKD
History of Present Illness:
JONATAN/Cr worse to 3.2
k normal
Hemodynamically stable
was diuresing well with IV lasix for decompensated HF and now milrinone
Review of Systems:
no cp or sob at rest
onsupplemental O2
awake and alert and eating today
Labs
-
Labs:
WBC 9.8 10^3/uL (4.8-10.8) 10/04/23 06:00
RBC 2.59 10^6/uL (4.20-5.40) L 10/04/23 06:00
Hgb 8.5 g/dL (12.0-16.0) L 10/04/23 06:00
Hct 26.5 % (37.0-47.0) L 10/04/23 06:00
Plt Count 191 10^3/uL (130-400) 10/04/23 06:00
Sodium 139 mmol/L (135-145) 10/07/23 07:30
Potassium 3.8 mmol/L (3.5-5.1) 10/07/23 07:30
Chloride 95 mmol/L (98-107) L 10/07/23 07:30
Carbon Dioxide 38 mmol/L (22-30) H 10/07/23 07:30
BUN 70 mg/dl (7-17) H 10/07/23 07:30
Creatinine 3.2 mg/dL (0.6-1.0) H 10/07/23 07:30
eGFR 13.76 10/07/23 07:30
Glucose 150 mg/dl (70-99) H 10/07/23 07:30
Calcium 9.0 mg/dl (8.4-10.2) 10/07/23 07:30
Fgi-C-Gbfdmkhayxm Pept 65139 pg/ml 09/26/23 06:03
Albumin 2.5 g/dl (3.5-5.0) L 09/19/23 21:42
Physical Exam
-
Vital Signs:
Vital Signs
Temp Pulse Resp BP Pulse Ox
97.7 F 98 18 122/50 93
10/07/23 07:45 10/07/23 09:27 10/07/23 07:45 10/07/23 09:27 10/07/23 11:41
Cardiovascular:: Regular rate and rhythm
Respiratory:: Bilateral: Coarse and Bilateral: Rhonchi
Lung Excursion:: Normal
Abdomen:: Nontender and Soft
Bowel Sounds:: Normal
Extremity Edema:: +1: Bilateral:
[2023-10-07 12:04] LABS: Glucose - Point of Care 232 mg/dl (70-99)
--- NOTE | 2023-10-07 12:20 | W.PN.CARDCBS ---
Addendum entered and electronically signed by Julian Torres MD 10/07/23 13:35:
Patient with dyspnea getting into chair, somewhat tearful. daughter Camilla at bedside. Still on milrinone. Daughter indicates patient would not want dialysis.
PMH, PSH, FH, SH: Reviewed
Allergies Per summary screen, numerous
Home medications: Reviewed
Current medications: Milrinone, aspirin 81 mg a day atorvastatin 40 mg a day, Sinemet, clopidogrel 75 mg a day, duloxetine, metoprolol ER 25 mg daily, MiraLAX, pantoprazole 40 mg a day, Colace, magnesium, oxybutynin, subcu heparin, hydralazine 25
every 8, amlodipine 2.5 mg daily, Isordil, insulin, Lasix 80 mg IV twice daily
ROS: Negative except as above
122/50, pulse 98, respiratory rate 18, afebrile, weight is 76.9 kg, was 85.4 kg on admission, intake and output roughly even
Tachypneic, mild distress, head neck exam unremarkable, diminished breath sounds in bases, regular rate and rhythm, soft MR murmur, neck veins up, abdomen benign, mild edema
BUN/creatinine 70 and 3.2, potassium 3.8, hemoglobin 8.[address] without contrast has been ordered.
Impression:
Presented 09/19/2023 with SOB
Acute hypoxemic respiratory failure, initially requiring bipap
Acute on chronic HFpEF, proBNP 24,000
B/L pleural effusions, status post left thoracentesis with 1050 mL removed on 09/20/2023
Elevated troponin, suspected nonischemic myocardial injury, peak troponin 0.26
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
Chronic bifascicular block
History of B/L CVAs on DAPT, most recent 11/2022 at [facility], transitioned back from brilinta to plavix
Residual R hemiparesis
HTN and labile HTN
History of left CVA from symptomatic left carotid stenosis in 05/2014
s/p Left internal carotid PTCA and stenting 08/27/2014
history of linq without ANY noted afibCAD
s/p overlapping 3 mm, 3.25 mm and 2.25 mm Cypher ZIA to LAD (3) 09/2009
s/p angioplasty alone of mid LAD stents 04/23/10COPDDM 2
Dyslipidemia
Obesity
Parkinson's disease
PJ
Nephrotic range proteinuria
History of UTIs
Wheelchair bound
Chronic anemia
Hypokalemia
Leukocytosis
DNR CODE STATUS
Plan:
Patient with ongoing heart failure with mildly reduced ejection fraction and moderate MR. She has underlying CKD stage IV/V and is not willing to consider hemodialysis. The likelihood that we can substantially improve her cardiovascular
status/heart failure long-term is limited and prognosis is guarded.
.
I had a ana discussion regarding goals of care with the patient and daughter. I stressed that strategy to be best determined by patient's preference. Consideration in change of goals of care to palliative care or hospice would not be
unreasonable in this setting.
CT of the chest is planned which will allow us to assess pleural effusions. I had discussed the possibility of thoracentesis with the patient and she was not enthusiastic.
She has diuresed. I would continue milrinone 1 more day. Defer diuretic use to hospitalist and nephrology.
Original Note:
Today's Communication / Plan
-
goals of care discussions ongoing
for chest CT
continue milrinone, diuresis attempts (lasix dose lowered per nephro)
follow Cr
Impression / Plan
-
.
Primary Therapist'S Assistant: Dr. Lee
Impression:
Presented 09/19/2023 with SOB
Acute hypoxemic respiratory failure, initially requiring bipap
Acute on chronic HFpEF, proBNP 24,000
B/L pleural effusions, status post left thoracentesis with 1050 mL removed on 09/20/2023
Elevated troponin, suspected nonischemic myocardial injury, peak troponin 0.26
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
Chronic bifascicular block
History of B/L CVAs on DAPT, most recent 11/2022 at [facility], transitioned back from brilinta to plavix
Residual R hemiparesis
HTN and labile HTN
History of left CVA from symptomatic left carotid stenosis in 05/2014
s/p Left internal carotid PTCA and stenting 08/27/2014
history of linq without ANY noted afibCAD
s/p overlapping 3 mm, 3.25 mm and 2.25 mm Cypher ZIA to LAD (3) 09/2009
s/p angioplasty alone of mid LAD stents 04/23/10COPD
DM 2
Dyslipidemia
Obesity
Parkinson's disease
PJ
Nephrotic range proteinuria
History of UTIs
Wheelchair bound
Chronic anemia
Hypokalemia
Leukocytosis
DNR CODE STATUS
ECHO 01/18/23: EF 57%, apex hypokinetic, mild MR, no significant change compared to prior
Echocardiogram 09/20/2023: Ejection fraction 48% by Dela Cruz's, mildly dilated left ventricle, moderate MR, mild TR, left pleural effusion seen
Chesty xray 09/26/2023: Limited study with increased interstitial opacities. Small to moderate bilateral effusions left greater than right suggestive of possible pulmonary edema
Right UE u/s neg for DVT 10/02/23
RHC 09/29
RA (m) : 18
RV (s/d,m) : 60/13, 17
PA (s/d, m) : 65/31, 47
PCWP (m) : 35
PA saturation: 64.1% on 6 L of oxygen via nasal cannula
AO saturation: 96.0 percent on 6 L of oxygen via nasal cannula (obtain noninvasively using pulse ox)
Heart rate: 70 bpm
Cardiac Output : 4.62 L/min
Cardiac Index : 2.5 L/min/m-2
Plan:
-Reports she continues with shortness of breath which is not significantly improved from admission. continues on supp O2
-She presented with evidence of heart failure, Status post L thoracentesis 09/20/2023. underwent diuresis with worsening renal function. Lasix then held. patient underwent RHC 09/29 with PCWP 35 and CI 2.5. now back on diuretics and receiving
metolazone. CXR 10/04 with small to mod B/L pleural effusions.
-started on milrinone @0.3 10/05.
-nephrology following. Cr up overnight to 3.2. she is not an HD candidate.
-weight down 3 pounds overnight. would plan to continue diuresis today at lower dose per nephrology recs. dry weight unknown
-Echo with mildly reduced EF 48%.
-for chest CT today
-if remains without significant improvement, transition to comfort/palliative approach would not be unreasonable. she is a DNR.
-Cont Toprol XL. OP losartan stopped, not current herrera/arb/arni/aldactone candidate given JONATAN on CKD. Cont hydralazine, norvasc. Low dose isordil added this admit. not candidate for SGLT2 inhibitor due to frequent UTIs and current renal insufficiency
-Abnormal troponin, Peaked 2.55. Cont medical therapy of nonMI trop. no CP
-Cont DAPT, asa, plavix for history of CVAs, PCI, and carotid stent.
-d/w patient and daughter at bedside
History of Present Illness 09/20/23:
Patient is an 83-year-old female resident of [facility] with past medical history of bilateral strokes on Plavix, transition to Brilinta, then back to Plavix again, history of left carotid artery stent, CAD with LAD PCI and angioplasty, chronic
HFpEF, COPD, diabetes, PJ and who is wheelchair-bound. She presented to [facility] due to concerns for UTI however was then noted to be tachypneic. Reported worsening shortness of breath over the weekend, which more acutely worsened
yesterday. On arrival to the ER was noted to be hypoxic and required BiPAP. She has now been transitioned to supplemental oxygen. proBNP was the highest it has ever been at 24,000. CXR with mod B/L pleural effusions. Cardiology consulted for
evaluation. She is unsure what dose of lasix she was receiving at [facility].
Progress Note - Therapist'S Assistant
Subjective
Date of Service: October 07, 2023
remains with SOB
Objective
Labs:
10/04/23 06:00
10/07/23 07:30
Labs
Hgb 8.5 g/dL (12.0-16.0) L 10/04/23 06:00
Hct 26.5 % (37.0-47.0) L 10/04/23 06:00
Plt Count 191 10^3/uL (130-400) 10/04/23 06:00
PT 15.0 Sec (11.4-14.6) H 09/20/23 07:40
INR 1.20 09/20/23 07:40
APTT 99.0 Sec (23.4-35.0) H 09/21/23 08:28
Sodium 139 mmol/L (135-145) 10/07/23 07:30
Potassium 3.8 mmol/L (3.5-5.1) 10/07/23 07:30
BUN 70 mg/dl (7-17) H 10/07/23 07:30
Creatinine 3.2 mg/dL (0.6-1.0) H 10/07/23 07:30
Glucose 150 mg/dl (70-99) H 10/07/23 07:30
Vital Signs and I&O:
Vital Signs
Temp Pulse Resp BP Pulse Ox
97.7 F 98 18 122/50 93
10/07/23 07:45 10/07/23 09:27 10/07/23 07:45 10/07/23 09:27 10/07/23 11:41
Vital Signs
Temp Pulse Resp BP Pulse Ox
97.7 F 98 18 122/50 93
10/07/23 07:45 10/07/23 09:27 10/07/23 07:45 10/07/23 09:27 10/07/23 11:41
Intake & Output
10/05/23 10/06/23 10/07/23 10/08/23
07:59 07:59 07:59 07:59
Intake Total 820 / 820 1140 / 1140 647 / 647
Output Total 550 / 550 980 / 980
Balance 820 / 820 590 / 590 -333 / -333
Physical Exam
Physical Exam
GEN: No distress, awake, alert, oriented x3. on supp O2. obese. sitting in chair
HEENT: supple, anicteric, mmm, eomi
LUNGS: Decreased BS B/L, no wheezes
CV: Reg, S1/S2, no murmur
ABD: soft, BS+, NT/ND
EXT: No cyanosis, clubbing. 1+ edema of B/L LE
NEURO: Gross non-focal
SKIN: Warm, pink, dry. No rash
--- NOTE | 2023-10-07 12:40 | CM ---
Addendum entered by Marine Carrasco RN 10/07/23 16:13:
IMM placed on chart.
Original Note:
Reviewed the chart notes. Per nephrology note, 'd/w daughter. She understands that HD would not be a good option'. CM continues to be available to patient/family and is monitoring medical plan for needs at discharge.
Plan: Discharge back to [facility] when medically stable.
Call report to: [phone]
Fax report to: [phone]
[2023-10-07] MEDS: XANAX 0.25 MG PO (13:41)
[2023-10-07] MEDS: REFRESH EYE DROPS (PF) BOTH EYES (13:56)
[2023-10-07] MEDS: NOVOLOG FLEXPEN SC (14:02)
[2023-10-07] MEDS: NOVOLOG FLEXPEN 4 UNITS SC (14:33)
[2023-10-07 17:04] LABS: Glucose - Point of Care 227 mg/dl (70-99)
[2023-10-07] MEDS: NOVOLOG FLEXPEN-MODERATE RESISTANCE 3 UNITS SC (18:36)
[2023-10-07] MEDS: NOVOLOG FLEXPEN 3 UNITS SC (18:36)
[2023-10-07 21:50] LABS: Glucose - Point of Care 257 mg/dl (70-99)
[2023-10-07] MEDS: COLACE 100 MG PO (23:05)
[2023-10-07] MEDS: SINEMET 10-100 2 TABLET PO (23:06)
[2023-10-07] MEDS: LIPITOR 40 MG PO (23:06)
[2023-10-07] MEDS: MELATONIN 5 MG PO (23:06)
[2023-10-07] MEDS: LANTUS 0.149999999999999994 UNITS SC (23:07)
[2023-10-07] MEDS: CYMBALTA DELAYED RELEASE 30 MG PO (23:07)
[2023-10-08] VITALS (7 sets, daily range): BP systolic 85–119; BP diastolic 34–60; BMI 29.6
[2023-10-08] MEDS: APRESOLINE 25 MG PO ×3 (01:00→23:37)
[2023-10-08] MEDS: PRIMACOR 20 MG 100 IV (01:25)
[2023-10-08 07:45] LABS: Glucose - Point of Care 172 mg/dl (70-99)
[2023-10-08 08:48] LABS: Blood Urea Nitrogen 75 mg/dl (7-17); Calcium 9.3 mg/dl (8.4-10.2); Carbon Dioxide 34 mmol/L (22-30); Chloride 93 mmol/L (98-107); Estimated Creatinine Clearance 11 ml/min; Glucose 149 mg/dl (70-99); Potassium 4.7 mmol/L (3.5-5.1); Sodium 138 mmol/L (135-145); eGFR 10.85
[2023-10-08] MEDS: NORVASC 2.5 MG PO (09:49)
[2023-10-08] MEDS: ASPIR LOW (ENTERIC COATED) 81 MG PO (09:49)
[2023-10-08] MEDS: REFRESH EYE DROPS (PF) 1 DROPS BOTH EYES ×4 (09:49→21:27)
[2023-10-08] MEDS: PLAVIX 75 MG PO (09:49)
[2023-10-08] MEDS: DITROPAN 5 MG PO ×2 (09:50→21:24)
[2023-10-08] MEDS: VITAMIN D3 (cholecalciferol) 25 MCG PO (09:50)
[2023-10-08] MEDS: DESENEX/MITRAZOL/ZEASORB 1 APPLIC TOPICAL ×2 (09:50→21:25)
[2023-10-08] MEDS: MAGNESIUM OXIDE 500 MG PO (09:50)
[2023-10-08] MEDS: TOPROL XL 25 MG PO (09:50)
[2023-10-08] MEDS: PROTONIX 40 MG PO (09:50)
[2023-10-08] MEDS: HEPARIN 5000 UNITS SC ×2 (09:51→21:24)
[2023-10-08] MEDS: ISORDIL 20 MG PO ×2 (09:51→21:26)
[2023-10-08] MEDS: ARISTOCORT/TRIAMCINOLONE 0.1% CREAM 1 APPLIC TOPICAL ×2 (09:54→21:26)
[2023-10-08] MEDS: NOVOLOG FLEXPEN 3 UNITS SC ×3 (10:19→17:32)
[2023-10-08] MEDS: NOVOLOG FLEXPEN-MODERATE RESISTANCE 1 UNITS SC (10:19)
[2023-10-08] MEDS: SINEMET 10-100 1 TABLET PO ×2 (10:23→17:31)
--- NOTE | 2023-10-08 11:01 | W.PN.NEPH.PH ---
Today's Communication / Plan
-
hold lasix
Assessment/Plan
-
IMP:
JONATAN with CKD 4-cr 1.6-2 Dr Sepulveda at [facility]
Acute on chronic heart failure with preserved ejection fraction
Acute hypoxic respiratory failure secondary to above
Bilateral pleural effusions s/p left thoracentesis of 1lit on 09/19
Coronary artery disease with H/O coronary stents
Elevated troponin
Leukocytosis
Hypokalemia
Hypertension
Hyperlipidemia
Diabetes
History of CVA with right hemiparesis
Nonambulatory at baseline
Frequent UTIs recently completed a course of Augmentin on 09/15/2023
Parkinson disease
Anemia of chronic disease
Chronic vertigo
Depression
GERD
Hypoalbuminemia
Plan:
follow BMP, hope that Cr will settle.
hold lasix
milrinone per cardiology, likely to be stopped
CT show pleural effusions. woudl consider thoracentesis, but patient had declined yesterday
patient says she would not do dialysis. We had a long discussion regarding ESRD and from renal failure.
We could consider repeat RHC to recheck volume status as I suspect the pressures would be improved
-
-
Date of Service: October 08, 2023
CC / HPI / ROS
-
Chief Complaint:
JONATAN with CKD
History of Present Illness:
JONATAN/Cr worse to 3.9
k normal
Hemodynamically stable
was diuresing well with IV lasix for decompensated HF and now milrinone
Review of Systems:
no cp or sob at rest
on supplemental O2
Labs
-
Labs:
WBC 9.8 10^3/uL (4.8-10.8) 10/04/23 06:00
RBC 2.59 10^6/uL (4.20-5.40) L 10/04/23 06:00
Hgb 8.5 g/dL (12.0-16.0) L 10/04/23 06:00
Hct 26.5 % (37.0-47.0) L 10/04/23 06:00
Plt Count 191 10^3/uL (130-400) 10/04/23 06:00
Sodium 138 mmol/L (135-145) 10/08/23 07:45
Potassium 4.7 mmol/L (3.5-5.1) 10/08/23 07:45
Chloride 93 mmol/L (98-107) L 10/08/23 07:45
Carbon Dioxide 34 mmol/L (22-30) H 10/08/23 07:45
BUN 75 mg/dl (7-17) H 10/08/23 07:45
Creatinine 3.9 mg/dL (0.6-1.0) H 10/08/23 07:45
eGFR 10.85 10/08/23 07:45
Glucose 149 mg/dl (70-99) H 10/08/23 07:45
Calcium 9.3 mg/dl (8.4-10.2) 10/08/23 07:45
Vxz-X-Wbzzfcbywkv Pept 97915 pg/ml 09/26/23 06:03
Albumin 2.5 g/dl (3.5-5.0) L 09/19/23 21:42
Physical Exam
-
Vital Signs:
Vital Signs
Temp Pulse Resp BP Pulse Ox
97.5 F 99 16 88/59 98
10/08/23 10:52 10/08/23 10:52 10/08/23 10:52 10/08/23 10:52 10/08/23 10:52
Cardiovascular:: Regular rate and rhythm
Respiratory:: Bilateral: Coarse
Lung Excursion:: Normal
Abdomen:: Nontender and Soft
Bowel Sounds:: Normal
Extremity Edema:: +1: Bilateral:
[2023-10-08 11:44] LABS: Glucose - Point of Care 205 mg/dl (70-99)
--- NOTE | 2023-10-08 11:49 | W.PN.CARDCBS ---
Today's Communication / Plan
-
Stop milrinone
Furosemide on hold
Stop amlodipine for relative hypotension
Consider goals of care and level of care
Impression / Plan
-
.
Primary Construction Pit Worker: Dr. Lee
Impression:
Presented 09/19/2023 with SOB
Acute hypoxemic respiratory failure, initially requiring bipap
Acute on chronic HFpEF, proBNP 24,000
B/L pleural effusions, status post left thoracentesis with 1050 mL removed on 09/20/2023
Elevated troponin, suspected nonischemic myocardial injury, peak troponin 0.26
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
Chronic bifascicular block
History of B/L CVAs on DAPT, most recent 11/2022 at [facility], transitioned back from brilinta to plavix
Residual R hemiparesis
HTN and labile HTN
History of left CVA from symptomatic left carotid stenosis in 05/2014
s/p Left internal carotid PTCA and stenting 08/27/2014
history of linq without ANY noted afibCAD
s/p overlapping 3 mm, 3.25 mm and 2.25 mm Cypher ZIA to LAD (3) 09/2009
s/p angioplasty alone of mid LAD stents 04/23/10COPD
DM 2
Dyslipidemia
Obesity
Parkinson's disease
PJ
Nephrotic range proteinuria
History of UTIs
Wheelchair bound
Chronic anemia
Hypokalemia
Leukocytosis
DNR CODE STATUS
ECHO 01/18/23: EF 57%, apex hypokinetic, mild MR, no significant change compared to prior
Echocardiogram 09/20/2023: Ejection fraction 48% by Dela Cruz's, mildly dilated left ventricle, moderate MR, mild TR, left pleural effusion seen
Chesty xray 09/26/2023: Limited study with increased interstitial opacities. Small to moderate bilateral effusions left greater than right suggestive of possible pulmonary edema
Right UE u/s neg for DVT 10/02/23
RHC 09/29
RA (m) : 18
RV (s/d,m) : 60/13, 17
PA (s/d, m) : 65/31, 47
PCWP (m) : 35
PA saturation: 64.1% on 6 L of oxygen via nasal cannula
AO saturation: 96.0 percent on 6 L of oxygen via nasal cannula (obtain noninvasively using pulse ox)
Heart rate: 70 bpm
Cardiac Output : 4.62 L/min
Cardiac Index : 2.5 L/min/m-2
Plan:
She appears dyspneic but perhaps less so than yesterday. However, creatinine is up to 3.9 from 3.2, and she is relatively hypotensive. Her ventricular response is controlled. She is tearful. Her chest CT showed pleural effusions but she refused
thoracentesis yesterday. I had a ana discussion with her yesterday along with her daughter regarding goals of care and potential level of care.
At this time, if patient wished, transition to palliative care or hospice would be reasonable. She has consistently stated she does not want dialysis.
We will stop milrinone at this time.
Blood pressure is relatively low so I stopped amlodipine. Continue hydralazine and nitrates for CHF.
I am not enthusiastic about repeating right heart cath at this time.
If we do not elect for palliative care, would empirically continue furosemide and I would probably add renal failure dose digoxin, 0.0625 mg 3 or 4 days a week. This could also be reasonably started in hospice for comfort
Await determinations regarding goals of care. Prognosis is very limited.
.
History of Present Illness 09/20/23:
Patient is an 83-year-old female resident of [facility] with past medical history of bilateral strokes on Plavix, transition to Brilinta, then back to Plavix again, history of left carotid artery stent, CAD with LAD PCI and angioplasty, chronic
HFpEF, COPD, diabetes, PJ and who is wheelchair-bound. She presented to [facility] due to concerns for UTI however was then noted to be tachypneic. Reported worsening shortness of breath over the weekend, which more acutely worsened
yesterday. On arrival to the ER was noted to be hypoxic and required BiPAP. She has now been transitioned to supplemental oxygen. proBNP was the highest it has ever been at 24,000. CXR with mod B/L pleural effusions. Cardiology consulted for
evaluation. She is unsure what dose of lasix she was receiving at [facility].
Progress Note - Construction Pit Worker
Subjective
Date of Service: October 08, 2023:
She is tearful, daughter not yet in today
PMH, PSH, SH, FH: Reviewed
Allergies: Numerous, please see summary screen
Home medications reviewed
Current medications: Milrinone, aspirin 81 mg a day, atorvastatin 40 mg a day, Sinemet, clopidogrel 75 mg a day, Cymbalta, metoprolol ER 25 mg a day, MiraLAX, pantoprazole, Colace, melatonin, oxybutynin, magnesium, heparin, hydralazine 25 every 8,
amlodipine 2.5 mg daily, Isordil 20 3 times daily, furosemide 80 mg IV daily, which is now on hold
ROS: Negative except as above
88/59, 99/55, pulse 90s, respirate 16, weight is 78.06 kg, essentially unchanged, intake and output +380
Tearful, tangential, lungs relatively clear, predominantly regular rate and rhythm around 100, JVD difficult to assess but not dramatically elevated at present. Soft systolic murmur abdomen benign, 1+ edema, neuro nonfocal
BUN and creatinine 75 and 3.9, creatinine had been 3.2
Objective
Labs:
10/04/23 06:00
10/08/23 07:45
Labs
Hgb 8.5 g/dL (12.0-16.0) L 10/04/23 06:00
Hct 26.5 % (37.0-47.0) L 10/04/23 06:00
Plt Count 191 10^3/uL (130-400) 10/04/23 06:00
PT 15.0 Sec (11.4-14.6) H 09/20/23 07:40
INR 1.20 09/20/23 07:40
APTT 99.0 Sec (23.4-35.0) H 09/21/23 08:28
Sodium 138 mmol/L (135-145) 10/08/23 07:45
Potassium 4.7 mmol/L (3.5-5.1) 10/08/23 07:45
BUN 75 mg/dl (7-17) H 10/08/23 07:45
Creatinine 3.9 mg/dL (0.6-1.0) H 10/08/23 07:45
Glucose 149 mg/dl (70-99) H 10/08/23 07:45
Vital Signs and I&O:
Vital Signs
Temp Pulse Resp BP Pulse Ox
36.4 C 99 16 88/59 98
10/08/23 10:52 10/08/23 10:52 10/08/23 10:52 10/08/23 10:52 10/08/23 10:52
Vital Signs
Temp Pulse Resp BP Pulse Ox
36.4 C 99 16 88/59 98
10/08/23 10:52 10/08/23 10:52 10/08/23 10:52 10/08/23 10:52 10/08/23 10:52
Intake & Output
10/06/23 10/07/23 10/08/23 10/09/23
07:59 07:59 07:59 07:59
Intake Total 1140 / 1140 647 / 647 680 / 680
Output Total 550 / 550 980 / 980 300 / 300
Balance 590 / 590 -333 / -333 380 / 380
Physical Exam
Physical Exam
See above
--- NOTE | 2023-10-08 12:36 | W.PN.HOSP.TC ---
Today's Communication/Plan
-
Thoracentesis will be next step if pt agrees
Watch Creat
Palliative care hospice appropriate if patient does not want interventions however she does not agree to that either
Assessment / Plan
Assessment / Plan
83 y/o female with shortness of breath
CVS: S1-S2 normal, sm at apex
Chest: few rales
Abdomen: Soft, NT Bowel sounds present
Extremities: No edema
STAFFING MGR: Non focal exam
#Acute on chronic heart failure with preserved ejection fraction
Acute hypoxic respiratory failure secondary to above
Bilateral pleural effusions left more than right on admission
S/P Left thoracentesis by IRAD
Possible aspiration pneumonitis- finished AB
Right heart cath shows increased filling pressures with a pulmonary catheter wedge pressure of 35.
CW Lasix 80 mg IV twice a day. Still no improvement in weight . Metolazone added by renal. Still no improvement in wt. Now Diuretics on hold
with Milrinone she didn't loose much weight
Weight is not reliable as this is documented in bed.
CT chest with bilateral effusions
# Suspect aspiration pneumonitis with elevated white count placed the patient on ceftriaxone. White count has normalized.
Speech evaluation noted. cw modified diet.
Off of abx
# Coronary artery disease with H/O coronary stents
Elevated troponin nonischemic myocardial injury
EKG bifascicular block PACs and PVCs
Continue DAPT, beta-augusto, statin
Echo 09/20/2023-LV dilated. Mild concentric LVH. Mildly reduced LV systolic function. Ejection fraction 48%. Global hypokinesis moderately dilated LA. Moderate MR. Mild TR. Compared to 2022 EF decreased
# Left thoracentesis with 1050 ml straw-colored pleural fluid. Transudate
# Hypertension-
Hold losartan
Continue Metoprolol,Imdur,Hydralazine, Norvasc
BP under goal
# Acute kidney injury on CKD stage IV
Ultrasound without any obstruction
Albuminuria noted
Baseline creatinine 1.6 ,hold losartan
Renal following
Creatinine trending up 3.9 now
# Diabetes-hemoglobin A1c 6.0
Patient was on Lantus insulin 28 units in the morning and 20 units at night along with NovoLog 12 before meals as outpatient prior to admission
Had one episode of hypo but not symptomatic.Keep on Hold her meal time insulin ,cw SSI.
CW Lantus insulin 15 units at nighttime.
Add 3 units of NovoLog Premeal
#Dysphagia - VSE noted - started on modified diet Pureed
#Anxiety - mood stable today. PRN Xanax

# Hyperlipidemia-statin
# History of CVA with right hemiparesis-left carotid artery stent-Nonambulatory at [id number]
# Frequent UTIs recently completed a course of Augmentin on 09/15/2023
# Parkinson disease-continue Sinemet
# Anemia of chronic disease
# Chronic vertigo on meclizine as needed
# Depression-on duloxetine
# GERD-PPI
# History of sleep apnea used to use BiPAP in the past but not anymore. She refuses , so stopped.
# DVT prophylaxis-SC heparin
# DNR
D/W RN at bed side
Patient does not want thoracentesis. ICU nephrology notes and I also spoke to her about possibly of dialysis if kidney function went to the course that she does not want dialysis . The night discussed about palliative care/hospice but she does not
want that either.
Very difficult situation where diuresis is not possible because of the renal numbers. She has fluid.
I spoke to son he is going to come in and talk to her later.
Anticipated Discharge: > 48 hours
Subjective/Interval History
-
Date of Service: October 08, 2023
Objective Data
-
Labs:
Laboratory Results
10/08/23
07:45
Sodium 138
Potassium 4.7
Chloride 93 L
Carbon Dioxide 34 H
BUN 75 H
Creatinine 3.9 H
Glucose 149 H
Calcium 9.3
Vital Signs:
Vital Signs
Temp Pulse Resp BP Pulse Ox
97.5 F 99 16 88/59 98
10/08/23 10:52 10/08/23 10:52 10/08/23 10:52 10/08/23 10:52 10/08/23 10:52
I&O
10/07/23 10/08/23 10/09/23
06:59 06:59 06:59
Intake Total 647 / 647 680 / 680
Output Total 800 / 800 480 / 480
Balance -153 / -153 200 / 200
[2023-10-08] MEDS: NOVOLOG FLEXPEN-MODERATE RESISTANCE 3 UNITS SC ×2 (13:24→17:32)
[2023-10-08 17:00] LABS: Glucose - Point of Care 227 mg/dl (70-99)
[2023-10-08] MEDS: APRESOLINE PO (17:31)
[2023-10-08] MEDS: ISORDIL PO (17:31)
[2023-10-08] MEDS: XANAX 0.25 MG PO (18:26)
[2023-10-08] MEDS: COLACE 100 MG PO (21:26)
[2023-10-08] MEDS: LIPITOR 40 MG PO (21:26)
[2023-10-08] MEDS: MELATONIN 5 MG PO (21:26)
[2023-10-08] MEDS: CYMBALTA DELAYED RELEASE 30 MG PO (21:26)
[2023-10-08] MEDS: SINEMET 10-100 2 TABLET PO (21:27)
[2023-10-08] MEDS: LANTUS 0.149999999999999994 UNITS SC (21:33)
[2023-10-08 21:34] LABS: Glucose - Point of Care 168 mg/dl (70-99)
[2023-10-09 03:07] VITALS: BP 99/56
[2023-10-09 05:49] VITALS: BMI 29.1
[2023-10-09 07:05] LABS: Hematocrit 24.9 % (37.0-47.0); Hemoglobin 8.1 g/dL (12.0-16.0); Mean Corp Hgb Conc. 32.5 g/dL (33.0-37.0); Mean Corpuscular Hgb 33.6 pg (27.0-31.0); Mean Corpuscular Volume 103.3 fL (81.0-99.0); Platelet Count 190 10^3/uL (130-400); Red Blood Cell Count 2.41 10^6/uL (4.20-5.40); Red Cell Dist. Width 14.6 % (11.5-14.5); White Blood Cell Count 10.1 10^3/uL (4.8-10.8)
[2023-10-09 07:31] LABS: Glucose - Point of Care 142 mg/dl (70-99)
[2023-10-09 07:46] LABS: Blood Urea Nitrogen 83 mg/dl (7-17); Calcium 9.3 mg/dl (8.4-10.2); Carbon Dioxide 38 mmol/L (22-30); Chloride 94 mmol/L (98-107); Estimated Creatinine Clearance 9 ml/min; Glucose 102 mg/dl (70-99); Potassium 4.7 mmol/L (3.5-5.1); Sodium 138 mmol/L (135-145); eGFR 9.14
[2023-10-09 07:48] VITALS: BP 132/53
[2023-10-09] MEDS: NOVOLOG FLEXPEN-MODERATE RESISTANCE SC ×3 (08:06→16:43)
[2023-10-09] MEDS: NOVOLOG FLEXPEN 3 UNITS SC ×2 (09:01→13:22)
[2023-10-09] MEDS: ASPIR LOW (ENTERIC COATED) 81 MG PO (09:02)
[2023-10-09] MEDS: PROTONIX 40 MG PO (09:02)
[2023-10-09] MEDS: REFRESH EYE DROPS (PF) 1 DROPS BOTH EYES ×4 (09:02→21:05)
[2023-10-09] MEDS: TOPROL XL 25 MG PO (09:02)
[2023-10-09] MEDS: PLAVIX 75 MG PO (09:02)
[2023-10-09] MEDS: DITROPAN 5 MG PO ×2 (09:03→21:05)
[2023-10-09] MEDS: ISORDIL 20 MG PO (09:03)
[2023-10-09] MEDS: APRESOLINE 25 MG PO (09:03)
[2023-10-09] MEDS: VITAMIN D3 (cholecalciferol) 25 MCG PO (09:03)
[2023-10-09] MEDS: HEPARIN 5000 UNITS SC ×2 (09:03→21:05)
[2023-10-09] MEDS: SINEMET 10-100 1 TABLET PO ×2 (09:05→16:14)
[2023-10-09] MEDS: MAGNESIUM OXIDE 500 MG PO (09:05)
[2023-10-09] MEDS: ARISTOCORT/TRIAMCINOLONE 0.1% CREAM 1 APPLIC TOPICAL ×2 (09:21→21:07)
[2023-10-09] MEDS: DESENEX/MITRAZOL/ZEASORB 1 APPLIC TOPICAL ×2 (09:21→21:06)
--- NOTE | 2023-10-09 11:03 | W.PN.CARDCBS ---
Today's Communication / Plan
-
No new cardiac recommendations
Prognosis is poor, currently in acute renal failure
Will sign off, please call if questions
Impression / Plan
-
.
Primary Advertising Clerk: Dr. Lee
Impression:
Presented 09/19/2023 with SOB
Acute hypoxemic respiratory failure, initially requiring bipap
Acute on chronic HFpEF, proBNP 24,000
B/L pleural effusions, status post left thoracentesis with 1050 mL removed on 09/20/2023
Elevated troponin, suspected nonischemic myocardial injury, peak troponin 0.26
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
Chronic bifascicular block
History of B/L CVAs on DAPT, most recent 11/2022 at [facility], transitioned back from brilinta to plavix
Residual R hemiparesis
HTN and labile HTN
History of left CVA from symptomatic left carotid stenosis in 05/2014
s/p Left internal carotid PTCA and stenting 08/27/2014
history of linq without ANY noted afibCAD
s/p overlapping 3 mm, 3.25 mm and 2.25 mm Cypher ZIA to LAD (3) 09/2009
s/p angioplasty alone of mid LAD stents 04/23/10COPD
DM 2
Dyslipidemia
Obesity
Parkinson's disease
PJ
Nephrotic range proteinuria
History of UTIs
Wheelchair bound
Chronic anemia
Hypokalemia
Leukocytosis
DNR CODE STATUS
ECHO 01/18/23: EF 57%, apex hypokinetic, mild MR, no significant change compared to prior
Echocardiogram 09/20/2023: Ejection fraction 48% by Dela Cruz's, mildly dilated left ventricle, moderate MR, mild TR, left pleural effusion seen
Chesty xray 09/26/2023: Limited study with increased interstitial opacities. Small to moderate bilateral effusions left greater than right suggestive of possible pulmonary edema
Right UE u/s neg for DVT 10/02/23
RHC 09/29
RA (m) : 18
RV (s/d,m) : 60/13, 17
PA (s/d, m) : 65/31, 47
PCWP (m) : 35
PA saturation: 64.1% on 6 L of oxygen via nasal cannula
AO saturation: 96.0 percent on 6 L of oxygen via nasal cannula (obtain noninvasively using pulse ox)
Heart rate: 70 bpm
Cardiac Output : 4.62 L/min
Cardiac Index : 2.5 L/min/m-2
Plan:
She has progressive rise in her creatinine, now 4.5.
She is now off milrinone.
Blood pressure and heart rate are reasonably controlled.
Patient remains unable to offer guidance as to appropriate level of care. Her family believes that under normal circumstances, when her state of mind was clear, that she would not want interventions, and in fact she is refusing these at presents,
but simultaneously unwilling to consider transition in level of care.
She is essentially anephric at present, suspect she will develop uremia. She has been consistent and refusing dialysis. Discussed with daughters at bedside.
No new recommendations. Will sign off. Please call if questions.
History of Present Illness 09/20/23:
Patient is an 83-year-old female resident of [facility] with past medical history of bilateral strokes on Plavix, transition to Brilinta, then back to Plavix again, history of left carotid artery stent, CAD with LAD PCI and angioplasty, chronic
HFpEF, COPD, diabetes, PJ and who is wheelchair-bound. She presented to [facility] due to concerns for UTI however was then noted to be tachypneic. Reported worsening shortness of breath over the weekend, which more acutely worsened
yesterday. On arrival to the ER was noted to be hypoxic and required BiPAP. She has now been transitioned to supplemental oxygen. proBNP was the highest it has ever been at 24,000. CXR with mod B/L pleural effusions. Cardiology consulted for
evaluation. She is unsure what [facility]ix [facility].
Progress Note - Advertising Clerk
Subjective
Date of Service: October 09, 2023:
PMH/PSH/FH/SH: Reviewed
Allergies: Numerous, please see summary screen
Outpatient medications: Reviewed, cardiac medications include amlodipine 2.5 mg daily, aspirin 81 mg a day, atorvastatin 40 mg a day, clopidogrel 75 mg a day, furosemide 40 mg a day, hydralazine 25 mg every 8 hours, losartan 100 mg a day, metoprolol
ER 25 mg daily
Current medications: Aspirin 81 mg a day, atorvastatin 40 mg a day, Sinemet, clopidogrel 75 mg a day, Cymbalta, metoprolol ER 25 mg a day, MiraLAX, pantoprazole, oxybutynin, magnesium, subcu heparin, hydralazine 25 every 8, amlodipine 2.5 mg daily
on hold, isosorbide dinitrate 20 mg 3 times daily, and furosemide 80 mg daily on hold
ROS: Negative except as above
132/93, 99/56, heart rate 80, respirate 14, afebrile, weight is 76.7 kg if accurate down 0.4 kg, awake, tangential, lungs are relatively clear, regular rate and rhythm, JVD difficult to assess, mild edema
Hemoglobin 8.1, white count 10.1, platelets 190, creatinine 4.5, had been 3.9 BUN is 83
Objective
Labs:
10/09/23 06:49
10/09/23 06:49
Labs
Hgb 8.1 g/dL (12.0-16.0) L 10/09/23 06:49
Hct 24.9 % (37.0-47.0) L 10/09/23 06:49
Plt Count 190 10^3/uL (130-400) 10/09/23 06:49
PT 15.0 Sec (11.4-14.6) H 09/20/23 07:40
INR 1.20 09/20/23 07:40
APTT 99.0 Sec (23.4-35.0) H 09/21/23 08:28
Sodium 138 mmol/L (135-145) 10/09/23 06:49
Potassium 4.7 mmol/L (3.5-5.1) 10/09/23 06:49
BUN 83 mg/dl (7-17) H 10/09/23 06:49
Creatinine 4.5 mg/dL (0.6-1.0) H* 10/09/23 06:49
Glucose 102 mg/dl (70-99) H 10/09/23 06:49
Vital Signs and I&O:
Vital Signs
Temp Pulse Resp BP Pulse Ox
36.4 C 80 14 132/53 94
10/09/23 03:07 10/09/23 07:48 10/09/23 07:48 10/09/23 07:48 10/09/23 07:48
Vital Signs
Temp Pulse Resp BP Pulse Ox
36.4 C 80 14 132/53 94
10/09/23 03:07 10/09/23 07:48 10/09/23 07:48 10/09/23 07:48 10/09/23 07:48
Intake & Output
10/07/23 10/08/23 10/09/23 10/10/23
07:59 07:59 07:59 07:59
Intake Total 647 / 647 680 / 680 120 / 120
Output Total 980 / 980 300 / 300 125 / 125
Balance -333 / -333 380 / 380 -5 / -5
Physical Exam
Physical Exam
See above
--- NOTE | 2023-10-09 11:41 | W.PN.NEPH.PH ---
Today's Communication / Plan
-
hospice eval
Assessment/Plan
-
IMP:
JONATAN with CKD 4-cr 1.6-2 Dr Sepulveda at [facility]
Acute on chronic heart failure with preserved ejection fraction
Acute hypoxic respiratory failure secondary to above
Bilateral pleural effusions s/p left thoracentesis of 1lit on 09/19
Coronary artery disease with H/O coronary stents
Elevated troponin
Leukocytosis
Hypokalemia
Hypertension
Hyperlipidemia
Diabetes
History of CVA with right hemiparesis
Nonambulatory at baseline
Frequent UTIs recently completed a course of Augmentin on 09/15/2023
Parkinson disease
Anemia of chronic disease
Chronic vertigo
Depression
GERD
Hypoalbuminemia
Plan:
follow BMP
hold lasix
long discussion with both daughters. They understand that she has progressive renal failure likely from cardiorenal syndrome. She does not want dialysis but also says she doesn't want to .
She does not want thoracentesis ofr other procedures. Also did not want to discuss hospice. In a separate d/w daughters, they agreed that hospice is the best option and accepted hospice consult.
prognosis is poor
-
-
Date of Service: October 09, 2023
CC / HPI / ROS
-
Chief Complaint:
JONATAN with CKD
History of Present Illness:
JONATAN/Cr worse to 4.5
k normal
Hemodynamically stable
BP stable
off milrinone
Review of Systems:
no cp or sob at rest
on supplemental O2
Labs
-
Labs:
WBC 10.1 10^3/uL (4.8-10.8) 10/09/23 06:49
RBC 2.41 10^6/uL (4.20-5.40) L 10/09/23 06:49
Hgb 8.1 g/dL (12.0-16.0) L 10/09/23 06:49
Hct 24.9 % (37.0-47.0) L 10/09/23 06:49
Plt Count 190 10^3/uL (130-400) 10/09/23 06:49
Sodium 138 mmol/L (135-145) 10/09/23 06:49
Potassium 4.7 mmol/L (3.5-5.1) 10/09/23 06:49
Chloride 94 mmol/L (98-107) L 10/09/23 06:49
Carbon Dioxide 38 mmol/L (22-30) H 10/09/23 06:49
BUN 83 mg/dl (7-17) H 10/09/23 06:49
Creatinine 4.5 mg/dL (0.6-1.0) H* 10/09/23 06:49
eGFR 9.14 10/09/23 06:49
Glucose 102 mg/dl (70-99) H 10/09/23 06:49
Calcium 9.3 mg/dl (8.4-10.2) 10/09/23 06:49
Nno-T-Rbujxorxheg Pept 51432 pg/ml 09/26/23 06:03
Albumin 2.5 g/dl (3.5-5.0) L 09/19/23 21:42
Physical Exam
-
Vital Signs:
Vital Signs
Temp Pulse Resp BP Pulse Ox
97.5 F 80 14 132/53 94
10/09/23 03:07 10/09/23 07:48 10/09/23 07:48 10/09/23 07:48 10/09/23 07:48
Cardiovascular:: Regular rate and rhythm
Respiratory:: Bilateral: Coarse
Lung Excursion:: Normal
Abdomen:: Nontender and Soft
Bowel Sounds:: Normal
Extremity Edema:: None: Bilateral:
[2023-10-09 11:55] LABS: Glucose - Point of Care 124 mg/dl (70-99)
--- NOTE | 2023-10-09 12:06 | W.PN.HOSP.TC ---
Today's Communication/Plan
-
Hold antihypertensives except metoprolol as blood pressure is on the low side
Bowel regimen
Encourage p.o. intake
poor prognosis
Assessment / Plan
Assessment / Plan
83 y/o female with shortness of breath
CVS: S1-S2 normal, sm at apex
Chest: few rales
Abdomen: Soft, NT Bowel sounds present
Extremities: No edema
[employer] [facility]: Non focal exam
#Acute on chronic heart failure with preserved ejection fraction
Acute hypoxic respiratory failure secondary to above
Bilateral pleural effusions left more than right on admission
S/P Left thoracentesis by IR[facility]
Possible aspiration pneumonitis- finished AB
Right heart cath shows increased filling pressures with a pulmonary catheter wedge pressure of 35.
CW Lasix 80 mg IV twice a day. Still no improvement in weight . Metolazone added by renal. Still no improvement in wt. Now Diuretics on hold
with Milrinone she didn't loose much weight
Weight is not reliable as this is documented in bed.
CT chest with bilateral effusions
Patient does not want thoracentesis
# Suspect aspiration pneumonitis with elevated white count placed the patient on ceftriaxone. White count has normalized.
Speech evaluation noted. cw modified diet.
Off of abx
# Coronary artery disease with H/O coronary stents
Elevated troponin nonischemic myocardial injury
EKG bifascicular block PACs and PVCs
Continue DAPT, beta-augusto, statin
Echo 09/20/2023-LV dilated. Mild concentric LVH. Mildly reduced LV systolic function. Ejection fraction 48%. Global hypokinesis moderately dilated LA. Moderate MR. Mild TR. Compared to 2022 EF decreased
# Left thoracentesis 09/20/2023-with 1050 ml straw-colored pleural fluid. Transudate
# Hypertension-
Hold losartan
Hold ,Imdur,Hydralazine, Norvasc-BP low
Continue metoprolol
BP under goal
# Acute kidney injury on CKD stage IV
Ultrasound without any obstruction
Albuminuria noted
Baseline creatinine 1.6 ,hold losartan
Renal following
Creatinine trending up 4.5 now
# Diabetes-hemoglobin A1c 6.0
Patient was on Lantus insulin 28 units in the morning and 20 units at night along with NovoLog 12 before meals as outpatient prior to admission
Had one episode of hypo but not symptomatic.Keep on Hold her meal time insulin ,cw SSI.
CW Lantus insulin 15 units at nighttime.
Continue 3 units of NovoLog Premeal
#Dysphagia - VSE noted - started on modified diet Pureed
#Anxiety - mood stable today. PRN Xanax
# Constipation-bowel regimen ordered

# Hyperlipidemia-statin
# History of CVA with right hemiparesis-left carotid artery stent-[facility]ambulatory at [id number]
# Frequent UTIs recently completed a course of Augmentin on 09/15/2023
# Parkinson disease-continue Sinemet
# Anemia of chronic disease
# Chronic vertigo on meclizine as needed
# Depression-on duloxetine
# GERD-PPI
# History of sleep apnea used to use BiPAP in the past but not anymore. She refuses , so stopped.
# DVT prophylaxis-SC heparin
# DNR
Patient does not want thoracentesis. I see nephrology notes and I also spoke to her about possibly of dialysis if kidney function went to the course that she does not want dialysis . Then I discussed about palliative care/hospice but she does not
want that either.
Very difficult situation where diuresis is not possible because of the renal numbers. She has fluid.
D/W RN
D/W Renal and Cardiology
I spoke to son 10/08/23
I spoke to 2 daughters at bed side today
They are aware about patient's renal function worsening. Refusing thoracentesis. Hold off on any further diuretics given above. Patient also stated that she is afraid of dying. Daughters are aware that patient is actually actively dying at this
point few days to a couple weeks the best with renal function like this.
They understand the gravity of the situation.
time spent 53 min
Anticipated Discharge: > 48 hours
Subjective/Interval History
-
Date of Service: October 09, 2023
Objective Data
-
Labs:
Laboratory Results
10/09/23
06:49
WBC 10.1
Hgb 8.1 L
Hct 24.9 L
Plt Count 190
Sodium 138
Potassium 4.7
Chloride 94 L
Carbon Dioxide 38 H
BUN 83 H
Creatinine 4.5 H*
Glucose 102 H
Calcium 9.3
Vital Signs:
Vital Signs
Temp Pulse Resp BP Pulse Ox
97.5 F 80 14 132/53 94
10/09/23 03:07 10/09/23 07:48 10/09/23 07:48 10/09/23 07:48 10/09/23 07:48
I&O
10/08/23 10/09/23 10/10/23
06:59 06:59 06:59
Intake Total 680 / 680 120 / 120
Output Total 480 / 480 125 / 125
Balance 200 / 200 -5 / -5
[2023-10-09 12:15] VITALS: BP 95/37
[2023-10-09] MEDS: DULCOLAX 10 MG RECTAL (13:26)
[2023-10-09] MEDS: SENOKOT 17.1999999999999993 MG PO ×2 (13:26→21:06)
[2023-10-09] MEDS: MIRALAX 17 GRAMS PO (13:26)
[2023-10-09 15:00] VITALS: BP 108/49
[2023-10-09 16:41] LABS: Glucose - Point of Care 109 mg/dl (70-99)
[2023-10-09] MEDS: NOVOLOG FLEXPEN SC (16:44)
--- NOTE | 2023-10-09 16:44 | PTCARENOTE ---
Pt not eating and finger stick at 109. Holding 3units of insulin due to lower sugar and decrease appetite.
[2023-10-09 19:32] VITALS: BP 110/60
[2023-10-09] MEDS: MELATONIN 5 MG PO (21:05)
[2023-10-09] MEDS: LIPITOR 40 MG PO (21:06)
[2023-10-09] MEDS: SINEMET 10-100 2 TABLET PO (21:06)
[2023-10-09] MEDS: CYMBALTA DELAYED RELEASE 30 MG PO (21:06)
[2023-10-09] MEDS: COLACE 100 MG PO (21:06)
[2023-10-09 21:21] LABS: Glucose - Point of Care 79 mg/dl (70-99)
[2023-10-09] MEDS: LANTUS 0.0700000000000000067 UNITS SC (23:02)
[2023-10-09 23:46] VITALS: BP 126/61
[2023-10-10 03:21] LABS: Glucose - Point of Care 146 mg/dl (70-99)
[2023-10-10 03:37] VITALS: BP 132/74
[2023-10-10 03:40] VITALS: BMI 29.0
[2023-10-10 06:00] VITALS: BMI 29.0
[2023-10-10 06:53] LABS: Hematocrit 27.2 % (37.0-47.0); Hemoglobin 8.8 g/dL (12.0-16.0); Mean Corp Hgb Conc. 32.4 g/dL (33.0-37.0); Mean Corpuscular Hgb 32.8 pg (27.0-31.0); Mean Corpuscular Volume 101.5 fL (81.0-99.0); Mean Platelet Volume 11.2 fL (7.4-10.4); Platelet Count 246 10^3/uL (130-400); Red Blood Cell Count 2.68 10^6/uL (4.20-5.40); Red Cell Dist. Width 14.7 % (11.5-14.5); White Blood Cell Count 11.1 10^3/uL (4.8-10.8)
[2023-10-10 07:28] LABS: Glucose - Point of Care 146 mg/dl (70-99)
[2023-10-10 07:37] LABS: Blood Urea Nitrogen 86 mg/dl (7-17); Calcium 9.3 mg/dl (8.4-10.2); Carbon Dioxide 35 mmol/L (22-30); Chloride 94 mmol/L (98-107); Estimated Creatinine Clearance 9 ml/min; Glucose 125 mg/dl (70-99); Potassium 4.2 mmol/L (3.5-5.1); Sodium 137 mmol/L (135-145)
[2023-10-10 07:40] VITALS: BP 145/80
[2023-10-10] MEDS: SENOKOT 17.1999999999999993 MG PO ×2 (10:01→21:00)
[2023-10-10] MEDS: REFRESH EYE DROPS (PF) 1 DROPS BOTH EYES ×4 (10:01→21:02)
[2023-10-10] MEDS: PROTONIX 40 MG PO (10:02)
[2023-10-10] MEDS: VITAMIN D3 (cholecalciferol) 25 MCG PO (10:02)
[2023-10-10] MEDS: TOPROL XL 25 MG PO (10:02)
[2023-10-10] MEDS: DITROPAN 5 MG PO ×2 (10:02→21:00)
[2023-10-10] MEDS: ASPIR LOW (ENTERIC COATED) 81 MG PO (10:02)
[2023-10-10] MEDS: PLAVIX 75 MG PO (10:02)
[2023-10-10] MEDS: SINEMET 10-100 1 TABLET PO ×2 (10:02→16:41)
[2023-10-10] MEDS: COLACE 100 MG PO ×2 (10:02→21:01)
[2023-10-10] MEDS: MIRALAX 17 GRAMS PO (10:03)
[2023-10-10] MEDS: HEPARIN 5000 UNITS SC ×2 (10:03→21:00)
[2023-10-10] MEDS: ARISTOCORT/TRIAMCINOLONE 0.1% CREAM 1 APPLIC TOPICAL ×2 (10:06→21:00)
--- NOTE | 2023-10-10 10:09 | CM ---
Addendum entered by SOFIA Desouza 10/10/23 12:18:
Received call from Samara in admissions at [facility] who stated that the three hospice agencies that they contract with are: [facility], [facility], and [facility].
Will need to f/u with patient's family to present options and make referrals.
Original Note:
Received consult for hospice. Met with patient and her daughter and son to provide overview. Patient's daughter stated that patient was provided with a dx of end stage renal by nephrology. Provided overview of hospice. Patient's daughter stated that
patient lives at [facility] and they would like services implemented there.
Placed a call to admissions at [facility] to determine which agencies they contract with. Had to leave a voice mail message. Requested return call with information on options for patient so that referral can be sent.
Attending updated.
Plan: Case management will continue to follow and assist with discharge planning. Back to [facility] on hospice.
[2023-10-10] MEDS: NOVOLOG FLEXPEN 3 UNITS SC ×3 (10:11→17:29)
[2023-10-10] MEDS: NOVOLOG FLEXPEN-MODERATE RESISTANCE SC (10:11)
[2023-10-10] MEDS: DESENEX/MITRAZOL/ZEASORB 1 APPLIC TOPICAL ×2 (10:12→21:00)
--- NOTE | 2023-10-10 10:20 | W.PN.HOSP.TC ---
Today's Communication/Plan
-
DC planning
Assessment / Plan
Assessment / Plan
83 y/o female with shortness of breath
#Acute on chronic heart failure with preserved ejection fraction
Acute hypoxic respiratory failure secondary to above
Bilateral pleural effusions left more than right on admission
S/P Left thoracentesis by [facility]
Possible aspiration pneumonitis- finished AB
Right heart cath shows increased filling pressures with a pulmonary catheter wedge pressure of 35.
on Lasix 80 mg IV twice a day. Still no improvement in weight . Metolazone added by renal. Still no improvement in wt. Now Diuretics on hold
with Milrinone she didn't loose much weight
Weight is not reliable as this is documented in bed.
CT chest with bilateral effusions
Patient does not want thoracentesis
# Suspect aspiration pneumonitis with elevated white count placed the patient on ceftriaxone. White count has normalized.
Speech evaluation noted. cw modified diet.
Off of abx
# Coronary artery disease with H/O coronary stents
Elevated troponin nonischemic myocardial injury
EKG bifascicular block PACs and PVCs
Continue DAPT, beta-augusto, statin
Echo 09/20/2023-LV dilated. Mild concentric LVH. Mildly reduced LV systolic function. Ejection fraction 48%. Global hypokinesis moderately dilated LA. Moderate MR. Mild TR. Compared to 2022 EF decreased
# Left thoracentesis 09/20/2023-with 1050 ml straw-colored pleural fluid. Transudate
# Hypertension-
Hold losartan
Hold ,Imdur,Hydralazine, Norvasc-BP low
Continue metoprolol
BP under goal
# Acute kidney injury on CKD stage IV
suspected cardiorenal syndrome
Ultrasound without any obstruction
Albuminuria noted
Baseline creatinine 1.6 ,hold losartan
Renal following
Creatinine trending up 4.6 now
# Diabetes-hemoglobin A1c 6.0
Patient was on Lantus insulin 28 units in the morning and 20 units at night along with NovoLog 12 before meals as outpatient prior to admission
Had one episode of hypo but not symptomatic.Keep on Hold her meal time insulin ,cw SSI.
CW Lantus insulin 15 units at nighttime.
Continue 3 units of NovoLog Premeal
#Dysphagia - VSE noted - started on modified diet Pureed
#Anxiety - mood stable today. PRN Xanax
# Constipation-bowel regimen ordered

# Hyperlipidemia-statin
# History of CVA with right hemiparesis-left carotid artery stent-[facility]ambulatory at [id number]
# Frequent UTIs recently completed a course of Augmentin on 09/15/2023
# Parkinson disease-continue Sinemet
# Anemia of chronic disease
# Chronic vertigo on meclizine as needed
# Depression-on duloxetine
# GERD-PPI
# History of sleep apnea used to use BiPAP in the past but not anymore. She refuses , so stopped.
# DVT prophylaxis-SC heparin
# DNR
cardiology signed off
Renal had discussions with the daughters about hospice
Hospice discussions that happened today. Discussed with case management-the plan is hospice at [facility] which is the facility patient has been for last few years.
Daughter is at bedside failed hospice is probably appropriate with progressive heart failure now with cardiorenal syndrome.
time spent 52 min
Anticipated Discharge: Within 24 hours
Subjective/Interval History
-
Date of Service: October 10, 2023
patient seen along with the daughters.
She says she did not get much sleep last night and feeling tired today. Denies shortness of breath at rest.
There was hospice discussions by the case management this morning.
Patient not participating much with regards to goals of care questions with me today
Objective Data
-
Labs:
Laboratory Results
10/10/23
05:55
WBC 11.1 H
Hgb 8.8 L
Hct 27.2 L
Plt Count 246 D
Sodium 137
Potassium 4.2
Chloride 94 L
Carbon Dioxide 35 H
BUN 86 H
Creatinine 4.6 H*
Glucose 125 H
Calcium 9.3
Vital Signs:
Vital Signs
Temp Pulse Resp BP Pulse Ox
97.6 F 85 18 145/80 96
10/10/23 07:40 10/10/23 10:02 10/10/23 07:40 10/10/23 10:02 10/10/23 07:40
I&O
10/09/23 10/10/23 10/11/23
06:59 06:59 06:59
Intake Total 120 / 120
Output Total 125 / 125 100 / 100
Balance -5 / -5 -100 / -100
Review of Systems
-
Respiratory: Denies Trouble Breathing
Cardiac: Denies Chest Pain
Abdomen/GI: Denies Nausea
Neuro: Denies Dizzy
Physical Exam
-
General: Negative Respiratory Distress
Respiratory: Non Labored Respirations; Negative Accessory Resp Muscle Use
Neuro: AO x 3
Data Reviewed
-
Labs: Labs Reviewed by me
--- NOTE | 2023-10-10 11:16 | W.PN.NEPH.PH ---
Today's Communication / Plan
-
hospice
Assessment/Plan
-
IMP:
JONATAN with CKD 4-cr 1.6-2 Dr Sepulveda at [facility]
Acute on chronic heart failure with preserved ejection fraction
Acute hypoxic respiratory failure secondary to above
Bilateral pleural effusions s/p left thoracentesis of 1lit on 09/19
Coronary artery disease with H/O coronary stents
Elevated troponin
Leukocytosis
Hypokalemia
Hypertension
Hyperlipidemia
Diabetes
History of CVA with right hemiparesis
Nonambulatory at baseline
Frequent UTIs recently completed a course of Augmentin on 09/15/2023
Parkinson disease
Anemia of chronic disease
Chronic vertigo
Depression
GERD
Hypoalbuminemia
Plan:
await hospice arrangements
lasix prn comfort
can liberalize diet if desired
d/w daughter
will sign off, please call with questions
-
-
Date of Service: October 10, 2023
CC / HPI / ROS
-
Chief Complaint:
JONATAN with CKD
History of Present Illness:
JONATAN/Cr worse to 4.6
k normal
Hemodynamically stable
BP stable
off milrinone
Review of Systems:
no cp or sob at rest
on supplemental O2
weight stable
Labs
-
Labs:
WBC 11.1 10^3/uL (4.8-10.8) H 10/10/23 05:55
RBC 2.68 10^6/uL (4.20-5.40) L 10/10/23 05:55
Hgb 8.8 g/dL (12.0-16.0) L 10/10/23 05:55
Hct 27.2 % (37.0-47.0) L 10/10/23 05:55
Plt Count 246 10^3/uL (130-400) D 10/10/23 05:55
Sodium 137 mmol/L (135-145) 10/10/23 05:55
Potassium 4.2 mmol/L (3.5-5.1) 10/10/23 05:55
Chloride 94 mmol/L (98-107) L 10/10/23 05:55
Carbon Dioxide 35 mmol/L (22-30) H 10/10/23 05:55
BUN 86 mg/dl (7-17) H 10/10/23 05:55
Creatinine 4.6 mg/dL (0.6-1.0) H* 10/10/23 05:55
eGFR 8.90 10/10/23 05:55
Glucose 125 mg/dl (70-99) H 10/10/23 05:55
Calcium 9.3 mg/dl (8.4-10.2) 10/10/23 05:55
Evn-Q-Srcfdlmweqx Pept 29086 pg/ml 09/26/23 06:03
Albumin 2.5 g/dl (3.5-5.0) L 09/19/23 21:42
Physical Exam
-
Vital Signs:
Vital Signs
Temp Pulse Resp BP Pulse Ox
97.6 F 85 18 145/80 96
10/10/23 07:40 10/10/23 10:02 10/10/23 07:40 10/10/23 10:02 10/10/23 07:40
Cardiovascular:: Regular rate and rhythm
Respiratory:: Bilateral: Coarse
Lung Excursion:: Normal
Abdomen:: Nontender and Soft
Bowel Sounds:: Normal
Extremity Edema:: +1: Bilateral:
[2023-10-10 11:25] VITALS: BP 125/55
[2023-10-10 12:09] LABS: Glucose - Point of Care 163 mg/dl (70-99)
[2023-10-10] MEDS: NOVOLOG FLEXPEN-MODERATE RESISTANCE 1 UNITS SC ×2 (14:17→17:29)
[2023-10-10 15:15] VITALS: BP 117/53
[2023-10-10] MEDS: XANAX 0.25 MG PO (16:41)
[2023-10-10 17:12] LABS: Glucose - Point of Care 173 mg/dl (70-99)
[2023-10-10 19:59] VITALS: BP 119/47
[2023-10-10] MEDS: MELATONIN 5 MG PO (21:01)
[2023-10-10] MEDS: SINEMET 10-100 2 TABLET PO (21:01)
[2023-10-10] MEDS: CYMBALTA DELAYED RELEASE 30 MG PO (21:01)
[2023-10-10] MEDS: LIPITOR 40 MG PO (21:02)
[2023-10-10 21:42] LABS: Glucose - Point of Care 102 mg/dl (70-99)
[2023-10-10] MEDS: LANTUS 0.149999999999999994 UNITS SC (22:10)
[2023-10-10 23:08] VITALS: BP 127/59
[2023-10-11] VITALS (7 sets, daily range): BP systolic 111–155; BP diastolic 49–84; BMI 29.0
--- NOTE | 2023-10-11 01:00 | PTCARENOTE ---
During 2300 vitals, pt temperature was 96.0 orally. Notified ALEXIA. Penny moya ordered and initiated. Pt rectal temperature was 94.7. Temperature target is 97.0. Patient is resting comfortably and has no complaints at this time.
[2023-10-11] MEDS: XANAX 0.25 MG PO (04:08)
[2023-10-11 08:03] LABS: Glucose - Point of Care 94 mg/dl (70-99)
[2023-10-11] MEDS: NOVOLOG FLEXPEN-MODERATE RESISTANCE SC ×3 (08:18→16:28)
--- NOTE | 2023-10-11 08:45 | W.PN.HOSP.TC ---
Today's Communication/Plan
-
DC
Assessment / Plan
Assessment / Plan
83 y/o female with shortness of breath
#Acute on chronic heart failure with preserved ejection fraction
Acute hypoxic respiratory failure secondary to above
Bilateral pleural effusions left more than right on admission
S/P Left thoracentesis by [facility]
Possible aspiration pneumonitis- finished AB
Right heart cath shows increased filling pressures with a pulmonary catheter wedge pressure of 35.
on Lasix 80 mg IV twice a day. Still no improvement in weight . Metolazone added by renal. Still no improvement in wt. Now Diuretics on hold
with Milrinone she didn't loose much weight
CT chest with bilateral effusions
Patient does not want thoracentesis
# Suspect aspiration pneumonitis with elevated white count placed the patient on ceftriaxone. White count has normalized.
Speech evaluation noted. cw modified diet.
Off of abx
# Coronary artery disease with H/O coronary stents
Elevated troponin nonischemic myocardial injury
EKG bifascicular block PACs and PVCs
Continue DAPT, beta-augusto, statin
Echo 09/20/2023-LV dilated. Mild concentric LVH. Mildly reduced LV systolic function. Ejection fraction 48%. Global hypokinesis moderately dilated LA. Moderate MR. Mild TR. Compared to 2022 EF decreased
# Left thoracentesis 09/20/2023-with 1050 ml straw-colored pleural fluid. Transudate
# Hypertension-
Hold losartan
Hold ,Imdur,Hydralazine, Norvasc-BP low
Continue metoprolol
BP under goal
# Acute kidney injury on CKD stage IV
suspected cardiorenal syndrome
Ultrasound without any obstruction
Albuminuria noted
Baseline creatinine 1.6 ,hold losartan
Renal following
Creatinine trending up 4.6 now
# Diabetes-hemoglobin A1c 6.0
Patient was on Lantus insulin 28 units in the morning and 20 units at night along with NovoLog 12 before meals as outpatient prior to admission
Had one episode of hypo but not symptomatic.Keep on Hold her meal time insulin ,cw SSI.
CW Lantus insulin 15 units at nighttime.
Continue 3 units of NovoLog Premeal
#Dysphagia - VSE noted - started on modified diet Pureed
#Anxiety - mood stable today. PRN Xanax
# Constipation-bowel regimen ordered

# Hyperlipidemia-statin
# History of CVA with right hemiparesis-left carotid artery stent-[facility]ambulatory at [facility]
# Frequent UTIs recently completed a course of Augmentin on 09/15/2023
# Parkinson disease-continue Sinemet
# Anemia of chronic disease
# Chronic vertigo on meclizine as needed
# Depression-on duloxetine
# GERD-PPI
# History of sleep apnea used to use BiPAP in the past but not anymore. She refuses , so stopped.
# DVT prophylaxis-SC heparin
# DNR
cardiology signed off
Renal had discussions with the daughters about hospice
Will add as needed morphine acute respiratory distress. Continue with Lasix for comfort.
Discussed with son regarding discharge plan to hospice. See my discussions yesterday with family and case management regarding hospice.
DC to her facility on hospice when bed available.
Total time of discharge 35 min
Anticipated Discharge: Today
Subjective/Interval History
-
Date of Service: October 11, 2023
This morning minimal conversation. She is alert. Son at bedside. He also states that mom is not speaking much with him either. She seems to struggle with the breathing. Patient does acknowledge shortness of breath. No pain.
Objective Data
-
Vital Signs:
Vital Signs
Temp Pulse Resp BP Pulse Ox
98.0 F 78 18 123/58 91
10/11/23 07:35 10/11/23 07:35 10/11/23 07:35 10/11/23 07:35 10/11/23 07:35
I&O
10/10/23 10/11/23 10/12/23
06:59 06:59 06:59
Intake Total
Output Total 100 / 100
Balance -100 / -100 /
Review of Systems
-
Unable to obtain full review of systems at this time due to: Other (see above)
Physical Exam
-
General: Negative No Apparent Distress
Respiratory: Crackles (BL crackles); Negative Non Labored Respirations
Cardiac: Regular Rhythm and S1/S2
Neuro: Awake and Alert
Psych: Calm
--- NOTE | 2023-10-11 08:56 | W.DS.TRANS ---
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
-
Discharge Instructions:
Discharge Diagnosis/Procedures Acute CHF decompensation with cardiorenal
syndrome
Diet Regular
Activity As tolerated
Driving Restrictions No driving
Other Services Hospice
Specialty Instructions Weigh Daily
Instructions: *DCA Heart Failure Instructions
Stand-Alone Forms: DC Instructions- Cath/EP Lab
Changes to Home Medications: Yes
Discharge Medications:
DC Medications w/original date entered in [employer]
aspirin 81 mg tablet,delayed release 81 mg PO DAILY Blood clot prevention/tx 02/26/19
bisacodyl 10 mg rectal suppository (OneLAX Bisacodyl) 10 mg LA DAILYPRN PRN if no bm aftr mom 02/26/19
cholecalciferol (vitamin D3) 25 mcg (1,000 unit) tablet 1,000 units PO DAILY Supplement 02/26/19
ipratropium 0.5 mg-albuterol 3 mg (2.5 mg base)/3 mL nebulization soln 3 ml inhalation R Q6HPRN PRN cough,congestion 02/26/19
oxybutynin chloride 10 mg tablet,extended release 24 hr 10 mg PO HS Urinary issue 02/26/19
pantoprazole 40 mg tablet,delayed release 40 mg PO DAILY Gastrointestinal issue 02/26/19
polyethylene glycol 3350 17 gram oral powder packet 17 grams PO MOWEFR@09 Constipation 02/26/19
albuterol sulfate 90 mcg/actuation aerosol inhaler 1 puff inhalation R Q6HPRN PRN sob 09/21/21
duloxetine 30 mg capsule,delayed release 30 mg PO HS Mental Health/Anxiety 09/21/21
melatonin 5 mg tablet 5 mg PO HS Sleep 09/21/21
metoprolol succinate 25 mg tablet,extended release 24 hr 25 mg PO DAILY Heart disease/condition 09/21/21
meclizine 25 mg tablet 25 mg PO Q8HPRN PRN vertigo 09/25/21
acetaminophen 325 mg tablet 650 mg PO Q6HPRN PRN mild pain, T>100 01/18/23
benzonatate 100 mg capsule 100 mg PO Q8HPRN PRN COUGH 01/18/23
carbidopa 10 mg-levodopa 100 mg tablet 1 tab PO BID@0900,1700 Neurological Condition 01/18/23
carbidopa 10 mg-levodopa 100 mg tablet 2 tab PO HS Neurological Condition 01/18/23
hmemmfhuzpinmhxqygcsuc-hykvkhcb-brcsieft 80 0.5 %-1 %-0.5 % eye drops (Refresh Digital) 1 drp BOTH EYES QID Eye Condition 01/18/23
clopidogrel 75 mg tablet (Plavix) 75 mg PO DAILY Blood Clot Prevention/Tx 01/18/23
hydrocortisone 1 % topical cream (Preparation H Hydrocortisone) 1 applic topical Q6HPRN PRN HEMORRHIODS 01/18/23
magnesium hydroxide 400 mg/5 mL oral suspension (Milk of Magnesia) 30 ml PO DAILYPRN PRN no BM x3 days 01/18/23
docusate sodium 100 mg capsule 100 mg PO HS Constipation 09/19/23
alprazolam 0.25 mg tablet 0.25 mg PO Q8HPRN PRN anxiety #10 tabs 10/11/23
furosemide 20 mg tablet 40 mg (2 x 20 mg) PO BID Fluid Retention/Swelling #60 tabs 10/11/23
insulin glargine 100 unit/mL (3 mL) subcutaneous pen (Basaglar KwikPen U-100 Insulin) 15 unit (0.15 mL) SQ HS Diabetes #0 mL 10/11/23
magnesium oxide 500 mg PO DAILY #1 tab 10/11/23
Home Medication Changes
New medication-Xanax
Discontinue medication-losartan, Norvasc, hydralazine because of low blood pressure
Pending Results: No
[2023-10-11] MEDS: NOVOLOG FLEXPEN SC ×2 (09:13→13:47)
[2023-10-11] MEDS: MORPHINE SULFATE 2 MG IV (09:16)
[2023-10-11] MEDS: ARISTOCORT/TRIAMCINOLONE 0.1% CREAM 1 APPLIC TOPICAL ×2 (09:17→21:00)
[2023-10-11] MEDS: SENOKOT PO ×2 (09:17→21:00)
[2023-10-11] MEDS: MIRALAX PO (09:17)
[2023-10-11] MEDS: COLACE PO ×2 (09:24→21:00)
--- NOTE | 2023-10-11 09:31 | PTCARENOTE ---
pt very sob at bedside. MD aware and order of morphine and IV lasix are placed. see MAR for proper charting. pt refusing to eat and refusing all oral medications for this nurse.
[2023-10-11] MEDS: ASPIR LOW (ENTERIC COATED) PO (09:34)
[2023-10-11] MEDS: PROTONIX PO (09:35)
[2023-10-11] MEDS: PLAVIX PO (09:35)
[2023-10-11] MEDS: REFRESH EYE DROPS (PF) BOTH EYES ×4 (09:35→23:17)
[2023-10-11] MEDS: DITROPAN PO ×2 (09:35→21:00)
[2023-10-11] MEDS: HEPARIN SC ×2 (09:35→23:15)
[2023-10-11] MEDS: TOPROL XL PO (09:36)
[2023-10-11] MEDS: SINEMET 10-100 PO ×3 (09:36→23:17)
[2023-10-11] MEDS: VITAMIN D3 (cholecalciferol) PO (09:36)
[2023-10-11] MEDS: LASIX 80 MG IV (09:53)
[2023-10-11] MEDS: DESENEX/MITRAZOL/ZEASORB TOPICAL (10:23)
--- NOTE | 2023-10-11 12:41 | PTCARENOTE ---
Addendum entered by Reva Glez RN 10/11/23 13:40:
Amber Torres, another daughter allowed information. phone number is [phone]
Original Note:
Per daughter Camilla, please do not give any patient medical information to Alana Mora if she is to call the floor. pt allowed visitation but no medical information at this time.
--- NOTE | 2023-10-11 13:33 | HOSPNOTE ---
Met with daughter and discussed hospice and the philosophy. The family is in agreement with hospice but we need to decide SNF on hospice vs inpatient hospice. Today the patient was severely agitated and appeared in great discomfort. The patient was
medicated with IV morphine and ativan. Will re assess patient tomorrow for inpatient vs placement. Attending and family aware of plan. Case management updated.
[2023-10-11 13:47] LABS: Glucose - Point of Care 87 mg/dl (70-99)
--- NOTE | 2023-10-11 14:38 | CM ---
Addendum entered by Adalgisa Torres 10/11/23 16:09:
Update to admissions/[facility]
Bed remains at [facility] tomorrow if needed
Referral called to [facility] and clinicals faxed to start processing in case SNF hospice is needed tomorrow
Fax- [phone]
Original Note:
CM reviewed chart and noted dc order
Bedside meeting with dtr and son bedside
Initial plan was to dc back to [facility]
Hospice provider choice is [facility]
Pt started on IV morphine- family in agreement with GIP assessment
Referral to Hospice
Per hospice, will assess for 24 hours and provide GIP determination tomorrow
If not GIP appropriate, will need to be referred to [facility] [phone]
Discharge Disposition- GIP vs return [facility]
--- NOTE | 2023-10-11 16:49 | PTCARENOTE ---
pt still refusing all oral medications at this time and eye drops. complete bed bath done by this nurse at bedside. accuchecks with meals discontinued per MD. decision for GIP hospice vs d/c to SNF on hospice to be made tomorrow. sugar check in the
AM per doctor order. pt increased to 3L of O2 this afternoon. sating at 91%
[2023-10-11] MEDS: DESENEX/MITRAZOL/ZEASORB 1 APPLIC TOPICAL (21:00)
[2023-10-11] MEDS: CYMBALTA DELAYED RELEASE PO (23:00)
[2023-10-11] MEDS: LANTUS SC (23:16)
[2023-10-11] MEDS: MELATONIN PO (23:17)
[2023-10-11] MEDS: LIPITOR PO (23:17)
--- NOTE | 2023-10-11 23:22 | PTCARENOTE ---
Patient refused all oral medications. Oral care and partial bath given. Patient resting comfortably in bed.
[2023-10-12 05:10] VITALS: BMI 28.3
[2023-10-12 07:35] VITALS: BP 132/55
[2023-10-12] MEDS: MORPHINE SULFATE 2 MG IV (07:49)
[2023-10-12] MEDS: XANAX 0.25 MG PO (07:49)
[2023-10-12 08:36] LABS: Glucose - Point of Care 79 mg/dl (70-99)
--- NOTE | 2023-10-12 09:04 | HOSPNOTE ---
The plan is to return to [facility] on hospice with their preferred provider.
[2023-10-12] MEDS: LASIX 80 MG IV (09:55)
[2023-10-12] MEDS: HEPARIN 5000 UNITS SC (09:56)
[2023-10-12] MEDS: PLAVIX 75 MG PO (09:57)
[2023-10-12] MEDS: SINEMET 10-100 1 TABLET PO (09:57)
[2023-10-12] MEDS: REFRESH EYE DROPS (PF) 1 DROPS BOTH EYES (09:57)
[2023-10-12] MEDS: TOPROL XL 25 MG PO (09:58)
[2023-10-12] MEDS: ASPIR LOW (ENTERIC COATED) PO (10:37)
[2023-10-12] MEDS: PROTONIX PO (10:37)
[2023-10-12] MEDS: SENOKOT PO (10:37)
[2023-10-12] MEDS: COLACE PO (10:37)
[2023-10-12] MEDS: VITAMIN D3 (cholecalciferol) PO (10:37)
[2023-10-12] MEDS: DITROPAN PO (10:37)
[2023-10-12] MEDS: MIRALAX PO (10:37)
[2023-10-12] MEDS: ARISTOCORT/TRIAMCINOLONE 0.1% CREAM 1 APPLIC TOPICAL (10:47)
[2023-10-12] MEDS: DESENEX/MITRAZOL/ZEASORB 1 APPLIC TOPICAL (10:48)
--- NOTE | 2023-10-12 12:27 | CM ---
Addendum entered by Adalgisa Torres 10/12/23 13:50:
Transport arranged 3:30pm
Original Note:
CM reviewed pt with Dr Rowe and Myrna/hospice- pt does not meet GIP
Ready for dc to SNF with hospice
Bedside meeting with dtr who is in agreement with plan
IMM verbally reviewed- copy provided
SNF bed and hospice arrangements made with [facility] admissions and [facility] [phone]
Transport forms on chart
DNR on chart- TT/Dr Rowe for completion
Discharge Disposition- return to [facility] B[facility]
Phone- [phone] Fax- [phone]
[facility] SNF fax- [phone]
--- NOTE | 2023-10-12 12:28 | W.PN.HOSP.TC ---
Today's Communication/Plan
-
dc
Assessment / Plan
Assessment / Plan
83 y/o female with shortness of breath
#Acute on chronic heart failure with preserved ejection fraction
Acute hypoxic respiratory failure secondary to above
Bilateral pleural effusions left more than right on admission
S/P Left thoracentesis by [facility]
Possible aspiration pneumonitis- finished AB
Right heart cath shows increased filling pressures with a pulmonary catheter wedge pressure of 35.
on Lasix 80 mg IV twice a day. Still no improvement in weight . Metolazone added by renal. Still no improvement in wt. Now Diuretics on hold
with Milrinone she didn't loose much weight
CT chest with bilateral effusions
Patient does not want thoracentesis
# Suspect aspiration pneumonitis with elevated white count placed the patient on ceftriaxone. White count has normalized.
Speech evaluation noted. cw modified diet.
Off of abx
# Coronary artery disease with H/O coronary stents
Elevated troponin nonischemic myocardial injury
EKG bifascicular block PACs and PVCs
Continue DAPT, beta-augusto, statin
Echo 09/20/2023-LV dilated. Mild concentric LVH. Mildly reduced LV systolic function. Ejection fraction 48%. Global hypokinesis moderately dilated LA. Moderate MR. Mild TR. Compared to 2022 EF decreased
# Left thoracentesis 09/20/2023-with 1050 ml straw-colored pleural fluid. Transudate
# Hypertension-
Hold losartan
Hold ,Imdur,Hydralazine, Norvasc-BP low
Continue metoprolol
BP under goal
# Acute kidney injury on CKD stage IV
suspected cardiorenal syndrome
Ultrasound without any obstruction
Albuminuria noted
Baseline creatinine 1.6 ,hold losartan
Renal following
Creatinine trending up 4.6 now
# Diabetes-hemoglobin A1c 6.0
Patient was on Lantus insulin 28 units in the morning and 20 units at night along with NovoLog 12 before meals as outpatient prior to admission
Had one episode of hypo but not symptomatic.Keep on Hold her meal time insulin ,cw SSI.
CW Lantus insulin 15 units at nighttime.
Continue 3 units of NovoLog Premeal
#Dysphagia - VSE noted - started on modified diet Pureed
#Anxiety - mood stable today. PRN Xanax
# Constipation-bowel regimen ordered

# Hyperlipidemia-statin
# History of CVA with right hemiparesis-left carotid artery stent-[facility]ambulatory at [facility]
# Frequent UTIs recently completed a course of Augmentin on 09/15/2023
# Parkinson disease-continue Sinemet
# Anemia of chronic disease
# Chronic vertigo on meclizine as needed
# Depression-on duloxetine
# GERD-PPI
# History of sleep apnea used to use BiPAP in the past but not anymore. She refuses , so stopped.
# DVT prophylaxis-SC heparin
# DNR
cardiology signed off
Renal had discussions with the daughters about hospice
Will add as needed morphine acute respiratory distress. Continue with Lasix for comfort.
Discussed with son 10/10 regarding discharge plan to hospice. See my discussions yesterday with family and case management regarding hospice.
DW daughter at bedside today
Ok for transfer to her facility on hospice. Feels can be managed on oral comfort medications at her facility and i dont see impending demise.
DC to her facility on hospice when bed available.
Total time of discharge 35 min
Anticipated Discharge: Today
Subjective/Interval History
-
Date of Service: October 12, 2023
This morning she became symptomatic with shortness of breath especially after she was laid flat by her son. Improved with morphine. Currently sitting in the bed upright and not short of breath. She is not much talkative today. Not in any obvious
distress.
Objective Data
-
Vital Signs:
Vital Signs
Temp Pulse Resp BP Pulse Ox
97.4 F 77 16 132/55 94
10/12/23 07:35 10/12/23 09:58 10/12/23 07:35 10/12/23 09:58 10/12/23 08:05
I&O
10/11/23 10/12/23 10/13/23
06:59 06:59 06:59
Intake Total
Balance
Review of Systems
-
Unable to obtain full review of systems at this time due to: Other (Patient not much talkative)
Physical Exam
-
General: No Apparent Distress
HEENT: Moist Mucous Membranes
Respiratory: Crackles (bibasal) and Non Labored Respirations (at rest ); Negative Wheezes or Accessory Resp Muscle Use
Neuro: Awake and Alert
Psych: Calm
[2023-10-12] MEDS: REFRESH EYE DROPS (PF) BOTH EYES (14:04)
--- NOTE | 2023-10-12 14:54 | CHAP ---
Monsignor Sena provided Sacrament of the Sick/Last Rites for Ms. Ambrocio.
[2023-10-12 15:04] VITALS: BP 142/60
== END 2023-10-12 15:06 | DRG 286 ==
LOC: 2 NORTH 23:50
PROVIDERS: Hospitalist; Internal Medicine Interventional Cardiology; Nurse Practitioner; Physician Assistant; Radiology Diagnostic Radiology; Specialist; ADMITTING PHYSICIAN Hospitalist; ATTENDING PHYSICIAN Internal Medicine; CONSULT PHYSICIAN Internal Medicine; CONSULT PHYSICIAN Internal Medicine Cardiovascular Disease; CONSULT PHYSICIAN Internal Medicine Critical Care Medicine; EMERGENCY PHYSICIAN Emergency Medicine; FAMILY PHYSICIAN Internal Medicine Geriatric Medicine
PROC: 5A09357 Assistance with Respiratory Ventilation, Less than 24 Consecutive Hours, Continuous Positive Airway Pressure (ICD-10-PCS; 2023-09-19)
PROC: 0W9B3ZZ Drainage of Left Pleural Cavity, Percutaneous Approach (ICD-10-PCS; 2023-09-20)
PROC: 4A023N6 Measurement of Cardiac Sampling and Pressure, Right Heart, Percutaneous Approach (ICD-10-PCS; 2023-09-30)
DX: I13.0 Hypertensive heart and chronic kidney disease with heart failure and stage 1 through stage 4 chronic kidney disease, or unspecified chronic kidney disease (principal); I50.33 Acute on chronic diastolic (congestive) heart failure; J96.01 Acute respiratory failure with hypoxia; J69.0 Pneumonitis due to inhalation of food and vomit; I69.351 Hemiplegia and hemiparesis following cerebral infarction affecting right dominant side; N18.4 Chronic kidney disease, stage 4 (severe); N17.9 Acute kidney failure, unspecified; I45.2 Bifascicular block; J91.8 Pleural effusion in other conditions classified elsewhere; I25.10 Atherosclerotic heart disease of native coronary artery without angina pectoris; G20.A1 Parkinson's disease without dyskinesia, without mention of fluctuations; F32.9 Major depressive disorder, single episode, unspecified; F41.9 Anxiety disorder, unspecified; K21.9 Gastro-esophageal reflux disease without esophagitis; K22.70 Barrett's esophagus without dysplasia; D63.1 Anemia in chronic kidney disease; N32.81 Overactive bladder; Z66 Do not resuscitate; E78.00 Pure hypercholesterolemia, unspecified; J44.9 Chronic obstructive pulmonary disease, unspecified; G47.33 Obstructive sleep apnea (adult) (pediatric); E11.22 Type 2 diabetes mellitus with diabetic chronic kidney disease; E66.9 Obesity, unspecified; I65.22 Occlusion and stenosis of left carotid artery; E87.6 Hypokalemia; E83.42 Hypomagnesemia; E88.09 Other disorders of plasma-protein metabolism, not elsewhere classified; I5A Non-ischemic myocardial injury (non-traumatic); R13.10 Dysphagia, unspecified; K59.00 Constipation, unspecified; E03.9 Hypothyroidism, unspecified; E11.51 Type 2 diabetes mellitus with diabetic peripheral angiopathy without gangrene; G89.29 Other chronic pain; I48.91 Unspecified atrial fibrillation; M81.0 Age-related osteoporosis without current pathological fracture; Z68.28 Body mass index [BMI] 28.0-28.9, adult; Z79.02 Long term (current) use of antithrombotics/antiplatelets; Z79.4 Long term (current) use of insulin; Z79.82 Long term (current) use of aspirin; Z79.899 Other long term (current) drug therapy; Z87.440 Personal history of urinary (tract) infections; Z95.5 Presence of coronary angioplasty implant and graft; Z99.3 Dependence on wheelchair
CPT/HCPCS: 88305; 32555; 36600; 71045; 71046; 71250; 74230; 76770; 80048; 80053; 81003; 81015; 81099; 82570; 82728; 82805; 82962; 83036; 83516; 83540; 83550; 83615; 83735; 83880; 84145; 84155; 84156; 84157; 84165; 84300; 84443; 84484; 85014; 85018; 85025; 85027; 85610; 85730; 86038; 86160; 86850; 86900; 86901; 87015; 87040; 87070; 87077; 87086; 87186; 87205; 88112; 88341; 88342; 89051; 92526; 92610; 92611; 93005; 93307; 93654; 93971; 94640; 94660; 96374; 97110; 97163; 97166; 97530; 97535; 99285; C1894; J2260; Q9957